=== PATIENT | female | born 1940 | race Caucasian/White ===

== ENCOUNTER 2017-09-27 18:39 | Emergency (ER) | payer MEDICARE, SELFPAY ==
[2017-09-27 18:40] VITALS: BP 103/88; PULSE 60; RESP 18; TEMP 36.3; O2SAT 99; BMI 23.8
[2017-09-27] MEDS: Ondansetron 4 MG/2 ML Vial IV (19:07)
--- NOTE | 2017-09-27 20:18 | RAD_ITS ---
STUDY: X-RAY - RIGHT SHOULDER REASON FOR EXAM: Female, 77 years old. Pain after fall. TECHNIQUE: 2 view(s) of the shoulder. COMPARISON: None. FINDINGS: There is a subluxation appearance of the glenohumeral articulation. There is degenerative arthrosis of the acromioclavicular joint without inferior osseous spur formation. Normal acromion. Comminuted fracture of the surgical neck of the humerus is present with angulation. The soft tissue structures are unremarkable. Normal visualized pulmonary apex. RAD/Shoulder min 2 Views IMPRESSION: Comminuted fracture of the surgical neck of the humerus with likely subluxed humeral head and glenohumeral joint, recommend orthopedic consultation for further assessment and management. Electronically Signed: Yordan Lyn DO at 22:27 EST , Service support ,
--- NOTE | 2017-09-27 20:33 | CT_ITS ---
STUDY: CT RIGHT SHOULDER REASON FOR EXAM: Female, 77 years old. Fracture RADIATION DOSAGE (If Supplied By Facility): CTDIvol = ( 24.58 ) mGy, DLP = ( 413.10 ) mGycm TECHNIQUE: The patient was scanned in a multi detector CT scanner. High resolution transaxial imaging was performed without the administration of intravenous contrast material. Sagittal and coronal images were reconstructed. Individualized dose optimization techniques were used for this CT. COMPARISON: None. FINDINGS: Normal glenohumeral articulation. Normal glenoid rim, neck and visualized scapula. There is a comminuted impacted fracture of the right humeral neck. Normal coracoid process. Normal visualized lateral clavicle. Normal acromioclavicular articulation. There is a Type II morphology (curved), with a neutral orientation. Normal visualized muscles and soft tissue structures. CT/Extremity Upper without Contra IMPRESSION: Comminuted impacted fracture of the right humeral neck. Electronically Signed: Jermaine Dc MD at 21:27 EST , Service support ,
[2017-09-27 20:39] VITALS: BP 106/60; PULSE 61; RESP 14; O2SAT 98
[2017-09-27] MEDS: HYDROmorphone 1 MG/ML Syringe 0.5 MG IV (20:41)
--- NOTE | 2017-09-27 21:59 | ED.VISSUMM ---
- ER Visit Summary Date of Service: 09/27/17 Chief Complaint: Right shoulder injury History of Present Illness: The patient is a 77 F who slipped and fell on the ice tonight. She states that she fell into her sliding glass door and her right shoulder hit the ground. No loss of consciousness. She states that the only place that she is hurting is the right shoulder. She is right-handed. Limited range of motion. Physical Examination: Afebrile vital signs are stable Gen: Well-nourished well-developed Head: Normocephalic atraumatic Eyes: Perrl EOMI ENT: TMs clear no rhinorrhea moist mucous membranes Neck: Supple no lymphadenopathy no JVD nontender CVS: Regular rate rhythm no murmurs normal S1-S2 Respiratory: No distress clear to auscultation bilaterally chest nontender Abdomen: Soft nontender nondistended normal bowel sounds no masses Back: Nontender Extremity: Right shoulder is tender to palpation with extremely limited range of motion. Sensation is preserved for the deltoid, ulnar median and radial nerves. Vascularly intact distally. Skin: Normal color no rash Neuro: alert orientated ?3 CN II-XII intact normal strength sensation reflexes gait cerebellar Psych: Normal affect normal mood Test Results: Shoulder films demonstrate an impacted comminuted proximal humerus fracture. CT of the shoulder was performed which does not demonstrate any dislocation. Noted fracture as the films demonstrated. Emergency Department Course and Treatment: Patient received morphine and Dilaudid for pain. Sling was recommended as was pain medicine at home. She is seeing Dr. Huffman in the past and would like to see him again for this injury. Patient will be prescribed oxycodone and return instructions and medication side effects were discussed including but not limited to constipation and confusion. Impression: 1. Right closed impacted comminuted proximal humerus fracture This note was generated with [employer] dictation software. It may contain incorrect words, spelling, and punctuation that were not noted in review of the chart prior to signing ED Disposition - Plan for ED Patient: Disposition: Home or Assisted Living Chief Complaint: Upper Extremity Injury Instructions: ED Fx Shoulder Prescriptions: Oxycodone [Oxyir] 5 - 10 mg PO Q6H PRN PRN 4 Days #20 tab PRN Reason: Pain Referrals: Rocío Chu DO [Primary Care Provider] - Maurice Aiken MD [STAFF PHYSICIAN] - (call in am to arrange follow up)
[2017-09-27] MEDS: oxyCODONE 5 MG Tablet PO (22:25)
[2017-09-27 22:26] VITALS: BP 145/63; PULSE 60; RESP 16; O2SAT 100
== END 2017-09-27 22:50 | disposition home or self-care (01) ==
PROVIDERS: Emergency Provider Emergency Medicine; Family Provider Internal Medicine; PCP Internal Medicine
DX: S42.211A Unspecified displaced fracture of surgical neck of right humerus, initial encounter for closed fracture (principal); W00.0XXA Fall on same level due to ice and snow, initial encounter; Y93.9 Activity, unspecified; Y92.009 Unspecified place in unspecified non-institutional (private) residence as the place of occurrence of the external cause; Z87.891 Personal history of nicotine dependence
CPT/HCPCS: 73030; 73200; 96374; 96375; 99285; A4216; J2405

== ENCOUNTER 2018-02-25 11:23 | Observation (INO) | payer MEDICARE, SELFPAY ==
[2018-02-25] VITALS (7 sets, daily range): BP systolic 123–151; BP diastolic 55–74; PULSE 57–72; RESP 14–17; TEMP 36.4–36.9; O2SAT 95–100; BMI 22.8; BMI 21.0; BMI 21.1
--- NOTE | 2018-02-25 11:49 | CT_ITS ---
STUDY: CT BRAIN WITHOUT CONTRAST REASON FOR EXAM: Female, 77 years old. Confusion. Fall. RADIATION DOSAGE (If Supplied By Facility): CTDIvol = ( 44.99 ) mGy, DLP = ( 1524.73 ) mGycm TECHNIQUE: Transaxial CT imaging of the brain was performed without administration of intravenous contrast material. Individualized dose optimization techniques were used for this CT. COMPARISON: None. FINDINGS: There is right periorbital soft tissue swelling. Normal calvarium. Normal size ventricles and extra-axial spaces for the patient's age. There are areas of decreased attenuation within the white matter tracts of the supratentorial brain, consistent with microvascular disease changes. Normal basal ganglia and thalami. Normal brainstem. Normal cerebellum. There is no intracranial hemorrhage. There are no findings of an acute ischemic infarction. Normal visualized paranasal sinuses. CT/Brain/Head without Contrast IMPRESSION: Chronic involutional changes of the brain. Electronically Signed: Matias Menard MD at 12:39 EDT , Service support ,
--- NOTE | 2018-02-25 11:58 | ED.VISSUMM ---
- ER Visit Summary Date of Service: 02/25/18 Chief Complaint: Fall History of Present Illness: The patient is a 77 F who presents after a fall that occurred today. Patient does not remember any of the events around the fall. states that patient tripped and fell forward. Patient did hit the right side of her head. Patient admits to loss of consciousness for a few minutes. Patient states the pain is worse over the right side of her head and right wrist. Patient states the pain is worse with movement of her right wrist. Patient denies any visual changes. Patient denies any chest pain. Patient denies any nausea or vomiting. Patient denies any paresthesias or weakness. Physical Examination: Vital signs are stable. Patient is afebrile. Patient is in no acute distress. Cranial nerves II through XII are intact. Strength is 5/5 bilateral in the upper and lower extremities. There are no sensory deficits noted. Musculoskeletal exam reveals tenderness over the right wrist. Range of motion was limited in all motions of the right wrist secondary to pain. Skin is warm and dry. There is an abrasion over the lateral aspect of the right foot. There is no active bleeding. There is no tenderness over the foot. There is edema and ecchymosis over the right periorbital area. There is no bony crepitance or step-off. Pupils are equal, round, and reactive to light bilateral. Extraocular muscles are intact. Conjunctiva is clear. Oral mucosa is pink and moist. Neck is supple. Trachea is midline. There is no JVD or lymphadenopathy noted. Heart was regular rate and rhythm. Lungs are clear and equal bilaterally. Patient is somewhat confused on exam. Patient is unable to remember her past medical history, past surgical history, medications, or allergies. Test Results: CBC, basic metabolic profile, PT with INR, and PTT were obtained and were within normal limits. CT scan of the brain was obtained. There is no acute intracranial abnormality noted. X-rays of the right wrist were obtained. There is a nondisplaced fracture of the radius and ulnar styloid. There is some mild dorsal angulation of the distal radius. Emergency Department Course and Treatment: Patient is still somewhat confused. Case was discussed with Dr. Cleary. She will admit the patient to her service. Case was also discussed with Dr. Swenson from orthopedics. He recommended placing the patient in an AP splint and he will follow-up with the patient in the office. Patient and family understood and were agreeable with the plan. All questions were answered. Disposition: Admit to hospital Impression: Concussion, right distal radius fracture This note was generated with [employer] dictation software. It may contain incorrect words, spelling, and punctuation that were not noted in review of the chart prior to signing ED Disposition - Plan for ED Patient: Disposition: Acute Care Hospital [facility] Chief Complaint: Fall Diagnosis: Concussion with < 1 hr loss of consciousness, Fracture of distal end of right radius and ulna Referrals: Rocío Chu DO [Primary Care Provider] -
[2018-02-25 12:04] LABS: Absolute Lymphocyte Count 1.05 X10^3/ul (0.83-4.51); Absolute Neutrophil Count 2.9 X10^3/uL (2.0-7.7); Basophil# 0.01 X10^3/uL; Basophil% 0.2 % (0-1); Eosinophil# 0.04 X10^3/uL; Eosinophils% 0.9 % (0-5); Hematocrit 40.2 % (37-47); Lymphocyte # 1.05 X10^3/ul (4.0); Lymphocyte % 24.8 % (19-41); Mean Corp Hgb Conc 32.3 g/gl (32-36); Mean Corpuscular Hgb 29.3 pg (27.0-32.0); Mean Corpuscular Volume 90.5 fL (81-99); Mean Platelet Vol. 8.8 fl (6.2-12.0); Monocyte# 0.22 X10^3/uL; Monocyte% 5.2 % (0-10); Neutrophil # 2.92 X10^3/uL (2.7-7.7); Neutrophil % 68.9 % (47-70); Partial Thromboplast Time 31.4 Seconds (24.1-36.2); Platelet Count 184 K/mm3 (150-450); RBC Distribution Width CV 13.3 % (11.6-14.6); RBC Distribution Width SD 44.1 fl (35.1-43.9); Red Blood Count 4.44 M/mm3 (4.2-5.4); White Blood Count 4.2 K/mm3 (4.4-11.0)
[2018-02-25 12:06] LABS: Anion Gap 9 (5-15); BUN 10 mg/dL (7-18); BUN/Creat Ratio 17.2 RATIO (10-20); Calcium,Total 8.7 mg/dL (8.5-10.1); Chloride 103 mmol/L (98-107); Creatinine, Serum 0.58 mg/dL (0.55-1.02); EST Glomerular Filtration Rate 107 mL/min (>60); Est Glom Filt Rate - Afr Amer 129 mL/min (>60); Estimated Creatinine Clearance 46.77 ml/min; Glucose 98 mg/dL (74-106); Sodium Level 141 mmol/L (136-145)
[2018-02-25 12:24] LABS: POSITIVE COUNT NO; POSITIVE DIFFERENTIAL NO; POSITIVE MORPHOLOGY NO
--- NOTE | 2018-02-25 12:28 | RAD_ITS ---
STUDY: X-RAY - RIGHT WRIST REASON FOR EXAM: Female, 77 years old. Fall. Swelling. TECHNIQUE: 3 view(s) of the wrist were obtained. COMPARISON: None. FINDINGS: There is demineralization of the radius and ulna. Distal radius fracture with dorsal angulation. Nondisplaced ulnar styloid fracture. Normal radiocarpal articulation. Normal distal radioulnar articulation. There is demineralization of the carpal bones. Normal carpal articulations. Normal carpometacarpal articulation of the thumb. Normal second through fifth carpometacarpal articulations. Normal visualized metacarpal bones. The soft tissue structures are unremarkable. RAD/Wrist min 3 Views IMPRESSION: Distal radius and ulna styloid fractures. Electronically Signed: Matias Menard MD at 13:22 EDT , Service support ,
[2018-02-25] MEDS: Diphth,Pertuss(Acell),Tet Vac 0.5 ML Vial IM (13:22)
--- NOTE | 2018-02-25 13:49 | PCM.HP.STD ---
Problem List (1) Syncope Status: Acute Qualifiers: Encounter type: initial encounter (2) Wrist fracture Status: Acute Qualifiers: Encounter type: initial encounter Fracture type: closed Laterality: right Qualified Code(s): S62.101A - Fracture of unspecified carpal bone, right wrist, initial encounter for closed fracture History of Present Illness Date of Admission: 02/25/18 Chief Complaint: Fall, Questionable syncope- today The patient is a 77 year old F with no significant past medical history, who was having coffee in [facility] with her . She got up to go slat pickler something from their car. Her waited for her for a while and when she was not coming back he followed up. He found her sitting on the curbside with people around him. Patient has no recollection of what happened prior to that. She knows she was feeling well the morning. Since admission to the ED she has been repeatedly asked in what happened. She was said to be oriented only to person according to the EMS. Her blood sugar was 95. She was saturating 97% on room air. Vitals in the ED was stable with temperature 97.6 F, blood pressure 129/70, respiratory rate of 17, his PO2 was 99% on room air. Admitting blood work was essentially unremarkable except for mild neutropenia. CT scan of the brain showed chronic ambulatory changes of the brain, right periorbital soft tissue swelling. X-ray of the wrist shows distal radial fracture with dorsal angulation as well as nondisplaced ulnar styloid fracture Past Medical History Allergies iodine Allergy (Verified 02/25/18 11:24) Hives aspirin Adverse Reaction (Verified 02/25/18 11:24) Upset Stomach Home Medications: Ambulatory Orders Medication Instructions Recorded Calcium 1 tab DAILY 09/27/17 One Daily Womens 50 Plus Tab 1 tab DAILY 09/27/17 Vitamin B Complex 1 tab DAILY 09/27/17 Vitamin C 1 tab DAILY 09/27/17 Vitamin D 1 tab PO DAILY 09/27/17 Vitamin E 1 tab DAILY 09/27/17 Surgical History: no surgical history Psychiatric History: No pertinent psych hx 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 Lives: Spouse/ Significant Other Smoking Status: Former smoker Tobacco Use: Non-smoker Alcohol: None Drugs: None - *Family History Maternal History Items: Unknown - was an orphan Paternal History Items: Unknown - was an orphan Review of Systems Constitutional: Denies: Anorexia, Chills, Fever, Malaise, Weakness, Weight Change Eyes: Denies: Blurred vision, Cataracts, Conjunctivae Inflammation, Pain, Redness, Vision Change HEENT: Denies: Difficulty Hearing, Difficulty Swallowing, Head Aches, Hearing Changes, Sinus Congestion, Sinus Drainage, Sore Throat Cardiovascular: Denies: Chest Pain, Claudication, Chest Pressure, Chest Tightness, Orthopnea, Palpitations, Paroxysmal Noc. Dyspnea Respiratory: Denies: Cough, Hemoptysis, Shortness of breath at rest, Shortness of breath upon exertion, Sputum production Gastrointestinal: Denies: Abdominal Pain, Constipation, Hematemesis, Hematochezia, Nausea, Vomiting Genitourinary: Denies: Dysuria, Frequency, Incontinence Musculoskeletal: Denies: Arm Pain, Back Pain, Joint Pain, Joint stiffness, Joint swelling, Joint Tenderness Skin: Denies: Rash, Wounds Neurological: Denies: Numbness, Tingling, Focal weakness Psychiatric: Denies: Anxiety, Depression, Homicidal Ideations, Suicidal Ideations Hematologic/ Lymphatic: Denies: Easy Bruising, Easy Bleeding VTE Information - Inpt Only VTE Present on Admission: No VTE Pharm Prophylaxis ordered?: Yes Patient Problems: Active and Suspected Problems Syncope (Acute) Wrist fracture (Acute) - Physical Exam General: Alert - intermittently, Cooperative, Confused HEENT: Atraumatic, PERRLA, EOMI, Normocephalic, - - right periorbital edema with bruising over the orbital ridge, maxillary region Oral: Moist Mucosa Neck: Supple, No JVD, Negative Carotid Bruits Lungs: Clear to auscultation, Normal air movement Cardiovascular: Regular rate, Regular Rhythm, Normal S1, Normal S2, No murmurs Abdomen: Bowel Sounds Present, Soft, Non Tender, Non-Distended, No Hepato-splenomegaly Extremities: No edema Skin: No breakdown Musculoskeletal: No Tenderness to Palpation of Joints or Extremities Lymphatic: No Cervical, Supraclavicular, or Inguinal Adenopathy Neurological: Cranial nerves II-XII grossly intact, Neuro grossly intact Psych/Mental Status: Normal Affect, Appropriate Vital Signs Temp Pulse Resp BP Pulse Ox 97.6 F L 66 17 129/70 H 99 02/25/18 11:25 02/25/18 11:25 02/25/18 11:25 02/25/18 11:25 02/25/18 11:25 Oxygen Delivery Method Room Air Weight: 68.039 kg Body Mass Index (BMI) 22.8 Laboratory Tests Past 24 Hrs 02/25/18 02/25/18 02/25/18 11:35 11:35 11:35 WBC 4.2 L RBC 4.44 Hgb 13.0 Hct 40.2 MCV 90.5 MCH 29.3 MCHC 32.3 RDW 13.3 RDW Differential 44.1 H Plt Count 184 MPV 8.8 Immature Gran % (Auto) 0.000 Neut % (Auto) 68.9 Lymph % (Auto) 24.8 [place] % (Auto) 5.2 Eos % (Auto) 0.9 Baso % (Auto) 0.2 Absolute Neuts (auto) 2.9 Absolute Lymphs (auto) 1.05 Total Counted Not Reportable PT 13.0 INR 1.0 APTT 31.4 Sodium 141 Potassium 4.0 Chloride 103 Carbon Dioxide 29.0 Anion Gap 9 BUN 10 Creatinine 0.58 Estim Creat Clear Calc 46.77 Est GFR (MDRD) Af Amer 129 Est GFR (MDRD) Non-Af 107 BUN/Creatinine Ratio 17.2 Glucose 98 Calcium 8.7 Assessment/Plan All Active Problems Syncope (Acute) Wrist fracture (Acute) 77 year old F with no significant past medical history, who was having coffee in [facility] with her , when she got up to go slat pickler something from their car and fell and had ?syncope. 1. Fall/?syncope, unclear etiology, no significant medical history, normal vitals on arrival. Unremarkable blood work. Plan: Admit to PCU, EKG, 2D echo, orthostatic vitals, trend troponins, 2. Possible concussion, patient has a memory lapse, CT scan of the brain is negative, will consult neurology. 3. Right wrist fracture, x-ray of wrist showed right distal radial fracture with dorsal angulation, nondisplaced ulnar styloid fracture 4. DVT PPx- Lovenox SC Code Visit Inpatient E&M: 60434 Init Hosp L3
--- NOTE | 2018-02-25 14:05 | HP.PCM_ITS ---
Problem List (1) Syncope Status: Acute Qualifiers: Encounter type: initial encounter (2) Wrist fracture Status: Acute Qualifiers: Encounter type: initial encounter Fracture type: closed Laterality: right Qualified Code(s): S62.101A - Fracture of unspecified carpal bone, right wrist, initial encounter for closed fracture History of Present Illness Date of Admission: 02/25/18 Chief Complaint: Fall, Questionable syncope- today The patient is a 77 year old F with no significant past medical history, who was having coffee in [facility] with her . She got up to go last picker something from their car. Her waited for her for a while and when she was not coming back he followed up. He found her sitting on the curbside with people around him. Patient has no recollection of what happened prior to that. She knows she was feeling well the morning. Since admission to the ED she has been repeatedly asked in what happened. She was said to be oriented only to person according to the EMS. Her blood sugar was 95. She was saturating 97% on room air. Vitals in the ED was stable with temperature 97.6 F, blood pressure 129/70, respiratory rate of 17, his PO2 was 99% on room air. Admitting blood work was essentially unremarkable except for mild neutropenia. CT scan of the brain showed chronic ambulatory changes of the brain, right periorbital soft tissue swelling. X-ray of the wrist shows distal radial fracture with dorsal angulation as well as nondisplaced ulnar styloid fracture Past Medical History Allergies iodine Allergy (Verified 02/25/18 11:24) Hives aspirin Adverse Reaction (Verified 02/25/18 11:24) Upset Stomach Home Medications: Ambulatory Orders Medication Instructions Recorded Calcium 1 tab DAILY 09/27/17 One Daily Womens 50 Plus Tab 1 tab DAILY 09/27/17 Vitamin B Complex 1 tab DAILY 09/27/17 Vitamin C 1 tab DAILY 09/27/17 Vitamin D 1 tab PO DAILY 09/27/17 Vitamin E 1 tab DAILY 09/27/17 Surgical History: no surgical history Psychiatric History: No pertinent psych hx 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 Lives: Spouse/ Significant Other Smoking Status: Former smoker Tobacco Use: Non-smoker Alcohol: None Drugs: None - *Family History Maternal History Items: Unknown - was an orphan Paternal History Items: Unknown - was an orphan Review of Systems Constitutional: Denies: Anorexia, Chills, Fever, Malaise, Weakness, Weight Change Eyes: Denies: Blurred vision, Cataracts, Conjunctivae Inflammation, Pain, Redness, Vision Change HEENT: Denies: Difficulty Hearing, Difficulty Swallowing, Head Aches, Hearing Changes, Sinus Congestion, Sinus Drainage, Sore Throat Cardiovascular: Denies: Chest Pain, Claudication, Chest Pressure, Chest Tightness, Orthopnea, Palpitations, Paroxysmal Noc. Dyspnea Respiratory: Denies: Cough, Hemoptysis, Shortness of breath at rest, Shortness of breath upon exertion, Sputum production Gastrointestinal: Denies: Abdominal Pain, Constipation, Hematemesis, Hematochezia, Nausea, Vomiting Genitourinary: Denies: Dysuria, Frequency, Incontinence Musculoskeletal: Denies: Arm Pain, Back Pain, Joint Pain, Joint stiffness, Joint swelling, Joint Tenderness Skin: Denies: Rash, Wounds Neurological: Denies: Numbness, Tingling, Focal weakness Psychiatric: Denies: Anxiety, Depression, Homicidal Ideations, Suicidal Ideations Hematologic/ Lymphatic: Denies: Easy Bruising, Easy Bleeding VTE Information - Inpt Only VTE Present on Admission: No VTE Pharm Prophylaxis ordered?: Yes Patient Problems: Active and Suspected Problems Syncope (Acute) Wrist fracture (Acute) - Physical Exam General: Alert - intermittently, Cooperative, Confused HEENT: Atraumatic, PERRLA, EOMI, Normocephalic, - - right periorbital edema with bruising over the orbital ridge, maxillary region Oral: Moist Mucosa Neck: Supple, No JVD, Negative Carotid Bruits Lungs: Clear to auscultation, Normal air movement Cardiovascular: Regular rate, Regular Rhythm, Normal S1, Normal S2, No murmurs Abdomen: Bowel Sounds Present, Soft, Non Tender, Non-Distended, No Hepato- splenomegaly Extremities: No edema Skin: No breakdown Musculoskeletal: No Tenderness to Palpation of Joints or Extremities Lymphatic: No Cervical, Supraclavicular, or Inguinal Adenopathy Neurological: Cranial nerves II-XII grossly intact, Neuro grossly intact Psych/Mental Status: Normal Affect, Appropriate Vital Signs Temp Pulse Resp BP Pulse Ox 97.6 F L 66 17 129/70 H 99 02/25/18 11:25 02/25/18 11:25 02/25/18 11:25 02/25/18 11:25 02/25/18 11:25 Oxygen Delivery Method Room Air Weight: 68.039 kg Body Mass Index (BMI) 22.8 Laboratory Tests Past 24 Hrs 02/25/18 02/25/18 02/25/18 11:35 11:35 11:35 WBC 4.2 L RBC 4.44 Hgb 13.0 Hct 40.2 MCV 90.5 MCH 29.3 MCHC 32.3 RDW 13.3 RDW Differential 44.1 H Plt Count 184 MPV 8.8 Immature Gran % (Auto) 0.000 Neut % (Auto) 68.9 Lymph % (Auto) 24.8 [place] % (Auto) 5.2 Eos % (Auto) 0.9 Baso % (Auto) 0.2 Absolute Neuts (auto) 2.9 Absolute Lymphs (auto) 1.05 Total Counted Not Reportable PT 13.0 INR 1.0 APTT 31.4 Sodium 141 Potassium 4.0 Chloride 103 Carbon Dioxide 29.0 Anion Gap 9 BUN 10 Creatinine 0.58 Estim Creat Clear Calc 46.77 Est GFR (MDRD) Af Amer 129 Est GFR (MDRD) Non-Af 107 BUN/Creatinine Ratio 17.2 Glucose 98 Calcium 8.7 Assessment/Plan All Active Problems Syncope (Acute) Wrist fracture (Acute) 77 year old F with no significant past medical history, who was having coffee in [facility] with her , when she got up to go last picker something from their car and fell and had ?syncope. 1. Fall/?syncope, unclear etiology, no significant medical history, normal vitals on arrival. Unremarkable blood work. Plan: Admit to PCU, EKG, 2D echo, orthostatic vitals, trend troponins, 2. Possible concussion, patient has a memory lapse, CT scan of the brain is negative, will consult neurology. 3. Right wrist fracture, x-ray of wrist showed right distal radial fracture with dorsal angulation, nondisplaced ulnar styloid fracture 4. DVT PPx- Lovenox SC Code Visit Inpatient E&M: 36917 Init Hosp L3
--- NOTE | 2018-02-25 14:40 | CM.ED ---
Social Work Note Into complete initial assessment as pt is to be admitted. Introduced self and role at [facility]. Pt is accompanied by her spouse, Maurice. Reports to live with her spouse in a one-story home with 2 MAUREEN. Denies access issues, and does not have DME. Pt reports to be independent with ADL's. According to the pt she does not remember what happened. Per Maurice they were at [facility] and the pt went to the car to retrieve an item and he believes that she tripped on the curb on her way back in and hit her head. Pt unable to confirm PCP at this time, but states it is no longer Dr. Chu. Preferred pharmacy is [facility]. Reports to have advanced directives completed and spouse to bring in to hospital during hospitalization for the medical chart. No hx of HHC or SNF and no anticipated needs at this time. RN DANELLE on assigned unit to follow and assist with discharge planning. Plan: PANDA Parker, PAPER SEALER, BLEACH CHLORINATOR
[2018-02-25] MEDS: Acetaminophen 500 MG Tablet PO (14:43)
--- NOTE | 2018-02-25 14:54 | EKG12_ITS ---
Test Reason : Blood Pressure : / mmHG Vent. Rate : 059 BPM Atrial Rate : 059 BPM P-R Int : 164 ms QRS Dur : 074 ms QT Int : 460 ms P-R-T Axes : 053 068 082 degrees QTc Int : 455 ms Sinus bradycardia Otherwise normal ECG When compared with ECG of 29-JUN-2017 01:11, No significant change was found Confirmed by ROSA KEITH, CHAYO ([id number]), department editor SANDRA MANCILLA ([id number] on 03/01/2018 3:05:45 PM Referred By: SAMIA Confirmed By:CHAYO LEE MD
--- NOTE | 2018-02-25 14:54 | ECHOD_ITS ---
Reason For Study: Syncope Procedure This was a 2D Doppler, Color Flow transthoracic echocardiogram. Exam performed portable in patient room. Left Ventricle Normal LV size. Left ventricular systolic function is normal. The estimated ejection fraction is 60 %. No evidence for diastolic dysfunction. No regional wall motion abnormalities noted. Right Ventricle Normal RV size. Normal systolic function. Atria Normal left atrium. Normal right atrium. Mitral Valve Normal mitral valve. Mild (1+) eccentric mitral valve insufficiency. Tricuspid Valve Normal tricuspid valve. Mild (1+) eccentric tricuspid valve insufficiency. Pulmonary artery systolic pressure is 42 mmHg. Pulmonic Valve Normal pulmonic valve. Great Vessels Normal aortic root. The pulmonary artery is normal size. Normal inferior vena cava. Pericardium/Pleural No pericardial effusion. Medication Performed a rapid injection of agitated mix of 9 cc saline and 1cc air to assess for atrial septal defect. MMode/2D Measurements & Calculations LVIDd: 3.8 cm IVSd: 1.1 cm LVOT diam: 2.0 cm LVIDs: 2.4 cm LVPWd: 0.90 cm LVOT area: 3.1 cm2 RVDd: 3.6 cm FS: 38.1 % Ao root diam: 2.8 cm LAV(MOD-bp): 36.5 ml LA A4 area: 17.3 cm2 LA dimension: 3.1 cm LAV(MOD-bp) Indexed: 20.2 ml/m2 LAV(MOD-sp2): 28.4 ml LAV(MOD-sp4): 42.3 ml RA A4 area: 16.9 cm2 Time Measurements MV dec time: 0.23 sec Doppler Measurements & Calculations MV E max dajuan: 93.8 cm/sec Lat Peak E' Dajuan: 12.8 cm/sec Med Peak E' Dajuan: 14.7 cm/sec MV A max dajuan: 63.1 cm/sec E/E' lat: 7.3 E/E' med: 6.4 MV E/A: 1.5 MV V2 max: 113.6 cm/sec MV P1/2t max dajuan: 116.5 cm/sec Ao V2 max: 184.2 cm/sec MV max P.2 mmHg MV P1/2t: 114.9 msec Ao max P.6 mmHg MV V2 mean: 56.9 cm/sec MV dec slope: 297.2 cm/sec2 Ao V2 mean: 115.3 cm/sec MV mean P.6 mmHg MVA(P1/2t): 1.9 cm2 Ao mean P.1 mmHg MV V2 VTI: 33.4 cm Ao V2 VTI: 40.3 cm MVA(VTI): 2.0 cm2 ANTONIETA(I,D): 1.6 cm2 ANTONIETA(V,D): 1.5 cm2 LV V1 max: 88.4 cm/sec SV(LVOT): 65.6 ml PA V2 max: 136.8 cm/sec LV V1 max P.1 mmHg LV V1 mean P.5 mmHg LV V1 mean: 56.2 cm/sec LV V1 VTI: 21.3 cm TR max dajuan: 310.6 cm/sec TR max P.6 mmHg Interpretation Summary Normal LV size. Left ventricular systolic function is normal. The estimated ejection fraction is 60 %. No evidence for diastolic dysfunction. Mild (1+) eccentric tricuspid valve insufficiency. Mild (1+) eccentric mitral valve insufficiency. Ordering Physician: Colette Cleary Referring Physician: Rocío Chu Performed By: Manav Gonzáles RCS
[2018-02-25] MEDS: Acetaminophen 500 MG Tablet 1000 MG PO (17:41)
[2018-02-25] MEDS: Zolpidem Tartrate 5 MG Tablet PO (22:03)
[2018-02-25] MEDS: Morphine 2 MG/ML Syringe IV (22:03)
[2018-02-25] MEDS: 0.9% NaCl Peripheral Flush Adult/Peds IV (22:04)
[2018-02-26] VITALS (13 sets, daily range): BP systolic 98–128; BP diastolic 49–88; PULSE 56–76; RESP 14–16; TEMP 36.8–37.2; O2SAT 93–96
[2018-02-26] MEDS: Acetaminophen 500 MG Tablet 1000 MG PO ×2 (06:02→13:35)
[2018-02-26 06:49] LABS: Absolute Lymphocyte Count 0.93 X10^3/ul (0.83-4.51); Absolute Neutrophil Count 4.8 X10^3/uL (2.0-7.7); Basophil# 0.02 X10^3/uL; Basophil% 0.3 % (0-1); Eosinophil# 0.05 X10^3/uL; Eosinophils% 0.8 % (0-5); Hematocrit 36.9 % (37-47); Hemoglobin 12.1 g/dl (12.0-15.0); Lymphocyte # 0.93 X10^3/ul (4.0); Lymphocyte % 14.9 % (19-41); Mean Corp Hgb Conc 32.8 g/gl (32-36); Mean Corpuscular Hgb 29.7 pg (27.0-32.0); Mean Corpuscular Volume 90.7 fL (81-99); Mean Platelet Vol. 8.6 fl (6.2-12.0); Monocyte% 6.4 % (0-10); Neutrophil # 4.84 X10^3/uL (2.7-7.7); Neutrophil % 77.6 % (47-70); Platelet Count 163 K/mm3 (150-450); RBC Distribution Width CV 13.4 % (11.6-14.6); RBC Distribution Width SD 44.4 fl (35.1-43.9); Red Blood Count 4.07 M/mm3 (4.2-5.4); White Blood Count 6.2 K/mm3 (4.4-11.0)
[2018-02-26] MEDS: 0.9% Normal Saline 1,000 ML 100 ML IV ×3 (06:55→21:31)
[2018-02-26 07:19] LABS: Anion Gap 6 (5-15); BUN 10 mg/dL (7-18); BUN/Creat Ratio 18.1 RATIO (10-20); Calcium,Total 8.4 mg/dL (8.5-10.1); Chloride 105 mmol/L (98-107); Creatinine, Serum 0.55 mg/dL (0.55-1.02); EST Glomerular Filtration Rate 112 mL/min (>60); Est Glom Filt Rate - Afr Amer 136 mL/min (>60); Estimated Creatinine Clearance 46.02 ml/min; Glucose 89 mg/dL (74-106); POSITIVE COUNT NO; POSITIVE DIFFERENTIAL NO; POSITIVE MORPHOLOGY NO; Potassium 3.9 mmol/L (3.5-5.1); Sodium Level 140 mmol/L (136-145)
[2018-02-26] MEDS: Enoxaparin 40 MG/0.4 ML Syringe SC (09:34)
--- NOTE | 2018-02-26 11:16 | PCM.PN.HOSP ---
Patient Problems: Active and Suspected Problems Syncope (Acute) Wrist fracture (Acute) Concussion with < 1 hr loss of consciousness (Acute) Fracture of distal end of right radius and ulna (Acute) Subjective: Patient was seen and examined. Complains of headache. Tylenol given is not helping. Denies fever or chills. She is alert oriented ?5. Orthostatic hypotension are positive. Vitals/I&O's: Vital Signs Temp Pulse Resp BP Pulse Ox 98.7 F 64 16 102/61 94 02/26/18 08:55 02/26/18 08:55 02/26/18 08:55 02/26/18 08:55 02/26/18 08:55 Oxygen Delivery Method Room Air Weight: 62.868 kg Body Mass Index (BMI) 21.0 Orthostatic Vital Signs Start: 02/25/18 15:22 Freq: q24h Status: Active Protocol: Activity Type Activity Date Activity User E-Sign Co-Sign Detail Recorded Client Recorded Date Recorded By Document 02/26/18 05:55 CAD [id number] 02/26/18 06:01 CAD 02/26/18 05:55 Orthostatic Vitals Standing -Blood Pressure (90/60-120/80 mm Hg) 116/55 L -Extremity Use Right Arm -Pulse Rate (60-100 beats/min) 76 Sitting -Blood Pressure (90/60-120/80 mm Hg) 113/88 H -Extremity Use Right Arm -Pulse Rate (60-100 beats/min) 65 Lying -Blood Pressure (90/60-120/80 mm Hg) 98/54 L -Extremity Use Left Arm -Pulse Rate (60-100 beats/min) 61 Intake and Output for Last 24 Hours 02/24/18 02/25/18 02/26/18 23:59 23:59 23:59 Intake Total 100 / 100 180 / 180 Balance 100 / 100 180 / 180 General: Alert, Oriented x3, Cooperative, No apparent distress HEENT: Atraumatic, PERRLA, EOMI, Normocephalic Oral: Moist Mucosa Neck: Supple Lungs: Clear to auscultation, Normal air movement Cardiovascular: Regular rate, Regular Rhythm, Normal S1, Normal S2, No murmurs Abdomen: Bowel Sounds Present, Soft, Non Tender, Non-Distended, No Hepato-splenomegaly Extremities: No edema Skin: No rashes, No breakdown Musculoskeletal: No Tenderness to Palpation of Joints or Extremities Lymphatic: No Cervical, Supraclavicular, or Inguinal Adenopathy Neurological: Cranial nerves II-XII grossly intact, Neuro grossly intact Psych/Mental Status: Normal Affect, Appropriate Laboratory Results 02/25/18 17:38: Troponin I < 0.015 02/25/18 20:48: Troponin I < 0.015 02/25/18 22:46: Troponin I < 0.015 02/26/18 06:25: WBC 6.2, RBC 4.07 L, Hgb 12.1, Hct 36.9 L, MCV 90.7, MCH 29.7, MCHC 32.8, RDW 13.4, RDW Differential 44.4 H, Plt Count 163, MPV 8.6, Immature Gran % (Auto) 0.000, Neut % (Auto) 77.6 H, Lymph % (Auto) 14.9 L, [place] % (Auto) 6.4, Eos % (Auto) 0.8, Baso % (Auto) 0.3, Absolute Neuts (auto) 4.8, Absolute Lymphs (auto) 0.93, Total Counted Not Reportable 02/26/18 06:25: Sodium 140, Potassium 3.9, Chloride 105, Carbon Dioxide 29.0, Anion Gap 6, BUN 10, Creatinine 0.55, Estim Creat Clear Calc 46.02, Est GFR (MDRD) Af Amer 136, Est GFR (MDRD) Non-Af 112, BUN/Creatinine Ratio 18.1, Glucose 89, Calcium 8.4 L Current Medications Acetaminophen (Tylenol) 1,000 mg PO TID [facility] Last Admin: 02/26/18 06:02 Dose: 1,000 mg Bisacodyl (Dulcolax) 5 mg PO DAILY PRN PRN PRN Reason: Constipation Enoxaparin Sodium (Lovenox) 40 mg SC DAILY@1000 [facility] Last Admin: 02/26/18 09:34 Dose: 40 mg Sodium Chloride () 1,000 mls @ 100 mls/hr IV .Q10H [facility] Last Admin: 02/26/18 06:55 Dose: 100 mls/hr Magnesium Hydroxide (Milk Of Magnesia) 30 ml PO DAILY PRN PRN PRN Reason: Constipation Morphine Sulfate () 2 - 4 mg IV Q4H PRN PRN PRN Reason: SEVERE PAIN (6-10/10) Morphine Sulfate () 2 - 4 mg IV Q4H PRN PRN PRN Reason: SEVERE PAIN (6-10/10) Last Admin: 02/25/18 22:03 Dose: 2 mg Ondansetron HCl (Zofran) 4 mg IV Q8H PRN PRN PRN Reason: NAUSEA Psyllium Hydrophilic Mucilloid (Metamucil) 1 packet PO DAILY PRN PRN PRN Reason: CONSTIPATION Sodium Chloride () 5 - 30 ml IV UD PRN PRN Reason: SALINE FLUSH Last Admin: 02/25/18 22:04 Dose: 10 ml Zolpidem Tartrate (Ambien (Generic)) 5 mg PO QHS PRN PRN PRN Reason: SLEEPING AID Last Admin: 02/25/18 22:03 Dose: 5 mg Medical Necessity - Tobacco Use Smoking Status: Former smoker Tobacco Use: Non-smoker Assessment/Plan All Active Problems Syncope (Acute) Wrist fracture (Acute) Concussion with < 1 hr loss of consciousness (Acute) Fracture of distal end of right radius and ulna (Acute) 77 year old F with no significant past medical history, who was having coffee in [facility] with her , when 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 1. Fall/?syncope, likely related to orthostatic hypotension, no significant medical history, orthostatic vitals are positive this morning 2D echo is normal, EKG shows normal sinus rhythm, no acute ST-T changes, no events seen on telemetry overnight Plan: We will hydrate patient, 2 50 cc bolus ?1, continue on 100 cc an hour, encourage patient to take liberal fluids, repeat orthostatic vitals later 2. Possible concussion, patient has a memory lapse, CT scan of the brain is negative, neurology consulted. 3. Right wrist fracture, x-ray of wrist showed right distal radial fracture with dorsal angulation, nondisplaced ulnar styloid fracture, status post splint, patient will follow up with orthopedics in the outpatient. 4. DVT PPx- Lovenox SC Code Visit Inpatient E&M: 72092 Subs Hosp L2
--- NOTE | 2018-02-26 11:23 | PN_ITS ---
Patient Problems: Active and Suspected Problems Syncope (Acute) Wrist fracture (Acute) Concussion with < 1 hr loss of consciousness (Acute) Fracture of distal end of right radius and ulna (Acute) Subjective: Patient was seen and examined. Complains of headache. Tylenol given is not helping. Denies fever or chills. She is alert oriented ?5. Orthostatic hypotension are positive. Vitals/I&O's: Vital Signs Temp Pulse Resp BP Pulse Ox 98.7 F 64 16 102/61 94 02/26/18 08:55 02/26/18 08:55 02/26/18 08:55 02/26/18 08:55 02/26/18 08:55 Oxygen Delivery Method Room Air Weight: 62.868 kg Body Mass Index (BMI) 21.0 Orthostatic Vital Signs Start: 02/25/18 15:22 Freq: q24h Status: Active Protocol: Activity Type Activity Date Activity User E-Sign Co-Sign Detail Recorded Client Recorded Date Recorded By Document 02/26/18 05:55 CAD [id number] 02/26/18 06:01 CAD 02/26/18 05:55 Orthostatic Vitals Standing -Blood Pressure (90/60-120/80 mm Hg) 116/55 L -Extremity Use Right Arm -Pulse Rate (60-100 beats/min) 76 Sitting -Blood Pressure (90/60-120/80 mm Hg) 113/88 H -Extremity Use Right Arm -Pulse Rate (60-100 beats/min) 65 Lying -Blood Pressure (90/60-120/80 mm Hg) 98/54 L -Extremity Use Left Arm -Pulse Rate (60-100 beats/min) 61 Intake and Output for Last 24 Hours 02/24/18 02/25/18 02/26/18 23:59 23:59 23:59 Intake Total 100 / 100 180 / 180 Balance 100 / 100 180 / 180 General: Alert, Oriented x3, Cooperative, No apparent distress HEENT: Atraumatic, PERRLA, EOMI, Normocephalic Oral: Moist Mucosa Neck: Supple Lungs: Clear to auscultation, Normal air movement Cardiovascular: Regular rate, Regular Rhythm, Normal S1, Normal S2, No murmurs Abdomen: Bowel Sounds Present, Soft, Non Tender, Non-Distended, No Hepato- splenomegaly Extremities: No edema Skin: No rashes, No breakdown Musculoskeletal: No Tenderness to Palpation of Joints or Extremities Lymphatic: No Cervical, Supraclavicular, or Inguinal Adenopathy Neurological: Cranial nerves II-XII grossly intact, Neuro grossly intact Psych/Mental Status: Normal Affect, Appropriate Laboratory Results 02/25/18 17:38: Troponin I < 0.015 02/25/18 20:48: Troponin I < 0.015 02/25/18 22:46: Troponin I < 0.015 02/26/18 06:25: WBC 6.2, RBC 4.07 L, Hgb 12.1, Hct 36.9 L, MCV 90.7, MCH 29.7, MCHC 32.8, RDW 13.4, RDW Differential 44.4 H, Plt Count 163, MPV 8.6, Immature Gran % (Auto) 0.000, Neut % (Auto) 77.6 H, Lymph % (Auto) 14.9 L, [place] % (Auto) 6.4, Eos % (Auto) 0.8, Baso % (Auto) 0.3, Absolute Neuts (auto) 4.8, Absolute Lymphs (auto) 0.93, Total Counted Not Reportable 02/26/18 06:25: Sodium 140, Potassium 3.9, Chloride 105, Carbon Dioxide 29.0, Anion Gap 6, BUN 10, Creatinine 0.55, Estim Creat Clear Calc 46.02, Est GFR ( MDRD) Af Amer 136, Est GFR (MDRD) Non-Af 112, BUN/Creatinine Ratio 18.1, Glucose 89, Calcium 8.4 L Current Medications Acetaminophen (Tylenol) 1,000 mg PO TID [facility] Last Admin: 02/26/18 06:02 Dose: 1,000 mg Bisacodyl (Dulcolax) 5 mg PO DAILY PRN PRN PRN Reason: Constipation Enoxaparin Sodium (Lovenox) 40 mg SC DAILY@1000 [facility] Last Admin: 02/26/18 09:34 Dose: 40 mg Sodium Chloride () 1,000 mls @ 100 mls/hr IV .Q10H [facility] Last Admin: 02/26/18 06:55 Dose: 100 mls/hr Magnesium Hydroxide (Milk Of Magnesia) 30 ml PO DAILY PRN PRN PRN Reason: Constipation Morphine Sulfate () 2 - 4 mg IV Q4H PRN PRN PRN Reason: SEVERE PAIN (6-10/10) Morphine Sulfate () 2 - 4 mg IV Q4H PRN PRN PRN Reason: SEVERE PAIN (6-10/10) Last Admin: 02/25/18 22:03 Dose: 2 mg Ondansetron HCl (Zofran) 4 mg IV Q8H PRN PRN PRN Reason: NAUSEA Psyllium Hydrophilic Mucilloid (Metamucil) 1 packet PO DAILY PRN PRN PRN Reason: CONSTIPATION Sodium Chloride () 5 - 30 ml IV UD PRN PRN Reason: SALINE FLUSH Last Admin: 02/25/18 22:04 Dose: 10 ml Zolpidem Tartrate (Ambien (Generic)) 5 mg PO QHS PRN PRN PRN Reason: SLEEPING AID Last Admin: 02/25/18 22:03 Dose: 5 mg Medical Necessity - Tobacco Use Smoking Status: Former smoker Tobacco Use: Non-smoker Assessment/Plan All Active Problems Syncope (Acute) Wrist fracture (Acute) Concussion with < 1 hr loss of consciousness (Acute) Fracture of distal end of right radius and ulna (Acute) 77 year old F with no significant past medical history, who was having coffee in [facility] with her , when 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 1. Fall/?syncope, likely related to orthostatic hypotension, no significant medical history, orthostatic vitals are positive this morning 2D echo is normal, EKG shows normal sinus rhythm, no acute ST-T changes, no events seen on telemetry overnight Plan: We will hydrate patient, 2 50 cc bolus ?1, continue on 100 cc an hour, encourage patient to take liberal fluids, repeat orthostatic vitals later 2. Possible concussion, patient has a memory lapse, CT scan of the brain is negative, neurology consulted. 3. Right wrist fracture, x-ray of wrist showed right distal radial fracture with dorsal angulation, nondisplaced ulnar styloid fracture, status post splint , patient will follow up with orthopedics in the outpatient. 4. DVT PPx- Lovenox SC Code Visit Inpatient E&M: 12346 Subs Hosp L2
[2018-02-26] MEDS: Morphine 2 MG/ML Syringe 1 MG IV (13:36)
--- NOTE | 2018-02-26 15:39 | CON.PCM_ITS ---
Reason for Consult Date of Consultation: 02/26/18 Reason for Consultation: concussion History of Present Illness: The patient is a 77 year old F who fell yesterday, while walking out of a restaurant, hit her head and is amnestic for the events. was normal before the event, didnt remember the ambulance ride, but believes her memory is normal now. headache and right arm pain. has fx right ue and casted. no surgery.reports her entire head hurts, particularly right side. mso4 and tylenol no help. slept ok last night with ambien. per admit hand p :The patient is a 77 year old F with no significant past medical history, who was having coffee in [facility] with her . 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 Her waited for her for a while and when she was not coming back he followed up. He found her sitting on the curbside with people around him. Patient has no recollection of what happened prior to that. She knows she was feeling well the morning. Since admission to the ED she has been repeatedly asked in what happened. She was said to be oriented only to person according to the EMS. Her blood sugar was 95. She was saturating 97% on room air. Vitals in the ED was stable with temperature 97.6 F, blood pressure 129/70, respiratory rate of 17, his PO2 was 99% on room air. Admitting blood work was essentially unremarkable except for mild neutropenia. CT scan of the brain showed chronic ambulatory changes of the brain, right periorbital soft tissue swelling. X-ray of the wrist shows distal radial fracture with dorsal angulation as well as nondisplaced ulnar styloid fracture Past Medical History Allergies iodine Allergy (Verified 02/25/18 11:24) Hives aspirin Adverse Reaction (Verified 02/25/18 11:24) Upset Stomach Home Medications: Ambulatory Orders Medication Instructions Recorded Calcium 1 tab DAILY 09/27/17 One Daily Womens 50 Plus Tab 1 tab DAILY 09/27/17 Vitamin B Complex 1 tab DAILY 09/27/17 Vitamin C 1 tab DAILY 09/27/17 Vitamin D 1 tab PO DAILY 09/27/17 Vitamin E 1 tab DAILY 09/27/17 Surgical History: no surgical history Psychiatric History: No pertinent psych hx BLADDER CHANGER History: No pertinent BLADDER CHANGER history Lives: Spouse/ Significant Other Smoking Status: Former smoker Tobacco Use: Non-smoker Alcohol: None Drugs: None - *Family History Maternal History Items: Unknown - was an orphan Paternal History Items: Unknown - was an orphan Review of Systems Constitutional: Denies: Chills, Fever, Weight Change HEENT: Denies: Head Aches, Sinus Congestion, Sinus Drainage Cardiovascular: Denies: Chest Pain, Palpitations Respiratory: Denies: Cough, Shortness of breath at rest, Sputum production Gastrointestinal: Denies: Abdominal Pain, Nausea, Vomiting Genitourinary: Denies: Dysuria Musculoskeletal: Denies: Joint Pain, Joint Tenderness Skin: Denies: Rash, Wounds Neurological: Denies: Numbness, Tingling, Focal weakness Psychiatric: Denies: Anxiety, Depression, Homicidal Ideations, Suicidal Ideations Hematologic/ Lymphatic: Denies: Easy Bruising, Easy Bleeding Patient Problems: Active and Suspected Problems Syncope (Acute) Wrist fracture (Acute) Concussion with < 1 hr loss of consciousness (Acute) Fracture of distal end of right radius and ulna (Acute) - Physical Exam General: Alert, Oriented x3, Cooperative HEENT: Atraumatic, PERRLA, EOMI, Normocephalic Neck: Supple, No JVD, Negative Carotid Bruits Lungs: Clear to auscultation, Normal air movement Cardiovascular: Regular rate, No murmurs Abdomen: Bowel Sounds Present, Soft, Non Tender Extremities: No edema, Capillary Refill Less than 3 Seconds Skin: No rashes, No breakdown Musculoskeletal: No Tenderness to Palpation of Joints or Extremities Neurological: Cranial nerves II-XII grossly intact Psych/Mental Status: Normal Affect, Appropriate Vital Signs Temp Pulse Resp BP Pulse Ox 36.9 C 59 L 16 102/49 L 96 02/26/18 14:00 02/26/18 14:00 02/26/18 14:00 02/26/18 14:00 02/26/18 14:00 Oxygen Delivery Method Room Air Weight: 62.868 kg Body Mass Index (BMI) 21.0 Orthostatic Vital Signs Start: 02/25/18 15:22 Freq: q24h Status: Active Protocol: Activity Type Activity Date Activity User E-Sign Co-Sign Detail Recorded Client Recorded Date Recorded By Document 02/26/18 13:40 ANG [id number] 02/26/18 13:47 ANG 02/26/18 13:40 Orthostatic Vitals Standing -Blood Pressure (90/60-120/80) 120/50 L -Extremity Use Right Arm -Pulse Rate (60-100) 62 Sitting -Blood Pressure (90/60-120/80) 105/50 L -Extremity Use Right Arm -Pulse Rate (60-100) 60 Lying -Blood Pressure (90/60-120/80) 103/50 L -Extremity Use Right Arm -Pulse Rate (60-100) 60 Intake and Output for Last 24 Hours 02/24/18 02/25/18 02/26/18 23:59 23:59 23:59 Intake Total 100 / 100 1109 / 1109 Balance 100 / 100 1109 / 1109 Laboratory Tests Past 24 Hrs 02/25/18 02/25/18 02/25/18 17:38 20:48 22:46 WBC RBC Hgb Hct MCV MCH MCHC RDW RDW Differential Plt Count MPV Immature Gran % (Auto) Neut % (Auto) Lymph % (Auto) [place] % (Auto) Eos % (Auto) Baso % (Auto) Absolute Neuts (auto) Absolute Lymphs (auto) Total Counted Sodium Potassium Chloride Carbon Dioxide Anion Gap BUN Creatinine Estim Creat Clear Calc Est GFR (MDRD) Af Amer Est GFR (MDRD) Non-Af BUN/Creatinine Ratio Glucose Calcium Troponin I < 0.015 < 0.015 < 0.015 02/26/18 02/26/18 06:25 06:25 WBC 6.2 RBC 4.07 L Hgb 12.1 Hct 36.9 L MCV 90.7 MCH 29.7 MCHC 32.8 RDW 13.4 RDW Differential 44.4 H Plt Count 163 MPV 8.6 Immature Gran % (Auto) 0.000 Neut % (Auto) 77.6 H Lymph % (Auto) 14.9 L [place] % (Auto) 6.4 Eos % (Auto) 0.8 Baso % (Auto) 0.3 Absolute Neuts (auto) 4.8 Absolute Lymphs (auto) 0.93 Total Counted Not Reportable Sodium 140 Potassium 3.9 Chloride 105 Carbon Dioxide 29.0 Anion Gap 6 BUN 10 Creatinine 0.55 Estim Creat Clear Calc 46.02 Est GFR (MDRD) Af Amer 136 Est GFR (MDRD) Non-Af 112 BUN/Creatinine Ratio 18.1 Glucose 89 Calcium 8.4 L Troponin I Current Medications Generic Name Dose Route Start Last Admin Trade Name Freq PRN Reason Stop Dose Admin Acetaminophen 1,000 mg 02/25/18 18:00 02/26/18 13:35 Tylenol PO 1,000 mg TID RAFAT Administration Bisacodyl 5 mg 02/25/18 14:54 Dulcolax PO DAILY PRN PRN Constipation Enoxaparin Sodium 40 mg 02/26/18 10:00 02/26/18 09:34 Lovenox SC 40 mg DAILY@1000 [facility] Administration Sodium Chloride 1,000 mls @ 100 mls/hr 02/26/18 06:45 02/26/18 13:38 IV 100 mls/hr .Q10H [facility] Administration Ibuprofen 400 mg 02/26/18 11:17 Motrin PO Q8H PRN PRN MILD PAIN (1-3/10) Magnesium Hydroxide 30 ml 02/25/18 14:54 Milk Of Magnesia PO DAILY PRN PRN Constipation Morphine Sulfate 1 mg 02/26/18 11:41 02/26/18 13:36 IV 1 mg Q4H PRN PRN Administration SEVERE PAIN (6-10/10) Ondansetron HCl 4 mg 02/25/18 14:54 Zofran IV Q8H PRN PRN NAUSEA Psyllium Hydrophilic Mucilloid 1 packet 02/25/18 14:54 Metamucil PO DAILY PRN PRN CONSTIPATION Sodium Chloride 5 - 30 ml 02/25/18 15:52 02/25/18 22:04 IV 10 ml UD PRN Administration SALINE FLUSH Zolpidem Tartrate 5 mg 02/25/18 21:39 02/25/18 22:03 Ambien (Generic) PO 5 mg QHS PRN PRN Administration SLEEPING AID Assessment/Plan All Active Problems Syncope (Acute) Wrist fracture (Acute) Concussion with < 1 hr loss of consciousness (Acute) Fracture of distal end of right radius and ulna (Acute) concussion s/p syncope, improved prn analgesics cant tolerate elavil, therefore will add seroquel 25mg qhs
--- NOTE | 2018-02-26 16:26 | CASEMGMT ---
Discussed possibility of home health vs. outpatient therapy with patient. Patient states that she does not see the need for therapy. She states she only fell because she was dizzy at the time. CM will continue to follow.
[2018-02-26] MEDS: QUEtiapine 25 MG Tablet PO (21:31)
[2018-02-27 03:00] VITALS: PULSE 58
[2018-02-27 03:07] VITALS: BP 145/82; BP 153/70; BP 159/83; PULSE 67; PULSE 69; PULSE 73
[2018-02-27] MEDS: Morphine 2 MG/ML Syringe 1 MG IV (03:18)
[2018-02-27 03:25] VITALS: BP 153/70; PULSE 62; RESP 16; TEMP 36.6; O2SAT 97
[2018-02-27 08:00] VITALS: PULSE 64
[2018-02-27 08:18] VITALS: BP 133/59; PULSE 66; RESP 18; TEMP 37.2; O2SAT 94
[2018-02-27] MEDS: Enoxaparin 40 MG/0.4 ML Syringe SC (08:27)
[2018-02-27] MEDS: 0.9% Normal Saline 1,000 ML 100 ML IV (08:30)
--- NOTE | 2018-02-27 09:34 | CT_ITS ---
STUDY: CT BRAIN WITHOUT CONTRAST REASON FOR EXAM: Female, 77 years old. Recent fall RADIATION DOSAGE (If Supplied By Facility): CTDIvol = ( 44.99 ) mGy, DLP = ( 762.36 ) mGycm TECHNIQUE: Transaxial CT imaging of the brain was performed without administration of intravenous contrast material. Individualized dose optimization techniques were used for this CT. COMPARISON: None. FINDINGS: There is right frontal soft tissue swelling. Normal calvarium. There is mild cerebral atrophy with widening of the extra-axial spaces and ventricular dilatation. Normal white matter tracts of the cerebral hemispheres. Normal basal ganglia and thalami. Normal brainstem. There is mild cerebellar atrophy. There is a right frontal temporal peripheral subdural hemorrhage measuring up to 2.3 mm image #12 axial views. There are no findings of an acute ischemic infarction. Normal visualized paranasal sinuses. CT/Brain/Head without Contrast IMPRESSION: Small focus of right frontal superficial soft tissue swelling. Acute Right frontal temporal subdural hemorrhage measuring up to 2.3 mm in width. Mild atrophy. N.B. : The above information has been verbally conveyed by Peg Shepard MD to Judi Salazar, Covering Physician, on 02/27/2018 10:50:22 (ET). Electronically Signed: Peg Shepard MD at 10:27 EDT Tel , Service support ,
[2018-02-27] MEDS: oxyCODONE 5 MG Tablet 10 MG PO (10:33)
[2018-02-27 11:20] VITALS: PULSE 63
--- NOTE | 2018-02-27 12:00 | CASEMGMT ---
In-Network Tertiary Care Facilities: [facility]
--- NOTE | 2018-02-27 12:12 | NURSING ---
Report called to Mariann at [facility] at this time.
--- NOTE | 2018-02-27 12:55 | NURSING ---
Pt left via ambulance at this time to go to [facility].
--- NOTE | 2018-02-27 13:00 | PCM.DC.SUM ---
<Ha Lombardo - Last Filed: 02/27/18 13:00> Discharge Date and Diagnosis Date of Admission: 02/25/18 Date of Discharge: 02/27/18 - Primary Discharge Diagnosis Active and Suspected Problems Acute subdural hematoma Syncope (Acute) Wrist fracture (Acute) Concussion with < 1 hr loss of consciousness (Acute) Fracture of distal end of right radius and ulna (Acute) Hospital Course and Treatment Imaging Results: CT/Brain/Head without Contrast IMPRESSION: Small focus of right frontal superficial soft tissue swelling. Acute Right frontal temporal subdural hemorrhage measuring up to 2.3 mm in width. Mild atrophy. CT/Brain/Head without Contrast IMPRESSION: Chronic involutional changes of the brain. RAD/Wrist min 3 Views IMPRESSION: Distal radius and ulna styloid fractures. Echo: Interpretation Summary Normal LV size. Left ventricular systolic function is normal. The estimated ejection fraction is 60 %. No evidence for diastolic dysfunction. Mild (1+) eccentric tricuspid valve insufficiency. Mild (1+) eccentric mitral valve insufficiency. Consultations: [facility] Operations: None Procedures: 2-D Echocardiogram Summary of Care Provided: Physical exam on day of discharge: General: Resting comfortably NAD Psych: A/Ox3 normal affect HEENT: PEARRLA AT NC Neck: Supple NT CV: RRR no m/t/r/g/h Resp: CTA Abd: [id number] Soft NT no guarding or rigidity Ext: DP2+= no edema, affected extremity splinted appropriately, PMS intact Skin: W/D normal turgor Lymph/Heme: No active bleeding or adenopathy Neuro: CN2-12 intact, no pronator drift, strength intact and equal upper and lower extremities Hospital course: The patient is a 77 year old F with no significant medical history who presented to the emergency room after falling under under clear circumstances. The patient was having coffee with her , left side to go to get something from the cart was found down by bystanders. The patient could not remember what happened, and could not remember the ambulance ride to the hospital. She had a CAT scan in the ER which was negative. She did have right distal radius and ulna styloid fractures which was splinted, see imaging above. She was admitted and seen by neurology, placed on cardiac monitoring, had an echocardiogram. This was all negative. She did receive Lovenox for DVT prophylaxis while here. She continued to have severe frontal and right-sided headaches, repeat CAT scan was ordered and she was found to have a small acute right frontal temporal subdural hemorrhage measuring up to 2.3 mm in width. Neurology was contacted and recommended transfer to a facility with a neurosurgeon for evaluation. She has no other focal deficits at this time, negative neuro exam. Arrangements were made at [facility] and the patient was transferred there in stable condition. This patient was seen by Ha Lombardo PA-C under the supervision of Doctor Cleary [] Discharge Diet: - - As directed by receiving facility Discharge Activity: - - As directed by receiving facility Home Medications: Medications to take at Discharge Calcium 1 tab DAILY 09/27/17 One Daily Womens 50 Plus Tab 1 tab DAILY 09/27/17 Vitamin B Complex 1 tab DAILY 09/27/17 Vitamin C 1 tab DAILY 09/27/17 Vitamin D 1 tab PO DAILY 09/27/17 Vitamin E 1 tab DAILY 09/27/17 Primary Care Physician: Rocío Chu DO [Primary Care Provider] - Please follow up with your Primary Care Physician in: 1-2 weeks Disposition: Acute care Hospital Minutes spent on discharge:: 40 Patient Condition:: Stable Medical Necessity - Tobacco Use Smoking Status: Former smoker Tobacco Use: Non-smoker Meaningful Use Info Meaningful Use Diagnoses (Choose all that apply): Hemorrhagic CVA - CVA Therapy Assessed for PT,OT and/or ST?: Yes <Colette Cleary - Last Filed: 02/27/18 16:35> Hospital Course and Treatment Imaging Results: 02/27/18 09:34 CT Brain [Brain/Head without Contrast] [CT] Urgent Summary of Care Provided: The patient is a 77 year old F [] Meaningful Use Info Meaningful Use Diagnoses (Choose all that apply): None applicable Code Visit Inpatient E&M: 05403 Disch Hosp
--- NOTE | 2018-02-27 13:10 | DS.PCM_ITS ---
<Ha Lombardo - Last Filed: 02/27/18 13:00> Discharge Date and Diagnosis Date of Admission: 02/25/18 Date of Discharge: 02/27/18 - Primary Discharge Diagnosis Active and Suspected Problems Acute subdural hematoma Syncope (Acute) Wrist fracture (Acute) Concussion with < 1 hr loss of consciousness (Acute) Fracture of distal end of right radius and ulna (Acute) Hospital Course and Treatment Imaging Results: CT/Brain/Head without Contrast IMPRESSION: Small focus of right frontal superficial soft tissue swelling. Acute Right frontal temporal subdural hemorrhage measuring up to 2.3 mm in width. Mild atrophy. CT/Brain/Head without Contrast IMPRESSION: Chronic involutional changes of the brain. RAD/Wrist min 3 Views IMPRESSION: Distal radius and ulna styloid fractures. Echo: Interpretation Summary Normal LV size. Left ventricular systolic function is normal. The estimated ejection fraction is 60 %. No evidence for diastolic dysfunction. Mild (1+) eccentric tricuspid valve insufficiency. Mild (1+) eccentric mitral valve insufficiency. Consultations: [facility]-neurology Operations: None Procedures: 2-D Echocardiogram Summary of Care Provided: Physical exam on day of discharge: General: Resting comfortably NAD Psych: A/Ox3 normal affect HEENT: PEARRLA AT NC Neck: Supple NT CV: RRR no m/t/r/g/h Resp: CTA Abd: [id number] Soft NT no guarding or rigidity Ext: DP2+= no edema, affected extremity splinted appropriately, PMS intact Skin: W/D normal turgor Lymph/Heme: No active bleeding or adenopathy Neuro: CN2-12 intact, no pronator drift, strength intact and equal upper and lower extremities Hospital course: The patient is a 77 year old F with no significant medical history who presented to the emergency room after falling under under clear circumstances. The patient was having coffee with her , left side to go to get something from the cart was found down by bystanders. The patient could not remember what happened, and could not remember the ambulance ride to the hospital. She had a CAT scan in the ER which was negative. She did have right distal radius and ulna styloid fractures which was splinted, see imaging above. She was admitted and seen by neurology, placed on cardiac monitoring, had an echocardiogram. This was all negative. She did receive Lovenox for DVT prophylaxis while here. She continued to have severe frontal and right-sided headaches, repeat CAT scan was ordered and she was found to have a small acute right frontal temporal subdural hemorrhage measuring up to 2.3 mm in width. Neurology was contacted and recommended transfer to a facility with a neurosurgeon for evaluation. She has no other focal deficits at this time, negative neuro exam. Arrangements were made at [facility] and the patient was transferred there in stable condition. This patient was seen by Ha Lombardo PA-C under the supervision of Doctor Cleary [] Discharge Diet: - - As directed by receiving facility Discharge Activity: - - As directed by receiving facility Home Medications: Medications to take at Discharge Calcium 1 tab DAILY 09/27/17 One Daily Womens 50 Plus Tab 1 tab DAILY 09/27/17 Vitamin B Complex 1 tab DAILY 09/27/17 Vitamin C 1 tab DAILY 09/27/17 Vitamin D 1 tab PO DAILY 09/27/17 Vitamin E 1 tab DAILY 09/27/17 Primary Care Physician: Rocío Chu DO [Primary Care Provider] - Please follow up with your Primary Care Physician in: 1-2 weeks Disposition: Acute care Hospital Minutes spent on discharge:: 40 Patient Condition:: Stable Medical Necessity - Tobacco Use Smoking Status: Former smoker Tobacco Use: Non-smoker Meaningful Use Info Meaningful Use Diagnoses (Choose all that apply): Hemorrhagic CVA - CVA Therapy Assessed for PT,OT and/or ST?: Yes <Colette Cleary - Last Filed: 02/27/18 16:35> Hospital Course and Treatment Imaging Results: 02/27/18 09:34 CT Brain [Brain/Head without Contrast] [CT] Urgent Summary of Care Provided: The patient is a 77 year old F [] Meaningful Use Info Meaningful Use Diagnoses (Choose all that apply): None applicable Code Visit Inpatient E&M: 19633 Disch Hosp
== END 2018-02-27 12:55 | disposition short-term general hospital (02) ==
LOC: ED 13:54 → PCU 14:44
PROVIDERS: Admitting Provider Internal Medicine; Emergency Provider Emergency Medicine; Family Provider Internal Medicine; PCP Internal Medicine; Visit Provider Internal Medicine
DX: I62.01 Nontraumatic acute subdural hemorrhage (principal); S06.0X1A Concussion with loss of consciousness of 30 minutes or less, initial encounter; W01.0XXA Fall on same level from slipping, tripping and stumbling without subsequent striking against object, initial encounter; Y93.9 Activity, unspecified; Y92.89 Other specified places as the place of occurrence of the external cause; S52.501A Unspecified fracture of the lower end of right radius, initial encounter for closed fracture; S52.614A Nondisplaced fracture of right ulna styloid process, initial encounter for closed fracture; Z87.891 Personal history of nicotine dependence; R00.1 Bradycardia, unspecified; I08.1 Rheumatic disorders of both mitral and tricuspid valves
CPT/HCPCS: 29125; 36415; 70450; 73110; 80048; 84484; 85025; 85610; 85730; 90715; 93005; 93306; 96361; 96372; 96374; 96376; 97116; 97162; 97166; 97530; 99218; 99283; J7030; A4216; G0378; G8978; G8979; G8987; G8988

== ENCOUNTER 2018-05-27 15:30 | Outpatient (RCR) | payer MEDICARE, SELFPAY ==
--- NOTE | 2018-04-13 11:47 | HP.OTEVAL ---
Patient's Visit Information DOYLE GAN is a 78 year old F, referred to Occupational Therapy by Robin Li, with a diagnosis of right wrist fx. Date of Evaluation: 04/12/18 Occupational Therapist: Crys Real - Subjective Subjective: Pt seen for initial occupational therapy evaluation s/p R wrist fx that happened March 01, 2018 after fall on curb going up to sidewalk from car when she also suffered a concusion and does not remember the fall. She has been in a cast for about 7 wks. Pt is right hand dominent. Pt has limited ROM of R UE from fall in September where she had hurt her R humerous and continues to have limited ROM for that. Lives w/ spouse 1 story house. AMB no device. Indep w/ BADL's, and laundry. Laundry on main level. Eats all meals out or buys meals, does not cook. Drives. Likes to garden and play piano. Tub/shower, grab bar, stands in shower. Pt states does have a difficult time opening containers, writing and cutting food, but she tries to complete it with her L hand. - Pain R wrist 1 Pain Intensity Range: 1, 2, 3, 4, 5, 6, 7 - Objective Objective/Observation: Pt demo increased edema R hand, decreased functional use, strength and ROM of R hand/wrist - ROM Wrist: R 15/20, L 80/65 - Strength [employer] Receiving Clerk: R DNT, L 40# Lateral Pinch: R DNT, L 6# Tripod Pinch: R DNT, L 6# Strength Comments: DNT R hand strength secondary to R wrist fx - Edema Other: Pt demo increased edema R wrist/hand/digits - Sensation Sensation Comments: Pt states no numbness or tingling. 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 Goal:: Pt will progress with R AROM wrist flexion by 35' to assist with functional living tasks by d/c from OT. Pt will progress with R AROM wrist extension by 45' to assist with functional living tasks by d/c from OT services. Goal:: Pt will demo no pain greater than 1/10 of R wrist/hand by d/c from OT services. Goal:: Pt will demo increased AROM R wrist/hand to be able to complete all self feeding tasks independently with R hand by d/c from OT services. Goal:: Pt will be educated on R UE HEP with good understanding and demo 100%x. - Rehabilitation General Assessment: Pt demonstrates decreased ROM and strength of R wrist/hand and decreased independence with functional living skills/hobbies. Pt would benefit from direct occupational therapy services to increase R wrist/hand ROM and strength, educate on HEP and increase pt's ability to complete hobbies and functional living tasks independently with R hand/wrist. Rehabilitation Potential: Good - Anticipated Interventions Anticipated Interventions: A/AAROM/PROM, Strengthening, Edema Control, Massage, Modalities, Orthoses, Joint Protection/Energy Conservation, Fine Motor Coord/Ciro, ADL Training, Education re Correct Donning Tech,Care&Wearing Sched Comp Garments, Home Program - Visit Plan Frequency: 1-2x /Week Duration: 4-6 Weeks General Plan: increase ROM and strength of R wrist/hand, educate on HEP, increase independence with functional living tasks. TEXT: Thank you for the opportunity to evaluate your patient. For Medicare and Medicare HMO plans, please review the plan of care and approve it. It will need to be FAXED BACK to us at [phone] for Medicare purposes. Please let me know if there are questions or concerns regarding this plan of care. Physician Signature: Date:
--- NOTE | 2018-08-11 18:28 | HP.OT.NRP ---
HP - Discharge Summary - Patient Information DOYLE GAN was seen in my office for initial evaluation on 04/12/18. The following Plan of Care was established for this patient: Initial Frequency: 1-2x /Week Initial Duration: 4-6 Weeks Plan: cont POC, pt does not plan to come in anytime soon d/t high copay, states she is educated now for joint protection while performing functional living tasks. - Anticipated Interventions Anticipated Interventions: A/AAROM/PROM, Strengthening, Edema Control, Massage, Modalities, Orthoses, Joint Protection/Energy Conservation, Fine Motor Coord/Ciro, ADL Training, Education re Correct Donning Tech,Care&Wearing Sched Comp Garments, Home Program This patient was last seen in our office 05/27/18. Pertinent comments regarding their Occupational therapy will appear below: D/C OT services secondary to non-returning pt. Pt had been educated on joint protection strategies, participating with soft tissue massage to decrease pain and using theraputty to increase radiologic technologist mammogram strength. Non-returing pt, d/c OT services At this point I will be discontinuing this patient from occupational therapy. I would be happy to see this patient again in the future if found appropriate by the physician. Thank you! Crys Real
== END 2018-05-27 19:00 | disposition home or self-care (01) ==
LOC: OT 15:30
PROVIDERS: Family Provider Internal Medicine; PCP Internal Medicine; Visit Provider Physician Assistant
DX: S52.551D Other extraarticular fracture of lower end of right radius, subsequent encounter for closed fracture with routine healing (principal)
CPT/HCPCS: 97035; 97110; 97140; 97166; 97530

== ENCOUNTER → 2019-08-11 15:35 | Outpatient (CLI) | payer MEDICARE, SELFPAY ==
[2018-02-25 15:08] VITALS: BMI 21.0
--- NOTE | 2019-08-11 15:40 | RAD_ITS ---
STUDY: X-RAY CHEST REASON FOR EXAM: Female, 79 years old. Cough. TECHNIQUE: Frontal and lateral views of the chest. COMPARISON: June 29, 2017 FINDINGS: Stable hyperexpansion. There is no demonstrated pleural abnormality. Borderline cardiomegaly unchanged Normal mediastinum and alejandra. Normal visualized pulmonary arteries. Normal visualized aortic arch and descending thoracic aorta. Normal visualized thoracic spine. Normal visualized ribs, clavicles, and shoulders. There is no demonstrated abnormality of the visualized soft tissue structures of the upper abdomen. RAD/Chest PA and Lateral IMPRESSION: Stable chest with no acute superimposed finding. Electronically Signed: Robin Clark MD at 15:56 EST , Service support ,
== END ==
PROVIDERS: Family Provider Internal Medicine; PCP Internal Medicine; Referring Provider Nurse Practitioner; Visit Provider Nurse Practitioner
DX: R05 Cough (principal)
CPT/HCPCS: 71046

== ENCOUNTER → 2024-03-14 | Outpatient (CLI) | payer MEDICARE, SELFPAY ==
--- NOTE | 2024-03-14 13:00 | RAD_ITS ---
STUDY: X-RAY - THORACIC SPINE REASON FOR EXAM: Female, 83 years old. Mid back pain TECHNIQUE: 3 view(s) of the thoracic spine were obtained. COMPARISON: None. FINDINGS: Normal kyphosis of the thoracic spine. There is a minimal dextroscoliosis apex between T7 and T8. There is demineralization of the thoracic spine. There is multilevel disc space narrowing of the thoracic spine. The soft tissue structures are unremarkable. RAD/Thoracic Spine 3 Views IMPRESSION: Age consistent degenerative changes with a mild dextroscoliosis. No acute fracture, absent pedicle, or paraspinal mass Electronically Signed: Ryan Vargas MD at 14:22 EDT ,
--- NOTE | 2024-03-14 13:03 | RAD_ITS ---
INDICATION: XR LUMBAR SPINE 3V -- Acute bilateral low back pain without sciatica EXAMINATION/TECHNIQUE: X-RAY - XR Spine Lumbar 2 or 3 Views COMPARISON: No relevant prior comparison study available FINDINGS: VERTEBRAE: Preserved vertebral body height. No fracture. No spondylolisthesis. Preservation of the normal lumbar lordosis. Moderate levoscoliosis. DISCS: Disc space narrowing at multiple levels with endplate spondylosis. INCLUDED ABDOMEN: Right upper quadrant calcifications consistent with gallstones. Bilateral hip hemiarthroplasty. RAD/Lumbar Spine 2 or 3 Views IMPRESSION: Degenerative changes of the lumbar spine as described above. Cholelithiasis. Electronically Signed: Nilay Bella MD at 14:16 EDT ,
== END | disposition home or self-care (01) ==
PROVIDERS: PCP Internal Medicine; Referring Provider Nurse Practitioner Family; Visit Provider Nurse Practitioner Family
DX: M54.50 Low back pain, unspecified (principal)
CPT/HCPCS: 72072; 72100

== ENCOUNTER 2024-03-20 10:07 | Emergency (ER) | payer MEDICARE, SELFPAY ==
[2024-03-20 10:07] VITALS: BP 168/93; PULSE 81; RESP 16; TEMP 35.4; O2SAT 97
[2024-03-20] MEDS: Ketorolac 30 MG/ML Syringe IM (10:30)
--- NOTE | 2024-03-20 10:41 | EX.ED.DYSGE1 ---
HPI History of Present Illness Chief Complaint: Back Narrative Narrative: Patient is a 83-year-old female with no known significant past medical history who follows with a physician on a as needed basis who presents to the emergency department chief complaint of right back pain. Patient states that last week she bent over and poured out a heavy tub of water and noted that a few hours after that she noted that she had back pain on the right side. States that the back pain radiated from her right back to her thigh/knee region. Patient states that she tried to take ibuprofen at home without any relief of her pain. Patient states that she followed up with her primary care physician last week and had x-rays obtained and noted that these were normal. States that she had been trying cyclobenzaprine without much relief. Patient states that her pain is not improving denies any new trauma but needs pain relief prompting her to come here for further evaluation management. [facility] Medical History Fracture of right tibial plateau Home Medications ?Medication ?Instructions ?Recorded ?Last Taken ?Type Calcium 1 tab DAILY 09/27/17 03/19/24 History One Daily Womens 50 Plus Tab 1 tab DAILY 09/27/17 03/19/24 History Vitamin B Complex 1 tab DAILY 09/27/17 03/19/24 History Vitamin C 1 tab DAILY 09/27/17 03/19/24 History Vitamin D 1 tab PO DAILY 09/27/17 03/19/24 History Vitamin E 1 tab DAILY 09/27/17 03/19/24 History ondansetron 4 mg disintegrating 4 mg PO Q8H PRN nausea and 03/20/24 Unknown Rx tablet vomiting #14 tabs oxycodone-acetaminophen 5 mg-325 1 tab PO Q6H PRN pain 3 days #12 03/20/24 Unknown Rx mg tablet (Endocet) tabs Allergy/AdvReac Type Severity Reaction Status Date / Time iodine Allergy Hives Verified 03/20/24 10:16 aspirin AdvReac Upset Verified 03/20/24 10:16 Stomach Surgical History Hx of appendectomy Social History Smoking Status: Former smoker ROS ROS ED ROS Narrative Constitutional: Denies any fevers, chills, headaches, lightheadedness, dizziness Eyes: Denies change in vision double vision blurry vision Cardiovascular: Denies chest pain or palpitations Respiratory: Denies coughing wheezing shortness of breath Abdomen: Denies abdominal pain nausea vomiting diarrhea. States that she has been having normal bowel movements : Denies any painful urination, hematuria, polyuria. States that she has been urinating normally for herself Neurological: Denies any numbness, weakness, tingling Musculoskeletal: Complains of back pain as noted above Skin: Denies rashes or lesions EXAM Physical Exam Narrative Exam Narrative: General: Patient standing at the bedside did appear to be uncomfortable secondary to her back pain Head: Atraumatic, normocephalic Eyes: PERRL bilaterally, EOMI bilaterally, no conjunctival injection noted Neck: Soft, supple, trachea midline Cardiovascular: Regular rate and rhythm no murmurs gallops rubs noted Respiratory: Clear to auscultation bilaterally no rales rhonchi or wheeze noted Abdomen: Soft, nondistended, no tenderness palpation, bowel sounds present x 4 Musculoskeletal: Patient has some tenderness palpation in the right quadratus lumborum region no CVA tenderness noted, no midline tenderness palpation of thoracolumbar spine Extremities: +5/5 strength noted in the bilateral upper and lower extremities, DP pulses +2/4 in the bilateral lower extremities, no pedal edema on exam Neurological: Patient was following commands that she was at [facility] the year is 2023. Sensation grossly intact in the bilateral lower extremities. No saddle anesthesia noted Skin: Warm, dry, intact no rashes or lesions noted Const Vital Signs: 03/20/24 10:07 03/20/24 11:55 Temperature 95.8 F L 97.7 F L Temperature Source Temporal Pulse Rate 81 80 Respiratory Rate 16 16 Blood Pressure 168/93 H 161/89 H Blood Pressure Mean 118 113 Pulse Ox 97 98 Oxygen Delivery Method Room Air MDM MDM MDM Narrative Medical decision making narrative: Patient is a 83-year-old female who presents to the emergency department chief complaint of right-sided back pain radiating to her right knee/thigh. Patient's x-rays were reviewed and Her thoracic spine x-ray from 03/14/2024 showed age consistent degenerative changes with mild dextroscoliosis no acute fracture absent pedicle or paraspinal mass noted. Patient's lumbar spine x-rays reviewed and showed degenerative changes of the lumbar spine. On the differential diagnosis includes but limited to musculoskeletal strain, herniated disc. Patient will be given a shot of Toradol and then be reevaluated. Patient urinalysis reviewed and showed no blood, negative nitrates, 25 leukocyte esterase 0-5 white blood cells 1+ bacteria patient does not have any urinary symptoms therefore no indication for antibiotics. Patient's EKG reviewed and showed sinus rhythm with a rate of 76 bpm with premature atrial complexes noted. On reevaluation the patient and she states that she is feeling better she would like to go home at this point time. Patient is requesting prescription for pain medication. This will be sent to her pharmacy. She is encouraged to follow-up with her primary care physician outpatient setting. She was encouraged return with worsening symptoms or other concerns. All question concerns answered she was discharged home in stable condition. Lab Data Labs: Laboratory Results - last 24 hr 03/20/24 10:15 Urine Color Yellow Urine Clarity Sl. Cloudy Urine pH 8.0 Ur Specific [place] 1.015 Urine Protein Negative Urine Glucose (UA) Normal Urine Ketones Negative Urine Occult Blood Negative Urine Nitrite Negative Urine Bilirubin Negative Urine Urobilinogen Normal Ur Leukocyte Esterase 25 H Urine RBC 0 SEEN Urine WBC 0-5 SEEN Ur Squamous Epith Cells 0 SEEN Urine Bacteria 1+ Urine Mucus 0 SEEN Discharge Plan Triage Chief Complaint: Back ED Provider: Chance Hay Dx/Rx/DC Orders Clinical Impression: Musculoskeletal strain Instructions: ED Back Pain (Acute or Chronic) Prescriptions: New oxycodone-acetaminophen [Endocet] 5-325 mg tablet 1 tab PO Q6H PRN (Reason: pain) 3 Days Qty: 12 0RF ondansetron 4 mg tablet,disintegrating 4 mg PO Q8H PRN (Reason: nausea and vomiting) Qty: 14 0RF No Action Calcium 1 tab DAILY One Daily Womens 50 Plus Tab 1 tab DAILY Vitamin B Complex 1 tab DAILY Vitamin C 1 tab DAILY Vitamin D 1 tab PO DAILY Vitamin E 1 tab DAILY Primary Care Provider: Rocío Chu Referrals: Rocío Chu DO [Primary Care Provider] - Print Language: Mongolian
--- NOTE | 2024-03-20 10:46 | EKG12_ITS ---
Test Reason : BACK PAIN Blood Pressure : / mmHG Vent. Rate : 076 BPM Atrial Rate : 076 BPM P-R Int : 162 ms QRS Dur : 070 ms QT Int : 366 ms P-R-T Axes : 049 041 063 degrees QTc Int : 411 ms Sinus rhythm with Premature atrial complexes Otherwise normal ECG Confirmed by Morales Beard ([id number]), associate entertainment editor OLIVA FISHER ([id number]) on 03/21/2024 2:05:21 PM Referred By: Confirmed By:Morales Beard
[2024-03-20 10:50] LABS: Mucous, Urine 0 SEEN /hpf (<or=2+); Red Blood Cells-Urine 0 SEEN /hpf (0-5); Squamous Epithelial Cells - UA 0 SEEN /hpf (5-10)
[2024-03-20 10:56] LABS: Color, Urine Yellow (Yellow); Glucose, Dipstick Normal (Normal); Ketone-Dipstick Negative (Negative); Leukocyte Esterase-Dipstick 25 /ul (Negative); Nitrite-Dipstick Negative (Negative); Occult Blood-Urine Negative /ul (Negative); Protein-Dipstick Negative (Negative); Specific Gravity, Urine 1.015 (1.002-1.030); Urine Bilirubin Dipstick Negative (Negative); Urine Clarity Sl. Cloudy (Clear); Urine Urobilinogen Normal (Normal)
[2024-03-20 11:11] LABS: Bacteria 1+ /hpf (None Seen); White Blood Cells 0-5 SEEN /hpf (0-5)
[2024-03-20 11:55] VITALS: BP 161/89; PULSE 80; RESP 16; TEMP 36.5; O2SAT 98
== END 2024-03-20 12:03 | disposition home or self-care (01) ==
PROVIDERS: Emergency Provider Emergency Medicine; PCP Internal Medicine; Visit Provider Emergency Medicine
DX: S39.012A Strain of muscle, fascia and tendon of lower back, initial encounter (principal); X50.1XXA Overexertion from prolonged static or awkward postures, initial encounter; M47.816 Spondylosis without myelopathy or radiculopathy, lumbar region; M41.9 Scoliosis, unspecified; Z87.891 Personal history of nicotine dependence
CPT/HCPCS: 81001; 93005; 96372; 99282

== ENCOUNTER → 2024-05-25 | Outpatient (CLI) | payer MEDICARE, SELFPAY ==
[2024-05-25 10:23] LABS: Color, Urine Yellow (Yellow); Glucose, Dipstick Normal (Normal); Ketone-Dipstick Negative (Negative); Leukocyte Esterase-Dipstick 100 /ul (Negative); Nitrite-Dipstick Negative (Negative); Occult Blood-Urine Negative /ul (Negative); Protein-Dipstick Negative (Negative); Urine Bilirubin Dipstick Negative (Negative); Urine Clarity Clear (Clear); Urine Urobilinogen Normal (Normal)
[2024-05-25 10:28] LABS: Erythrocyte Sedimentation Rate < 1 mm/hr (0-30)
[2024-05-25 10:31] LABS: Absolute Lymphocyte Count 0.77 X10^3/uL (0.83-4.51); Absolute Neutrophil Count 3.3 X10^3/uL (2.0-7.7); Basophil# 0.03 X10^3/uL; Basophil% 0.7 % (0-1); Eosinophil# 0.09 X10^3/uL; Hematocrit 42.1 % (37-47); Hemoglobin 13.8 g/dL (12.0-15.0); Lymphocyte # 0.77 X10^3/ul (0.83-4.51); Lymphocyte % 16.8 % (19-41); Mean Corp Hgb Conc 32.8 g/dL (32-36); Mean Corpuscular Hgb 31.3 pg (27.0-32.0); Mean Corpuscular Volume 95.5 fL (81-99); Mean Platelet Vol. 9.1 fl (6.2-12.0); Monocyte% 8.8 % (0-10); NRBC Flagged by Analyzer 0 % (0-5); Neutrophil # 3.26 X10^3/uL (2.7-7.7); Neutrophil % 71.3 % (47-70); Platelet Count 208 K/mm3 (150-450); RBC Distribution Width CV 12.5 % (11.6-14.6); Red Blood Count 4.41 M/mm3 (4.2-5.4); White Blood Count 4.6 K/mm3 (4.4-11.0)
[2024-05-25 11:09] LABS: ALB/GLOB Ratio 1.2 RATIO (0.9-2.4); AST(SGOT) 12 U/L (15-37); Alanine Aminotransfer ALT/SGPT 15 U/L (13-56); Albumin, Serum 3.8 g/dL (3.2-5.0); Alkaline Phosphatase 130 U/L (45-117); Anion Gap 6 (5-15); BUN 10 mg/dL (7-18); BUN/Creat Ratio 14.8 RATIO (10-20); CRP 5.89 mg/L (0.0-3.0); Calcium,Total 9.1 mg/dL (8.5-10.1); Chloride 107 mmol/L (98-107); Creatinine, Serum 0.68 mg/dL (0.55-1.02); EST Glomerular Filtration Rate 88 mL/min (>60); Est Glom Filt Rate - Afr Amer 106 mL/min (>60); Globulin 3.1 g/dL (2.2-4.2); Glucose 90 mg/dL (74-106); Protein, Total 6.9 g/dL (6.4-8.2); Sodium Level 140 mmol/L (136-145)
== END | disposition home or self-care (01) ==
LOC: MTLAB 09:01
PROVIDERS: PCP Nurse Practitioner Family; Referring Provider Nurse Practitioner Family; Visit Provider Nurse Practitioner Family
DX: I16.0 Hypertensive urgency (principal); R82.998 Other abnormal findings in urine
CPT/HCPCS: 36415; 80053; 81002; 84443; 85025; 85652; 86140; 87086

== ENCOUNTER 2025-02-18 07:17 | Emergency (ER) | payer MEDICARE, SELFPAY ==
[2025-02-18 07:17] VITALS: BP 173/94; PULSE 121; RESP 18; TEMP 36.4; O2SAT 99; BMI 22.6
--- NOTE | 2025-02-18 07:45 | ED.VIS.BACK ---
HPI History of Present Illness Chief Complaint: Back Narrative Narrative: Chief complaint and HPI: Lumbar back pain. 84-year-old female with no significant past medical history other than chronic lumbar back pain presents for evaluation of lumbar back pain. Patient states 2 days ago she moved a small table in which she developed lumbar back pain. She states she did not lift the table but slid it. Patient states she has not taken anything for the pain. States it feels like her typical back pain flares. Does not radiate down the legs. Denies numbness, weakness, urinary retention, stool or urinary incontinence, saddle anesthesia, recent invasive manipulation of the spine, intravenous drug use, or fever. Denies nausea or vomiting. Review of systems: See HPI Medications: As listed on the chart Allergies: As listed on the chart PFSH: Per chart Vital signs: As listed on the chart. Reviewed. Physical exam: Gen: A&O x3, NAD Head: Normocephalic, atraumatic Eyes: No sclera icterus, conjunctiva clear, PERRL, EOMI ENT: Moist mucous membranes, atraumatic Neck: Full range of motion, nontender CV: RRR, no murmurs Resp: Lungs CTA BL, no w/r/c GI: Abd soft, non-distended, non-tender, no r/r/g Musc: Full ROM, no deformity, no midline spinal TTP, no david step-offs, mild tenderness to palpation of the bilateral paraspinal musculature of the lower lumbar spine-recreates her pain, no signs of infection or trauma. Strength plus 5 out of 5 in all extremities. Normal gait. Skin: Warm, dry, intact Neuro: Alert, oriented, grossly intact, sensation intact Psych: Cooperative, appropriate mood and affect [facility] Medical History Fracture of right tibial plateau Home Medications ?Medication ?Instructions ?Recorded ?Last Taken ?Type Calcium 1 tab DAILY 09/27/17 03/19/24 History One Daily Womens 50 Plus Tab 1 tab DAILY 09/27/17 03/19/24 History Vitamin B Complex 1 tab DAILY 09/27/17 03/19/24 History Vitamin C 1 tab DAILY 09/27/17 03/19/24 History Vitamin D 1 tab PO DAILY 09/27/17 03/19/24 History Vitamin E 1 tab DAILY 09/27/17 03/19/24 History ondansetron 4 mg disintegrating 4 mg PO Q8H PRN nausea and 03/20/24 Unknown Rx tablet vomiting #14 tabs oxycodone-acetaminophen 5 mg-325 1 tab PO Q6H PRN pain 3 days #12 03/20/24 Unknown Rx mg tablet (Endocet) tabs Allergy/AdvReac Type Severity Reaction Status Date / Time iodine Allergy Hives Verified 02/18/25 07:17 aspirin AdvReac Upset Verified 02/18/25 07:17 Stomach Surgical History Hx of appendectomy Social History Smoking Status: Former smoker EXAM Physical Exam Const Vital Signs: 02/18/25 07:17 02/18/25 08:07 Temperature 97.6 F L Temperature Source Oral Pulse Rate 121 H 65 Respiratory Rate 18 16 Blood Pressure 173/94 H 127/62 H Blood Pressure Mean 120 83 Pulse Ox 99 94 Oxygen Delivery Method Room Air MDM MDM MDM Narrative Medical decision making narrative: 84-year-old female with no significant past medical history other than chronic lumbar back pain presents for evaluation of lumbar back pain. Started 2 days ago after moving a small table. Patient states that this feels like her typical back flares. There has been no direct trauma to the back. There is nothing to suggest any infectious etiology. The patient is not an IV drug user. There is no neurologic findings to suggest an acute cauda equina syndrome, infectious etiology, or any acute radiculopathy. At this point I do not feel any emergent imaging such as x-rays or MRI are warranted. Patient symptoms will be treated with IM Toradol. Patient drove today therefore no narcotics or muscle relaxers will be given. Suspect myofascial spasm. Not consistent with fracture. Reevaluation after IM Toradol shows improvement in pain and tachycardia. I suspect her tachycardia was secondary to pain. Patient is stable to discharge home. Recommended [id number] Tylenol and ibuprofen as needed. IcyHot. Will prescribe a short course of muscle relaxers and patient was educated that it can increase confusion, falls, weakness. Educated not to drive or operate heavy machinery while taking it. She confirmed understanding of plan. Follow-up with primary care. Patient is stable to discharge home. Impression: 1. Lumbar back spasm 2. History of chronic lumbar back pain Discharge Plan Triage Chief Complaint: Back ED Provider: Manav Coughlin Dx/Rx/DC Orders Prescriptions: No Action Calcium 1 tab DAILY One Daily Womens 50 Plus Tab 1 tab DAILY Vitamin B Complex 1 tab DAILY Vitamin C 1 tab DAILY Vitamin D 1 tab PO DAILY Vitamin E 1 tab DAILY oxycodone-acetaminophen [Endocet] 5-325 mg tablet 1 tab PO Q6H PRN (Reason: pain) 3 Days Qty: 12 0RF ondansetron 4 mg tablet,disintegrating 4 mg PO Q8H PRN (Reason: nausea and vomiting) Qty: 14 0RF Primary Care Provider: Rocío Chu Referrals: Priti Lott NP-C [Med Staff - Adv Practice Prof] - Print Language: Dominican
--- OUTSIDE RECORDS SUMMARY | 2025-02-18 08:00 | XMS RPT_ITS | CCD ---
Author Organization [facility] Care Team Providers Care Law Enforcement Officer Name Role Phone Rocío Chu Unavailable Unavailable Kimberley Rocío Unavailable Unavailable James Hussein Unavailable Unavailable Kimberley, Rocío Unavailable Niecy Avery Unavailable Unavailable Unavailable Unavailable Rocío Chu Unavailable Niecy Avery Unavailable Unavailable Erich Foreman Unavailable Unavailable Unavailable Unavailable Vanessa Dickerson Unavailable AlbertKayy amadorkala Unavailable Yandy Ba Unavailable Unavailable Erich Foreman Unavailable Unavailable Yana, Hanna Unavailable Unavailable Niecy Avery Unavailable Unavailable Erich Denise Unavailable Unavailable Joana Luna E Unavailable Unavailable Unavailable Litzy Mack Unavailable Unavailable Rocío Chu DO Attending Unavailable Rocío Chu DO Consulting Unavailable Kimberley DO, Rocío Unavailable Albert, Nukala Unavailable Priti Lott CNP Unavailable [phone] [employer]X BATH ATTENDANT, Margo Unavailable Unavailable Niecy Avery RN Unavailable Unavailable Yana BEYER, Hanna Unavailable Unavailable Litzy Mack LPN Unavailable Unavailable Erich Denise LPN Unavailable Unavailable Unavailable Unavailable Rocío Chu DO Primary Care Provider Priti Lott Primary Care Unavailable Priti Lott Referring Unavailable Priti Lott Attending Unavailable Rocío Chu Primary Care Unavailable Priti Lott Referring Unavailable Priti Lott Attending Unavailable Rocío Chu Primary Care Unavailable Chance Hay Attending Unavailable Allergies Allergy Classification Reported Allergen(s) Allergy Type Date of Onset Reaction(s) Facility (11 sources) aspirin; Translations: [Aspirin (Salicylates)] Drug Allergy [facility] Work Phone: (11 sources) Iodinated Contrast; Translations: [Iodinated Contrast] allergy to substance [facility] Work Phone: (1 source) Iodine Drug Allergy 2 Rash [facility] Work Phone: (1 source) Salicylic Acid Drug Allergy 2 GI Upset [facility] (1 source) Aspirin Drug Allergy 4 [facility] (1 source) Iodine Drug Allergy 4 [facility] Medications Completed/Discontinued Medications Medication Drug Class(es) Dates Sig (Normalized) Sig (Original) [id number] 200 actuat albuterol 0.09 mg/actuat metered dose inhaler (15 sources) beta2-Adrenergic Agonist Start: 08-11-2019 End: 08-21-2020 ProAir HFA 108 (90 Base) MCG/ACT Inhalation Aerosol Solution 2 (two) Puff tid or qid for 0 days Quantity: 1 {Inhaler} Refills: 0 Ordered: 21-Aug-2020 Litzy Mack LPN Start : 01-Sep-2019 End : 21-Aug-2020 Discontinued Start: 08-11-2019 End: 08-21-2020 ProAir HFA 108 (90 Base) MCG /ACT Inhalation Aerosol Solution 2 (two) Puff tid or qid for 0 days Quantity: 1 {Inhaler} Refills: 0 Ordered: 01-Sep-2019 Joana Luna CNP Start : 01-Sep-2019 Active ascorbic acid 500 mg oral capsule (11 sources) Start: 10-08-2014 take 1 capsule by mouth once daily VITAMIN C, 500MG (Oral Capsule) 1 (one) Capsule qd for 30 days Refills: 0 Ordered: 08-Oct-2014 Rocío Chu DO, DO, Kathleen Start : 08-Oct-2014 Active azithromycin 250 mg oral tablet (5 sources) Macrolide Antimicrobial Start: 08-15-2019 End: 05-09-2020 Zithromax Z-Jacob 250 MG Oral Tablet 1 (one) Tablet tad for 0 days Quantity: 1 {Package} Refills: 0 Ordered: 09-May-2020 Start : 15-Aug-2019 End : 09-May-2020 Inactive biotin 1 mg oral capsule (9 sources) take 1 capsule by mouth once daily Biotin 1 MG Oral Capsule 1 qd (1 MG) Active cholecalciferol 0.025 mg oral capsule (11 sources) Vitamin D Start: 10-08-2014 take 2 capsules by mouth once daily VITAMIN D3, 1000UNIT (Oral Capsule) 2 (two) Capsule qd for 30 days Refills: 0 Ordered: 08-Oct-2014 Rocío Chu DO, DO, Kathleen Start : 08-Oct-2014 Active citalopram 10 mg oral tablet (11 sources) Serotonin Reuptake Inhibitor Start: 07-12-2018 End: 07-12-2018 take 1 tablet by mouth once daily at bedtime Citalopram Hydrobromide 10 MG Oral Tablet 1 (one) Tablet qhs for 0 days Quantity: 30 {Tablet} Refills: 3 Ordered: 12-Jul-2018 Rocío Chu DO, DO, Kathleen Start : 12-Jul-2018 End : 12-Jul-2018 Discontinued Start: 06-10-2018 take 1 tablet by barbara th once daily at bedtime Citalopram Hydrobromide 10 MG Oral Tablet 1 (one) Tablet qhs for 0 days Quantity: 30 {Tablet} Refills: 3 Ordered: 10-Jun-2018 Rocío Chu DO, DO, Kathleen Start : 10-Jun-2018 Active Start: 06-10-2018 take 1 tablet by barbara th once daily at bedtime Citalopram Hydrobromide 10 MG Oral Tablet 1 (one) Tablet qhs for 0 days Quantity: 30 {Tablet} Refills: 3 Ordered: 10-Jun-2018 Rocío Chu DO, DO, Kathleen Start : 10-Jun-2018 Active cyclobenzaprine hydrochloride 10 mg oral tablet (1 source) Muscle Relaxant Start: 10-26-2022 take 1 tablet by mouth three times daily cyclobenzaprine 10 mg oral tablet 1 Tablet 3 times per day;muscle spasm for 0 days Quantity: 30 {Tablet} Refills: 0 Ordered: 26-Oct-2022 Priti Lott CNP Start : 13-Mar-2023 Active Deplin 15 (4 sources) Start: 12-26-2014 End: 03-04-2018 take 1 capsule by mouth once daily Deplin 15 15-90.314 MG Oral Capsule 1 (one) Capsule Capsule qd for 90 days Quantity: 90 {Capsule} Refills: 3 Ordered: 04-Mar-2018 Niecy Avery LPN Start : 26-Dec-2014 End : 04-Mar-2018 Inactive Start: 12-26-2014 End: 03-04-2018 take 1 capsule by mouth once daily Deplin 15 15-90.314 MG Oral Capsule 1 (one) Capsule Capsule qd for 0 days Quantity: 30 {Capsule} Refills: 3 Ordered: 04-Mar-2018 Niecy Avery LPN Start : 26-Dec-2014 End : 04-Mar-2018 Inactive Deplin 15 15-90.314 MG Oral Capsule (18 sources) Start: 12-26-2014 End: 03-04-2018 take 1 capsule by mouth once daily Deplin 15 15-90.314 MG Oral Capsule 1 (one) Capsule Capsule qd for 0 days Quantity: 30 {Capsule} Refills: 3 Ordered: 04-Mar-2018 Niecy Avery RN Start : 26-Dec-2014 End : 04-Mar-2018 Inactive Start: 12-26-2014 End: 03-04-2018 take 1 capsule by mouth once daily Deplin 15 15-90.314 MG Oral Capsule 1 (one) Capsule Capsule qd for 90 days Quantity: 90 {Capsule} Refills: 3 Ordered: 04-Mar-2018 Niecy Avery RN Start : 26-Dec-2014 End : 04-Mar-2018 Inactive Comments: Mail order. Start: 12-26-2014 End: 03-04-2018 take 1 capsule by mouth once daily Deplin 15 15-90.314 MG Oral Capsule 1 (one) Capsule Capsule qd for 90 days Quantity: 90 {Capsule} Refills: 3 Ordered: 04-Mar-2018 Niecy Avery LPN Start : 26-Dec-2014 End : 04-Mar-2018 Inactive Comments: Mail order. Start: 12-26-2014 End: 03-04-2018 take 1 capsule by mouth once daily Deplin 15 15-90.314 MG Oral Capsule 1 (one) Capsule Capsule qd for 0 days Quantity: 30 {Capsule} Refills: 3 Ordered: 04-Mar-2018 Niecy Avery LPN Start : 26-Dec-2014 End : 04-Mar-2018 Inactive Comment on above: Mail order. Digestive Enzyme (2 sources) Start: 10-08-19 15 take 1 capsule by mouth once daily DIGESTIVE ENZYME (Oral Capsule) 1 (one) Capsule qd for 30 days Refills: 0 Ordered: 08-Oct-2014 Kimberley Rocío KimberleyAsael murdock DOeen Start : 08-Oct-2014 Active DIGESTIVE ENZYME (Oral Capsule) (5 sources) Start: 10-08-19 15 take 1 capsule by mouth once daily DIGESTIVE ENZYME (Oral Capsule) 1 (one) Capsule qd for 30 days Refills: 0 Ordered: 08-Oct-2014 Kimberley Rocío Kimberley DO, Rocío Start : 08-Oct-2014 Active DIGESTIVE ENZYME (Oral Capsule) (4 sources) Start: 10-08-19 15 take 1 capsule by mouth once daily DIGESTIVE ENZYME (Oral Capsule) 1 (one) Capsule qd for 30 days Refills: 0 Ordered: 08-Oct-2014 KimberleyRocío murdock DO, DO, Kathleen Start : 08-Oct-2014 Active FLUoxetine 10 mg oral capsule (11 sources) Serotonin Reuptake Inhibitor Start: 12-27-19 15 End: 12-27-19 15 take 1 capsule by mouth once daily PROZAC, 10MG (Oral Capsule) 1 (one) Capsule qd for 0 days Quantity: 30 {Capsule} Refills: 3 Ordered: 26-Dec-2014 Kimberley DO Rocío Kimberley DO, Rocío Start : 26-Dec-2014 End : 26-Dec-2014 Discontinued Comments: insomina Comment on above: insomina lansoprazole 30 mg delayed release oral capsule (11 sources) Proton Pump Inhibitor Start: 12-29-19 15 End: 03-04-20 18 take 1 capsule by mouth once daily Prevacid 30 MG Oral Capsule Delayed Release 1 (one) Capsule DR Capsule DR qd for 0 days Quantity: 30 {Capsule} Refills: 3 Ordered: 04-Mar-2018 Niecy Avery RN Start : 28-Dec-2014 End : 04-Mar-2018 Inactive linseed oil 1000 mg oral capsule (11 sources) Start: 10-08-19 15 End: 10-27-19 23 take 1 capsule by mouth once daily flaxseed oiL 1,000 mg oral capsule 1 (one) Capsule qd for 30 days Refills: 0 Ordered: 26-Oct-2022 Reji BEYERMargo Start : 08-Oct-2014 End : 26-Oct-2022 Inactive LORazepam 0.5 mg oral tablet (9 sources) Benzodiazepine Start: 06-22-20 End: 08-21-19 21 take 1 tablet by mouth once daily as needed for anxiety LORazepam 0.5 MG Oral Tablet 1 (one) Tablet qd prn anxiety attacks for 0 days Quantity: 30 {Tablet} Refills: 0 Ordered: 21-Aug-2020 Litzy Mack LPN Start : 22-Jun-2019 End : 21-Aug-2020 Discontinued Comments: thirty F41.9 Start: 01-04-2019 take 1 tablet by barbara th once daily as needed for anxiety LORazepam 0.5 MG Oral Tablet 1 (one) Tablet qd prn anxiety attacks for 0 days Quantity: 30 {Tablet} Refills: 0 Ordered: 04-Jan-2019 Rocío Chu DO, DO, Kathleen Start : 04-Jan-2019 Active Comments: thirty F41.9 Comment on above: thirty F41.9 mirtazapine 30 mg oral tablet (11 sources) Start: 06-22-2019 End: 08-21-2020 take 1 tablet by mouth once daily at bedtime Remeron 30 MG Oral Tablet 1 (one) Tablet qhs for 30 days Quantity: 30 {Tablet} Refills: 3 Ordered: 21-Aug-2020 Litzy Mack LPN Start : 22-Jun-2019 End : 21-Aug-2020 Discontinued Start: 07-12-2018 take 1 tablet by barbara th once daily at bedtime Remeron 30 MG Oral Tablet 1 (one) Tablet qhs for 30 days Quantity: 30 {Tablet} Refills: 3 Ordered: 12-Jul-2018 Rocío Chu DO, DO, Kathleen Start : 12-Jul-2018 Active Start: 04-09-2015 End: 03-04-2018 take 1 tablet by mouth once daily at bedtime Remeron 30 MG Oral Tablet 1 (one) Tablet qhs for 30 days Quantity: 30 {Tablet} Refills: 6 Ordered: 04-Mar-2018 Niecy Avery LPN Start : 09-Apr-2015 End : 04-Mar-2018 Inactive Multi-Vitamins (2 sources) Start: 10-08-2014 take 1 tablet by mouth once daily MULTI-VITAMINS (Oral Tablet) 1 (one) Tablet qd for 30 days Refills: 0 Ordered: 08-Oct-2014 Rocío Chu DO, DO, Kathleen Start : 08-Oct-2014 Active MULTI-VITAMINS (Oral Tablet) (9 sources) Start: 10-08-2014 take 1 tablet by mouth once daily MULTI-VITAMINS (Oral Tablet) 1 (one) Tablet qd for 30 days Refills: 0 Ordered: 08-Oct-2014 Rocío Chu DO, DO, Kathleen Start : 08-Oct-2014 Active ondansetron 4 mg oral tablet (11 sources) Serotonin-3 Receptor Antagonist take 1 tablet by mouth once daily Ondansetron HCl 4 MG Oral Tablet 1 qd (4 MG) Inactive oxyCODONE hydrochloride 5 mg oral tablet (11 sources) Opioid Agonist take 1 tablet by mouth every six hours as needed OxyCODONE HCl 5 MG Oral Tablet 1 q 6 hrs prn (5 MG) Inactive predniSONE 20 mg oral tablet (6 sources) Start: 10-26-2022 End: 10-31-2022 predniSONE 20 mg oral tablet 1 (one) tablet as directed for 5 days Quantity: 10 {Tablet} Refills: 0 Ordered: 26-Oct-2022 Priti Lott CNP Start : 26-Oct-2022 End : 31-Oct-2022 Inactive Start: 08-11-2019 End: 08-21-2020 predniSONE 10 MG Oral Tablet 1 (one) Tablet bid x 3 days for 0 days Quantity: 6 {Tablet} Refills: 0 Ordered: 21-Aug-2020 Litzy Mack LPN Start : 11-Aug-2019 End : 21-Aug-2020 Discontinued Comments: with food Comment on above: with food traZODone hydrochloride 100 mg oral tablet (11 sources) Serotonin Reuptake Inhibitor Start: 8 End: 8 take 1 tablet by mouth at bedtime TraZODone HCl 100 MG Oral Tablet 1 (one) Tablet at bedtime, as needed for 0 days Quantity: 30 {Tablet} Refills: 3 Ordered: 12-Jul-2018 Rocío Chu DO, DO, Kathleen Start : 12-Jul-2018 End : 12-Jul-2018 Discontinued Comments: Medication taken as needed. head ache Start: 06-10-2018 take 1 tablet by barbara th at bedtime TraZODone HCl 100 MG Oral Tablet 1 (one) Tablet at bedtime, as needed for 0 days Quantity: 30 {Tablet} Refills: 3 Ordered: 10-Jun-2018 Rocío Chu DO, DO, Kathleen Start : 10-Jun-2018 Active Comments: Medication taken as needed. Start: 06-10-2018 take 1 tablet by barbara th at bedtime TraZODone HCl 100 MG Oral Tablet 1 (one) Tablet at bedtime, as needed for 0 days Quantity: 30 {Tablet} Refills: 3 Ordered: 10-Jun-2018 Rocío Chu DO, DO, Kathleen Start : 10-Jun-2018 Active Comments: Medication taken as needed. Comment on above: Medication taken as needed. Medication taken as needed. head ache Problems Active Problems Problem Classification Problem Date Documented Date Episodic/Chronic Acute cerebrovascular disease (2 sources) Hematoma of subdural space of neuraxis; Translations: [SDH (subdural hematoma)] 10-26-2022 Chronic Administrative/social admission (2 sources) Medical examinations/reports status; Translations: [Encounter for Medicare annual wellness exam] 06-10-2018 Episodic Anxiety disorders (20 sources) Anxiety; Translations: [Posttraumatic stress disorder] 06-10-2018 Chronic Diseases of mouth; excluding dental (20 sources) Painful mouth; Translations: [Glossodynia] Resolved: 01-04-2019 06-10-2018 Episodic Comment on above: telectasia E Codes: Fall (2 sources) Accidental fall ; Translations: [Accidental fall, initial encounter] Resolved: 01-04-2019 01-04-2019 Episodic Comment on above: reports [facility] but really dont know how -- she thinks she tripped Esophageal disorders (20 sources) Gastroesophageal reflux disease; Translations: [GERD (gastroesophageal reflux disease)] 06-10-2018 Chronic Fracture of upper limb (14 sources) Other extraarticular fracture of lower end of left radius, initial encounter for closed fracture; Translations: [Fracture of distal end of radius] Onset: 02-27-2018 Resolved: 01-04-2019 06-10-2018 Episodic Hypertension with complications and secondary hypertension (1 source) Hypertensive urgency; Translations: [Hypertensive urgency] Onset: 06-13-2024 Chronic Immunizations and screening for infectious disease (14 sources) Encounter for immunization; Translations: [Need for prophylactic vaccination and inoculation against influenza] Onset: 02-27-2018 10-26-2022 Episodic Intracranial injury (10 sources) Subdural hematoma; Translations: [SDH (subdural hematoma)] 06-10-2018 Chronic Intracranial injury (14 sources) Traumatic subdural hemorrhage with loss of consciousness of unspecified duration, initial encounter; Translations: [Concussion with no loss of consciousness] Onset: 02-27-2018 Resolved: 01-04-2019 06-10-2018 Episodic Malaise and fatigue (6 sources) Asthenia; Translations: [Weakness] 08-21-2020 Episodic Mood disorders (20 sources) Depression; Translations: [Depressive disorder] 06-10-2018 Chronic Nausea and vomiting (6 sources) Nausea; Translations: [Nausea] 08-21-2020 Episodic Neoplasms of unspecified nature or uncertain behavior (20 sources) Neoplasm of uncertain behavior of skin; Translations: [Neoplasm of uncertain behavior of skin] 06-10-2018 Episodic Comment on above: face/nose Osteoarthritis (11 sources) Arthritis; Translations: [Arthritis] 06-10-2018 Chronic Other circulatory disease (20 sources) Idiopathic hypotension; Translations: [Idiopathic hypotension] 06-10-2018 Episodic Comment on above: no meds and claims d rinking water and tea -- Other connective tissue disease (2 sources) Presence of artificial hip joint, bilateral; Translations: [Presence of artificial hip joint, bilateral] Onset: 02-27-2018 Chronic Other connective tissue disease (20 sources) Pain in lower limb; Translations: [Leg pain] Resolved: 01-04-2019 06-10-2018 Episodic Comment on above: etiology ? varicose wear support stocings-- circulation ? screening tito negative -- with back pain and neurologic findiong on exam will start with PT and ncs/emg -- if persistent will look at mri back adn TITO with exercise to eval circuilation - Other connective tissue disease (3 sources) Muscle weakness of limb; Translations: [Leg weakness] Resolved: 10-29-2014 12-26-2014 Episodic Comment on above: pt took all sugar ou t of diet and resolved Other endocrine disorders (20 sources) Hypoglycemia; Translations: [Hypoglycemia] 06-10-2018 Chronic Other lower respiratory disease (20 sources) Cough; Translations: [Cough] 08-15-2019 Episodic Comment on above: ? allergy vs bronchi tis Other nervous system disorders (12 sources) Polyneuropathy, unspecified; Translations: [Small fiber neuropathy] 06-10-2018 Chronic Other nervous system disorders (13 sources) Skin sensation disturbance; Translations: [Paresthesias/numbness ] 06-10-2018 Episodic Other non-epithelial cancer of skin (10 sources) Basal cell carcinoma of face; Translations: [Basal cell carcinoma, face] 06-10-2018 Chronic Other non-epithelial cancer of skin (2 sources) Basal cell carcinoma of face; Translations: [Basal cell carcinoma, face] 10-26-2022 Episodic Other non-traumatic joint disorders (1 source) Pain in left shoulder; Translations: [Pain in joint, shoulder region] 10-03-2020 Episodic Other upper respiratory disease (13 sources) Hoarse; Translations: [Voice hoarseness] Resolved: 01-04-2019 06-10-2018 Episodic Paralysis (20 sources) Monoparesis - leg; 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] Resolved: 10-29-2014 12-26-2014 Chronic Comment on above: pt took all sugar ou t of diet and resolved Residual codes; unclassified (12 sources) Body mass index (BMI) 20.0-20.9, adult; Translations: [Body mass index 20-24 - normal] 01-04-2019 Episodic Residual codes; unclassified (20 sources) Disturbance in sleep behavior; Translations: [Sleep disturbance] 03-04-2018 Episodic Residual codes; unclassified (8 sources) Needs influenza immunization; Translations: [Need for prophylactic vaccination and inoculation against influenza (Renamed from Need for immunization against influenza)] 01-04-2019 Episodic Residual codes; unclassified (10 sources) Postmenopausal state; Translations: [Postmenopausal (Renamed from Postmenopausal status)] 01-04-2019 Episodic Residual codes; unclassified (9 sources) Non-smoker; Translations: [Non-smoker] 10-26-2022 Episodic Spondylosis; intervertebral disc disorders; other back problems (20 sources) Backache; Translations: [Neck pain] Onset: 04-07-2024 Resolved: 01-04-2019 06-10-2018 Episodic Syncope (2 sources) Syncope and collapse; Translations: [Syncope and collapse] Onset: 02-27-2018 Episodic Unclassified (16 sources) Breast neoplasm screening status; Translations: [Breast cancer screening] 06-10-2018 Episodic Comment on above: with age no scope an d declined cologard and heme cards Unclassified (20 sources) Insomnia; Translations: [Disturbance in sleep behavior] 06-10-2018 Episodic Unclassified (20 sources) Unclassified (17 sources) Sleep disturbance Unclassified (20 sources) PTSD (post-traumatic stress disorder) Unclassified (1 source) Low back pain, unspecified; Translations: [Low back pain, unspecified] Onset: 04-08-2024 Varicose veins of lower extremity (12 sources) Venous varices; Translations: [Varicose vein] 06-10-2018 Episodic Comment on above: rx support stockings given Past or Other Problems Problem Classification Problem Date Documented Date Episodic/Chronic Esophageal disorders (20 sources) Esophageal disorders External Injury - Fall (12 sources) Fall on same level, unspecified, initial encounter; Translations: [Accidental fall ] Onset: 02-27-2018 Resolved: 01-04-2019 06-10-2018 Comment on above: reports [facility] but really dont know how -- she thinks she tripped Mood disorders (20 sources) Mood disorders Unclassified (10 sources) Voice hoarseness Unclassified (10 sources) Accidental fall, initial encounter Unclassified (20 sources) BMI 20.0-20.9, adult Unclassified (10 sources) Small fiber neuropathy Unclassified (10 sources) Paresthesias/numbness Unclassified (10 sources) SDH (subdural hematoma) Unclassified (10 sources) Distal radius fracture, left Unclassified (10 sources) Acute pain of mouth Unclassified (10 sources) Annual Medicare Physical (V70.0) Unclassified (10 sources) Breast cancer screening Unclassified (10 sources) Tongue lesion Unclassified (10 sources) Lesion-Unknown behavior (238.2) Unclassified (10 sources) Tongue pain Unclassified (20 sources) Non-smoker; Translations: [Non-smoker] 06-10-2018 Unclassified (10 sources) Basal cell carcinoma, face Unclassified (10 sources) Concussion without loss of consciousness, initial encounter Unclassified (20 sources) Patient encounter status; Translations: [Annual Medicare Phyiscal WITHOUT abnormal findings (Renamed from Encounter for general adult medical examination without abnormal findings)] 01-04-2019 Comment on above: with age no scope an d declined cologard and heme cards Unclassified (8 sources) Non-smoker; Translations: [Non-smoker] 01-04-2019 Unclassified (8 sources) Postmenopausal (Renamed from Postmenopausal status) Unclassified (8 sources) Encounter for screening mammogram for breast cancer (Renamed from Encounter for screening mammogram for malignant neoplasm of breast) Unclassified (8 sources) Colon cancer screening (Renamed from Encounter for screening for malignant neoplasm of colon) Unclassified (15 sources) Body mass index 20-24 - normal; Translations: [BMI 20.0-20.9, adult] 06-22-2019 Unclassified (10 sources) BMI 21.0-21.9, adult NEGATED: Highlighted row has been ruled out!Unclassified (11 sources) Problem Onset: 10-08-2014 06-10-2018 Results Test Name Value Interpretation Reference Range Facility CBC W/Diff, Automatedon 05-16 Absolute Lymph 0.77 X10 3/uL Low 0.83-4.51 [facility] Comment on above: Performed By: #### [id number], L100.0100, L101.9900, L501.9520, L501.6710, L400.2010 #### [facility] [address] [place], [address] Absolute Neut 3.3 X10 3/uL Normal 2.0-7.7 [facility] Comment on above: Performed By: #### [id number], L100.0100, L101.9900, [id number], L501.6710, L400.2010 #### [facility] [address] [place], [address] Basophils/100 WBC (Bld) 0.7 % Normal 0-1 [facility] Comment on above: Performed By: #### [id number], L100.0100, L101.9900, [id number], L501.6710, L400.2010 #### [facility] [address] [place], [address] Eosinophils/100 WBC (Bld) 2.0 % Normal 0-5 [facility] Comment on above: Performed By: #### [id number], L100.0100, L101.9900, L501.9520, L501.6710, L400.2010 #### [facility] [address] [place], [address] Erythrocyte distribution width (RBC) [Ratio] 12.5 % Normal 11.6-14.6 [facility] Comment on above: Performed By: #### [id number], L100.0100, L101.9900, L501.9520, L501.6710, L400.2010 #### [facility] [address] [place], [address] Hematocrit (Bld) [Volume fraction] 42.1 % Normal 37-47 [facility] Comment on above: Performed By: #### [id number], L100.0100, L101.9900, L501.9520, L501.6710, L400.2010 #### [facility] [address] [place], [address] Hemoglobin (Bld) [Mass/Vol] 13.8 g/dL Normal 12.0-15.0 [facility] Comment on above: Performed By: #### [id number], L100.0100, L101.9900, L501.9520, L501.6710, L400.2010 #### [facility] [address] [place], [address] IG% 0.400 Normal 0.0-0.9 [facility] Comment on above: Result Comment: IG% - Immature Granulocy delfina (promyelocytes, myelocytes and metamyelocytes) > 1% indicates that a LEFT SHIFT is Present. Performed By: #### L [id number], L100.0100, L101.9900, L501.9520, L501.6710, L400.2010 #### [facility] [address] [place], [address] Lymphocytes/100 WBC (Bld) 16.8 % Low 19-41 [facility] Comment on above: Performed By: #### [id number], L100.0100, L101.9900, L501.9520, L501.6710, L400.2010 #### [facility] [address] [place], [address] MCH (RBC) [Entitic mass] 31.3 pg Normal 27.0-32.0 [facility] Comment on above: Performed By: #### [id number], L100.0100, L101.9900, L501.9520, L501.6710, L400.2010 #### [facility] [address] [place], [address] MCHC (RBC) [Mass/Vol] 32.8 g/dL Normal 32-36 [facility] Comment on above: Performed By: #### [id number], L100.0100, L101.9900, L501.9520, L501.6710, L400.2010 #### [facility] [address] [place], [address] MCV (RBC) [Entitic vol] 95.5 fL Normal 81-99 [facility] Comment on above: Performed By: #### L500.4050, L100.0100, L101.9900, L501.9520, L501.6710, L400.2010 #### [facility] [address] [place], [address] Monocytes/100 WBC (Bld) 8.8 % Normal 0-10 [facility] Comment on above: Performed By: #### L500.4050, L100.0100, L101.9900, L501.9520, L501.6710, L400.2010 #### [facility] [address] [place], [address] Neutrophils/100 WBC (Bld) 71.3 % High 47-70 [facility] Comment on above: Performed By: #### L500.4050, L100.0100, L101.9900, L501.9520, L501.6710, L400.2010 #### [facility] [address] [place], [address] Nucleated RBC (Bld) [#/Vol] 0 10*3/uL Normal 0-5 [facility] Comment on above: Performed By: #### L500.4050, L100.0100, L101.9900, L501.9520, L501.6710, L400.2010 #### [facility] [address] [place], [address] Platelet mean volume (Bld) [Entitic vol] 9.1 fL Normal 6.2-12.0 [facility] Comment on above: Performed By: #### L500.4050, L100.0100, L101.9900, L501.9520, L501.6710, L400.2010 #### [facility] [address] [place], [address] Platelets (Bld) [#/Vol] 208 10*3/uL Normal 150-450 [facility] Comment on above: Performed By: #### L500.4050, L100.0100, L101.9900, L501.9520, L501.6710, L400.2010 #### [facility] [address] [place], [address] RBC (Bld) [#/Vol] 4.41 10*6/uL Normal 4.2-5.4 [facility] Comment on above: Performed By: #### L500.4050, L100.0100, L101.9900, L501.9520, L501.6710, L400.2010 #### [facility] [address] [place], [address] RDW SD 45.0 fl High 35.1-43.9 [facility] Comment on above: Performed By: #### L500.4050, L100.0100, L101.9900, L501.9520, L501.6710, L400.2010 #### [facility] [address] [place], [address] WBC (Bld) [#/Vol] 4.6 10*3/uL Normal 4.4-11.0 [facility] Comment on above: Performed By: #### L500.4050, L100.0100, L101.9900, L501.9520, L501.6710, L400.2010 #### [facility] [address] [place], [address] CRPon 05-25-2024 C-REACTIVE PROT 5.89 mg/L High 0.0-3.0 [facility] Comment on above: Result Comment: C-Reactive Protein (CRP) provides useful information for the diagnosis, therapy and monitoring of inflammatory processes and associated diseases. For the evaluation of Relative Risk for Cardiovascular Disease, a High Sensitivity CRP (HSCRP) should be ordered. Performed By: #### L 500.4050, L100.0100, L101.9900, L501.9520, L501.6710, L400.2010 #### [facility] [address] [place], [address] Comprehensive Metabolic Prof ilon 05-25-2024 Albumin [Mass/Vol] 3.8 g/dL Normal 3.2-5.0 [facility] Comment on above: Performed By: #### L500.4050, L100.0100, L101.9900, L501.9520, L501.6710, L400.2010 #### [facility] [address] [place], [address] Albumin/Globulin [Mass ratio] 1.2 {ratio} Normal 0.9-2.4 [facility] Comment on above: Performed By: #### L500.4050, L100.0100, L101.9900, L501.9520, L501.6710, L400.2010 #### [facility] [address] [place], [address] ALK P 130 U/L High 45-117 [facility] Comment on above: Performed By: #### L500.4050, L100.0100, L101.9900, L501.9520, L501.6710, L400.2010 #### [facility] [address] [place], [address] ALT [Catalytic activity/Vol] 15 U/L Normal 13-56 [facility] Comment on above: Performed By: #### L500.4050, L100.0100, L101.9900, L501.9520, L501.6710, L400.2010 #### [facility] [address] [place], [address] AST [Catalytic activity/Vol] 12 U/L Low 15-37 [facility] Comment on above: Performed By: #### L500.4050, L100.0100, L101.9900, L501.9520, L501.6710, L400.2010 #### [facility] [address] [place], [address] Bilirubin [Mass/Vol] 1.10 mg/dL High 0.20-1.00 [facility] Comment on above: Result Comment: For patients on eltrombo pag therapy, use of Dimension Wake TBIL is not recommended. Performed By: #### L 500.4050, L100.0100, L101.9900, L501.9520, L501.6710, L400.2010 #### [facility] [address] [place], [address] BUN/CRE 14.8 RATIO Normal 10-20 [facility] Comment on above: Performed By: #### L500.4050, L100.0100, L101.9900, L501.9520, L501.6710, L400.2010 #### [facility] [address] [place], [address] CA,Total 9.1 mg/dL Normal 8.5-10.1 [facility] Comment on above: Performed By: #### L500.4050, L100.0100, L101.9900, L501.9520, L501.6710, L400.2010 #### [facility] [address] [place], [address] Chloride [Moles/Vol] 107 mmol/L Normal 98-107 [facility] Comment on above: Performed By: #### L500.4050, L100.0100, L101.9900, L501.9520, L501.6710, L400.2010 #### [facility] [address] [place], [address] CO2 [Moles/Vol] 28.0 mmol/L Normal 21.0-32.0 [facility] Comment on above: Performed By: #### L500.4050, L100.0100, L101.9900, L501.9520, L501.6710, L400.2010 #### [facility] [address] [place], [address] Creatinine [Mass/Vol] 0.68 mg/dL Normal 0.55-1.02 [facility] Comment on above: Result Comment: The validity of the calc ulated GFR GFRAA in patients over 70 years has not been determined. Clinical correlation is essential. Performed By: #### L 500.4050, L100.0100, L101.9900, L501.9520, L501.6710, L400.2010 #### [facility] [address] [place], [address] EST GFR - AA 106 mL/min Normal >60 [facility] Comment on above: Result Comment: GFR Julio c Performed By: #### L 500.4050, L100.0100, L101.9900, L501.9520, L501.6710, L400.2010 #### [facility] [address] [place], [address] GAP 6 Normal 5-15 [facility] Comment on above: Performed By: #### L500.4050, L100.0100, L101.9900, L501.9520, L501.6710, L400.2010 #### [facility] [address] [place], [address] GFR/1.73 sq M.predicted among non-blacks MDRD (S/P/Bld) [Vol rate/Area] 88 mL/min/{1.73_m2} Normal >60 [facility] Comment on above: Result Comment: Non- GFR Calc Performed By: #### L 500.4050, L100.0100, L101.9900, L501.9520, L501.6710, L400.2010 #### [facility] [address] [place], [address] Globulin (S) [Mass/Vol] 3.1 g/dL Normal 2.2-4.2 [facility] Comment on above: Performed By: #### L500.4050, L100.0100, L101.9900, L501.9520, L501.6710, L400.2010 #### [facility] [address] [place], [address] Glucose [Mass/Vol] 90 mg/dL Normal 74-106 [facility] Comment on above: Performed By: #### L500.4050, L100.0100, L101.9900, L501.9520, L501.6710, L400.2010 #### [facility] [address] [place], [address] Potassium [Moles/Vol] 4.0 mmol/L Normal 3.5-5.1 [facility] Comment on above: Performed By: #### L500.4050, L100.0100, L101.9900, L501.9520, L501.6710, L400.2010 #### [facility] [address] [place], [address] Sodium [Moles/Vol] 140 mmol/L Normal 136-145 [facility] Comment on above: Performed By: #### L500.4050, L100.0100, L101.9900, L501.9520, L501.6710, L400.2010 #### [facility] [address] [place], [address] T PROT 6.9 g/dL Normal 6.4-8.2 [facility] Comment on above: Performed By: #### L500.4050, L100.0100, L101.9900, L501.9520, L501.6710, L400.2010 #### [facility] [address] [place], [address] Urea nitrogen [Mass/Vol] 10 mg/dL Normal 7-18 [facility] Comment on above: Performed By: #### L500.4050, L100.0100, L101.9900, L501.9520, L501.6710, L400.2010 #### [facility] [address] [place], [address] Erythrocyte Sed Rateon 05-25 SED RATE < 1 Normal 0-30 [facility] Comment on above: Performed By: #### L500.4050, L100.0100, L101.9900, L501.9520, L501.6710, L400.2010 #### [facility] [address] [place], [address] Thyroid Stim Hormone (TSH)on 05-25-2024 TSH 1.360 uIU/mL Normal 0.358-3.740 [facility] Comment on above: Performed By: #### L500.4050, L100.0100, L101.9900, L501.9520, L501.6710, L400.2010 #### [facility] [address] [place], [address] Urinalysis, Routine (Dipstic k)on 05-25-2024 BILIRUBIN URINE Negative Normal Negative [facility] Comment on above: Order Comment: CLEAN CATCH Performed By: #### L 500.4050, L100.0100, L101.9900, L501.9520, L501.6710, L400.2010 #### [facility] [address] [place], [address] Clarity (U) Clear Normal Clear [facility] Comment on above: Order Comment: CLEAN CATCH Performed By: #### L 500.4050, L100.0100, L101.9900, L501.9520, L501.6710, L400.2010 #### [facility] [address] [place], [address] Color (U) Yellow Normal Yellow [facility] Comment on above: Order Comment: CLEAN CATCH Performed By: #### L 500.4050, L100.0100, L101.9900, L501.9520, L501.6710, L400.2010 #### [facility] [address] [place], [address] GLUCOSE, UR Normal Normal Normal [facility] Comment on above: Order Comment: CLEAN CATCH Performed By: #### L 500.4050, L100.0100, L101.9900, L501.9520, L501.6710, L400.2010 #### [facility] [address] [place], [address] KETONE UR Negative Normal Negative [facility] Comment on above: Order Comment: CLEAN CATCH Performed By: #### L 500.4050, L100.0100, L101.9900, L501.9520, L501.6710, L400.2010 #### [facility] [address] [place], [address] LEUK ESTERASE 100 /ul Abnormal Negative [facility] Comment on above: Order Comment: CLEAN CATCH Performed By: #### L 500.4050, L100.0100, L101.9900, L501.9520, L501.6710, L400.2010 #### [facility] [address] [place], [address] Nitrite Ql (U) Negative Normal Negative [facility] Comment on above: Order Comment: CLEAN CATCH Performed By: #### L 500.4050, L100.0100, L101.9900, L501.9520, L501.6710, L400.2010 #### [facility] [address] [place], [address] OCCULT BLOOD-UR Negative Normal Negative [facility] Comment on above: Order Comment: CLEAN CATCH Performed By: #### L 500.4050, L100.0100, L101.9900, L501.9520, L501.6710, L400.2010 #### [facility] [address] [place], [address] pH UR 7.0 Normal 5.0 - 8.0 [facility] Comment on above: Order Comment: CLEAN CATCH Performed By: #### L 500.4050, L100.0100, L101.9900, L501.9520, L501.6710, L400.2010 #### [facility] [address] [place], [address] PROT DIPSTX Negative Normal Negative [facility] Comment on above: Order Comment: CLEAN CATCH Performed By: #### L 500.4050, L100.0100, L101.9900, L501.9520, L501.6710, L400.2010 #### [facility] [address] [place], [address] SP.GR. DIPSTX 1.010 Normal 1.002-1.030 [facility] Comment on above: Order Comment: CLEAN CATCH Performed By: #### L 500.4050, L100.0100, L101.9900, L501.9520, L501.6710, L400.2010 #### [facility] [address] [place], [address] UROBILI Normal Normal Normal [facility] Comment on above: Order Comment: CLEAN CATCH Performed By: #### L 500.4050, L100.0100, L101.9900, L501.9520, L501.6710, L400.2010 #### [facility] [address] [place], [address] 12 Lead EKGon 03-20-2024 12 Lead EKG [facility] [address] [place] [address] 12 Lead EKG 03/20/24 1058 MR#: [id number] Acct: [id number] Name: MARY KATE ABEL Rep #: [id number] : 1940 83 From: Morales Beard MD Attending Dr: Status: DEP ER Ordering Dr: Chance Hay DO Date: 03/20/24 Location: ED Sex: F C Admitted: Test Reason : BACK PAIN Blood Pressure : / mmHG Vent. Rate : 076 BPM Atrial Rate : 076 BPM P-R Int : 162 ms QRS Dur : 070 ms QT Int : 366 ms P-R-T Axes : 049 041 063 degrees QTc Int : 411 ms Sinus rhythm with Premature atrial complexes Otherwise normal ECG Confirmed by Morales Beard ([id number]), photographic editor OLIVA FISHER ([id number]) on 03/21/2024 2:05:21 PM Referred By: Confirmed By:Morales Beard 03/21/24 1405 Date Morales Beard MD CC: Dr. Rocío Chu DO; Dr. Chance Hay DO Signed Normal [facility] Emergency Department Summary on 03-20-2024 Emergency Department Summary [facility] Medical Records Department [address] [place] [address] Emergency Department Summary 03/20/24 MR#: [id number] Acct: [id number] Name: MARY KATE ABEL Rep #: [id number] : 1940 83 From: Chance Hay DO PCP: Dr. Rocío Chu DO Status:REG ER Location: ED HPI History of Present Illness Chief Complaint: Back Narrative Narrative: Patient is a 83-year-old female with no known significant past medical history who follows with a physician on a as needed basis who presents to the emergency department chief complaint of right back pain. Patient states that last week she bent over and poured out a heavy tub of water and noted that a few hours after that she noted that she had back pain on the right side. States that the back pain radiated from her right back to her thigh/knee region. Patient states that she tried to take ibuprofen at home without any relief of her pain. Patient states that she followed up with her primary care physician last week and had x-rays obtained and noted that these were normal. States that she had been trying cyclobenzaprine without much relief. Patient states that her pain is not improving denies any new trauma but needs pain relief prompting her to come here for further evaluation management. [facility] Medical History Fracture of right tibial plateau Home Medications ???Medication ???Instructions ???Recorded ???Last Taken ???Type Calcium 1 tab DAILY 09/27/17 03/19/24 History One Daily Womens 50 Plus Tab 1 tab DAILY 09/27/17 03/19/24 History Vitamin B Complex 1 tab DAILY 09/27/17 03/19/24 History Vitamin C 1 tab DAILY 09/27/17 03/19/24 History Vitamin D 1 tab PO DAILY 09/27/17 03/19/24 History Vitamin E 1 tab DAILY 09/27/17 03/19/24 History ondansetron 4 mg disintegrating 4 mg PO Q8H PRN nausea and 03/20/24 Unknown Rx tablet vomiting #14 tabs oxycodone-acetaminophen 5 mg-325 1 tab PO Q6H PRN pain 3 days #12 03/20/24 Unknown Rx mg tablet (Endocet) tabs Allergy/AdvReac Type Severity Reaction Status Date / Time iodine Allergy Hives Verified 03/20/24 10:16 aspirin AdvReac Upset Verified 03/20/24 10:16 Stomach Surgical History Hx of appendectomy Social History Smoking Status: Former smoker ROS ROS ED ROS Narrative Constitutional: Denies any fevers, chills, headaches, lightheadedness, dizziness Eyes: Denies change in vision double vision blurry vision Cardiovascular: Denies chest pain or palpitations Respiratory: Denies coughing wheezing shortness of breath Abdomen: Denies abdominal pain nausea vomiting diarrhea. States that she has been having normal bowel movements : Denies any painful urination, hematuria, polyuria. States that she has been urinating normally for herself Neurological: Denies any numbness, weakness, tingling Musculoskeletal: Complains of back pain as noted above Skin: Denies rashes or lesions EXAM Physical Exam Narrative Exam Narrative: General: Patient standing at the bedside did appear to be uncomfortable secondary to her back pain Head: Atraumatic, normocephalic Eyes: PERRL bilaterally, EOMI bilaterally, no conjunctival injection noted Neck: Soft, supple, trachea midline Cardiovascular: Regular rate and rhythm no murmurs gallops rubs noted Respiratory: Clear to auscultation bilaterally no rales rhonchi or wheeze noted Abdomen: Soft, nondistended, no tenderness palpation, bowel sounds present x 4 Musculoskeletal: Patient has some tenderness palpation in the right quadratus lumborum region no CVA tenderness noted, no midline tenderness palpation of thoracolumbar spine Extremities: +5/5 strength noted in the bilateral upper and lower extremities, DP pulses +2/4 in the bilateral lower extremities, no pedal edema on exam Neurological: Patient was following commands that she was at [facility] the year is 2023. Sensation grossly intact in the bilateral lower extremities. No saddle anesthesia noted Skin: Warm, dry, intact no rashes or lesions noted Const Vital Signs: 03/20/24 10:07 03/20/24 11:55 Temperature 95.8 F L 97.7 F L Temperature Source Temporal Pulse Rate 81 80 Respiratory Rate 16 16 Blood Pressure 168/93 H 161/89 H Blood Pressure Mean 118 113 Pulse Ox 97 98 Oxygen Delivery Method Room Air MDM MDM MDM Narrative Medical decision making narrative: Patient is a 83-year-old female who presents to the emergency department chief complaint of right- sided back pain radiating to her right knee/thigh. Patient's x-rays were reviewed and Her thoracic spine x-ray from 03/14/2024 showed age consistent degenerative changes with mild dextroscol (more content not included)... Normal [facility] Urinalysis, Completeon 03-20 BACTERIA 1+ /hpf Normal None Seen [facility] Comment on above: Order Comment: SEED CORE OPERATOR TO SPECIFY Performed By: #### L 500.4050, L100.0100, L101.9900, L501.9520, L501.6710, L400.2010 #### [facility] [address] [place], [address] WBC 0-5 SEEN Normal 0-5 [facility] Comment on above: Order Comment: SEED CORE OPERATOR TO SPECIFY Performed By: #### L 500.4050, L100.0100, L101.9900, L501.9520, L501.6710, L400.2010 #### [facility] [address] [place], [address] EPI,SQUAMOUS 0 SEEN Normal 5-10 [facility] Comment on above: Order Comment: SEED CORE OPERATOR TO SPECIFY Performed By: #### L 500.4050, L100.0100, L101.9900, L501.9520, L501.6710, L400.2010 #### [facility] [address] [place], [address] Mucus Ql (Urine sed) 0 SEEN Normal [facility] Comment on above: Order Comment: SEED CORE OPERATOR TO SPECIFY Performed By: #### L 500.4050, L100.0100, L101.9900, L501.9520, L501.6710, L400.2010 #### [facility] [address] [place], [address] RBC 0 SEEN Normal 0-5 [facility] Comment on above: Order Comment: SEED CORE OPERATOR TO SPECIFY Performed By: #### L 500.4050, L100.0100, L101.9900, L501.9520, L501.6710, L400.2010 #### [facility] [address] [place], [address] Lumbar Spine 2 or 3 Viewson 03-14-2024 Lumbar Spine 2 or 3 Views [facility] Imaging Services [address] [place] [address] Lumbar Spine 2 or 3 Views MR#: [id number] Acct: [id number] Name: MARY KATE ABEL Rep #: [id number] : 1940 F 83 From: Nilay Solano PCP: Dr. Rocío Chu, DO Status: REG CLI Study: Lumbar Spine 2 or 3 Views Date of Exam: Exam# [id number] Ordering Dr: Priti Lott [employer]PERVISOR-C :[id number] INDICATION: XR LUMBAR SPINE 3V -- Acute bilateral low back pain without sciatica EXAMINATION/TECHNIQUE: X-RAY - XR Spine Lumbar 2 or 3 Views COMPARISON: No relevant prior comparison study available FINDINGS: VERTEBRAE: Preserved vertebral body height. No fracture. No spondylolisthesis. Preservation of the normal lumbar lordosis. Moderate levoscoliosis. DISCS: Disc space narrowing at multiple levels with endplate spondylosis. INCLUDED ABDOMEN: Right upper quadrant calcifications consistent with gallstones. Bilateral hip hemiarthroplasty. RAD/Lumbar Spine 2 or 3 Views IMPRESSION: Degenerative changes of the lumbar spine as described above. Cholelithiasis. Electronically Signed: Nilay Bella MD at 14:16 EDT , CC: NOHEMI Lott; Dr. Rocío Chu DO [place] Agent: Signed Normal [facility] Thoracic Spine 3 Viewson Thoracic Spine 3 Views [facility] Imaging Services [address] [place] [address] Thoracic Spine 3 Views MR#: [id number] Acct: [id number] Name: MARY KATE ABEL Rep #: [id number] : 1940 F 83 From: Malik Vargas MD PCP: Dr. Rocío Chu DO Status: REG CLI Study: Thoracic Spine 3 Views Date of Exam: 03/14/24 Exam# [id number] Ordering Dr: Priti Lott :[id number] STUDY: X-RAY - THORACIC SPINE REASON FOR EXAM: Female, 83 years old. Mid back pain TECHNIQUE: 3 view(s) of the thoracic spine were obtained. COMPARISON: None. FINDINGS: Normal kyphosis of the thoracic spine. There is a minimal dextroscoliosis apex between T7 and T8. There is demineralization of the thoracic spine. There is multilevel disc space narrowing of the thoracic spine. The soft tissue structures are unremarkable. RAD/Thoracic Spine 3 Views IMPRESSION: Age consistent degenerative changes with a mild dextroscoliosis. No acute fracture, absent pedicle, or paraspinal mass Electronically Signed: Ryan Vargas MD at 14:22 EDT , CC: NOHEMI Lott; Dr. Rocío Chu DO [place] Agent: [facility] MARY KATE ABEL ([id number]) 1940 F Date Time Provider Department 10/03/20 3:45 PM MATT FELIX [facility] During your visit today, we recorded the following information about you: Pulse Respiration Blood pressure Weight 76/minute 16/minute 130/82 73 kg Matt Felix MD 10/03/2020 4:43 PM Signed Patient presents with: Pain (Shoulder Pain): LEFT shoulder x 8 days HPI: Left shoulder pain: Duration: Started hurting about a week ago. No specific injury but seems to have started the day after lifting a mattress Location: Left shoulder Character: aching and sharp Radiation: From the neck all the way down to the fingers Aggravating: Shoulder abduction, cross arm, or reaching above her head. Not bothered by neck movement Relieving: Only hurts at the shoulder at rest Pain relievers: Tylenol and Excedrin Associated: Pertinent negatives: Denies numbness, weakness, dizziness, shortness of breath, neck pain MEDICATIONS: No prescriptions on file. ALLERGIES: ALLERGIES Allergen Reactions - Iodine Rash - Salicylates GI Upset VITALS: BP 130/82 Pulse 76 Resp 16 Wt 73 kg (161 lb) SpO2 97% PHYSICAL EXAM: GEN: pleasant, no acute distress, alert HEENT: PERRL, EOMI, NECK: supple, no lymphadenopathy, no thyromegaly, FROM without inducing shoulder pain, no midline or paraspinal tenderness SHOULDER: left compared to right. No deformity or sweling. Palpation of clavicle non-tender, AC joint non-tender, glenohumeral joint tender anterior aspect. No deformity of the biceps. ROM: pain with abduction, no pain with flexion/extension. Normal elbow flexion strength against resistance. Impingement test: Positive Left. Supraspinatus (empty can test): painful left. Cross arm test: Positive Left. HEART: regular rate, regular rhythm, no murmurs LUNGS: clear to auscultation, no wheezes or crackles, no increased WOB EXT: no clubbing, no cyanosis, no edema ASSESSMENT/PLAN: 1. Acute pain of left shoulder - ICD9: 719.41, ICD10: M25.512 - XR SHOULDER GENERAL 3V OR MORE AP/TRUE AP/OTHER LT - negative. AC joint sprain vs tendonitis or bursitis of rotator cuff. Biceps tendons appear to be intact. Start ibuprofen 400mg every 6 hours. F/u with - CONSULT TO ORTHOPAEDICS Matt Felix MD Referring Provider: SELF [200] Allergies As of Date: 10/03/2020 Noted Allergy Reaction IODINE 11/24/2011 2 - Rash SALICYLATES 11/24/2011 8 - GI Upset Date Reviewed: 10/03/2020 Reviewed by: Carmen Joy Ma - Fully Assessed Reason for Visit: Pain (Shoulder Pain) [1343] Cmt: LEFT shoulder x 8 days Primary Visit Diagnosis:Acute pain of left shoulder [M25.512] Order(s):XR SHOULDER GENERAL 3V OR MORE AP/TRUE AP/OTHER LT [6028781] Order #: [id number] FUTURE CONSULT TO ORTHOPAEDICS [9026] Order #: [id number]: 1 FUTURE Problem List As Of Date: 10/03/2020 (None) Medications Discontinued During This Encounter Prescriptions - mupirocin (BACTROBAN) 2 % ointment (Discontinued) Apply 1 application to affected area three times daily. Encounter Status:Closed by MATT FELIX MD on 10/03/20 Normal [facility] XR SHLDR >/=3V AP/CHELSEY AP/OTH R LTon 10-03-2020 XR SHLDR >/=3V AP/CHELSEY AP/OTHR LT * * *Final Report* * * DATE OF EXAM: Oct 03 2020 4:17PM WOX 5252 - XR SHLDR >/=3V AP/CHELSEY AP/OTHR LT / PROCEDURE REASON: Acute pain of left shoulder * * * * Physician Interpretation * * * * EXAMINATION: XR SHLDR >/=3V AP/CHELSEY AP/OTHR LT HISTORY: left posterior joint pain that radiates to anterior for a week after picking up a mattress. Acute pain of left shoulder. TECHNIQUE: XR SHLDR >/=3V AP/CHELSEY AP/OTHR LT Laterality: LEFT Number of different views (projections): 3 M: XB_1 COMPARISON: There are no prior relevant studies for comparison. RESULT: 3 views of the left shoulder show no acute osseous, articular or soft tissue abnormality. Joint spaces are preserved. IMPRESSION: No acute process. Depot Agent: [facility] Transcribe Date/Time: Oct 03 2020 4:18P Dictated by : PAT BENAVIDES MD This examination was interpreted and the report reviewed and electronically signed by: PAT BENAVIDES MD on Oct 03 2020 4:20PM EST [id number] Normal [facility] XR Shoulder - left 3 Viewson 10-03-2020 IMPRESSION: No acute process. Depot Agent: [facility] Transcribe Date/Time: Oct 03 2020 4:18P Dictated by : PAT BENAVIDES MD This examination was interpreted and the report reviewed and electronically signed by: PAT BENAVIDES MD on Oct 03 2020 4:20PM EST DIVISION OF RADIOLOGY * * *Final Report* * * DATE OF EXAM: Oct 03 2020 4:17PM WOX 5252 - XR SHLDR >/=3V AP/CHELSEY AP/OTHR LT / PROCEDURE REASON: Acute pain of left shoulder * * * * Physician Interpretation * * * * EXAMINATION: XR SHLDR >/=3V AP/CHELSEY AP/OTHR LT HISTORY: left posterior joint pain that radiates to anterior for a week after picking up a mattress. Acute pain of left shoulder. TECHNIQUE: XR SHLDR >/=3V AP/CHELSEY AP/OTHR LT Laterality: LEFT Number of different views (projections): 3 M: XB_1 COMPARISON: There are no prior relevant studies for comparison. RESULT: 3 views of the left shoulder show no acute osseous, articular or soft tissue abnormality. Joint spaces are preserved. DIVISION OF RADIOLOGY [facility] * * *Final Report* * * DATE OF EXAM: Oct 03 2020 4:17PM WOX 5252 - XR SHLDR >/=3V AP/CHELSEY AP/OTHR LT / PROCEDURE REASON: Acute pain of left shoulder * * * * Physician Interpretation * * * * EXAMINATION: XR SHLDR >/=3V AP/CHELSEY AP/OTHR LT HISTORY: left posterior joint pain that radiates to anterior for a week after picking up a mattress. Acute pain of left shoulder. TECHNIQUE: XR SHLDR >/=3V AP/CHELSEY AP/OTHR LT Laterality: LEFT Number of different views (projections): 3 M: XB_1 COMPARISON: There are no prior relevant studies for comparison. RESULT: 3 views of the left shoulder show no acute osseous, articular or soft tissue abnormality. Joint spaces are preserved. IMPRESSION IMPRESSION: No acute process. Depot Agent: MARKUS Transcribe Date/Time: Oct 03 2020 4:18P Dictated by : PAT BENAVIDES MD This examination was interpreted and the report reviewed and electronically signed by: PAT BENAVIDES MD on Oct 03 2020 4:20PM [facility] Radiology Study observation (narrative) [facility] XR Shoulder - left 3 ViewsOr dered By: Ccf Provider on 10-03-2020 [facility] 2019 Novel Coronavirus (COVI D-19), SHEYLA ([id number])Ordered By: Farmworker Grain on 08-21-20202018 Novel Coronavirus (COVID-19), SHEYLA ([id number]) Not detected Normal [facility]; [facility] Work Phone: Comment on above: This nucleic acid amplification test was developed and its performancecharacteristics determined by [employer]. Nucleic acidamplification tests include PCR and TMA. This test has not been FDAcleared or approved. This test has been authorized by FDA under anEmergency Use Authorization (EUA). This test is only authorized forthe duration of time the declaration that circumstances existjustifying the authorization of the emergency use of in vitrodiagnostic tests for detection of SARS-CoV-2 virus and/or diagnosisof COVID-19 infection under section 564(b)(1) of the Act, 21 U.S.C.360bbb-3(b) (1), unless the authorization is terminated or revokedsooner.When diagnostic testing is negative, the possibility of a falsenegative result should be considered in the context of a patient'srecent exposures and the presence of clinical signs and symptomsconsistent with COVID-19. An individual without symptoms of COVID-19and who is not shedding SARS-CoV-2 virus would expect to have anegative (not detected) result in this assay. PATIENT NOT FASTINGP ERFORMED BY: [facility]CoSaint [facility] HospitalTvpicp0588 [facility] [id number] Vit D 25-OH, Totalon 018 Vit D 25-OH, Total 39 ng/mL Normal 30-100 [facility] [employer] Comment on above: Result Comment: Therapy is based on shade urement of Total 25-OHD with thefollowing classification levels:Less than 20 ng/mL: Indicative of Vit D [id number] ng/mL: Suggests Vit D insufficiencyOptimal: Greater than or equal to 30 ng/mLTest performed by Smart[employer] Competitive Immunoassay,measuring Total Vitamin D, not individual fractions. Performed By: #### P T/AP, HEMDF, BMP3, MG3, PHOS3, TSH5, B12 ####[employer] [address] [place] [address]#### VD25H ####[employer] [facility] [place] [address] Basic Metabolic Panelon 02-13 Calcium 8.6 mg/dL Normal 8.4-10.4 [facility] [employer] Comment on above: Performed By: #### PT/AP, HEMDF, BMP3, M G3, PHOS3, TSH5, B12 ####[employer], [place] #### VD25H ####[facility] [place] [address] Anion gap 5 Normal [facility] Comment on above: Performed By: #### PT/AP, HEMDF, BMP3, M G3, PHOS3, TSH5, B12 ####[place] [address], [place] #### VD25H ####[facility] [place] [address] CO2 27 mmol/L Normal 22-30 [facility] Comment on above: Performed By: #### PT/AP, HEMDF, BMP3, M G3, PHOS3, TSH5, B12 ####[place] [address] [facility] [address], [place] #### VD25H ####[facility] [place] [address] Glucose mass conc 78 mg/dL Normal 70-100 [facility] Comment on above: Performed By: #### PT/AP, HEMDF, BMP3, M G3, PHOS3, TSH5, B12 ####[place] [address], [place] #### VD25H ####[facility] [place] [address] Urea nitrogen 6 mg/dL Low 7-20 [facility] Comment on above: Performed By: #### PT/AP, HEMDF, BMP3, M G3, PHOS3, TSH5, B12 ####[place] [address], [place] #### VD25H ####[facility] [place] [address] Creatinine 0.48 mg/dL Low 0.52-1.25 [facility] Comment on above: Performed By: #### PT/AP, HEMDF, BMP3, M G3, PHOS3, TSH5, B12 ####[facility], [place] #### VD25H ####[place] [address] [place] [address] eGFR (black) mL/min/{1.73_m2} Normal >60 [facility] Comment on above: Performed By: #### PT/AP, HEMDF, BMP3, M G3, PHOS3, TSH5, B12 ####[address], [place] #### VD25H ####[place] [address] [place] [place] [address] eGFR (non-black) mL/min/{1.73_m2} Normal >60 [facility] Comment on above: Result Comment: Source- MDRD equation creatinine calibration to IDMS(NKDEP) eGFR not recommended for drug dose adjustment Performed By: #### P T/AP, HEMDF, BMP3, MG3, PHOS3, TSH5, B12 ####[facility] [employer] [address], [place] #### VD25H ####[address] [facility] [place] [address] Chloride 106 mmol/L Normal 98-107 [facility] Comment on above: Performed By: #### PT/AP, HEMDF, BMP3, M G3, PHOS3, TSH5, B12 ####[facility] [employer] [address], [place] #### VD25H ####[address] [facility] [place] [address] Potassium molar conc 3.8 mmol/L Normal 3.5-5.1 [facility] Comment on above: Performed By: #### PT/AP, HEMDF, BMP3, M G3, PHOS3, TSH5, B12 ####[facility] [employer] [address], [place] #### VD25H ####[place] [address] [facility] [place] [address] Sodium 138 mmol/L Normal 137-145 [facility] Comment on above: Performed By: #### PT/AP, HEMDF, BMP3, M G3, PHOS3, TSH5, B12 ####[facility] [place] [address]#### VD25H ####[facility] [address] [place] [address] CT Head or Brain w/o Contras ton 02-28-2018 CT Head or Brain w/o Contrast Patient Name: MARY KATE ABEL CT Exam Date/Time 02/28/2018 05:26:[address] Head or Brain w/o Contrast Ordering Physician MD GALILEO, PABLO Accession Number [id number] CPT4 Codes 58266 () Reason For Exam HEAD TRAUMA, CLOSED, MILD, ABN NEURO EXAM AND/OR RISK FACTORS Report Reason for examination: Follow-up closed head trauma, hemorrhage. Axial unenhanced scans of the brain were obtained. There are no available comparison studies. There are normal size midline cerebral ventricles. There is a trace of detectable subdural hemorrhage in the right temporal region, and slight amount layering along the lateral margin of the right tentorium. These are barely detectable. There is no major cerebral contusion. There are no acute ischemic changes. There is no shift or herniation. Brainstem and cerebellum are normal. Bone window images are negative. IMPRESSION: There is only trace amount of residual subdural blood in the right hemicranium, barely detectable currently. No new areas of hemorrhage or ischemia. Report Dictated on Workstation: [id number] Final Dictated: 02/28/2018 5:56 am Dictating Physician: MD FREED DANIEL Signed Date and Time: 02/28/2018 5:58 am Signed by: MD FREED DANIEL Transcribed Date and Time: 02/28/2018 5:56 Normal [facility] Echo Complete w/wo Contrasto n 02-28-2018 Echo Complete w/wo Contrast Patient Name: MARY KATE ABEL Ultrasound Exam Date/Time 02/28/2018 11:43:45 EDT Exam Echo Complete w/wo Contrast Ordering Physician Brissa BOX, [facility] Accession Number [id number] Reason For Exam syncope Report TRANSTHORACIC ECHOCARDIOGRAM PATIENT: Mary Kate Abel STUDY DATE: 02/28/2018 : 1940 AGE: 77 HT/WT: 172.7 cm (68 66.7 kg (146.7 in) lb) GENDER: F BP: 119 / 51 LOCATION: [facility] PATIENT Inpatient [facility] STATUS: *ORDERING PHYSICIAN: * Irvin Box *READING PHYSICIAN: * Alis Limon MD, *SENIOR QUALITY ASSURANCE ANALYST: * Yolanda Cook [facility], [facility] AE --- INDICATIONS: Syncope / TIA / CVA. --- CONCLUSIONS SUMMARY: 1. Left ventricle: Systolic function is normal by the biplane method of disks. The estimated ejection fraction is 63%. 2. Right ventricle: Systolic function is normal. 3. Aortic valve: Possibly bicuspid. There is no stenosis. There is trivial, less than 1+ regurgitation. 4. No other valve abnormalities. --- STUDY DATA: Complete transthoracic echocardiogram. Procedure: Image quality was good. M-mode, complete 2D, complete spectral Doppler, and color flow Doppler images were acquired and archived for permanent storage and are available for subsequent review. Study status: Routine. Patient status: Inpatient. --- FINDINGS LEFT VENTRICLE: The cavity size is normal. Wall thickness is normal. Systolic function is normal by the biplane method of disks. The estimated ejection fraction is 63%. There are no regional wall motion abnormalities. Left ventricular diastolic function parameters are normal for the patient's age. RIGHT VENTRICLE: The cavity size is normal. Wall thickness is normal. Systolic function is normal. Right ventricular systolic pressure is within the normal range. VENTRICULAR SEPTUM: There is no evidence of a ventricular septal defect. There is no evidence of a ventricular septal defect. There is no evidence of a ventricular septal defect. LEFT ATRIUM: The atrium is normal in size. RIGHT ATRIUM: The atrium is normal in size. ATRIAL SEPTUM: Color Doppler shows no evidence of shunt. Color Doppler shows no evidence of shunt. Color Doppler shows no evidence of shunt. MITRAL VALVE: Structurally normal valve. Doppler: There is trivial, less than 1+ regurgitation. Peak gradient (D): 2 mm Hg. AORTIC VALVE: Possibly bicuspid. Doppler: There is no stenosis. There is trivial, less than 1+ regurgitation. Dimensionless index: 0.54. Valve area (VTI): 1.1 cm2. Indexed valve area (VTI): 0.6 cm2/m2. Mean gradient (S): 7 mm Hg. Peak gradient (S): 15 mm Hg. Peak velocity (S): 1.9 m/sec. TRICUSPID VALVE: Structurally normal valve. Doppler: There is mild, 1+ regurgitation. PULMONIC VALVE: Structurally normal valve. Doppler: There is trivial, less than 1+ regurgitation. AORTA: The aorta is normal. PULMONARY ARTERY: Main pulmonary artery: Normal. Normal. Normal. PERICARDIUM: There is no pericardial effusion. SYSTEMIC VEINS: Inferior vena cava: The vessel is normal. The IVC collapses by greater than 50% with inspiration. --- Measurements Left ventricle Value Reference LV ID, ED 3.9 cm 3.9 - 5.3 LV ID, ES 2.6 cm --------- LV PW thickness, ED 0.8 cm 0.6 - 0.9 LV end-diastolic volume, 1-p A4C (L) 40 ml 56 - 104 LV end-systolic volume, 1-p A4C 19 ml 19 - 49 LV end-diastolic volume, 2-p (L) 41 ml 56 - 104 LV end-systolic volume, 2-p (L) 15 ml 19 - 49 LV ejection fraction, 2-p 63 % >=55 LV E/e', lateral 7.8 --------- LV E/e', medial 11.2 --------- LV E/e', average 9.2 --------- Ventricular septum Value Reference IVS thickness, ED (H) 1.0 cm 0.6 - 0.9 LVOT Value Reference LVOT ID, A-P 1.6 cm --------- LVOT mean velocity, S 0.6 m/sec --------- LVOT VTI, S 22.6 cm --------- LVOT peak gradient, S 4 mm Hg --------- Stroke volume (SV), LVOT DP 47 ml --------- Stroke index (SV/bsa), LVOT DP 27 ml/m2 --------- Aortic valve Value Reference Aortic valve peak velocity, S 1.9 m/sec --------- Aortic valve mean velocity, S 1.2 m/sec --------- Aortic valve VTI, S 41.7 cm --------- Aortic mean gradient, S 7 mm Hg --------- Aortic peak gradient, S 15 mm Hg --------- DI 0.54 --------- Aortic valve area, VTI 1.1 cm2 --------- Aortic valve area/bsa, VTI 0.6 cm2/m2 --------- Aorta Value Reference Aortic root ID 2.8 cm <4.0 Aortic root ID, STJ, ED 2.3 cm --------- Ascending aorta ID, A-P 2.7 cm --------- Left atrium Value Reference LA volume/bsa, ES, 2-p 23 ml/m2 --------- Mitral valve Value Reference Mitral E-wave peak velocity 0.8 m/sec --------- Mitral A-wave peak velocity 0.6 m/sec --------- Mitral deceleration time 310 ms --------- Mitral peak gradient, D 2 mm Hg --------- Mitral E/A ratio, peak 1.4 --------- Pulmonary arteries Value Reference PA pressure, S, DP 30 mm Hg --------- Tricuspid valve Value Reference Tricuspid regurg peak velocity 2.6 m/sec --------- Tricuspid peak RV-RA gradient 27 mm Hg --------- Right atrium Value Reference RA area, ES, A4C 18 cm2 10 - 18 Systemic veins Value Reference Estimated RAP 3 mm Hg --------- Right ventricle Value Reference RV ID, minor axis, ED, A4C base 3.1 cm 2.4 - 4.2 RV ID, minor axis, ED, A4C mid 2.2 cm 2.0 - 3.5 TAPSE 2.3 cm --------- RV pressure, S, DP 30 mm Hg --------- RV s', lateral, S 0.12 m/sec --------- Legend: (L) and (H) alis values outside specified reference range. Electronically signed by Alis Limon MD, [facility] 02/28/2018 13:13 Final Dictated: 02/28/2018 1:13 pm Dictating Physician: MD LEOBARDO., [facility] Signed Date and Time: 02/28/2018 1:13 pm Signed by: MD LEOBARDO., [facility], ALIS A Normal [facility] Hemogram w/ Autodiffon 02-28 Abs Baso Cnt 0.0 10*3/uL Normal 0.0-0.2 [facility] Comment on above: Performed By: #### PT/AP, HEMDF, BMP3, M G3, PHOS3, TSH5, B12 ####[facility] [employer] [address] [place], [place] #### VD25H ####[facility] [place] [address] Abs Neutrophile Cnt 2.9 10*3/uL Normal 1.8-7.0 [facility] Comment on above: Performed By: #### PT/AP, HEMDF, BMP3, M G3, PHOS3, TSH5, B12 ####[facility] [employer] [address] #### VD25H ####[facility] [employer] [address] [place] [address] Basophils/100 WBC Auto (Bld) 0.4 % Normal 0.0-2.0 [facility] Comment on above: Performed By: #### PT/AP, HEMDF, BMP3, M G3, PHOS3, TSH5, B12 ####[facility] [employer] [address] #### VD25H ####[facility] [employer] [address] [facility] [place] [address] Eosinophils 0.1 10*3/uL Normal 0.0-0.5 [facility] Comment on above: Performed By: #### PT/AP, HEMDF, BMP3, M G3, PHOS3, TSH5, B12 ####[facility] [employer] [address] [place] [address] #### VD25H ####[facility] [employer] [id number] [facility] [place] [address] Eosinophils/100 leukocytes 1.7 % Normal 1.0-6.0 [facility] Comment on above: Performed By: #### PT/AP, HEMDF, BMP3, M G3, PHOS3, TSH5, B12 ####[place] [address] [place], [place] #### VD25H ####[facility] [place] [address] Erythrocyte distribution width Auto Ratio (RBC) 13.5 % Normal 11.5-14.5 [facility] Comment on above: Performed By: #### PT/AP, HEMDF, BMP3, M G3, PHOS3, TSH5, B12 ####[address], [place] #### VD25H ####[facility] [facility] [place] [address] Erythrocytes (RBC) 4.09 10*6/uL Normal 3.80-5.20 [facility] Comment on above: Performed By: #### PT/AP, HEMDF, BMP3, M G3, PHOS3, TSH5, B12 ####[address] #### VD25H ####[facility] [employer] [address] [place] [address] Granulocytes/100 WBC (Bld) 65.8 % Normal 40.0-80.0 [facility] Comment on above: Performed By: #### PT/AP, HEMDF, BMP3, M G3, PHOS3, TSH5, B12 ####[address] #### VD25H ####[facility] [facility] [place] [address] Hematocrit (HCT) 36.8 % Normal 35.0-47.0 [facility] Comment on above: Performed By: #### PT/AP, HEMDF, BMP3, M G3, PHOS3, TSH5, B12 ####[facility] [employer] [address] [facility], [place] #### VD25H ####[facility] [facility] [place] [address] Hemoglobin mass conc (Bld) 12.5 g/dL Normal 11.7-16.0 [facility] Comment on above: Performed By: #### PT/AP, HEMDF, BMP3, M G3, PHOS3, TSH5, B12 ####[facility] [employer] [address] [place], [place] #### VD25H ####[facility] [facility] [place] [address] Lymphocytes 1.1 10*3/uL Normal 1.0-4.3 [facility] Comment on above: Performed By: #### PT/AP, HEMDF, BMP3, M G3, PHOS3, TSH5, B12 ####[facility] [employer] [address] #### VD25H ####[facility] [employer] [address] [facility] [place] [address] Lymphocytes/100 leukocytes 24.0 % Normal 20.0-40.0 [facility] Comment on above: Performed By: #### PT/AP, HEMDF, BMP3, M G3, PHOS3, TSH5, B12 ####[facility] [employer] [address] #### VD25H ####[facility] [employer] [address] [place] [address] MCH 30.6 pg Normal 26.0-34.0 [facility] Comment on above: Performed By: #### PT/AP, HEMDF, BMP3, M G3, PHOS3, TSH5, B12 ####[facility] [employer] [address] #### VD25H ####[facility] [employer] [address] [facility] [place] [address] MCHC mass conc (RBC) 34.0 % Normal 32.0-36.0 [facility] Comment on above: Performed By: #### PT/AP, HEMDF, BMP3, M G3, PHOS3, TSH5, B12 ####[facility] [employer] [address] #### VD25H ####[facility] [facility] [place] [address] MCV 89.9 fL Normal 79.0-98.0 [facility] Comment on above: Performed By: #### PT/AP, HEMDF, BMP3, M G3, PHOS3, TSH5, B12 ####[facility] [employer] [address] [facility], [place] #### VD25H ####[facility] [place] [address] Monocytes 0.4 10*3/uL Normal 0.0-0.8 [facility] Comment on above: Performed By: #### PT/AP, HEMDF, BMP3, M G3, PHOS3, TSH5, B12 ####[facility] [employer] Hospmt606 [facility], [place] #### VD25H ####[facility] [employer] [address] [facility] [place] [address] Monocytes/100 leukocytes 8.1 % Normal 2.0-10.0 [facility] Comment on above: Performed By: #### PT/AP, HEMDF, BMP3, M G3, PHOS3, TSH5, B12 ####[facility] [employer] [address] [facility], [place] #### VD25H ####[facility] [employer] [address] [address] Platelet mean volume (PMV) 7.0 fL Low 7.4-10.4 [facility] Comment on above: Performed By: #### PT/AP, HEMDF, BMP3, M G3, PHOS3, TSH5, B12 ####[facility] [employer] [address] [facility], [place] #### VD25H ####[facility] [employer] [address] [facility] [place] [address] Platelets 163 10*3/uL Normal 140-440 [facility] Comment on above: Performed By: #### PT/AP, HEMDF, BMP3, M G3, PHOS3, TSH5, B12 ####[facility] [employer] Zhqcjy374 [facility], [place] #### VD25H ####[facility] [place] [address] WBC (Leukocytes) 4.5 10*3/uL Normal 3.6-10.7 [facility] Comment on above: Performed By: #### PT/AP, HEMDF, BMP3, M G3, PHOS3, TSH5, B12 ####[facility] [address] [place], [place] #### VD25H ####[facility] [address] [place] [address] Magnesiumon 02-28-2018 Magnesium 2.0 mg/dL Normal 1.6-2.3 [facility] Comment on above: Performed By: #### PT/AP, HEMDF, BMP3, M G3, PHOS3, TSH5, B12 ####[employer] [place] [address] #### VD25H ####[facility] [employer] [address] [address] Phosphoruson 02-28-2018 Phosphate 3.4 mg/dL Normal 2.5-4.5 [facility] Comment on above: Performed By: #### PT/AP, HEMDF, BMP3, M G3, PHOS3, TSH5, B12 ####[employer] [place] [address] #### VD25H ####[employer] [address] [address] Protime AND APTTon 8 aPTT 25.4 s Normal 20.0-30.5 [facility] Comment on above: Result Comment: NOTE: The therapeutic ti me for Heparin anticoagulation,based on Xa activity inhibition, is an APTT of 46-80seconds. Performed By: #### P T/AP, HEMDF, BMP3, MG3, PHOS3, TSH5, B12 ####[employer] [place] [address] #### VD25H ####[employer] [address] [place] [address] INR Coag RelTime (PPP) 0.9 Normal 0.9-1.1 [facility] Comment on above: Result Comment: Recommended Anticoagulan t Therapy: SEE BELOW----- INR of 2.0 - 3.0 : - Prophylaxis of Venous Thrombosis (high-risk surgery) - Treatment of Venous Thrombosis - Treatment of Pulmonary Embolism (Includes tissue heart valves, Acute Myocardial Infarction to prevent systemic embolism, Valvular Heart Disease, and Atrial Fibrillation)----- INR of 2.5 - 3.5 : - Mechanical Prosthetic Valves (high risk) - If oral anticoagulant therapy is used to prevent Myocardial Infarction Performed By: #### P T/AP, HEMDF, BMP3, MG3, PHOS3, TSH5, B12 ####[facility] [employer] [address] #### VD25H ####[facility] [employer] [address] [address] Prothrombin time (PT) Coag time (PPP) 9.6 s Normal 9.0-12.0 [facility] Comment on above: Result Comment: . Performed By: #### P T/AP, HEMDF, BMP3, MG3, PHOS3, TSH5, B12 ####[facility] [employer] [address] #### VD25H ####[facility] [employer] [address] [address] Thyroid Stim. Hormoneon 02-13 Thyroid Stim. Hormone 1.902 u[IU]/mL Normal 0.465-4.680 [facility] Comment on above: Performed By: #### PT/AP, HEMDF, BMP3, M G3, PHOS3, TSH5, B12 ####[facility] [employer] [address] #### VD25H ####[facility] [employer] [address] [address] Vitamin B12on 02-28-2018 Cobalamins (Vitamin B12) 458 pg/mL Normal 239-931 [facility] Comment on above: Performed By: #### PT/AP, HEMDF, BMP3, M G3, PHOS3, TSH5, B12 ####[facility] [employer] [address] #### VD25H ####[address] [address] CR Wrist Complete 3 Views Ri yessi 02-27-2018 CR Wrist Complete 3 Views Right Patient Name: MARY KATE ABEL Diagnostic Radiology Exam Date/Time 02/27/2018 19:00:02 EDT Exam CR Wrist Complete 3 Views Right Ordering Physician MD ALLEN, URIAH ANTHONY Accession Number [id number] CPT4 Codes 98835 () Reason For Exam DR hooks Report HISTORY: Fracture. Three plain film views of the right wrist were obtained. Comparisons: None FINDINGS: The bones are diffusely osteopenic. There is a mildly displaced ulnar styloid fracture. There is a nondisplaced transversely oriented fracture of the distal radius. There is no visible intra-articular extension. There is slight dorsal tilt. There is overlying soft tissue swelling. There is diffuse subcutaneous edema. There is no radiopaque foreign body. The first carpometacarpal joint is mildly narrowed with the small marginal osteophyte. IMPRESSION: 1. Nondisplaced distal radius fracture. 2. Mildly displaced ulnar styloid fracture. 3. Diffuse osteopenia. 4. Minimal first CMC joint osteoarthrosis. Report Dictated on Final Dictated: 02/27/2018 7:00 pm Dictating Physician: MD WESTFALL KERISTEN L Signed Date and Time: 02/27/2018 7:02 pm Signed by: MD WESTFALL KERISTEN L Transcribed Date and Time: 02/27/2018 7:02 Normal [facility] Basic Metabolic Profile (BMP )on 02-25-2018 Basic metabolic 2000 panel 8.7 mg/dL Normal 8.5-10.1 [facility] Work Phone: Basic metabolic 2000 panel 17.2 {RATIO} Normal 10-20 [facility] Work Phone: Basic metabolic 2000 panel 46.77 ml/min Normal [facility] Work Phone: Basic metabolic 2000 panel 129 mL/min Normal [facility] Work Phone: Comment on above: GFR Calc Basic metabolic 2000 panel 107 mL/min Normal [facility] Work Phone: Comment on above: Non- GFR Calc Basic metabolic 2000 panel 0.58 mg/dL Normal 0.55-1.02 [facility] Work Phone: Comment on above: The validity of the calculated GFR AND G FRAA in patients over70 years has not been determined. Clinical correlation isessential. Basic metabolic 2000 panel 10 mg/dL Normal 7-18 [facility] Work Phone: Basic metabolic 2000 panel 98 mg/dL Normal 74-106 [facility] Work Phone: Comment on above: Please note revised GLUCOSE reference ra e ambhsfhcf86/02/2018. Basic metabolic 2000 panel 29.0 mmol/L Normal 21.0-32.0 [facility] Work Phone: Basic metabolic 2000 panel 9 1 Normal 5-15 [facility] Work Phone: Basic metabolic 2000 panel 103 mmol/L Normal 98-107 [facility] Work Phone: Basic metabolic 2000 panel 4.0 mmol/L Normal 3.5-5.1 [facility] Work Phone: Basic metabolic 2000 panel 141 mmol/L Normal 136-145 [facility] Work Phone: CBC W/Diff, Automatedon 07- Absolute Lymph 1.05 {X10_3/ul} Normal 0.83-4.51 [facility]pr [facility] Work Phone: Absolute Neut 2.9 {X10_3/uL} Normal 2.0-7.7 Compreh [facility] Work Phone: Basophils/100 WBC Auto (Bld) 0.2 % Normal 0-1 [facility] Work Phone: Eosinophils/100 WBC Auto (Bld) 0.9 % Normal 0-5 [facility] Work Phone: Erythrocyte distribution width Auto Ratio (RBC) 13.3 % Normal 11.6-14.6 [facility] Work Phone: Hematocrit Auto Volume Fraction (Bld) 40.2 % Normal 37-47 [facility] Work Phone: Hemoglobin mass conc (Bld) 13.0 g/dL Normal 12.0-15.0 [facility] Work Phone: IM GRAN % 0.000 % Normal 0.0-0.9 [facility] Work Phone: Comment on above: IG% - Immature Granulocytes (promyelocyt es, myelocytes andmetamyelocytes) > 1% indicates that a LEFT SHIFT is Present. Lymphocytes/100 WBC Auto (Bld) 24.8 % Normal 19-41 [facility] Work Phone: MCH Auto Entitic mass (RBC) 29.3 pg Normal 27.0-32.0 [facility] Work Phone: MCHC Auto mass conc (RBC) 32.3 {g/gl} Normal 32-36 [facility] Work Phone: MCV Auto Entitic volume (RBC) 90.5 fL Normal 81-99 [facility] Work Phone: Monocytes/100 WBC Auto (Bld) 5.2 % Normal 0-10 [facility] Work Phone: Neutrophils/100 WBC Auto (Bld) 68.9 % Normal 47-70 [facility] Work Phone: Platelet mean volume Auto Entitic volume (Bld) 8.8 fL Normal 6.2-12.0 [facility] Work Phone: Platelets Auto #/vol (Bld) 184 10*3/uL Normal 150-450 [facility] Work Phone: RBC Auto #/vol (Bld) 4.44 {M/mm3} Normal 4.2-5.4 [facility] Work Phone: RDW SD 44.1 fL Abnormal 35.1-43.9 [facility] Work Phone: WBC Auto #/vol (Bld) 4.2 10*3/uL Abnormal 4.4-11.0 [facility] Work Phone: Partial Thromboplast Timeon 02-25-2018 aPTT Coag time (Bld) 31.4 s Normal 24.1-36.2 [facility] Work Phone: Prothrombin Time w/INRon INR Coag RelTime (PPP) 1.0 {INR} Normal [facility] Work Phone: Prothrombin time (PT) Coag time (PPP) 13.0 s Normal 11.7-14.9 [facility] Work Phone: Basic Metabolic Profile (BMP )on 06-29-2017 Basic metabolic 2000 panel 133 mL/min Normal [facility] Work Phone: Comment on above: GFR Calc Basic metabolic 2000 panel 7 1 Normal 5-15 [facility] Work Phone: Basic metabolic 2000 panel 101 mg/dL Normal 70-110 [facility] Work Phone: Basic metabolic 2000 panel 13 mg/dL Normal 7-18 [facility] Work Phone: Basic metabolic 2000 panel 0.57 mg/dL Normal 0.55-1.02 [facility] Work Phone: Comment on above: The validity of the calculated GFR AND G FRAA in patients over70 years has not been determined. Clinical correlation isessential. Basic metabolic 2000 panel 110 mL/min Normal [facility] Work Phone: Comment on above: Non- GFR Calc Basic metabolic 2000 panel 28.0 mmol/L Normal 21.0-32.0 [facility] Work Phone: Basic metabolic 2000 panel 46.77 ml/min Normal [facility] Work Phone: Basic metabolic 2000 panel 106 mmol/L Normal 98-107 [facility] Work Phone: Basic metabolic 2000 panel 23.0 {RATIO} Abnormal 10-20 [facility] Work Phone: Basic metabolic 2000 panel 8.7 mg/dL Normal 8.5-10.1 [facility] Work Phone: Basic metabolic 2000 panel 141 mmol/L Normal 136-145 [facility] Work Phone: Basic metabolic 2000 panel 3.6 mmol/L Normal 3.5-5.1 [facility] Work Phone: CBC W/Diff, Automatedon 06-16 Absolute Lymph 1.10 {X10_3/ul} Normal 0.83-4.51 [facility]pr [facility] Work Phone: Absolute Neut 5.6 {X10_3/uL} Normal 2.0-7.7 [facility] Work Phone: Basophils/100 WBC Auto (Bld) 0.5 % Normal 0-1 [facility] Work Phone: Eosinophils/100 WBC Auto (Bld) 1.0 % Normal 0-5 [facility] Work Phone: Erythrocyte distribution width Auto Ratio (RBC) 13.2 % Normal 11.6-14.6 [facility] Work Phone: Hematocrit Auto Volume Fraction (Bld) 37.8 % Normal 37-47 [facility] Work Phone: Hemoglobin mass conc (Bld) 13.0 g/dL Normal 12.0-15.0 [facility] Work Phone: IM GRAN % 0.100 % Normal 0.0-0.9 [facility] Work Phone: Comment on above: IG% - Immature Granulocytes (promyelocyt es, myelocytes andmetamyelocytes) > 1% indicates that a LEFT SHIFT is Present. Lymphocytes/100 WBC Auto (Bld) 15.0 % Abnormal 19-41 [facility] Work Phone: MCH Auto Entitic mass (RBC) 30.5 pg Normal 27.0-32.0 [facility] Work Phone: MCHC Auto mass conc (RBC) 34.4 {g/gl} Normal 32-36 [facility] Work Phone: MCV Auto Entitic volume (RBC) 88.7 fL Normal 81-99 [facility] Work Phone: Monocytes/100 WBC Auto (Bld) 6.7 % Normal 0-10 [facility] Work Phone: Neutrophils/100 WBC Auto (Bld) 76.7 % Abnormal 47-70 [facility] Work Phone: Platelet mean volume Auto Entitic volume (Bld) 9.1 fL Normal 6.2-12.0 [facility] Work Phone: Platelets Auto #/vol (Bld) 183 10*3/uL Normal 150-450 [facility] Work Phone: RBC Auto #/vol (Bld) 4.26 {M/mm3} Normal 4.2-5.4 [facility] Work Phone: RDW SD 42.1 fL Normal 35.1-43.9 [facility] Work Phone: WBC Auto #/vol (Bld) 7.3 10*3/uL Normal 4.4-11.0 [facility] Work Phone: D-Dimer Quantitative (DVT/PE )on 06-29-2017 D-DIMER QUANT 0.43 {FEU/ug/m} Normal 0.27-0.49 Compre [facility] Work Phone: Comment on above: NORMAL D-Dimer level (<0.50) indicates n o DVT or PE. Troponin-Ion 06-29-2017 Troponin I.cardiac mass conc ng/mL Normal [facility] Work Phone: Comment on above: TROPONIN-I EXPECTED VALUES <0.05 NEGATIV E 0.06 - 0.59 AT RISK OF [place] > OR = 0.60 SUGGEST [place] CBC W/AUTO DIFF WBC (53799)O rdered By: Farmworker Grain on 10-24-2015 Basophils #/vol (Bld) 0.0 {x10E3/uL} Normal 0.0-0.2 [facility] Work Phone: Comment on above: PATIENT NOT FASTINGPERFORMED BY: [facility] or[facility] HospitalKfhiqe2290 [facility] [id number] Information: [id number] Basophils (Bld) [#/Vol] 0.0 10*3/uL Normal 0.0-0.2 [facility]; [facility] Work Phone: Comment on above: PATIENT NOT FASTINGPERFORMED BY: [facility] or[place] [id number] [facility] [id number] Information: [id number] Basophils/100 WBC (Bld) 0 % Normal [facility] Work Phone: Comment on above: PATIENT NOT FASTINGPERFORMED BY: [address] [id number] Information: [id number] Eosinophils #/vol (Bld) 0.1 {x10E3/uL} Normal 0.0-0.4 [facility] Work Phone: Comment on above: PATIENT NOT FASTINGPERFORMED BY: [address] [id number] Information: [id number] Eosinophils (Bld) [#/Vol] 0.1 10*3/uL Normal 0.0-0.4 [facility]; [facility] Work Phone: Comment on above: PATIENT NOT FASTINGPERFORMED BY: [address] [id number] Information: [id number] Eosinophils/100 WBC (Bld) 1 % Normal [facility] Work Phone: Comment on above: PATIENT NOT FASTINGPERFORMED BY: [address] [id number] Information: [id number] Erythrocyte distribution width Ratio (RBC) 14.1 % Normal 12.3-15.4 [facility] Work Phone: Comment on above: PATIENT NOT FASTINGPERFORMED BY: [address] [id number] Information: [id number] Hematocrit Volume Fraction (Bld) 39.3 % Normal 34.0-46.6 [facility] Work Phone: Comment on above: PATIENT NOT FASTINGPERFORMED BY: [address] [id number] Information: [id number] Immature granulocytes (Bld) [#/Vol] 0.0 10*3/uL Normal 0.0-0.1 [facility]; [facility] Work Phone: Comment on above: PATIENT NOT FASTINGPERFORMED BY: [place] [id number] [facility] [id number] Information: [id number] Lymphocytes #/vol (Bld) 1.3 {x10E3/uL} Normal 0.7-3.1 [facility] Work Phone: Comment on above: PATIENT NOT FASTINGPERFORMED BY: [address] [id number] Information: [id number] Lymphocytes (Bld) [#/Vol] 1.3 10*3/uL Normal 0.7-3.1 [facility]; [facility] Work Phone: Comment on above: PATIENT NOT FASTINGPERFORMED BY: [address] [id number] Information: [id number] Lymphocytes/100 WBC (Bld) 24 % Normal [facility] Work Phone: Comment on above: PATIENT NOT FASTINGPERFORMED BY: [address] [id number] Information: [id number] MCH Entitic mass (RBC) 29.1 pg Normal 26.6-33.0 [facility] Work Phone: Comment on above: PATIENT NOT FASTINGPERFORMED BY: [facility] [place] [address] [id number] Information: [id number] MCHC mass conc (RBC) 33.6 g/dL Normal 31.5-35.7 [facility] Work Phone: Comment on above: PATIENT NOT FASTINGPERFORMED BY: [address] [id number] Information: [id number] MCV Entitic volume (RBC) 87 fL Normal 79-97 [facility] Work Phone: Comment on above: PATIENT NOT FASTINGPERFORMED BY: [address] [id number] Information: [id number] Monocytes #/vol (Bld) 0.4 {x10E3/uL} Normal 0.1-0.9 [facility] Work Phone: Comment on above: PATIENT NOT FASTINGPERFORMED BY: [facility] or[address] [id number] Information: [id number] Monocytes (Bld) [#/Vol] 0.4 10*3/uL Normal 0.1-0.9 [facility]; [facility] Work Phone: Comment on above: PATIENT NOT FASTINGPERFORMED BY: [address] [id number] Information: [id number] Monocytes/100 WBC (Bld) 8 % Normal [facility] Work Phone: Comment on above: PATIENT NOT FASTINGPERFORMED BY: [address] [id number] Information: [id number] Neutrophils #/vol (Bld) 3.5 {x10E3/uL} Normal 1.4-7.0 [facility] Work Phone: Comment on above: PATIENT NOT FASTINGPERFORMED BY: [address] [id number] Information: [id number] Neutrophils (Bld) [#/Vol] 3.5 10*3/uL Normal 1.4-7.0 [facility]; [facility] Work Phone: Comment on above: PATIENT NOT FASTINGPERFORMED BY: [address] [id number] Information: [id number] Neutrophils/100 WBC (Bld) 67 % Normal [facility] Work Phone: Comment on above: PATIENT NOT FASTINGPERFORMED BY: [facility] orEssex County HospitalOqpqcv4749 [place] [place] [id number] Information: [id number] Platelets #/vol (Bld) 210 {x10E3/uL} Normal 150-379 [facility] Work Phone: Comment on above: PATIENT NOT FASTINGPERFORMED BY: [facility] orEssex County HospitalKfzbpr3315 [place] [facility] [id number] Information: [id number] Platelets (Bld) [#/Vol] 210 10*3/uL Normal 150-379 [facility]; [facility] Work Phone: Comment on above: PATIENT NOT FASTINGPERFORMED BY: [facility] orEs[facility] County HospitalJsrluy7814 [place] [facility] [id number] Information: [id number] RBC #/vol (Bld) 4.53 {x10E6/uL} Normal 3.77-5.28 [facility] Work Phone: Comment on above: PATIENT NOT FASTINGPERFORMED BY: [facility] orEs[facility] County HospitalFmhioq1137 [facility] [id number] Information: [id number] RBC (Bld) [#/Vol] 4.53 10*6/uL Normal 3.77-5.28 [facility]; [facility] Work Phone: Comment on above: PATIENT NOT FASTINGPERFORMED BY: [facility] orEs[facility] HospitalYlzpoi7218 [place] [facility] [place] [id number] Information: [id number] WBC #/vol (Bld) 5.3 {x10E3/uL} Normal 3.4-10.8 [facility] Work Phone: Comment on above: PATIENT NOT FASTINGPERFORMED BY: [facility] orEssex County HospitalVkgnai8237 [place] [facility] [place] [id number] Information: [id number] WBC (Bld) [#/Vol] 5.3 10*3/uL Normal 3.4-10.8 [facility]; [facility] Work Phone: Comment on above: PATIENT NOT FASTINGPERFORMED BY: [address] [id number] Information: [id number] CBC W/AUTO DIFF WBC (17031)o n 10-24-2015 Basophils Auto #/vol (Bld) 0.0 {x10E3/uL} Normal 0.0-0.2 [facility] Work Phone: Basophils/100 WBC Auto (Bld) 0 % Normal [facility] Work Phone: Eosinophils Auto #/vol (Bld) 0.1 {x10E3/uL} Normal 0.0-0.4 [facility] Work Phone: Eosinophils/100 WBC Auto (Bld) 1 % Normal [facility] Work Phone: Erythrocyte distribution width Auto Ratio (RBC) 14.1 % Normal 12.3-15.4 [facility] Work Phone: Hematocrit Auto Volume Fraction (Bld) 39.3 % Normal 34.0-46.6 [facility] Work Phone: Hemoglobin mass conc (Bld) 13.2 g/dL Normal 11.1-15.9 [facility] Work Phone: Comment on above: PATIENT NOT FASTINGPERFORMED BY: [address] [id number] Information: [id number] Immature granulocytes #/vol (Bld) 0.0 {x10E3/uL} Normal 0.0-0.1 [facility] Work Phone: Comment on above: PATIENT NOT FASTINGPERFORMED BY: [address] [id number] Information: [id number] Immature granulocytes/100 WBC (Bld) 0 % Normal [facility] Work Phone: Comment on above: PATIENT NOT FASTINGPERFORMED BY: [facility] or Hpyzex2738 [facility] [id number] Information: [id number] Lymphocytes Auto #/vol (Bld) 1.3 {x10E3/uL} Normal 0.7-3.1 [facility] Work Phone: Lymphocytes/100 WBC Auto (Bld) 24 % Normal [facility] Work Phone: MCH Auto Entitic mass (RBC) 29.1 pg Normal 26.6-33.0 [facility] Work Phone: MCHC Auto mass conc (RBC) 33.6 g/dL Normal 31.5-35.7 [facility] Work Phone: MCV Auto Entitic volume (RBC) 87 fL Normal 79-97 [facility] Work Phone: Monocytes Auto #/vol (Bld) 0.4 {x10E3/uL} Normal 0.1-0.9 [facility] Work Phone: Monocytes/100 WBC Auto (Bld) 8 % Normal [facility] Work Phone: Neutrophils Auto #/vol (Bld) 3.5 {x10E3/uL} Normal 1.4-7.0 [facility] Work Phone: Neutrophils/100 WBC Auto (Bld) 67 % Normal [facility] Work Phone: Platelets Auto #/vol (Bld) 210 {x10E3/uL} Normal 150-379 [facility] Work Phone: RBC Auto #/vol (Bld) 4.53 {x10E6/uL} Normal 3.77-5.28 [facility] Work Phone: WBC Auto #/vol (Bld) 5.3 {x10E3/uL} Normal 3.4-10.8 [facility] Work Phone: Pathology Reporton 5 See Note MATER Normal [facility] Work Phone: Comment on above: Material submitted: .SHAVE BIOPSY NOSECl inician provided ICD-9:238.2 ; Neoplasm of uncertain behavior of skinClinical history: .RED BASE NOT HEALING X 3-6 MONTHSIRREG BORDERS Diagnosis:SHAVE BIOPSY NOSE:BASAL CELL CARCINOMA, SUPERFICIAL TYPE, OF THE SKIN. LESION EXTENDSTO SURGICAL MARGIN..COMMENT: REVIEWED BY DR. RODRIGUEZ WHO AGREES WITH THE DIAGNOSIS.[facility]04/12/2015 Electronically signed: .Eduardo Anaya MD (Charles), PathologistGross description: .RECEIVED IN FORMALIN LABELED MARY KATE ABEL WITH NO DESIGNATIONIS A PAGE/YELLOW FRAGMENT OF SKIN MEASURING 0.3 X 0.2 X 0.1 CM.THE MARGIN IS MARKED WITH BLACK INK. IT IS BISECTED AND SUBMITTEDENTIRELY IN A SINGLE CASSETTE.LMS/CRYPathologist provided ICD-9:173.31CPT .509517 CALCIFIDIOL (94295) VIT D 25 on 10-31-2014 25-Hydroxyvitami n D2+25-Hydroxyvit garner D3 mass conc 51.1 ng/mL Normal 30.0-100.0 [facility] Work Phone: Comment on above: Vitamin D deficiency has been defined by the [place] ofMedicine and an Endocrine Society practice guideline as alevel of serum 25-OH vitamin D less than 20 ng/mL (1,2).The Endocrine Society went on to further define vitamin Dinsufficiency as a level between 21 and 29 ng/mL (2).1. IOM ([place] of Medicine). 2010. Dietary reference intakes for calcium and D. [place]: The National Academies Press.2. Vicente MF, Yari NC, Marty HUERTA, et al. Evaluation, treatment, and prevention of vitamin D deficiency: an Endocrine Society clinical practice guideline. JCEM. 2010; 96(7):1911-30. PATIENT WAS FASTINGP ERFORMED BY: ZENAIDA [facility] Jofhmf0534 [facility] [id number] Information: [id number], [id number] FECAL OCCULT HGB ASSAY- tube s sent home (84586)Ordered By: Norma Lara on 10-29-2014 Hemoglobin.gastr ointestinal Ql (St) Negative Normal [facility] Work Phone: FECAL OCCULT HGB ASSAY- tube s sent home ([id number])on 10-29-2014 Hemoglobin.gastr ointestinal Ql (Stl) Negative Normal [facility]; [facility] Work Phone: Pathology Reporton See Note MATER Normal [facility] Work Phone: Comment on above: Material submitted: .5MM PUNCH BACKClini thao provided ICD-9:238.2 ; Neoplasm of uncertain behavior of skinClinical history: .RED BASE SCALE ON TOP Diagnosis:BASAL CELL CARCINOMA, EXTENDING TO THE TRANSECTED LATERAL TISSUEEDGES./10/22/2014 Electronically signed: .Darlene Claudio MD, DermatopathologistGross description: .RECEIVED IN FORMALIN LABELED MARY KATE ABEL DESIGNATED BACK CHEMA PAGE/YELLOW FRAGMENT OF SKIN MEASURING 0.4 X 0.2 X 0.2 CM. THEMARGIN IS MARKED WITH GREEN INK. IT IS SUBMITTED INTACT IN ASINGLE CASSETTE.LMS/JASPathologist provided ICD-9:173.51CPT .[id number] JUAN (ANTINUCLEAR ANTIBODY) ( [id number])on 10-08-2014 Nuclear Ab Ql (S) Negative Normal [facility] Work Phone: Comment on above: PATIENT NOT FASTINGPERFORMED BY: [facility]6370 [facility] [id number] JUAN (ANTINUCLEAR ANTIBODY) ( [id number])Ordered By: Farmworker Grain on 10-08-2014 Nuclear Ab Ql (S) Negative Normal [facility]; [facility] Work Phone: Comment on above: PATIENT NOT FASTINGPERFORMED BY: [facility]6370 [facility] [id number] CBC & PLATELETS (AUTO) (8502 [id number])on 10-08-2014 Erythrocyte distribution width Auto Ratio (RBC) 14.2 % Normal 12.3-15.4 [facility] Work Phone: Hematocrit Auto Volume Fraction (Bld) 40.6 % Normal 34.0-46.6 [facility] Work Phone: Hemoglobin mass conc (Bld) 13.4 g/dL Normal 11.1-15.9 [facility] Work Phone: Comment on above: PATIENT NOT FASTINGPERFORMED BY: [facility] orEs[facility] County HospitalPzbohq8712 [facility] [id number] MCH Auto Entitic mass (RBC) 29.2 pg Normal 26.6-33.0 [facility] Work Phone: MCHC Auto mass conc (RBC) 33.0 g/dL Normal 31.5-35.7 [facility] Work Phone: MCV Auto Entitic volume (RBC) 89 fL Normal 79-97 [facility] Work Phone: Platelets Auto #/vol (Bld) 211 {x10E3/uL} Normal 150-379 [facility] Work Phone: RBC Auto #/vol (Bld) 4.59 {x10E6/uL} Normal 3.77-5.28 [facility] Work Phone: WBC Auto #/vol (Bld) 5.2 {x10E3/uL} Normal 3.4-10.8 [facility] Work Phone: CBC & PLATELETS (AUTO) ([id number])Ordered By: Farmworker Grain on 10-08-2014 Erythrocyte distribution width Ratio (RBC) 14.2 % Normal 12.3-15.4 [facility] Work Phone: Comment on above: PATIENT NOT FASTINGPERFORMED BY: CB Lab[facility] orp Ehgsoa9[address]Dublin [place] [id number] Hematocrit Volume Fraction (Bld) 40.6 % Normal 34.0-46.6 [facility] Work Phone: Comment on above: PATIENT NOT FASTINGPERFORMED BY: CB Lab[facility] orp Mozsyn3304 [address]Dublin [place] [id number] MCH Entitic mass (RBC) 29.2 pg Normal 26.6-33.0 [facility] Work Phone: Comment on above: PATIENT NOT FASTINGPERFORMED BY: CB [facility] orp Viztvn7745 [address]Dublin [place] [id number] MCHC mass conc (RBC) 33.0 g/dL Normal 31.5-35.7 [facility] Work Phone: Comment on above: PATIENT NOT FASTINGPERFORMED BY: CB [facility] orp Bsgaey5797 [address]Dublin [place] [id number] MCV Entitic volume (RBC) 89 fL Normal 79-97 [facility] Work Phone: Comment on above: PATIENT NOT FASTINGPERFORMED BY: CB [facility] orp Togisq0284 [address]Dublin [place] [id number] Platelets #/vol (Bld) 211 {x10E3/uL} Normal 150-379 [facility] Work Phone: Comment on above: PATIENT NOT FASTINGPERFORMED BY: [facility] orp Aafotg6947 [address]Dublin [place] [id number] Platelets (Bld) [#/Vol] 211 10*3/uL Normal 150-379 [facility]; [facility] Work Phone: Comment on above: PATIENT NOT FASTINGPERFORMED BY: CB [facility] orp Vjwwrm9443 [address]Dublin [place] [id number] RBC #/vol (Bld) 4.59 {x10E6/uL} Normal 3.77-5.28 [facility] Work Phone: Comment on above: PATIENT NOT FASTINGPERFORMED BY: CB Lab[facility] orp Pcbwlx9245 [address]Dublin [place] [id number] RBC (Bld) [#/Vol] 4.59 10*6/uL Normal 3.77-5.28 [facility]; [facility] Work Phone: Comment on above: PATIENT NOT FASTINGPERFORMED BY: CB Lab[facility] orp Wymggm1002 [address]Dublin [place] [id number] WBC #/vol (Bld) 5.2 {x10E3/uL} Normal 3.4-10.8 [facility] Work Phone: Comment on above: PATIENT NOT FASTINGPERFORMED BY: CB Lab[facility] or Tmdzlg0808 [address]Dublin [place] [id number] WBC (Bld) [#/Vol] 5.2 10*3/uL Normal 3.4-10.8 [facility]; [facility] Work Phone: Comment on above: PATIENT NOT FASTINGPERFORMED BY: CB Lab[facility] or Qfhxhi6074 [address]Dublin [place] [id number] Hemoglobin Glyclated (HGB A1 C) ([id number])on 10-08-2014 Hemoglobin A1c/Hemoglobin.t otal mass fraction (Bld) 5.3 % Normal 4.8-5.6 [facility] Work Phone: Comment on above: . Increased risk for diabetes: 5.7 - 6.4 Diabetes: >6.4 Glycemic control for adults with diabetes: <7.0 PATIENT NOT FASTINGP ERFORMED BY: [facility] Xiqhua1845 [address]Dublin [place] [id number] METABOLIC PANEL, COMPREHENSI VE ([id number])on 10-08-2014 Albumin mass conc 4.6 g/dL Normal 3.5-4.8 [facility] Work Phone: Comment on above: PATIENT NOT FASTINGPERFORMED BY: [facility] orp Lfosyo9386 [address]Dublin [place] [id number] Albumin/Globulin mass ratio 2.2 {ratio} Normal 1.1-2.5 [facility] Work Phone: Comment on above: PATIENT NOT FASTINGPERFORMED BY: CB [facility] orp Znzyxb9723 [address]Dublin [place] [id number] ALP enzyme act/vol 89 [iU]/L Normal 39-117 [facility] Work Phone: Comment on above: PATIENT NOT FASTINGPERFORMED BY: CB [facility] or Bsolfw2157 [address]Dublin [place] [id number] ALT enzyme act/vol 11 [iU]/L Normal 0-32 [facility] Work Phone: Comment on above: PATIENT NOT FASTINGPERFORMED BY: CB Lab or Oytshe3360 [address]Dublin [place] [id number] AST enzyme act/vol 20 [iU]/L Normal 0-40 [facility] Work Phone: Comment on above: PATIENT NOT FASTINGPERFORMED BY: Lab or Ifmagp3335 [address]Dublin [place] [id number] Bilirubin mass conc 0.6 mg/dL Normal 0.0-1.2 [facility] Work Phone: Comment on above: PATIENT NOT FASTINGPERFORMED BY: Lab or Clrfvc4832 [address]Dublin [place] [id number] Calcium mass conc 9.5 mg/dL Normal 8.7-10.3 [facility] Work Phone: Comment on above: PATIENT NOT FASTINGPERFORMED BY: Lab or Nwlkof6678 [address]Dublin [place] [id number] Chloride molar conc 102 mmol/L Normal 97-108 [facility] Work Phone: Comment on above: PATIENT NOT FASTINGPERFORMED BY: CB [facility] orp Ckqove4785 [address]Dublin [place] [id number] CO2 molar conc 24 mmol/L Normal 18-29 [facility] Medicine Work Phone: Comment on above: PATIENT NOT FASTINGPERFORMED BY: CB [facility] orp Ozotrp5317 [address]Dublin [place] [id number] Creatinine mass conc 0.51 mg/dL Abnormal 0.57-1.00 [facility] Work Phone: Comment on above: PATIENT NOT FASTINGPERFORMED BY: CB [facility] orp Xitvxr9715 [address]Dublin [place] [id number] GFR/1.73 sq M predicted among blacks CKD-EPI vol rate/area (S/P/Bld) 109 mL/min/1.73 Normal [facility] Work Phone: Comment on above: PATIENT NOT FASTINGPERFORMED BY: CB [facility] orp Csbxdi6815 [address]Dublin [place] [id number] GFR/1.73 sq M predicted among non-blacks CKD-EPI vol rate/area (S/P/Bld) 94 mL/min/1.73 Normal [facility] Work Phone: Comment on above: PATIENT NOT FASTINGPERFORMED BY: CB [facility] orp Tuifvj0700 [address]Dublin [place] [id number] Globulin Calculated mass conc (S) 2.1 g/dL Normal 1.5-4.5 [facility] Work Phone: Glucose mass conc 80 mg/dL Normal 65-99 [facility] Work Phone: Comment on above: PATIENT NOT FASTINGPERFORMED BY: CB [facility] orp Wvbyrl2565 [address]Dublin [place] [id number] Potassium molar conc 5.0 mmol/L Normal 3.5-5.2 [facility] Work Phone: Comment on above: PATIENT NOT FASTINGPERFORMED BY: CB [facility] orp Okkjpq9463 [address]Dublin [place] [id number] Protein mass conc 6.7 g/dL Normal 6.0-8.5 [facility] Work Phone: Comment on above: PATIENT NOT FASTINGPERFORMED BY: CB [facility] orp Qzchrd8518 [address]Dublin [place] [id number] Sodium molar conc 143 mmol/L Normal 134-144 [facility] Work Phone: Comment on above: PATIENT NOT FASTINGPERFORMED BY: CB [facility] or[facility] Ksyypf2095 [address]Dublin [place] [id number] Urea nitrogen mass conc 13 mg/dL Normal 8-27 [facility] Work Phone: Comment on above: PATIENT NOT FASTINGPERFORMED BY: CB [facility] orp Myqeqi8077 [address]Dublin [place] [id number] Urea nitrogen/Creatin ine mass ratio 25 mg/mg Normal 11-26 [facility] Work Phone: Comment on above: PATIENT NOT FASTINGPERFORMED BY: CB Lab or Iqsseu6004 [address]Dublin [place] [id number] METABOLIC PANEL, COMPREHENSI VE ([id number])Ordered By: Farmworker Grain on 10-08-2014 ALP [Catalytic activity/Vol] 89 U/L Normal 39-117 [facility]; [facility] Work Phone: Comment on above: PATIENT NOT FASTINGPERFORMED BY: CB [facility] orp Qlytbf3884 [address]Dublin [place] [id number] ALT [Catalytic activity/Vol] 11 U/L Normal 0-32 [facility]; [facility] Work Phone: Comment on above: PATIENT NOT FASTINGPERFORMED BY: CB Lab or Krdhcq3976 [address]Dublin [place] [id number] AST [Catalytic activity/Vol] 20 U/L Normal 0-40 [facility]; [facility] Work Phone: Comment on above: PATIENT NOT FASTINGPERFORMED BY: CB [facility] orp Argrdt2210 [address]Dublin [place] [id number] Globulin mass conc (S) 2.1 g/dL Normal 1.5-4.5 [facility] Work Phone: Comment on above: PATIENT NOT FASTINGPERFORMED BY: [facility] orEs[facility] County HospitalQxkesi5682 [facility] [id number] Protein Electro.,Son 015 Albumin mass conc 4.3 g/dL Normal 3.2-5.6 [facility] Work Phone: Albumin/Globulin mass ratio 1.8 {ratio} Normal 0.7-2.0 [facility] Work Phone: Alpha 1 globulin Elph mass conc 0.2 g/dL Normal 0.1-0.4 [facility] Work Phone: Alpha 2 globulin Elph mass conc 0.5 g/dL Normal 0.4-1.2 [facility] Work Phone: Beta globulin Elph mass conc 0.8 g/dL Normal 0.6-1.3 [facility] Work Phone: Gamma globulin Elph mass conc 0.9 g/dL Normal 0.5-1.6 [facility] Work Phone: Globulin Calculated mass conc (S) 2.4 g/dL Normal 2.0-4.5 [facility] Work Phone: Laboratory comment Wild (Report) SPRCS Normal [facility] Work Phone: Comment on above: Protein electrophoresis scan will follow via computer, mail, orcourier delivery. Protein.monoclon al Elph mass conc Not Observed Normal [facility] Work Phone: SED RATE ERYTHROCYTE ([id number]) on 10-08-2014 ESR Velocity (Bld) 2 mm/h Normal 0-40 [facility] Work Phone: Comment on above: PATIENT NOT FASTINGPERFORMED BY: [facility]6370 [facility] [id number] TSH (THYROID STIMULATING HOR DEDE) ([id number])on 10-08-2014 Thyrotropin Qn 1.450 {uIU/mL} Normal 0.450-4.500 Compr [facility] Work Phone: Comment on above: PATIENT NOT FASTINGPERFORMED BY: [facility] orEssex County HospitalBpcbgk5417 [facility] [id number] VITAMIN B-12 (CYANOCOBALAMIN ) ([id number])on 10-08-2014 Cobalamin (Vitamin B12) mass conc 613 pg/mL Normal 211-946 [facility] Work Phone: Comment on above: PATIENT NOT FASTINGPERFORMED BY: [facility] or Bjlwvd5573 [facility] [id number] Vital Signs Date Time Vital Sign Value Performing Clinician Facility 10-26-2022 14:43-0400 Body height 173.99 cm Margo Slarb [employer] [facility]; [facility] Work Phone: 10-26-2022 14:43-0400 Body mass index (BMI) [Ratio] 21.58 kg/m2 Margo Slarb [employer] [facility]; [facility] Work Phone: 10-26-2022 14:43-0400 Body surface area Derived from formula 1.79 m2 Margo Slarb [employer] [facility]; [facility] Work Phone: 10-26-2022 14:43-0400 Body temperature 97.4 [degF] Margo Slarb [employer] [facility]; [facility] Work Phone: Comment on above: Method: Temporal 10-26-2022 14:43-0400 Body weight 65.34 kg Margo Slarb [employer] [facility]; [facility] Work Phone: 10-26-2022 14:43-0400 Diastolic blood pressure 80 mm[Hg] Margo Slarb [employer] [facility]; [facility] Work Phone: Comment on above: Patient Position: Sitting; Cuff Location : Left Arm; Cuff Size: Standard 10-26-2022 14:43-0400 Heart rate 68 /min Margo Slarb [employer] [facility]; [facility] Work Phone: Comment on above: Pattern: Regular 10-26-2022 14:43-0400 Respiratory rate 14 /min Margo Slarb [employer] [facility]; [facility] Work Phone: Comment on above: Pattern: Unlabored 10-26-2022 14:43-0400 SaO2% (BldA) [Mass fraction] 99 % Margo Reji [employer] [facility]; [facility] Work Phone: Comment on above: Room air 10-26-2022 14:43-0400 Systolic blood pressure 118 mm[Hg] Margo Mendoza [employer] [facility]; [facility] Work Phone: Comment on above: Patient Position: Sitting; Cuff Location : Left Arm; Cuff Size: Standard 08-21-2020 08:15-0500 BMI (Body Mass Index) 21.58 kg/m2 Litzy Mack [employer]END[employer] [facility]; [facility] Work Phone: 08-21-2020 08:15-0500 Body weight 65.34 kg Litzy Frederick [employer] [facility]; [facility] Work Phone: 08-21-2020 08:15-0500 BSA (Body Surface Area) 1.79 m2 Litzy Mack [facility]; [facility] Work Phone: 08-21-2020 08:15-0500 [facility].99 [facility]; [facility] Work Phone: 08-15-2019 13:20-0500 BMI (Body Mass Index) 21.58 kg/m2 Hannalauri Millan PEPITO [facility]pre[facility] ns[facility] Work Phone: 08-15-2019 13:20-0500 Body Temperature 97.6 [degF] Hannalauri Millan [facility] Work Phone: Comment on above: Method: Temporal 08-15-2019 13:20-0500 Body weight 65.34 kg Hanna Millan [employer] [facility] Work Phone: 08-15-2019 13:20-0500 BP Diastolic 82 mm[Hg] Hannalauri Millan [employer] [facility] Work Phone: Comment on above: Patient Position: Sitting; Cuff Location : Left Arm; Cuff Size: Standard 08-15-2019 13:20-0500 BP Systolic 128 mm[Hg] Hanna Millan LPN [facility] Work Phone: Comment on above: Patient Position: Sitting; Cuff Location : Left Arm; Cuff Size: Standard 08-15-2019 13:20-0500 BSA (Body Surface Area) 1.79 m2 Hanna Millan LPN [facility] Work Phone: 08-15-2019 13:20-0500 Height 173.99 cm Hanna Millan [employer] [facility] Work Phone: 08-15-2019 13:20-0500 Pulse (Heart Rate) 65 /min Hanna Millan LPN [facility]pre[facility] Work Phone: Comment on above: Pattern: Regular 08-15-2019 13:20-0500 Pulse Oximetry 98 % Rocío Chu [facility] Work Phone: Comment on above: Room air 08-15-2019 13:20-0500 Respiratory Rate 16 /min Hanna Millan LPN [facility] Work Phone: Comment on above: Pattern: Unlabored 08-15-2019 13:20-0500 SaO2% (BldA) [Mass fraction] 98 % Hanna Millan [employer] [facility]; [facility] Work Phone: Comment on above: Room air 08-11-2019 14:12-0500 BMI (Body Mass Index) 21.58 kg/m2 Erich Denise LPN [facility] Work Phone: 08-11-2019 14:12-0500 Body Temperature 97.5 [degF] Erich Denise LPN [facility] Work Phone: Comment on above: Method: Temporal 08-11-2019 14:12-0500 Body weight 65.34 kg Erich Denise LPN [facility] Work Phone: 08-11-2019 14:12-0500 BP Diastolic 72 mm[Hg] Erich Denise LPN [facility] Work Phone: Comment on above: Patient Position: Sitting; Cuff Location : Left Arm; Cuff Size: Standard 08-11-2019 14:12-0500 BP Systolic 122 mm[Hg] Erich Denise LPN [facility] Work Phone: Comment on above: Patient Position: Sitting; Cuff Location : Left Arm; Cuff Size: Standard 08-11-2019 14:12-0500 BSA (Body Surface Area) 1.79 m2 Erich Denise LPN [facility] Work Phone: 08-11-2019 14:12-0500 Height 173.99 cm Erich Denise LPN [facility] Work Phone: 08-11-2019 14:12-0500 Pulse (Heart Rate) 73 /min Erich Denise LPN [facility] e [facility] Work Phone: Comment on above: Pattern: Regular 08-11-2019 14:12-0500 Pulse Oximetry 98 % Rocío Chu [facility] Work Phone: Comment on above: Room air 08-11-2019 14:12-0500 Respiratory Rate 16 /min Erich Denise LPN [facility] Work Phone: Comment on above: Pattern: Unlabored 08-11-2019 14:12-0500 SaO2% (BldA) [Mass fraction] 98 % Erich Denise LPN [facility]; [facility] Work Phone: Comment on above: Room air 06-22-2019 12:16-0500 BMI (Body Mass Index) 21.45 kg/m2 Yandy Ba RN Comprehens [facility] Work Phone: 06-22-2019 12:16-0500 Body weight 64.92 kg Yandy Ba RN [facility] Work Phone: 06-22-2019 12:16-0500 BSA (Body Surface Area) 1.78 m2 Yandy Ba RN [facility] Work Phone: 06-22-2019 12:16-0500 Height 173.99 cm Yandy Ba RN [facility] Work Phone: 01-04-2019 11:59-0400 BMI (Body Mass Index) 21.45 kg/m2 Niecy Avery RN [facility] Work Phone: 01-04-2019 11:59-0400 Body weight 64.92 kg Niecy Avery RN [facility] Work Phone: 01-04-2019 11:59-0400 BP Diastolic 78 mm[Hg] Niecy Avery RN [facility] Work Phone: Comment on above: Patient Position: Sitting; Cuff Location : Left Arm; Cuff Size: Large 01-04-2019 11:59-0400 BP Systolic 122 mm[Hg] Niecy Avery RN [facility] Work Phone: Comment on above: Patient Position: Sitting; Cuff Location : Left Arm; Cuff Size: Large 01-04-2019 11:59-0400 BSA (Body Surface Area) 1.78 m2 Niecy Avery RN [facility] Work Phone: 01-04-2019 11:59-0400 Height 173.99 cm Niecy Avery RN [facility] Work Phone: 01-04-2019 11:59-0400 Pulse (Heart Rate) 70 /min Niecy Avery RN [facility] Work Phone: Comment on above: Pattern: Regular 01-04-2019 11:59-0400 Pulse Oximetry 97 % Rocío Chu [facility] Work Phone: Comment on above: Room air 01-04-2019 11:59-0400 Respiratory Rate 18 /min Niecy Avery RN [facility] Work Phone: Comment on above: Pattern: Unlabored 01-04-2019 11:59-0400 SaO2% (BldA) [Mass fraction] 97 % Niecy Avery RN [facility]; [facility] Work Phone: Comment on above: Room air 01-04-2019 11:59-0400 Weight 64.92 kg Rocío Chu [facility] Work Phone: 08-31-2018 09:03-0500 BMI (Body Mass Index) 20.3 kg/m2 Erich Denise LPN [facility] Work Phone: 08-31-2018 09:03-0500 Body weight 61.46 kg Erich Denise LPN [facility] Work Phone: 08-31-2018 09:03-0500 BP Diastolic 84 mm[Hg] Erich Denise LPN [facility] Work Phone: Comment on above: Patient Position: Sitting; Cuff Location : Left Arm; Cuff Size: Standard 08-31-2018 09:03-0500 BP Systolic 146 mm[Hg] Erich Denise LPN [facility] Work Phone: Comment on above: Patient Position: Sitting; Cuff Location : Left Arm; Cuff Size: Standard 08-31-2018 09:03-0500 BSA (Body Surface Area) 1.74 m2 Erich Denise LPN [facility] Work Phone: 08-31-2018 09:03-0500 Height 173.99 cm Erich Denise LPN [facility] Work Phone: 08-31-2018 09:03-0500 Pulse (Heart Rate) 66 /min Erich Denise LPN [facility] Work Phone: Comment on above: Pattern: Regular 08-31-2018 09:03-0500 Pulse Oximetry 99 % Rocío Chu [facility] Work Phone: Comment on above: Room air 08-31-2018 09:03-0500 Respiratory Rate 17 /min Erich Denise LPN [facility] Work Phone: Comment on above: Pattern: Unlabored 08-31-2018 09:03-0500 SaO2% (BldA) [Mass fraction] 99 % Erich Denise LPN [facility]; [facility] Work Phone: Comment on above: Room air 08-31-2018 09:03-0500 Weight 61.46 kg Rocío Chu [facility] Work Phone: 07-12-2018 11:02-0500 BMI (Body Mass Index) 20.98 kg/m2 Yandy Ba RN [facility] Work Phone: 07-12-2018 11:02-0500 Body Temperature 96.5 [degF] Yandy Ba RN [facility] Work Phone: Comment on above: Method: Temporal 07-12-2018 11:02-0500 Body weight 63.5 kg Yandy Ba RN [facility] Work Phone: 07-12-2018 11:02-0500 BP Diastolic 78 mm[Hg] Yandy Ba RN [facility] Work Phone: Comment on above: Patient Position: Sitting; Cuff Location : Left Arm; Cuff Size: Standard 07-12-2018 11:02-0500 BP Systolic 122 mm[Hg] Yandy Ba RN [facility] Work Phone: Comment on above: Patient Position: Sitting; Cuff Location : Left Arm; Cuff Size: Standard 07-12-2018 11:02-0500 BSA (Body Surface Area) 1.77 m2 Yandy Ba RN [facility] Work Phone: 07-12-2018 11:02-0500 Height 173.99 cm Yandy Ba RN [facility] Work Phone: 07-12-2018 11:02-0500 Pulse (Heart Rate) 72 /min Yandy Ba RN [facility] Work Phone: Comment on above: Pattern: Regular 07-12-2018 11:02-0500 Pulse Oximetry 98 % Rocío Chu [facility] Work Phone: Comment on above: Room air 07-12-2018 11:02-0500 Respiratory Rate 72 /min Yandy Ba RN [facility] Work Phone: Comment on above: Pattern: Unlabored 07-12-2018 11:02-0500 SaO2% (BldA) [Mass fraction] 98 % Yandy Ba RN [facility]; [facility] Work Phone: Comment on above: Room air 07-12-2018 11:02-0500 Weight 63.5 kg Rocío Chu [facility] Work Phone: 06-10-2018 07:59-0400 BMI (Body Mass Index) 20.58 kg/m2 Niecy Avery RN [facility] Work Phone: 06-10-2018 07:59-0400 Body weight 62.31 kg Niecy Avery RN [facility] Work Phone: 06-10-2018 07:59-0400 BP Diastolic 80 mm[Hg] Niecy Avery RN [facility] Work Phone: Comment on above: Patient Position: Sitting; Cuff Location : Left Arm; Cuff Size: Standard 06-10-2018 07:59-0400 BP Systolic 132 mm[Hg] Niecy Avery RN [facility] Work Phone: Comment on above: Patient Position: Sitting; Cuff Location : Left Arm; Cuff Size: Standard 06-10-2018 07:59-0400 BSA (Body Surface Area) 1.75 m2 Niecy Avery RN [facility] Work Phone: 06-10-2018 07:59-0400 Height 173.99 cm Niecy Avery RN [facility] Work Phone: 06-10-2018 07:59-0400 Pulse (Heart Rate) 73 /min Niecy Avery RN [facility] Work Phone: Comment on above: Pattern: Regular 06-10-2018 07:59-0400 Pulse Oximetry 97 % Rocío Chu [facility] Work Phone: Comment on above: Room air 06-10-2018 07:59-0400 Respiratory Rate 18 /min Niecy Avery RN [facility] Work Phone: Comment on above: Pattern: Unlabored 06-10-2018 07:59-0400 SaO2% (BldA) [Mass fraction] 97 % Niecy Avery RN [facility]; [facility] Work Phone: Comment on above: Room air 06-10-2018 07:59-0400 Weight 62.31 kg Rocío Chu [facility] Work Phone: 03-04-2018 08:21-0400 BMI (Body Mass Index) 20.43 kg/m2 Niecy Avery RN [facility] Work Phone: 03-04-2018 08:21-0400 Body weight 61.86 kg Niecy Avery RN [facility] Work Phone: 03-04-2018 08:21-0400 BP Diastolic 80 mm[Hg] Niecy Avery RN [facility] Work Phone: Comment on above: Patient Position: Sitting; Cuff Location : Left Arm; Cuff Size: Standard 03-04-2018 08:21-0400 BP Systolic 124 mm[Hg] Niecy Avery RN [facility] Work Phone: Comment on above: Patient Position: Sitting; Cuff Location : Left Arm; Cuff Size: Standard 03-04-2018 08:21-0400 BSA (Body Surface Area) 1.75 m2 Niecy Avery RN [facility] Work Phone: 03-04-2018 08:21-0400 Height 173.99 cm Niecy Avery RN [facility] Work Phone: 03-04-2018 08:21-0400 Pulse (Heart Rate) 66 /min Niecy Avery RN [facility] Work Phone: Comment on above: Pattern: Regular 03-04-2018 08:21-0400 Pulse Oximetry 97 % Rocío Chu [facility] Work Phone: Comment on above: Room air 03-04-2018 08:21-0400 Respiratory Rate 18 /min Niecy Avery RN [facility] Work Phone: Comment on above: Pattern: Unlabored 03-04-2018 08:21-0400 SaO2% (BldA) [Mass fraction] 97 % Niecy Avery RN [facility]; [facility] Work Phone: Comment on above: Room air 03-04-2018 08:21-0400 Weight 61.86 kg Rocío Chu [facility] Internal Medicine Work Phone: 10-24-2015 12:25-0500 BMI (Body Mass Index) 21.95 kg/m2 Josephinerigoberto Allen [facility] Internal Medicine Work Phone: 10-24-2015 12:25-0500 Body Temperature 95.8 [degF] Josephine Allen [facility] Medicine Work Phone: Comment on above: Method: Tympanic 10-24-2015 12:25-0500 Body weight 66.45 kg Josephine Allen [facility] Work Phone: 10-24-2015 12:25-0500 BP Diastolic 60 mm[Hg] Josephine Allen [facility] Work Phone: Comment on above: Patient Position: Sitting; Cuff Location : Left Arm; Cuff Size: Standard 10-24-2015 12:25-0500 BP Systolic 100 mm[Hg] Josephine Allen [facility] Work Phone: Comment on above: Patient Position: Sitting; Cuff Location : Left Arm; Cuff Size: Standard 10-24-2015 12:25-0500 BSA (Body Surface Area) 1.8 m2 Josephine Allen [facility] Work Phone: 10-24-2015 12:25-0500 Height 173.99 cm Josephine Allen [facility] Work Phone: 10-24-2015 12:25-0500 Pulse (Heart Rate) 64 /min Josephine Allen [facility] Work Phone: Comment on above: Pattern: Regular 10-24-2015 12:25-0500 Pulse Oximetry 98 % Rocío Chu [facility] Internal Medicine Work Phone: Comment on above: Room air 10-24-2015 12:25-0500 Respiratory Rate 18 /min Josephine Allen [facility] Work Phone: Comment on above: Pattern: Unlabored 10-24-2015 12:25-0500 SaO2% (BldA) [Mass fraction] 98 % Josephine Allen [facility]; [facility] Work Phone: Comment on above: Room air 10-24-2015 12:25-0500 Weight 66.45 kg Rocío Chu [facility] Work Phone: 05-17-2015 13:51-0400 BMI (Body Mass Index) 23.15 kg/m2 Teresita James [facility] Work Phone: 05-17-2015 13:51-0400 Body Temperature 97.4 [degF] Teresita James [facility] Work Phone: Comment on above: Method: Oral 05-17-2015 13:51-0400 Body weight 70.08 kg Teresita James [facility] Work Phone: 05-17-2015 13:51-0400 BP Diastolic 68 mm[Hg] Teresita James [facility] Work Phone: Comment on above: Patient Position: Sitting; Cuff Location : Left Arm; Cuff Size: Standard 05-17-2015 13:51-0400 BP Systolic 120 mm[Hg] Teresita James [facility] Work Phone: Comment on above: Patient Position: Sitting; Cuff Location : Left Arm; Cuff Size: Standard 05-17-2015 13:51-0400 BSA (Body Surface Area) 1.84 m2 Teresita James [facility] Work Phone: 05-17-2015 13:51-0400 Height 173.99 cm Tereista James [facility] Work Phone: 05-17-2015 13:51-0400 Respiratory Rate 16 /min Teresita James [facility] Work Phone: Comment on above: Pattern: Unlabored 05-17-2015 13:51-0400 Weight 70.08 kg Rocío Chu [facility] Internal Medicine Work Phone: 04-09-2015 11:17-0400 BMI (Body Mass Index) 23.15 kg/m2 Yandy Ba RN [facility] Internal Medicine Work Phone: 04-09-2015 11:17-0400 Body Temperature 97.8 [degF] Yandy aB RN [facility] Internal Medicine Work Phone: Comment on above: Method: Temporal 04-09-2015 11:17-0400 Body weight 70.08 kg Yandy Ba RN [facility] Internal Medicine Work Phone: 04-09-2015 11:17-0400 BP Diastolic 72 mm[Hg] Yandy Ba RN [facility] Medicine Work Phone: Comment on above: Patient Position: Sitting; Cuff Location : Left Arm; Cuff Size: Standard 04-09-2015 11:17-0400 BP Systolic 130 mm[Hg] Yandy Ba RN [facility] Medicine Work Phone: Comment on above: Patient Position: Sitting; Cuff Location : Left Arm; Cuff Size: Standard 04-09-2015 11:17-0400 BSA (Body Surface Area) 1.84 m2 Yandy Ba RN [facility] Medicine Work Phone: 04-09-2015 11:17-0400 Height 173.99 cm Yandy Ba RN [facility] Work Phone: 04-09-2015 11:17-0400 Pulse (Heart Rate) 77 /min Yandy Ba RN [facility] Work Phone: Comment on above: Pattern: Regular 04-09-2015 11:17-0400 Respiratory Rate 17 /min Yandy Ba RN [facility] Internal Medicine Work Phone: Comment on above: Pattern: Unlabored 04-09-2015 11:17-0400 Weight 70.08 kg Rocío Chu [facility] Work Phone: 12-28-2014 09:57-0400 BMI (Body Mass Index) 23.15 kg/m2 Josephinerigoberto Allen [facility] Internal Medicine Work Phone: 12-28-2014 09:57-0400 Body Temperature 97.9 [degF] [facility] Internal Medicine Work Phone: Comment on above: Method: Tympanic 12-28-2014 09:57-0400 [facility]: 12-28-2014 09:57-0400 BP Diastolic 64 mm[Hg] [facility] Work Phone: Comment on above: Patient Position: Sitting; Cuff Location : Left Arm; Cuff Size: Standard 12-28-2014 09:57-0400 BP Systolic 126 mm[Hg] [facility]: Comment on above: Patient Position: Sitting; Cuff Location : Left Arm; Cuff Size: Standard 12-28-2014 09:57-0400 BSA (Body Surface Area) 1.84 m2 Josephine Alejandro [facility] Work Phone: 12-28-2014 09:57-0400 Height 173.99 cm Josephine Allen [facility] Work Phone: 12-28-2014 09:57-0400 Pulse (Heart Rate) 67 /min Josephine Allen [facility] Work Phone: Comment on above: Pattern: Regular 12-28-2014 09:57-0400 Pulse Oximetry 98 % Rocío Chu [facility] Work Phone: Comment on above: Room air 12-28-2014 09:57-0400 Respiratory Rate 18 /min Josephine Allen [facility] Work Phone: Comment on above: Pattern: Unlabored 12-28-2014 09:57-0400 SaO2% (BldA) [Mass fraction] 98 % Josephine Allen [facility]; [facility] Work Phone: Comment on above: Room air 12-28-2014 09:57-0400 Weight 70.08 kg Rocío Chu [facility] Work Phone: 12-26-2014 11:45-0400 BMI (Body Mass Index) 23.15 kg/m2 Niecy Avery RN [facility] Work Phone: 12-26-2014 11:45-0400 Body Temperature 98 [degF] Niecy Avery RN [facility] Work Phone: Comment on above: Method: Temporal 12-26-2014 11:45-0400 Body weight 70.08 kg Niecy Avery RN [facility] Work Phone: 12-26-2014 11:45-0400 BP Diastolic 64 mm[Hg] Niecy Avery RN [facility] Work Phone: Comment on above: Patient Position: Sitting; Cuff Location : Left Arm; Cuff Size: Standard 12-26-2014 11:45-0400 BP Systolic 138 mm[Hg] Niecy Avery RN [facility] Work Phone: Comment on above: Patient Position: Sitting; Cuff Location : Left Arm; Cuff Size: Standard 12-26-2014 11:45-0400 BSA (Body Surface Area) 1.84 m2 Niecy Avery RN [facility] Work Phone: 12-26-2014 11:45-0400 Height 173.99 cm Niecy Avery RN [facility] Work Phone: 12-26-2014 11:45-0400 Pulse (Heart Rate) 81 /min Niecy Avery RN [facility] Work Phone: Comment on above: Pattern: Regular 12-26-2014 11:45-0400 Pulse Oximetry 98 % Rocío Chu [facility] Work Phone: Comment on above: Room air 12-26-2014 11:45-0400 Respiratory Rate 18 /min Niecy Avery RN [facility] Work Phone: Comment on above: Pattern: Unlabored 12-26-2014 11:45-0400 SaO2% (BldA) [Mass fraction] 98 % Niecy Avery RN [facility]; [facility] Work Phone: Comment on above: Room air 12-26-2014 11:45-0400 Weight 70.08 kg Rocío Chu [facility] Work Phone: 10-31-2014 10:58-0400 BMI (Body Mass Index) 22.55 kg/m2 Niecy Avery RN [facility] Work Phone: 10-31-2014 10:58-0400 Body Temperature 97.1 [degF] Niecy Avery RN [facility] Work Phone: Comment on above: Method: Temporal 10-31-2014 10:58-0400 Body weight 68.27 kg Niecy Avery RN [facility] Work Phone: 10-31-2014 10:58-0400 BP Diastolic 70 mm[Hg] Niecy Avery RN [facility] Work Phone: Comment on above: Patient Position: Sitting; Cuff Location : Left Arm; Cuff Size: Standard 10-31-2014 10:58-0400 BP Systolic 120 mm[Hg] Niecy Avery RN [facility] Work Phone: Comment on above: Patient Position: Sitting; Cuff Location : Left Arm; Cuff Size: Standard 10-31-2014 10:58-0400 BSA (Body Surface Area) 1.82 m2 Niecy Avery RN [facility] Work Phone: 10-31-2014 10:58-0400 Height 173.99 cm Niecy Avery RN [facility] Work Phone: 10-31-2014 10:58-0400 Pulse (Heart Rate) 64 /min Niecy Avery RN [facility] Work Phone: Comment on above: Pattern: Regular 10-31-2014 10:58-0400 Pulse Oximetry 98 % Rocío Chu [facility] Work Phone: Comment on above: Room air 10-31-2014 10:58-0400 Respiratory Rate 18 /min Niecy Avery RN [facility] Work Phone: Comment on above: Pattern: Unlabored 10-31-2014 10:58-0400 SaO2% (BldA) [Mass fraction] 98 % Niecy Avery RN [facility]; [facility] Work Phone: Comment on above: Room air 10-31-2014 10:58-0400 Weight 68.27 kg Rocío Chu [facility] Work Phone: 10-29-2014 12:20-0400 BMI (Body Mass Index) 22.55 kg/m2 Niecy Avery RN [facility] Work Phone: Comment on above: eye doc [facility] 10-29-2014 12:20-0400 Body weight 68.27 kg Niecy Avery RN [facility] Work Phone: Comment on above: eye doc at [facility] and [facility] 10-29-2014 12:20-0400 BP Diastolic 62 mm[Hg] Niecy Avery RN [facility] Work Phone: Comment on above: Patient Position: Sitting; Cuff Location : Left Arm; Cuff Size: Standard eye doc at [facility] and [facility] 10-29-2014 12:20-0400 BP Systolic 120 mm[Hg] Niecy Avery RN [facility] Work Phone: Comment on above: Patient Position: Sitting; Cuff Location : Left Arm; Cuff Size: Standard eye doc at [facility] and [facility] 10-29-2014 12:20-0400 BSA (Body Surface Area) 1.82 m2 Niecy Avery RN [facility] Work Phone: Comment on above: eye doc at [facility] and [facility] 10-29-2014 12:20-0400 Height 173.99 cm Niecy Avery RN [facility] Work Phone: Comment on above: eye doc at [facility] and [facility] 10-29-2014 12:20-0400 Pulse (Heart Rate) 70 /min Niecy Avery RN [facility] Work Phone: Comment on above: Pattern: Regular eye doc at [facility] and [facility] 10-29-2014 12:20-0400 Pulse Oximetry 98 % Rocío Chu [facility] Work Phone: Comment on above: Room air eye doc at [facility] and [facility] 10-29-2014 12:20-0400 Respiratory Rate 20 /min Niecy Avery RN [facility] Work Phone: Comment on above: Pattern: Unlabored eye doc at [facility] and [facility] 10-29-2014 12:20-0400 SaO2% (BldA) [Mass fraction] 98 % Niecy Avery RN [facility]; [facility] Work Phone: Comment on above: Room air eye doc at [facility] and [facility] 10-29-2014 12:20-0400 Weight 68.27 kg Rocío Chu [facility] Work Phone: Comment on above: eye doc at [facility] and [facility] 10-15-2014 14:11-0500 BMI (Body Mass Index) 22.83 kg/m2 Niecy Avery RN [facility] Work Phone: 10-15-2014 14:11-0500 Body weight 69.12 kg Niecy Avery RN [facility] Work Phone: 10-15-2014 14:11-0500 BP Diastolic 80 mm[Hg] Niecy Avery RN [facility] Work Phone: Comment on above: Patient Position: Sitting; Cuff Location : Left Arm; Cuff Size: Large 10-15-2014 14:11-0500 BP Systolic 128 mm[Hg] Niecy Avery RN [facility] Work Phone: Comment on above: Patient Position: Sitting; Cuff Location : Left Arm; Cuff Size: Large 10-15-2014 14:11-0500 BSA (Body Surface Area) 1.83 m2 Niecy Avery RN [facility] Work Phone: 10-15-2014 14:11-0500 Height 173.99 cm Niecy Avery RN [facility] Work Phone: 10-15-2014 14:11-0500 Pulse (Heart Rate) 82 /min Niecy Avery RN [facility] Work Phone: Comment on above: Pattern: Regular 10-15-2014 14:11-0500 Pulse Oximetry 98 % Rocío Chu [facility] Work Phone: Comment on above: Room air 10-15-2014 14:11-0500 Respiratory Rate 18 /min Niecy Avery RN [facility] Work Phone: Comment on above: Pattern: Unlabored 10-15-2014 14:11-0500 SaO2% (BldA) [Mass fraction] 98 % Niecy Avery RN [facility]; [facility] Work Phone: Comment on above: Room air 10-15-2014 14:11-0500 Weight 69.12 kg Rocío Chu [facility] Work Phone: 10-08-2014 09:07-0500 BMI (Body Mass Index) 22.78 kg/m2 Niecy Avery RN [facility] Work Phone: 10-08-2014 09:07-0500 Body weight 68.95 kg Niecy Avery RN [facility] Work Phone: 10-08-2014 09:07-0500 BP Diastolic 82 mm[Hg] Niecy Avery RN [facility] Work Phone: Comment on above: Patient Position: Sitting; Cuff Location : Left Arm; Cuff Size: Large 10-08-2014 09:07-0500 BP Systolic 128 mm[Hg] Niecy Avery RN [facility] Work Phone: Comment on above: Patient Position: Sitting; Cuff Location : Left Arm; Cuff Size: Large 10-08-2014 09:07-0500 BSA (Body Surface Area) 1.83 m2 Niecy Avery RN [facility] Work Phone: 10-08-2014 09:07-0500 Height 173.99 cm Niecy Avery RN [facility] Work Phone: 10-08-2014 09:07-0500 Pulse (Heart Rate) 60 /min Niecy Avery RN [facility] Work Phone: Comment on above: Pattern: Regular 10-08-2014 09:07-0500 Pulse Oximetry 98 % Rocío Chu [facility] Work Phone: Comment on above: Room air 10-08-2014 09:07-0500 Respiratory Rate 18 /min Niecy Avery RN [facility] Work Phone: Comment on above: Pattern: Unlabored 10-08-2014 09:07-0500 SaO2% (BldA) [Mass fraction] 98 % Niecy Avery RN [facility]; [facility] Work Phone: Comment on above: Room air 10-08-2014 09:07-0500 Weight 68.95 kg Rocío Chu [facility] Work Phone: Encounters Encounter Date Encounter Type Care Provider Facility Start: 05-25-2024 End: 05-25-2024 ambulatory Priti Lott Facility:[facility] Start: 03-20-2024 End: 03-20-2024 Emergency department patient visit Rocío Chu Facility:[facility] Start: 03-14-2024 End: 03-14-2024 ambulatory Rocío Chu Facility:[facility] Start: 10-26-2022 End: 10-26-2022 Office outpatient visit 15 minutes Rocío Chu DO Work Phone: [facility] Start: 10-26-2022 ambulatory Rocío Chu DO [facility] Start: 10-03-2020 End: 10-03-2020 Subsequent hospital visit by physician Nuvia [facility] Work Phone: Radiology Comment on above: Acute pain of left s luisito [M25.512] Start: 08-21-2020 End: 08-21-2020 Office outpatient visit 15 minutes Rocío Kimberley [facility] Start: 08-21-2020 Review Rocío Chu [facility] Start: 08-15-2019 End: 08-15-2019 Office outpatient visit 15 minutes Rocío Chu [facility] Start: 08-11-2019 End: 08-11-2019 Office outpatient visit 15 minutes Rocío Chu [facility] Start: 06-22-2019 End: 06-22-2019 Office outpatient visit 15 minutes Rocío Chu [facility] Start: 01-04-2019 Review Rocíoleann Chu [facility] Start: 01-04-2019 End: 01-04-2019 Office outpatient visit 10 minutes Rocío Kimberley [facility] Start: 01-04-2019 End: 04-20-2023 Phone Encounter Rocío Chu DO Work Phone: [facility] Start: 08-31-2018 End: 08-31-2018 Patient encounter procedure Erich Denise LPN [facility]; [facility] Work Phone: Start: 08-31-2018 End: 08-31-2018 Periodic preventive med est patient 65yrs& older Rocío Chu [facility] Start: 07-12-2018 End: 07-12-2018 Office outpatient visit 15 minutes Rocío Chu [facility] Start: 06-10-2018 End: 06-10-2018 Office outpatient visit 15 minutes Rocío Chu [facility] Start: 03-04-2018 End: 03-04-2018 Office outpatient visit 15 minutes Rocío Chu [facility] Start: 02-27-2018 Evaluation and management of inpatient Rocío Chu [facility] Start: 10-24-2015 End: 10-28-2015 Office outpatient visit 40 minutes Rocío Chu [facility] Start: 05-17-2015 End: 05-17-2015 Office outpatient visit 10 minutes Rocío Chu [facility] Start: 04-09-2015 End: 04-09-2015 Office outpatient visit 15 minutes Rocío Chu [facility] Start: 12-28-2014 End: 12-28-2014 Office outpatient visit 15 minutes Rocío Chu [facility] Start: 12-26-2014 End: 12-26-2014 Office outpatient visit 15 minutes Rocíoleann Chu [facility] Start: 10-31-2014 End: 10-31-2014 Office outpatient visit 15 minutes Rocío Chu [facility] Start: 10-29-2014 End: 10-29-2014 Initial preventive medicine new patient 40-64yrs Rocíoleann Lujanon [facility] Start: 10-29-2014 End: 10-29-2014 Patient encounter procedure Rocío Chu DO Work Phone: [facility] Start: 10-15-2014 End: 10-15-2014 Office outpatient visit 10 minutes Rocíoleann Lujanon [facility] Start: 10-08-2014 End: 10-08-2014 Office outpatient visit 25 minutes Rocío Chu [facility] Patient encounter procedure Margo Mendoza LPN [facility]; [facility] Work Phone: Procedures Date Procedure Procedure Detail Performing Clinician Start: 01-07-2022 End: 01-07-2022 Urgent Care Visit Report Procedure Note: See Note; NOTES: [facility] [address] [place] [address] OFFICE VISIT Date of Service: 01/07/22 MR#: [id number] Acct: [id number] Name: MARY KATE ABEL KULWINDER Rep #: [id number] : 1940 Provider: LAURA pisano Age/Sex: 81/F Location: [facility] Status: Signed Intake Vital Signs 01/07/22 15:57 Height 5 ft 8 in Weight: 159 lb BMI 24.1 BP 122/66 H Blood Pressure Location Lt brachial Position Sitting Respiration 14 Pulse 66 Pulse Source Monitor Temp 97.8 F Temp Source Temporal Pulse Oximetry (%) 98 Oxygen Delivery Method room air Intake Visit Reasons: RIGHT KNEE PAIN/FOLLOWING FALL Chief Complaint: Right knee/lower leg pain status post fall Allergies iodine Allergy (Verified 02/25/18 11:24) Hives aspirin Adverse Reaction (Verified 02/25/18 11:24) Upset Stomach PFSH Medical History (Updated 01/07/22 @ 15:47 by Kirill SANCHEZ, PA) Fracture of right tibial plateau Social History Smoking Status: Former smoker HPI HPI Chief Complaint: Right knee/lower leg pain status post fall Details: MARY KATE ABEL, is a 81 F who presents to the office today for initial evaluation 3 days post fall onto right anterior knee at home with persistent moderate severe aching discomfort to the same, aggravated to touch and with weightbearing, alleviated with sit/rest. Patient notes no complaints of right knee locking/giving way and no right knee joint swelling appreciated by patient. PMH NC, though history of prior hip surgery which patient was concerned about as well though no discomfort in hips appreciated. No [id number] products taken to assist. No complaints of low back or bilateral ankle/foot discomfort. No other associated symptoms and no other alleviating/aggravating factors. ROS Const Constitutional: No other (As above) Exam Const General: cooperative, healthy appearing, comfortable and no acute distress Nutritional Appearance: well nourished Orientation: alert, awake and oriented x3 Resp Effort Inspection: normal respiratory effort, able to speak in complete sentences and symmetric chest movement Cardio Rate: regular rate Pulses: popliteal pulses present, posterior tibial pulses present and dorsalis pedis present Skin General: no rashes or lesions noted, no ecchymosis and no erythema Neuro General: patient alert, patient awake and patient oriented x3 Cognition: normal cognition Speech: speech normal Gait: antalgic (Favoring right lower extremity) Sensory Exam: no sensory deficits noted Extrem General: normal to inspection, full ROM (Bilateral hips; guarded LROM right knee), capillary refill normal and normal exam except as noted (Point tender to palpation right proximal tibial plateau) Other: Right knee without joint swelling; limited exam performed due to x-ray findings. Psych Appearance: grossly normal Mental Status: mental status grossly normal Mood: congruent mood Affect: normal affect Speech and Movement: speech and movement normal Attitude: cooperative Thought Process: normal Thought Content: normal Judgment: judgment good Coding Level of Care Code Off vis,new,level 4 Diagnoses Fracture of right tibial plateau S82.141A Assessment and Plan Assessment and Plan (1) Fracture of right tibial plateau: Status: Acute Orders: Referrals: Orthopedics Plan: Crutches and knee immobilizer both refused upon offering, with patient stating she has her own crutches at home and hinged knee brace preferred over immobilizer therefore this was dispensed today. NSAIDS and Tylenol prn. Orthopedic referral placed today. Follow-up with the [facility] on an as needed basis only. Patient states acknowledging understanding all the above. This note was generated with [employer] dictation software. It may contain incorrect words, spelling, and punctuation that were not noted in checking the note before signing. Plan Details Other Orders: Orders: Knee 4 or More Views Today W19.XXXA 01/07/22 1723 <Electronically signed by Kirill SANCHEZ> Date Kirill SANCHEZ Cosigner Signature: Date (if applicable) CC: Rocío Chu DO Work Phone: Start: 01-07-2022 End: 01-07-2022 HIP, UNI W/ Pelvis 2-3 Views Procedure Note: See Note; NOTES: [facility] Radiology [address] [place] [address] HIP, UNI W/ Pelvis 2-3 Views MR#: [id number] Acct: [id number] Name: MARY KATE ABEL Rep #: [id number] : 1940 F 81 From: Rosalio Sierra MD PCP: Dr. Rocío Chu, Status: DEP AMB Study: HIP, UNI W/ Pelvis 2-3 Views Date of Exam: Exam# [id number] Ordering Dr: Kirill Seals STUDY: X-RAY - PELVIS AND RIGHT HIP REASON FOR EXAM: Female, 81 years old. fall, hip pain TECHNIQUE: 3 views of the pelvis and hip. COMPARISON: None. FINDINGS: There is a non-specific bowel gas pattern. Normal visualized soft tissue structures. Normal bilateral iliac wings, sacroiliac joints and visualized sacrum. Normal bilateral superior and inferior pubic rami. Normal pubic symphysis. Normal bilateral ischial tuberosities. Status post hip arthroplasty. The prosthesis appears located. No ostial lysis to suggest loosening.. RAD/HIP, UNI W/ Pelvis 2-3 Views IMPRESSION: Normal x-ray examination of the pelvis and hip after arthroplasty. Electronically Signed: Rosalio Sierra MD at 15:40 EDT , CC: LAURA Seals; Dr. Rocío Chu DO Depot Agent: Signed Rocío Chu DO Work Phone: Start: 01-07-2022 End: 01-07-2022 Knee 4 or More Views Procedure Note: See Note; NOTES: [facility] Radiology [address] [place] [address] Knee 4 or More Views MR#: [id number] Acct: [id number] Name: MARY KATE ABEL Rep #: [id number] : 1940 F 81 From: Rosalio Sierra MD PCP: Dr. Rocío Chu DO Status: DEP AMB Study: Knee 4 or More Views Date of Exam: 01/07/22 Exam# [id number] Ordering Dr: Kirill Seals STUDY: X-RAY - RIGHT KNEE REASON FOR EXAM: Female, 81 years old. fall, knee pain TECHNIQUE: 4 view(s) of the knee. COMPARISON: None. FINDINGS: Normal visualized distal femur. There is a linear lucency within the tibial plateau between the tibial spines worrisome for fracture. Correlation with CT or MRI is recommended. Normal proximal tibiofibular articulation. Normal medial femorotibial compartment. Normal lateral femorotibial compartment. Normal patellofemoral articulation. There is a soft tissue prominence in the suprapatellar region suggesting a small volume joint effusion. The soft tissue structures are unremarkable. RAD/Knee 4 or More Views IMPRESSION: Suspect fracture of the tibial plateau between the tibial spines and correlation with CT or MRI is recommended. Electronically Signed: Rosalio Sierra MD at 15:41 EDT , CC: LAURA Seals; Dr. Rocío Chu DO Depot Agent: Signed Rocío Chu DO Work Phone: Start: 10-03-2020 Radex shoulder complete minimum 2 views Matt Felix MD Work Phone: Start: 08-11-2019 End: 08-11-2019 Chest PA and Lateral Comments: See Note; NOTES: [facility] Imaging Services [address] [place] [address] Chest PA and Lateral MR#: [id number] Acct: [id number] Name: MARY KATE ABEL KULWINDER Rep #: [id number] : 1940 F 79 From: Robin Clark MD PCP: Rocío Chu DO Status: REG CLI Study: Chest PA and Lateral Date of Exam: 08/11/19 Exam# [id number] Ordering Dr: Joana Luna [employer]ING [employer]PER[employer]OR-C STUDY: X-RAY CHEST REASON FOR EXAM: Female, 79 years old. Cough. TECHNIQUE: Frontal and lateral views of the chest. COMPARISON: June 29, 2017 FINDINGS: Stable hyperexpansion. There is no demonstrated pleural abnormality. Borderline cardiomegaly unchanged Normal mediastinum and alejandra. Normal visualized pulmonary arteries. Normal visualized aortic arch and descending thoracic aorta. Normal visualized thoracic spine. Normal visualized ribs, clavicles, and shoulders. There is no demonstrated abnormality of the visualized soft tissue structures of the upper abdomen. RAD/Chest PA and Lateral IMPRESSION: Stable chest with no acute superimposed finding. Electronically Signed: Robin Clark MD at 15:56 EST , Service support , CC: NOHEMI Luna; Rocío Chu DO Depot Agent: Signed Joana Luna Work Phone: Start: 08-11-2018 End: 08-12-2018 OT D/C of Non Returning Pt Comments: See Note; NOTES: [facility] Occupational Therapy [facility] [facility] [place] [address] / REHABILITATION SERVICES DISCHARGE SUMMARY MR#: [id number] Acct: [id number] Name: MARY KATE ABEL Rep #: [id number] : 1940 78 From: Crys Real Referring DrKezia: Robin SANCHEZ Status: REG RCR Eval Date: Discharge Date: HP - Discharge Summary - Patient Information MARY KATE ABEL was seen in my office for initial evaluation on 04/12/18. The following Plan of Care was established for this patient: Initial Frequency: 1-2x /Week Initial Duration: 4-6 Weeks Plan: cont POC, pt does not plan to come in anytime soon d/t high copay, states she is educated now for joint protection while performing functional living tasks. - Anticipated Interventions Anticipated Interventions: A/AAROM/PROM, Strengthening, Edema Control, Massage, Modalities, Orthoses, Joint Protection/Energy Conservation, Fine Motor Coord/Ciro, ADL Training, Education re Correct Donning Tech,Care AND Wearing Sched Comp Garments, Home Program This patient was last seen in our office 05/27/18. Pertinent comments regarding their Occupational therapy will appear below: D/C OT services secondary to non-returning pt. Pt had been educated on joint protection strategies, participating with soft tissue massage to decrease pain and using theraputty to increase trimmer meat strength. Non-returing pt, d/c OT services At this point I will be discontinuing this patient from occupational therapy. I would be happy to see this patient again in the future if found appropriate by the physician. Thank you! Crys Real <Electronically signed by Crys Real > 08/11/18 2423 CC: Rocío Chu DO; Robin SANCHEZ SLV Signed Rocío Chu Start: 04-13-2018 End: 04-13-2018 OT General Evaluation Comments: See Note; NOTES: [facility] Occupational Therapy [facility] [address] [place] [address]. [address] [place] [address] Fax REHABILITATION SERVICES INITIAL EVALUATION MR#: [id number] Acct: [id number] Name: MARY KATE ABEL Rep #: [id number] : 1940 78 From: Crys Real Referring Dr.: Robin SANCHEZ Status: REG RCR Insurance: [employer] MEDICARE PPO Eval Date: SELF PAY INSURANCE Patient's Visit Information MARY KATE ABEL is a 78 year old F, referred to Occupational Therapy by Robin Li, with a diagnosis of right wrist fx. Date of Evaluation: 04/12/18 Occupational Therapist: Crys Real - Subjective Subjective: Pt seen for initial occupational therapy evaluation s/p R wrist fx that happened March 01, 2018 after fall on curb going up to sidewalk from car when she also suffered a concusion and does not remember the fall. She has been in a cast for about 7 wks. Pt is right hand dominent. Pt has limited ROM of R UE from fall in September where she had hurt her R humerous and continues to have limited ROM for that. Lives w/ spouse 1 story house. AMB no device. Indep w/ BADL's, and laundry. Laundry on main level. Eats all meals out or buys meals, does not cook. Drives. Likes to garden and play piano. Tub/shower, grab bar, stands in shower. Pt states does have a difficult time opening containers, writing and cutting food, but she tries to complete it with her L hand. - Pain R wrist 1 Pain Intensity Range: 1, 2, 3, 4, 5, 6, 7 - Objective Objective/Observation: Pt demo increased edema R hand, decreased functional use, strength and ROM of R hand/wrist - ROM Wrist: R 15/20, L 80/65 - Strength Anthropology Professor: R DNT, L 40# Lateral Pinch: R DNT, L 6# Tripod Pinch: R DNT, L 6# Strength Comments: DNT R hand strength secondary to R wrist fx - Edema Other: Pt demo increased edema R wrist/hand/digits - Sensation Sensation Comments: Pt states no numbness or tingling. - DASH-Disabilities of Arm, Shoulder AND Hand DASH Sum: 120 - Goals Goal:: Pt will demo increased R hand trimmer meat strength 30# by d/c from OT services to increase independence with grooming tasks of R hand. Goal:: Pt will progress with R AROM wrist flexion by 35' to assist with functional living tasks by d/c from OT. Pt will progress with R AROM wrist extension by 45' to assist with functional living tasks by d/c from OT services. Goal:: Pt will demo no pain greater than 1/10 of R wrist/hand by d/c from OT services. Goal:: Pt will demo increased AROM R wrist/hand to be able to complete all self feeding tasks independently with R hand by d/c from OT services. Goal:: Pt will be educated on R UE HEP with good understanding and demo 100%x. - Rehabilitation General Assessment: Pt demonstrates decreased ROM and strength of R wrist/hand and decreased independence with functional living skills/hobbies. Pt would benefit from direct occupational therapy services to increase R wrist/hand ROM and strength, educate on HEP and increase pt's ability to complete hobbies and functional living tasks independently with R hand/wrist. Rehabilitation Potential: Good - Anticipated Interventions Anticipated Interventions: A/AAROM/PROM, Strengthening, Edema Control, Massage, Modalities, Orthoses, Joint Protection/Energy Conservation, Fine Motor Coord/Ciro, ADL Training, Education re Correct Donning Tech,Care AND Wearing Sched Comp Garments, Home Program - Visit Plan Frequency: 1-2x /Week Duration: 4-6 Weeks General Plan: increase ROM and strength of R wrist/hand, educate on HEP, increase independence with functional living tasks. TEXT: Thank you for the opportunity to evaluate your patient. For Medicare and Medicare HMO plans, please review the plan of care and approve it. It will need to be FAXED BACK to us at [phone] for Medicare purposes. Please let me know if there are questions or concerns regarding this plan of care. Physician Signature: Date: <Electronically signed by Crys Real > 04/13/18 1149 CC: Rocío Chu DO; Robin SANCHEZ SLV Signed For Medicare only, by signing this I certify the plan of care. _ Physicians Signature Date Rocío Chu Start: 02-25-2018 End: 02-25-2018 Emergency Department Summary Comments: See Note; NOTES: [facility] Medical Records Department [address] [place] [address] Emergency Department Summary 02/25/18 1158 MR#: [id number] Acct: [id number] Name: MARY KATE ABEL Rep #: [id number] : 1940 77 From: Bruno Dial DO PCP: Rocío Chu DO Status: REG ER - ER Visit Summary Date of Service: 02/25/18 Chief Complaint: Fall History of Present Illness: The patient is a 77 F who presents after a fall that occurred today. Patient does not remember any of the events around the fall. states that patient tripped and fell forward. Patient did hit the right side of her head. Patient admits to loss of consciousness for a few minutes. Patient states the pain is worse over the right side of her head and right wrist. Patient states the pain is worse with movement of her right wrist. Patient denies any visual changes. Patient denies any chest pain. Patient denies any nausea or vomiting. Patient denies any paresthesias or weakness. Physical Examination: Vital signs are stable. Patient is afebrile. Patient is in no acute distress. Cranial nerves II through XII are intact. Strength is 5/5 bilateral in the upper and lower extremities. There are no sensory deficits noted. Musculoskeletal exam reveals tenderness over the right wrist. Range of motion was limited in all motions of the right wrist secondary to pain. Skin is warm and dry. There is an abrasion over the lateral aspect of the right foot. There is no active bleeding. There is no tenderness over the foot. There is edema and ecchymosis over the right periorbital area. There is no bony crepitance or step-off. Pupils are equal, round, and reactive to light bilateral. Extraocular muscles are intact. Conjunctiva is clear. Oral mucosa is pink and moist. Neck is supple. Trachea is midline. There is no JVD or lymphadenopathy noted. Heart was regular rate and rhythm. Lungs are clear and equal bilaterally. Patient is somewhat confused on exam. Patient is unable to remember her past medical history, past surgical history, medications, or allergies. Test Results: CBC, basic metabolic profile, PT with INR, and PTT were obtained and were within normal limits. CT scan of the brain was obtained. There is no acute intracranial abnormality noted. X-rays of the right wrist were obtained. There is a nondisplaced fracture of the radius and ulnar styloid. There is some mild dorsal angulation of the distal radius. Emergency Department Course and Treatment: Patient is still somewhat confused. Case was discussed with Dr. Cleary. She will admit the patient to her service. Case was also discussed with Dr. Mancilla from orthopedics. He recommended placing the patient in an AP splint and he will follow-up with the patient in the office. Patient and family understood and were agreeable with the plan. All questions were answered. Disposition: Admit to hospital Impression: Concussion, right distal radius fracture This note was generated with Algentis dictation software. It may contain incorrect words, spelling, and punctuation that were not noted in review of the chart prior to signing ED Disposition - Plan for ED Patient: Disposition: Acute Care Hospital [facility] Chief Complaint: Fall Diagnosis: Concussion with < 1 hr loss of consciousness, Fracture of distal end of right radius and ulna Referrals: Rocío Chu, [Primary Care Provider] - What to do if you have Problems For any increased pain, shortness of breath, bleeding, nausea or vomiting, chest pain, or any unexpected problems, contact your Primary Care Provider. Call [facility] ([phone]) or report to the closest Emergency Room. Call 911 if necessary. 02/25/18 1354 <Electronically signed by Bruno Dial DO> Date Bruno Dial DO Cosigner Signature (If Indicated): Date CC: Rocío Luis Start: 02-25-2018 End: 02-25-2018 Brain/Head without Contrast Comments: See Note; NOTES: [facility] Imaging Services [address] [place] [address] Brain/Head without Contrast MR#: [id number] Acct: [id number] Name: MARY KATE ABEL Rep #: [id number] : 1940 F 77 From: Matias Menard MD PCP: Rocío Chu DO Status: [facility] Study: Brain/Head without Contrast Date of Exam: 02/25/18 Exam# [id number] Ordering Dr: Bruno Dial DO STUDY: CT BRAIN WITHOUT CONTRAST REASON FOR EXAM: Female, 77 years old. Confusion. Fall. RADIATION DOSAGE (If Supplied By Facility): CTDIvol = ( 44.99 ) mGy, DLP = ( 1524.73 ) mGycm TECHNIQUE: Transaxial CT imaging of the brain was performed without administration of intravenous contrast material. Individualized dose optimization techniques were used for this CT. COMPARISON: None. FINDINGS: There is right periorbital soft tissue swelling. Normal calvarium. Normal size ventricles and extra-axial spaces for the patient's age. There are areas of decreased attenuation within the white matter tracts of the supratentorial brain, consistent with microvascular disease changes. Normal basal ganglia and thalami. Normal brainstem. Normal cerebellum. There is no intracranial hemorrhage. There are no findings of an acute ischemic infarction. Normal visualized paranasal sinuses. CT/Brain/Head without Contrast IMPRESSION: Chronic involutional changes of the brain. Electronically Signed: Matias Menard MD at 12:39 EDT , Service support , CC: Bruno Dial DO; Rocío Chu DO Depot Agent: Signed Rocío Chu Start: 02-25-2018 End: 02-25-2018 Wrist min 3 Views Comments: See Note; NOTES: [facility] Imaging Services [address] [place] [address] Wrist min 3 Views MR#: [id number] Acct: [id number] Name: MARY KATE ABEL Rep #: [id number] : 1940 F 77 From: Matias Menard MD PCP: Rocío Chu DO Status: [facility] Study: Wrist min 3 Views Date of Exam: 02/25/18 Exam# [id number] Ordering Dr: Bruno Dial DO STUDY: X-RAY - RIGHT WRIST REASON FOR EXAM: Female, 77 years old. Fall. Swelling. TECHNIQUE: 3 view(s) of the wrist were obtained. COMPARISON: None. FINDINGS: There is demineralization of the radius and ulna. Distal radius fracture with dorsal angulation. Nondisplaced ulnar styloid fracture. Normal radiocarpal articulation. Normal distal radioulnar articulation. There is demineralization of the carpal bones. Normal carpal articulations. Normal carpometacarpal articulation of the thumb. Normal second through fifth carpometacarpal articulations. Normal visualized metacarpal bones. The soft tissue structures are unremarkable. RAD/Wrist min 3 Views IMPRESSION: Distal radius and ulna styloid fractures. Electronically Signed: Matias Menard MD at 13:22 EDT , Service support , CC: Bruno Dial DO; Rocío Chu DO Depot Agent: Signed Rocío Chu Start: 09-28-2017 End: 09-28-2017 Emergency Department Summary Comments: See Note; NOTES: [facility] Medical Records Department [address] [place] [address] Emergency Department Summary 09/27/17 2159 MR#: [id number] Acct: [id number] Name: MARY KATE ABEL Rep #: [id number] : 1940 77 From: Dayo Lopez DO PCP: Rocío Chu DO Status: DEP ER - ER Visit Summary Date of Service: 09/27/17 Chief Complaint: Right shoulder injury History of Present Illness: The patient is a 77 F who slipped and fell on the ice tonight. She states that she fell into her sliding glass door and her right shoulder hit the ground. No loss of consciousness. She states that the only place that she is hurting is the right shoulder. She is right-handed. Limited range of motion. Physical Examination: Afebrile vital signs are stable Gen: Well-nourished well-developed Head: Normocephalic atraumatic Eyes: Perrl EOMI ENT: TMs clear no rhinorrhea moist mucous membranes Neck: Supple no lymphadenopathy no JVD nontender CVS: Regular rate rhythm no murmurs normal S1-S2 Respiratory: No distress clear to auscultation bilaterally chest nontender Abdomen: Soft nontender nondistended normal bowel sounds no masses Back: Nontender Extremity: Right shoulder is tender to palpation with extremely limited range of motion. Sensation is preserved for the deltoid, ulnar median and radial nerves. Vascularly intact distally. Skin: Normal color no rash Neuro: alert orientated 3 CN II-XII intact normal strength sensation reflexes gait cerebellar Psych: Normal affect normal mood Test Results: Shoulder films demonstrate an impacted comminuted proximal humerus fracture. CT of the shoulder was performed which does not demonstrate any dislocation. Noted fracture as the films demonstrated. Emergency Department Course and Treatment: Patient received morphine and Dilaudid for pain. Sling was recommended as was pain medicine at home. She is seeing Dr. Huffman in the past and would like to see him again for this injury. Patient will be prescribed oxycodone and return instructions and medication side effects were discussed including but not limited to constipation and confusion. Impression: 1. Right closed impacted comminuted proximal humerus fracture This note was generated with Algentis dictation software. It may contain incorrect words, spelling, and punctuation that were not noted in review of the chart prior to signing ED Disposition - Plan for ED Patient: Disposition: Home or Assisted Living Chief Complaint: Upper Extremity Injury Instructions: ED Fx Shoulder Prescriptions: Oxycodone [Oxyir] 5 - 10 mg PO Q6H PRN PRN 4 Days #20 tab PRN Reason: Pain Referrals: Rocío Chu DO [Primary Care Provider] - Maurice Aiken MD [STAFF PHYSICIAN] - (call in am to arrange follow up) What to do if you have Problems For any increased pain, shortness of breath, bleeding, nausea or vomiting, chest pain, or any unexpected problems, contact your Primary Care Provider. Call [facility] ([phone]) or report to the closest Emergency Room. Call 911 if necessary. 09/28/17 0134 <Electronically signed by Dayo Lopez DO> Date Dayo Lopez DO Cosigner Signature (If Indicated): Date CC: Rocío Luis Start: 09-27-2017 End: 09-27-2017 Extremity Upper without Contra Comments: See Note; NOTES: [facility] Imaging Services [address] [place] [address] Extremity Upper without Contra MR#: [id number] Acct: [id number] Name: MARY KATE ABEL Rep #: [id number] : 1940 F 77 From: Jermaine Dc MD PCP: Rocío Chu DO Status: REG ER Study: Extremity Upper without Contra Date of Exam: 09/27/17 Exam# [id number] Ordering Dr: Dayo Lopez DO STUDY: CT RIGHT SHOULDER REASON FOR EXAM: Female, 77 years old. Fracture RADIATION DOSAGE (If Supplied By Facility): CTDIvol = ( 24.58 ) mGy, DLP = ( 413.10 ) mGycm TECHNIQUE: The patient was scanned in a multi detector CT scanner. High resolution transaxial imaging was performed without the administration of intravenous contrast material. Sagittal and coronal images were reconstructed. Individualized dose optimization techniques were used for this CT. COMPARISON: None. FINDINGS: Normal glenohumeral articulation. Normal glenoid rim, neck and visualized scapula. There is a comminuted impacted fracture of the right humeral neck. Normal coracoid process. Normal visualized lateral clavicle. Normal acromioclavicular articulation. There is a Type II morphology (curved), with a neutral orientation. Normal visualized muscles and soft tissue structures. CT/Extremity Upper without Contra IMPRESSION: Comminuted impacted fracture of the right humeral neck. Electronically Signed: Jermaine Dc MD at 21:27 EST , Service support , CC: Dayo Lopez DO; Rocío Chu DO Depot Agent: Signed Rocío Chu Start: 09-27-2017 End: 09-27-2017 Shoulder min 2 Views Comments: See Note; NOTES: [facility] Imaging Services [address] [place] [address] Shoulder min 2 Views MR#: [id number] Acct: [id number] Name: MARY KATE ABEL Rep #: [id number] : 1940 F 77 From: Yordan Lyn DO PCP: Rocío Chu DO Status: REG ER Study: Shoulder min 2 Views Date of Exam: 09/27/17 Exam# [id number] Ordering Dr: Dayo Lopez DO STUDY: X-RAY - RIGHT SHOULDER REASON FOR EXAM: Female, 77 years old. Pain after fall. TECHNIQUE: 2 view(s) of the shoulder. COMPARISON: None. FINDINGS: There is a subluxation appearance of the glenohumeral articulation. There is degenerative arthrosis of the acromioclavicular joint without inferior osseous spur formation. Normal acromion. Comminuted fracture of the surgical neck of the humerus is present with angulation. The soft tissue structures are unremarkable. Normal visualized pulmonary apex. RAD/Shoulder min 2 Views IMPRESSION: Comminuted fracture of the surgical neck of the humerus with likely subluxed humeral head and glenohumeral joint, recommend orthopedic consultation for further assessment and management. Electronically Signed: Yordan Lyn DO at 22:27 EST , Service support , CC: Dayo Lopez DO; Rocío Chu DO Depot Agent: Signed Rocío Chu Start: 07-02-2017 End: 07-02-2017 12 lead ECG Comments: See Note; NOTES: [facility] Cardiovascular Services [address] [place] [address] 12 Lead EKG 06/29/17 0111 MR#: [id number] Acct: [id number] Name: MARY KATE ABEL Rep #: [id number] : 1940 77 From: Mukesh March MD Attending Dr: Status: DEP ER Ordering Dr: Fuad Basurto MD Date: 06/29/17 Location: ED Sex: F C Admitted: Test Reason : CP Blood Pressure : / mmHG Vent. Rate : 072 BPM Atrial Rate : 072 BPM P-R Int : 166 ms QRS Dur : 088 ms QT Int : 404 ms P-R-T Axes : 043 064 073 degrees QTc Int : 442 ms Normal sinus rhythm Normal ECG Confirmed by INDIRA KEITH, MUKESH ([id number]), photographic editor SANDRA MANCILLA ([id number]) on 07/02/2017 12:58:48 PM Referred By: SAUD Confirmed By:MUKESH MARCH MD 07/02/17 1258 Date Mukesh March MD CC: Rocío Chu DO Signed Rocío Chu Start: 06-29-2017 End: 06-29-2017 Emergency Department Summary Comments: See Note; NOTES: [facility] Medical Records Department [address] [place] [address] Emergency Department Summary 06/29/17 0224 MR#: [id number] Acct: [id number] Name: ELVIAMARY KATE A Rep #: [id number] : 1940 77 From: Fuad Basurto MD PCP: Rocío Chu DO Status: REG ER - ER Visit Summary Date of Service: 06/29/17 Chief Complaint: Left upper extremity, chest and anterior and posterior neck pain that started at 1800 History of Present Illness: The patient is a 77 F who presented because of left upper extremity pain is started on 1800. She also complained of anterior posterior neck pain and bilateral anterior chest pain. The left upper extremity and the anterior and posterior neck pain have no exacerbating, precipitating or alleviating factors. The chest pain has a pleuritic component as well as positional and is also worsened by activity. She denied any nausea or vomiting. She denied diaphoresis or shortness of breath. She denies history of PE, DVT or any risk factors. She denies any leg pain, swelling or discoloration. She denies any fever, chills or night sweats. She believes she may have injured her arm lifting a full bottle of bleach. She states she does not carry anything heavy at all because of back pain. Denies previous history of left upper extremity, chest or neck pain. She states she has no medical problems on no medication. She denies fever, chills night sweats. Denies weight gain or weight loss. She denies any ocular, visual auditory symptoms. She denies change in voice or difficulty swallowing. She denies rash. She denies any GI or symptoms. She denies any neurologic symptoms. Physical Examination: Vital signs are normal. She is afebrile and pulse ox is 98% on room air. Head is atraumatic normocephalic. Pupils are equal round reactive. Extraocular muscles are intact. TMs are pearly white with landmarks noted. Nares patent with no drainage. Posterior pharynx without erythema or exudate. Uvula is midline. There is no dysphonia or dysphasia. Trachea is midline. There is no stridor with auscultation of the neck. Heart is regular without murmur, gallop or rub. S1 and S2 are normal. Lungs are clear to auscultation with good movement of air bilaterally. There is no reproducible chest, left upper extremity or neck discomfort. There is no rash. Axillary, median, radial and ulnar function are intact. Radial pulses palpable and symmetric. Patient is alert and oriented 3. Motor is 5 over 5. Sensory is intact. DTRs are symmetric with no clonus or Babinski sign. Cranial 2 through 12 are intact. Cerebellar testing is normal. Test Results: EKG was obtained and reveals a normal sinus rhythm rate of 72 and is normal. Two-view chest x-ray interpreted by me as normal. D-dimer 0.43, which is normal. Troponin is less than 0.02, which is normal and with 8 hours of continuous pain. CBC is normal. Electrolyte is panel normal. Emergency Department Course and Treatment: This may represent atypical cardiac presentation; therefore, will obtain EKG and cardiac markers. Since there is a pleuritic component will obtain a d-dimer and corrected for age. She is not PERC negative since she is greater than 50 years of age. Will obtain CBC to evaluate for anemia or possible infectious etiology. BMP was obtained in the event that a CTA was required. Treatment Plan: Patient was informed of results and informed the etiology of her symptoms is unknown. With a heart score of 2 she is considered low risk and can follow-up with her primary care physician, Dr. Rocío Chu Disposition: Discharged to home with spouse Impression: Left upper extremity, neck and chest discomfort of unknown etiology This note was generated with [employer] software. It may contain incorrect words, spelling, and punctuation that were not noted in review of the chart prior to signing ED Disposition - Plan for ED Patient: Disposition: Home or Assisted Living Chief Complaint: Chest Pain Instructions: ED Chest Pain Atypical Unkn Cause Referrals: Rocío Chu, DO [Primary Care Provider] - 1-2 Days if not improving What to do if you have Problems For any increased pain, shortness of breath, bleeding, nausea or vomiting, chest pain, or any unexpected problems, contact your Primary Care Provider. Call [facility] ([phone]) or report to the closest Emergency Room. Call 911 if necessary. 06/29/17 0232 <Electronically signed by Fuad Basurto MD> Date Fuad Basurto MD Cosigner Signature (If Indicated): Date CC: Rocío Luis Start: 06-29-2017 End: 06-29-2017 Chest PA and Lateral Comments: See Note; NOTES: [facility] Imaging Services [address] [place] [address] Chest PA and Lateral MR#: [id number] Acct: [id number] Name: MARY KATE ABEL Rep #: [id number] : 1940 F 77 From: Matthew Connolly MD PCP: Rocío Chu DO Status: REG ER Study: Chest PA and Lateral Date of Exam: 06/29/17 Exam# [id number] Ordering Dr: Fuad Basurto MD STUDY: X-RAY CHEST REASON FOR EXAM: Female, 77 years old. Pain TECHNIQUE: Frontal and lateral views of the chest. COMPARISON: None. FINDINGS: The lungs are clear and expanded. There is no demonstrated pleural abnormality. Normal size heart. Normal mediastinum and alejandra. Normal visualized pulmonary arteries. Aortic calcifications. Normal visualized thoracic spine. Normal visualized ribs, clavicles, and shoulders. There is no demonstrated abnormality of the visualized soft tissue structures of the upper abdomen. RAD/Chest PA and Lateral IMPRESSION: No acute pulmonary findings. Electronically Signed: Matthew Connolly MD at 1:55 EST Tel , Service support , CC: Rocío Chu DO; Fuad Basurto MD Depot Agent: Signed Rocío Chu Start: 11-21-2014 End: 11-22-2014 NCS and/or EMG Patient Comments: See Note; NOTES: [facility] Pulmonary Services/Neurology [address] [place] [address] NCS and/or EMG Patient MR#: [id number] Acct: [id number] Name: MARY KATE ABEL Rep #: [id number] : 1940 74 From: Alfredo Barry MD Referring Dr: Rocío Chu DO Status: REG CLI Ordering Dr: Rocío Chu DO Date: 11/20/14 Location: [facility] Sex: F C DATE OF SERVICE: November 20, 2014 INTRODUCTION: This is a 74-year-old female with a history of paresthesias described as pins and needles in her feet bilaterally, somewhat worse on the left, constant. this does not awaken her from sleep and she is healthy otherwise. Examination demonstrates subjective paresthesias in her toes, but is normal otherwise. Bilateral lower extremity sensory and motor nerve conduction studies demonstrate normal sural sensory responses bilaterally, normal common peroneal motor and tibial motor responses bilaterally and normal tibial and common peroneal F waves bilaterally as well as H reflexes. EMG of the left lower extremity including the extensor digitorum brevis, abductor hallucis, medial gastrocnemius, anterior tibialis, and vastus lateralis muscles was performed demonstrating normal insertional activity with absence of pathologic spontaneous activity in all muscles tested. Normal motor unit potential recruitment pattern and amplitude was demonstrated in all muscles tested. There is no evidence of radiculopathy or neuropathy. IMPRESSION: 1. Normal nerve conduction study of the bilateral lower extremities. 2. Normal EMG of the left lower extremity. 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 11/21/14 1024 <Electronically signed by Alfredo Barry MD> Date Alfredo Barry MD CC: Rocío Chu DO; Alfredo Barry MD Date Dictated: 11/20/14 1044 Date Transcribed: 11/20/14 1209 Depot Agent: HUERTA Signed Rocío Chu Work Phone: Start: 11-15-2014 End: 11-15-2014 Bilat Scrn Digital AND CAD Comments: See Note; NOTES: [facility] Imaging Services [address] [place] [address] Breast Imaging Report MR#: [id number] Acct: [id number] Name: MARY KATE ABEL Rep #: [id number] : 1940 F 74 From: Magdy Quigley MD PCP: Rocío Chu DO Status: REG CLI Study: Bilat Scrn Digital AND CAD Date of Exam: 11/15/14 Exam# [id number] Ordering Dr: Rocío Chu DO MAMMOGRAPHY - BILATERAL SCREENING REASON FOR EXAM: Female, 74 years old. Routine annual screening examination. PERTINENT HISTORY: Non-contributory. TECHNIQUE: Digital examination. Mediolateral oblique (MLO) and craniocaudad (CC) views of both breasts were obtained. CAD: CAD was performed on this study. COMPARISON: Comparison is made with prior examination dated May 20, 2012 and June 19, 2012.. FINDINGS: Breast Composition: There are scattered areas of fibroglandular density. There are no dominant masses or suspicious calcifications. No other significant abnormalities are identified. There has been no significant change since the prior study. IMPRESSION: Stable bilateral screening mammogram. Yearly follow-up recommended. (A) ASSESSMENT CATEGORY: BIRADS Category 2: Benign. A letter regarding these results will be sent to the patient by the facility within 30 days. Approximately 10% of breast cancers are not detected by mammography. A normal mammogram should not delay biopsy of a clinically suspicious abnormality. Electronically Signed: Magdy Quigley MD at 14:44 EDT Tel [phone], Service support [phone], CC: Rocío Chu DO Depot Agent: Signed Rocío Chu Work Phone: Start: 11-14-2014 End: 11-14-2014 PT Discharge Summary Comments: See Note; NOTES: [facility] [address] [place] [address]. [address] [place] [address] Fax REHABILITATION SERVICES DISCHARGE SUMMARY MR#: [id number] Acct: [id number] Name: MARY KATE ABEL Rep #: [id number] : 1940 74 From: Mara Mack Referring : Rocío Chu DO Status: PRE RCR Eval Date: Discharge Date: DATE OF SERVICE: 10/25/2014 This patient was referred to physical therapy by Dr. Chu with a diagnosis of low back pain and lower extremity weakness. She was seen for an initial evaluation on October 11, 2014. After receiving approval from her insurance, she stopped in and reported that she was all better and did not need physical therapy. I am discharging her chart at this time. Mara Mack, PT T: NTS JOB: [id number] <Electronically signed by Mara Mack > 11/14/14 0953 CC: Signed Rocío Chu Start: 10-17-2014 End: 10-17-2014 Inital Evaluation - PT Comments: See Note; NOTES: [facility] [address] [place] [address]. [address] [place] [address] Fax REHABILITATION SERVICES INITIAL EVALUATION MR#: [id number] Acct: [id number] Name: MARY KATE ABEL Rep #: [id number] : 1940 74 From: Mara Mack Referring : Rocío Chu DO Status: DIS RCR Insurance: [employer] MEDICARE PPO Eval Date: DATE OF SERVICE: 10/11/2014 SUBJECTIVE: This patient was referred to physical therapy with diagnoses of low back pain and lower extremity weakness. She presents with a chief complaint of bilateral lower extremity weakness. She states, my legs feel very weak. She states that she told Dr. Chu that she wanted to do a [employer] membership and Dr. Chu recommended physical therapy first. She is worried that physical therapy will not work and that it might cause pain in addition to the weakness she now has. She has had intermittent low back pain since she strained her back lifting at work at about age 23. Her low back pain is intermittent and ranges in intensity from 0/10 to 9/10. She has constant tingling in her toes, left greater than right. She reports that her leg weakness started last January is unchanging and started for no apparent reason. She reports that prolonged bending, standing and walking can provoke her back pain. Lifting and carrying greater than 5 pounds can also provoke back pain. Doing steps is difficult due to her leg weakness. She emphasizes to me that she has insomnia and that the amount of sleep she gets can greatly impact the strength in her legs. She denies any prior back surgery or injections. She has had physical therapy and chiropractic treatments for her back in the past. Currently, she denies increased pain with coughing, sneezing or straining. She has intermittent abnormal gait and denies difficulty initiating urination. She takes a sleep aid, but states she is otherwise in good health. She has had bilateral total hip replacements in 2006 and 2009. She denies any current restrictions. She denies having been in any accidents or any unexplained weight loss. OBJECTIVE: This patient ambulates independently into physical therapy without any assistive devices and with good dynamic balance; however, she has a slow gait pattern with decreased bilateral stride length. Her sitting posture is poor. Her standing posture is fair. She has a reduced lumbar lordosis, but no relevant lateral shift. Active correction of her sitting posture has no effect on her symptoms. She refuses bilateral lower extremity manual muscle testing, stating that it will cause her an increased pain later. Bilateral lower extremity light touch sensation is intact and symmetrical. Bilateral lower extremity reflexes are 2/2. Bilateral lower extremity dural signs are negative. Lumbar movement loss: Flexion minimal, extension major, right side gliding major, left side gliding moderate. The patient denies pain with lumbar range of motion testing in all planes. With palpation, she has increased muscle tone of bilateral lumbar paraspinals and she denies tenderness on her spine. She is able to single leg stance times greater than 10 seconds on each leg. She is able to do a mini squat with a wall slide and return independently. She is anxious about physical therapy testing expressing fear that she would have pain later. She is able to transfer independently from sit to stand without the use of her upper extremities from our chair in the clinic today, but reports that she has difficulty getting up from other chairs. ASSESSMENT: This patient is a 74-year-old female with chief complaint of bilateral lower extremity weakness. Oswestry equals 22 percent, [id number], X2009-DW. GOALS: 1. Decrease complaint of low back pain episodes to improve prolonged bending, standing and walking function in addition to lifting and carrying functions and stair climbing ability. 2. Instruct in prophylaxis. PLAN: We plan to see this patient 3 times a week x4 weeks for aquatic therapy at least initially for dynamic lumbar stabilization and bilateral lower extremity strengthening to help meet the above goals. We will consider land versus water depending on the patient's tolerance. She was agreeable with this plan of care. Mara Mack, PT T: NTS JOB: [id number] <Electronically signed by Mara Mack > 10/17/14 1446 CC: Signed For Medicare only, by signing this I certify the plan of care. _ Physicians Signature Date Rocío Chu D&C Niecy Avery D&C Niecy Avery D&C Yandy Ba D&C Hanna Millan D&C Litzy Mack D&C Margo Mendoza LP N fr rt arm Niecy Avery Comment on above: 03/02 fr rt arm Niecy Avery Comment on above: 03/02 fr rt arm Yandy Ba Comment on above: 03/02 fr rt arm Hanna Millan Comment on above: 03/02 fr rt arm Litzy Mack Comment on above: 03/02 fr rt arm Margo Mendoza LP N Comment on above: 03/02 Plan of Treatment Date Care Activity Detail Author Start: 04-16-2024 Covid-19 Vaccine ( season) Covid-19 Vaccine ( season) [facility] Start: 04-16-2024 Influenza vaccination Influenza Vaccine (#1) [facility] Start: 08-16-2023 Advance Directive Discussion Advance Directive Discussion [facility] Start: 10-26-2022 Patient Education Neck Pain [facility]; [facility] Work Phone: Start: 10-26-2022 Procedure Education Eprescribed prescriptions (G8553) [facility]; [facility] Work Phone: Start: 10-26-2022 Provider Instructions for Treatment Follow up if no improvement or if symptoms worsen [facility]; [facility] Work Phone: Start: 02-28-2021 Diabetes Screening Diabetes Screening [facility] Start: 08-21-2020 Procedure Education Eprescribed prescriptions (G8553) [facility]; [facility] Work Phone: Start: 08-21-2020 Iaadiadoo influenza 2019 Novel Coronavirus (COVID-19), SHEYLA (30923) [facility]; [facility] Work Phone: Start: 08-15-2019 Procedure Education Eprescribed prescriptions (G8553) [facility] Work Phone: Start: 08-15-2019 Provider Instructions for Treatment Follow up if no improvement or if symptoms worsen [facility] Work Phone: Start: 08-11-2019 Procedure Education Eprescribed prescriptions (G8553) [facility] Work Phone: Start: 06-22-2019 Procedure Education Eprescribed prescriptions (G8553) [facility] Work Phone: Start: 02-28-2019 Pneumococcal Vaccine: 65+ (2 of 2 - PCV) Pneumococcal Vaccine: 65+ (2 of 2 - PCV) [facility] Start: 01-04-2019 Provider Instructions for Treatment Follow up in 1 month [facility] Work Phone: Start: 08-31-2018 Procedure Education Eprescribed prescriptions (G8553) [facility] Work Phone: Start: 08-31-2018 Provider Instructions for Treatment [facility] Work Phone: Start: 07-12-2018 Procedure Education Eprescribed prescriptions (G8553) [facility] Work Phone: Start: 07-12-2018 Provider Instructions for Treatment Follow up in 2 months- medicare physical [facility] Work Phone: Start: 06-10-2018 Provider Instructions for Treatment Follow up in 4 weeks- do egk [facility] Work Phone: Start: 03-04-2018 Provider Instructions for Treatment [facility] Work Phone: Start: 10-28-2015 Provider Instructions for Treatment BP MONITORING - SELF [facility] Work Phone: Start: 10-24-2015 Procedure Education Eprescribed prescriptions (G8553) [facility] Work Phone: Start: 05-17-2015 Patient Education Melanoma: skin cancer [facility] Work Phone: Start: 05-17-2015 Procedure Education Eprescribed prescriptions (G8553) [facility] Work Phone: Start: 04-09-2015 Procedure Education Eprescribed prescriptions (G8553) [facility] Work Phone: Start: 04-09-2015 Provider Instructions for Treatment Shave Biopsy without Epi [facility] Work Phone: Start: 12-28-2014 Procedure Education Eprescribed prescriptions (G8553) [facility] Work Phone: Start: 12-28-2014 Provider Instructions for Treatment Reviewed Lab [facility] Work Phone: Start: 12-26-2014 Provider Instructions for Treatment [facility] Work Phone: Start: 10-31-2014 Procedure Education Eprescribed prescriptions (G8553) [facility] Work Phone: Start: 10-31-2014 Provider Instructions for Treatment [facility] Work Phone: Start: 10-29-2014 Provider Instructions for Treatment [facility] Work Phone: Start: 10-15-2014 Provider Instructions for Treatment Punch Biopsy with Epi-- ojn her back [facility] Work Phone: Start: 10-08-2014 Provider Instructions for Treatment [facility] Work Phone: Start: 10-08-2014 Protein electrophoretic fractj&quantj serum Serum Protein Electrophoresis (SPEP) (98318) [facility]; [facility] Work Phone: Start: 10-08-2014 Protein mass conc Serum Protein Electrophoresis (SPEP) (89041) [facility] Work Phone: Start: 2014 RSV Vaccine (1 - 1-dose 75+ series) RSV Vaccine (1 - 1-dose 75+ series) [facility] Start: 2004 Screening for osteoporosis Bone Density Screening [facility] Start: 1989 Shingrix Vaccine (1 of 2) Shingrix Vaccine (1 of 2) [facility] Start: 1958 Urine microalbumin profile DTaP,Tdap,Td Vaccine (1 - Tdap) [facility] Start: 1957 Anxiety Screening Anxiety Screening [facility] Start: 1957 Depression Screening Depression Screening [facility] Work Phone: [facility] Work Phone: [facility] Work Phone: [facility] Work Phone: [facility] Work Phone: [facility] Work Phone: Basal cell carci noma, face : Melanoma: skin cancer [facility] Work Phone: [facility] Work Phone: [facility] Work Phone: [facility] Work Phone: Immunizations Immunization Date Immunization Notes Care Provider Keira mcintosh 06-14-2020 influenza, seasonal, injectable Rocío Lujanon [facility] Work Phone: 06-14-2020 influenza virus vaccine, unspecified formulation Xr Dorothy Work Phone: [facility] Payers Date Payer Category Payer Self-pay 2019 Medicare [employer] MEDICARE [employer] MEDICARE PPO [id number] 2019-Present [phone] [address] [address] [place] [address] PPO [id number] 2018 Medicare [id number] 1940 Unknown [id number] Private Health Insurance Unknown Hum//Medicare Adv Plan Unknown [id number] Unknown [id number] Unknown [id number] Social History Date Type Detail Facility Exercise History: Former smoker [facility] Work Phone: Living Situation: Lives with spouse. [facility] Work Phone: Start: 10-03-2020 No Caffeine Use [facility] Work Phone: Tobacco use: Former smoker. [facility] Work Phone: Exercise History: Exercise History: [facility] Work Phone: Living Situation: Living Situation: [facility] Work Phone: Tobacco use: Tobacco use: [facility] Work Phone: Start: 10-03-2020 Tobacco smoking stat us TXIS Never smoked tobacco [facility] Start: 10-03-2020 Tobacco use and exposure Smokeless tobacco non-user [facility] Start: 10-03-2020 Alcoholic beverage intake Current non-drinker of alcohol (finding) [facility] Start: 10-03-2020 Tobacco use panel [facility] National Score (1-100), lower number is lower risk Not on file [facility] Start: 1940 Sex assigned at Not on file [facility] Start: 09-03-2020 End: 10-03-2020 Exposure to SARS-CoV-2 (event) Not sure [facility] Progress note 10-03-2020 Note Date & Type Note Facility 10-03-2020 Note HNO ID: [id number] Author: Fermin Cardoso (Tech) Service: ? Author Type: Clinical Outcomes Manager Type: Progress Notes Filed: 10/03/2020 4:18 PM Note Text: Radiology Service Progress Note PATIENT NAME: Mary Kate Abel DATE OF SERVICE: October 03, 2020 TIME: 4:07 PM PATIENT IDENTITY VERIFICATION COMPLETED USING TWO (2) IDENTIFIERS: Name and Date of confirmed by patient verbally. FALL SCREENING: Has the patient had 2 falls in the last year or 1 fall with injury or currently using an Ambulatory Assistive Device (Walker, Cane, Wheelchair, Crutches, etc.)? No PATIENT GENDER DATA: Female. status: : No status: NO. PATIENT RELEVANT IMPLANT DATA REVIEWED: Not Applicable RADIOLOGY DEPARTMENT: General X-ray: Exam(s) Completed: Upper Extremity X-Ray(s): Shoulder, AP / TRUE AP / AXILLARY left : PERIPHERAL IV DATA: Not applicable SIGNED BY: Fermin Cardoso October 03, 2020 4:07 PM [facility] Progress note 10-03-2020 Note Date & Type Note Facility 10-03-2020 Note HNO ID: [id number] Author: Matt Felix Service: ? Author Type: Physician Type: Progress Notes Filed: 10/03/2020 4:43 PM Note Text: Patient presents with: Pain (Shoulder Pain): LEFT shoulder x 8 days HPI: Left shoulder pain: Duration: Started hurting about a week ago. No specific injury but seems to have started the day after lifting a mattress Location: Left shoulder Character: aching and sharp Radiation: From the neck all the way down to the fingers Aggravating: Shoulder abduction, cross arm, or reaching above her head. Not bothered by neck movement Relieving: Only hurts at the shoulder at rest Pain relievers: Tylenol and Excedrin Associated: Pertinent negatives: Denies numbness, weakness, dizziness, shortness of breath, neck pain MEDICATIONS: No prescriptions on file. ALLERGIES: ALLERGIES Allergen Reactions - Iodine Rash - Salicylates GI Upset VITALS: BP 130/82 Pulse 76 Resp 16 Wt 73 kg (161 lb) SpO2 97% PHYSICAL EXAM: GEN: pleasant, no acute distress, alert HEENT: PERRL, EOMI, NECK: supple, no lymphadenopathy, no thyromegaly, FROM without inducing shoulder pain, no midline or paraspinal tenderness SHOULDER: left compared to right. No deformity or sweling. Palpation of clavicle non-tender, AC joint non-tender, glenohumeral joint tender anterior aspect. No deformity of the biceps. ROM: pain with abduction, no pain with flexion/extension. Normal elbow flexion strength against resistance. Impingement test: Positive Left. Supraspinatus (empty can test): painful left. Cross arm test: Positive Left. HEART: regular rate, regular rhythm, no murmurs LUNGS: clear to auscultation, no wheezes or crackles, no increased WOB EXT: no clubbing, no cyanosis, no edema ASSESSMENT/PLAN: 1. Acute pain of left shoulder - ICD9: 719.41, ICD10: M25.512 - XR SHOULDER GENERAL 3V OR MORE AP/TRUE AP/OTHER LT - negative. AC joint sprain vs tendonitis or bursitis of rotator cuff. Biceps tendons appear to be intact. Start ibuprofen 400mg every 6 hours. F/u with - CONSULT TO ORTHOPAEDICS Matt Felix MD [facility] History of Present illness Narrative 10-03-2020 Mara Jeronimo Tech (Tech) - 10/03/2020 4:10 PM EST Note Date & Type Note Facility 10-03-2020 History of Presen t illness Narrative Radiology Service Progress Note PATIENT NAME: Mary Kate Abel DATE OF SERVICE: October 03, 2020 TIME: 4:07 PM PATIENT IDENTITY VERIFICATION COMPLETED USING TWO (2) IDENTIFIERS: Name and Date of confirmed by patient verbally. FALL SCREENING: Has the patient had 2 falls in the last year or 1 fall with injury or currently using an Ambulatory Assistive Device (Walker, Cane, Wheelchair, Crutches, etc.)? No PATIENT GENDER DATA: Female. status: : No status: NO. PATIENT RELEVANT IMPLANT DATA REVIEWED: Not Applicable RADIOLOGY DEPARTMENT: General X-ray: Exam(s) Completed: Upper Extremity X-Ray(s): Shoulder, AP / TRUE AP / AXILLARY left : PERIPHERAL IV DATA: Not applicable SIGNED BY: Fermin Cardoso October 03, 2020 4:07 PM documented in this encounter [facility] Evaluation note Note Date & Type Note Facility Evaluation note Diagnosis Acute pain of left shoulder documented in this encounter [facility] Instructions Note Date & Type Note Facility Instructions Name Patient Instructions Indication:Back pain Start: 3 Instruction Type:Provider Instructions for Treatment How to Access Health Information Online using Patient Portal and [employer] Indication:Back pain Start: 3 Instruction Type:Patient Education How to Access Health Information Online using Patient Portal and [employer] Apps Indication:Non-smoker Start:21-Aug-2020 Instruction Type:Patient Education Patient Instructions Indication:Non-smoker Start:21-Aug-2020 Instruction Type:Provider Instructions for Treatment How to access health information online Indication:BMI 21.0-21.9, adult Start: Instruction Type:Patient Education How to access health information online - Detail Indication:BMI 21.0-21.9, adult Start: Instruction Type:Patient Education Patient Instructions Indication:BMI 21.0-21.9, adult Start: Instruction Type:Provider Instructions for Treatment How to access health information online Indication:Non-smoker Start: Instruction Type:Patient Education How to access health information online - Detail Indication:Non-smoker Start: Instruction Type:Patient Education Patient Instructions Indication:Non-smoker Start: Instruction Type:Provider Instructions for Treatment How to access health information online Indication:Depression Start:22-Jun-2019 Instruction Type:Patient Education How to access health information online - Detail Indication:Depression Start:22-Jun-2019 Instruction Type:Patient Education Patient Instructions Indication:Depression Start:22-Jun-2019 Instruction Type:Provider Instructions for Treatment How to access health information online Indication:Non-smoker Start: Instruction Type:Patient Education How to access health information online - Detail Indication:Non-smoker Start: Instruction Type:Patient Education Patient Instructions Indication:Non-smoker Start: Instruction Type:Provider Instructions for Treatment How to access health information online Indication:BMI 20.0-20.9, adult Start: Instruction Type:Patient Education How to access health information online - Detail Indication:BMI 20.0-20.9, adult Start: Instruction Type:Patient Education Patient Instructions Indication:BMI 20.0-20.9, adult Start:[id number]-[place]-201 9 Instruction Type:Provider Instructions for Treatment How to access health information online Indication:Non-smoker Start: 8 Instruction Type:Patient Education How to access health information online - Detail Indication:Non-smoker Start: 8 Instruction Type:Patient Education Patient Instructions Indication:Non-smoker Start: 8 Instruction Type:Provider Instructions for Treatment How to access health information online Indication:Non-smoker Start: 8 Instruction Type:Patient Education How to access health information online - Detail Indication:Non-smoker Start: 8 Instruction Type:Patient Education Patient Instructions Indication:Non-smoker Start: 8 Instruction Type:Provider Instructions for Treatment How to access health information online Indication:Acute pain of mouth Start: Instruction Type:Patient Education How to access health information online - Detail Indication:Acute pain of mouth Start: Instruction Type:Patient Education Patient Instructions Indication:Acute pain of mouth Start: 6 Instruction Type:Provider Instructions for Treatment How to access health information online Indication:Basal cell carcinoma, face Start:17-May-2015 Instruction Type:Patient Education How to access health information online - Detail Indication:Basal cell carcinoma, face Start:17-May-2015 Instruction Type:Patient Education Patient Instructions Indication:Basal cell carcinoma, face Start:17-May-2015 Instruction Type:Provider Instructions for Treatment How to access health information online Indication:Neoplasm of uncertain behavior of skin Start: 5 Instruction Type:Patient Education How to access health information online - Detail Indication:Neoplasm of uncertain behavior of skin Start: 5 Instruction Type:Patient Education Patient Instructions Indication:Neoplasm of uncertain behavior of skin Start: 5 Instruction Type:Provider Instructions for Treatment Patient Instructions Indication:GERD (gastroesophageal reflux disease) Start: 5 Instruction Type:Provider Instructions for Treatment Patient Instructions Indication:Small fiber neuropathy Start: 5 Instruction Type:Provider Instructions for Treatment Patient Instructions Indication:Neoplasm of uncertain behavior of skin Start: 5 Instruction Type:Provider Instructions for Treatment [facility] Work Phone: Summary Purpose Family History No Family History Records FoundNo Family History Records FoundNo Family History Records FoundNo Family History Records Found Advance Directives No Advanced Directives Records Found Name Dates Details Immunization Registry [place] - Effective on 03/04/2018. Expiration date unspecified Effective:04-Mar-2018 Name Dates Details Immunization Registry [place] - Effective on 03/04/2018. Expiration date unspecified Effective:04-Mar-2018 Name Dates Details Immunization Registry [place] - Effective on 03/04/2018. Expiration date unspecified Effective:04-Mar-2018 Name Dates Details Immunization Registry [place] - Effective on 03/04/2018. Expiration date unspecified Effective:04-Mar-2018 Name Dates Details Immunization Registry [place] - Effective on 03/04/2018. Expiration date unspecified Effective:04-Mar-2018 Name Dates Details Immunization Registry [place] - Effective on 03/04/2018. Expiration date unspecified Effective:04-Mar-2018 Name Dates Details Immunization Registry [place] - Effective on 03/04/2018. Expiration date unspecified Effective:04-Mar-2018 Name Dates Details Immunization Registry [place] - Effective on 03/04/2018. Expiration date unspecified Effective:04-Mar-2018 Instructions Name Dates Details Non-smoker : How to access h ealth information online Indication:Non-smoker Non-smoker : How to access h ealth information online - Detail Indication:Non-smoker Non-smoker : Patient Instruc tions Indication:Non-smoker Acute pain of mouth : How to access health information online Indication:Acute pain of mouth Acute pain of mouth : How to access health information online - Detail Indication:Acute pain of mouth Acute pain of mouth : Patien t Instructions Indication:Acute pain of mouth Basal cell carcinoma, face : How to access health information online Indication:Basal cell carcinoma, face Basal cell carcinoma, face : How to access health information online - Detail Indication:Basal cell carcinoma, face Basal cell carcinoma, face : Patient Instructions Indication:Basal cell carcinoma, face Neoplasm of uncertain behavi or of skin : How to access health information online Indication:Neoplasm of uncertain behavior of skin Neoplasm of uncertain behavi or of skin : How to access health information online - Detail Indication:Neoplasm of uncertain behavior of skin Neoplasm of uncertain behavi or of skin : Patient Instructions Indication:Neoplasm of uncertain behavior of skin GERD (gastroesophageal reflu x disease) : Patient Instructions Indication:GERD (gastroesophageal reflux disease) Small fiber neuropathy : Pat ient Instructions Indication:Small fiber neuropathy Name Dates Details How to access health informa tion online Indication:Non-smoker Start:04-Jan-2019 Instruction Type:Patient Education How to access health informa tion online - Detail Indication:Non-smoker Start:04-Jan-2019 Instruction Type:Patient Education Patient Instructions Indication:Non-smoker Start:04-Jan-2019 Instruction Type:Provider Instructions for Treatment How to access health informa tion online Indication:BMI 20.0-20.9, adult Start:31-Aug-2018 Instruction Type:Patient Education How to access health informa tion online - Detail Indication:BMI 20.0-20.9, adult Start:31-Aug-2018 Instruction Type:Patient Education Patient Instructions Indication:BMI 20.0-20.9, adult Start:31-Aug-2018 Instruction Type:Provider Instructions for Treatment How to access health informa tion online Indication:Non-smoker Start:12-Jul-2018 Instruction Type:Patient Education How to access health informa tion online - Detail Indication:Non-smoker Start:12-Jul-2018 Instruction Type:Patient Education Patient Instructions Indication:Non-smoker Start:12-Jul-2018 Instruction Type:Provider Instructions for Treatment How to access health informa tion online Indication:Non-smoker Start:10-Jun-2018 Instruction Type:Patient Education How to access health informa tion online - Detail Indication:Non-smoker Start:10-Jun-2018 Instruction Type:Patient Education Patient Instructions Indication:Non-smoker Start:10-Jun-2018 Instruction Type:Provider Instructions for Treatment How to access health informa tion online Indication:Acute pain of mouth Start:24-Oct-2015 Instruction Type:Patient Education How to access health informa tion online - Detail Indication:Acute pain of mouth Start:24-Oct-2015 Instruction Type:Patient Education Patient Instructions Indication:Acute pain of mouth Start:24-Oct-2015 Instruction Type:Provider Instructions for Treatment How to access health informa tion online Indication:Basal cell carcinoma, face Start:17-May-2015 Instruction Type:Patient Education How to access health informa tion online - Detail Indication:Basal cell carcinoma, face Start:17-May-2015 Instruction Type:Patient Education Patient Instructions Indication:Basal cell carcinoma, face Start:17-May-2015 Instruction Type:Provider Instructions for Treatment How to access health informa tion online Indication:Neoplasm of uncertain behavior of skin Start:09-Apr-2015 Instruction Type:Patient Education How to access health informa tion online - Detail Indication:Neoplasm of uncertain behavior of skin Start:09-Apr-2015 Instruction Type:Patient Education Patient Instructions Indication:Neoplasm of uncertain behavior of skin Start:09-Apr-2015 Instruction Type:Provider Instructions for Treatment Patient Instructions Indication:GERD (gastroesophageal reflux disease) Start:28-Dec-2014 Instruction Type:Provider Instructions for Treatment Patient Instructions Indication:Small fiber neuropathy Start:26-Dec-2014 Instruction Type:Provider Instructions for Treatment Patient Instructions Indication:Neoplasm of uncertain behavior of skin Start:08-Oct-2014 Instruction Type:Provider Instructions for Treatment Name Dates Details How to access health informa tion online Indication:Depression Start:22-Jun-2019 Instruction Type:Patient Education How to access health informa tion online - Detail Indication:Depression Start:22-Jun-2019 Instruction Type:Patient Education Patient Instructions Indication:Depression Start:22-Jun-2019 Instruction Type:Provider Instructions for Treatment How to access health informa tion online Indication:Non-smoker Start:04-Jan-2019 Instruction Type:Patient Education How to access health informa tion online - Detail Indication:Non-smoker Start:04-Jan-2019 Instruction Type:Patient Education Patient Instructions Indication:Non-smoker Start:04-Jan-2019 Instruction Type:Provider Instructions for Treatment How to access health informa tion online Indication:BMI 20.0-20.9, adult Start:31-Aug-2018 Instruction Type:Patient Education How to access health informa tion online - Detail Indication:BMI 20.0-20.9, adult Start:31-Aug-2018 Instruction Type:Patient Education Patient Instructions Indication:BMI 20.0-20.9, adult Start:31-Aug-2018 Instruction Type:Provider Instructions for Treatment How to access health informa tion online Indication:Non-smoker Start:12-Jul-2018 Instruction Type:Patient Education How to access health informa tion online - Detail Indication:Non-smoker Start:12-Jul-2018 Instruction Type:Patient Education Patient Instructions Indication:Non-smoker Start:12-Jul-2018 Instruction Type:Provider Instructions for Treatment How to access health informa tion online Indication:Non-smoker Start:10-Jun-2018 Instruction Type:Patient Education How to access health informa tion online - Detail Indication:Non-smoker Start:10-Jun-2018 Instruction Type:Patient Education Patient Instructions Indication:Non-smoker Start:10-Jun-2018 Instruction Type:Provider Instructions for Treatment How to access health informa tion online Indication:Acute pain of mouth Start:24-Oct-2015 Instruction Type:Patient Education How to access health informa tion online - Detail Indication:Acute pain of mouth Start:24-Oct-2015 Instruction Type:Patient Education Patient Instructions Indication:Acute pain of mouth Start:24-Oct-2015 Instruction Type:Provider Instructions for Treatment How to access health informa tion online Indication:Basal cell carcinoma, face Start:17-May-2015 Instruction Type:Patient Education How to access health informa tion online - Detail Indication:Basal cell carcinoma, face Start:17-May-2015 Instruction Type:Patient Education Patient Instructions Indication:Basal cell carcinoma, face Start:17-May-2015 Instruction Type:Provider Instructions for Treatment How to access health informa tion online Indication:Neoplasm of uncertain behavior of skin Start:09-Apr-2015 Instruction Type:Patient Education How to access health informa tion online - Detail Indication:Neoplasm of uncertain behavior of skin Start:09-Apr-2015 Instruction Type:Patient Education Patient Instructions Indication:Neoplasm of uncertain behavior of skin Start:09-Apr-2015 Instruction Type:Provider Instructions for Treatment Patient Instructions Indication:GERD (gastroesophageal reflux disease) Start:28-Dec-2014 Instruction Type:Provider Instructions for Treatment Patient Instructions Indication:Small fiber neuropathy Start:26-Dec-2014 Instruction Type:Provider Instructions for Treatment Patient Instructions Indication:Neoplasm of uncertain behavior of skin Start:08-Oct-2014 Instruction Type:Provider Instructions for Treatment Name Dates Details How to access health informa tion online Indication:BMI 21.0-21.9, adult Start:15-Aug-2019 Instruction Type:Patient Education How to access health informa tion online - Detail Indication:BMI 21.0-21.9, adult Start:15-Aug-2019 Instruction Type:Patient Education Patient Instructions Indication:BMI 21.0-21.9, adult Start:15-Aug-2019 Instruction Type:Provider Instructions for Treatment How to access health informa tion online Indication:Non-smoker Start:11-Aug-2019 Instruction Type:Patient Education How to access health informa tion online - Detail Indication:Non-smoker Start:11-Aug-2019 Instruction Type:Patient Education Patient Instructions Indication:Non-smoker Start:11-Aug-2019 Instruction Type:Provider Instructions for Treatment How to access health informa tion online Indication:Depression Start:22-Jun-2019 Instruction Type:Patient Education How to access health informa tion online - Detail Indication:Depression Start:22-Jun-2019 Instruction Type:Patient Education Patient Instructions Indication:Depression Start:22-Jun-2019 Instruction Type:Provider Instructions for Treatment How to access health informa tion online Indication:Non-smoker Start:04-Jan-2019 Instruction Type:Patient Education How to access health informa tion online - Detail Indication:Non-smoker Start:04-Jan-2019 Instruction Type:Patient Education Patient Instructions Indication:Non-smoker Start:04-Jan-2019 Instruction Type:Provider Instructions for Treatment How to access health informa tion online Indication:BMI 20.0-20.9, adult Start:31-Aug-2018 Instruction Type:Patient Education How to access health informa tion online - Detail Indication:BMI 20.0-20.9, adult Start:31-Aug-2018 Instruction Type:Patient Education Patient Instructions Indication:BMI 20.0-20.9, adult Start:31-Aug-2018 Instruction Type:Provider Instructions for Treatment How to access health informa tion online Indication:Non-smoker Start:12-Jul-2018 Instruction Type:Patient Education How to access health informa tion online - Detail Indication:Non-smoker Start:12-Jul-2018 Instruction Type:Patient Education Patient Instructions Indication:Non-smoker Start:12-Jul-2018 Instruction Type:Provider Instructions for Treatment How to access health informa tion online Indication:Non-smoker Start:10-Jun-2018 Instruction Type:Patient Education How to access health informa tion online - Detail Indication:Non-smoker Start:10-Jun-2018 Instruction Type:Patient Education Patient Instructions Indication:Non-smoker Start:10-Jun-2018 Instruction Type:Provider Instructions for Treatment How to access health informa tion online Indication:Acute pain of mouth Start:24-Oct-2015 Instruction Type:Patient Education How to access health informa tion online - Detail Indication:Acute pain of mouth Start:24-Oct-2015 Instruction Type:Patient Education Patient Instructions Indication:Acute pain of mouth Start:24-Oct-2015 Instruction Type:Provider Instructions for Treatment How to access health informa tion online Indication:Basal cell carcinoma, face Start:17-May-2015 Instruction Type:Patient Education How to access health informa tion online - Detail Indication:Basal cell carcinoma, face Start:17-May-2015 Instruction Type:Patient Education Patient Instructions Indication:Basal cell carcinoma, face Start:17-May-2015 Instruction Type:Provider Instructions for Treatment How to access health informa tion online Indication:Neoplasm of uncertain behavior of skin Start:09-Apr-2015 Instruction Type:Patient Education How to access health informa tion online - Detail Indication:Neoplasm of uncertain behavior of skin Start:09-Apr-2015 Instruction Type:Patient Education Patient Instructions Indication:Neoplasm of uncertain behavior of skin Start:09-Apr-2015 Instruction Type:Provider Instructions for Treatment Patient Instructions Indication:GERD (gastroesophageal reflux disease) Start:28-Dec-2014 Instruction Type:Provider Instructions for Treatment Patient Instructions Indication:Small fiber neuropathy Start:26-Dec-2014 Instruction Type:Provider Instructions for Treatment Patient Instructions Indication:Neoplasm of uncertain behavior of skin Start:08-Oct-2014 Instruction Type:Provider Instructions for Treatment Name Dates Details How to Access Health Informa tion Online using Patient Portal and [employer] Apps Indication:Non-smoker Start:21-Aug-2020 Instruction Type:Patient Education Patient Instructions Indication:Non-smoker Start:21-Aug-2020 Instruction Type:Provider Instructions for Treatment How to access health informa tion online Indication:BMI 21.0-21.9, adult Start:15-Aug-2019 Instruction Type:Patient Education How to access health informa tion online - Detail Indication:BMI 21.0-21.9, adult Start:15-Aug-2019 Instruction Type:Patient Education Patient Instructions Indication:BMI 21.0-21.9, adult Start:15-Aug-2019 Instruction Type:Provider Instructions for Treatment How to access health informa tion online Indication:Non-smoker Start:11-Aug-2019 Instruction Type:Patient Education How to access health informa tion online - Detail Indication:Non-smoker Start:11-Aug-2019 Instruction Type:Patient Education Patient Instructions Indication:Non-smoker Start:11-Aug-2019 Instruction Type:Provider Instructions for Treatment How to access health informa tion online Indication:Depression Start:22-Jun-2019 Instruction Type:Patient Education How to access health informa tion online - Detail Indication:Depression Start:22-Jun-2019 Instruction Type:Patient Education Patient Instructions Indication:Depression Start:22-Jun-2019 Instruction Type:Provider Instructions for Treatment How to access health informa tion online Indication:Non-smoker Start:04-Jan-2019 Instruction Type:Patient Education How to access health informa tion online - Detail Indication:Non-smoker Start:04-Jan-2019 Instruction Type:Patient Education Patient Instructions Indication:Non-smoker Start:04-Jan-2019 Instruction Type:Provider Instructions for Treatment How to access health informa tion online Indication:BMI 20.0-20.9, adult Start:31-Aug-2018 Instruction Type:Patient Education How to access health informa tion online - Detail Indication:BMI 20.0-20.9, adult Start:31-Aug-2018 Instruction Type:Patient Education Patient Instructions Indication:BMI 20.0-20.9, adult Start:31-Aug-2018 Instruction Type:Provider Instructions for Treatment How to access health informa tion online Indication:Non-smoker Start:12-Jul-2018 Instruction Type:Patient Education How to access health informa tion online - Detail Indication:Non-smoker Start:12-Jul-2018 Instruction Type:Patient Education Patient Instructions Indication:Non-smoker Start:12-Jul-2018 Instruction Type:Provider Instructions for Treatment How to access health informa tion online Indication:Non-smoker Start:10-Jun-2018 Instruction Type:Patient Education How to access health informa tion online - Detail Indication:Non-smoker Start:10-Jun-2018 Instruction Type:Patient Education Patient Instructions Indication:Non-smoker Start:10-Jun-2018 Instruction Type:Provider Instructions for Treatment How to access health informa tion online Indication:Acute pain of mouth Start:24-Oct-2015 Instruction Type:Patient Education How to access health informa tion online - Detail Indication:Acute pain of mouth Start:24-Oct-2015 Instruction Type:Patient Education Patient Instructions Indication:Acute pain of mouth Start:24-Oct-2015 Instruction Type:Provider Instructions for Treatment How to access health informa tion online Indication:Basal cell carcinoma, face Start:17-May-2015 Instruction Type:Patient Education How to access health informa tion online - Detail Indication:Basal cell carcinoma, face Start:17-May-2015 Instruction Type:Patient Education Patient Instructions Indication:Basal cell carcinoma, face Start:17-May-2015 Instruction Type:Provider Instructions for Treatment How to access health informa tion online Indication:Neoplasm of uncertain behavior of skin Start:09-Apr-2015 Instruction Type:Patient Education How to access health informa tion online - Detail Indication:Neoplasm of uncertain behavior of skin Start:09-Apr-2015 Instruction Type:Patient Education Patient Instructions Indication:Neoplasm of uncertain behavior of skin Start:09-Apr-2015 Instruction Type:Provider Instructions for Treatment Patient Instructions Indication:GERD (gastroesophageal reflux disease) Start:28-Dec-2014 Instruction Type:Provider Instructions for Treatment Patient Instructions Indication:Small fiber neuropathy Start:26-Dec-2014 Instruction Type:Provider Instructions for Treatment Patient Instructions Indication:Neoplasm of uncertain behavior of skin Start:08-Oct-2014 Instruction Type:Provider Instructions for Treatment Name Dates Details How to Access Health Informa tion Online using Patient Portal and [employer] Indication:Non-smoker Start:21-Aug-2020 Instruction Type:Patient Education Patient Instructions Indication:Non-smoker Start:21-Aug-2020 Instruction Type:Provider Instructions for Treatment How to access health informa tion online Indication:BMI 21.0-21.9, adult Start:15-Aug-2019 Instruction Type:Patient Education How to access health informa tion online - Detail Indication:BMI 21.0-21.9, adult Start:15-Aug-2019 Instruction Type:Patient Education Patient Instructions Indication:BMI 21.0-21.9, adult Start:15-Aug-2019 Instruction Type:Provider Instructions for Treatment How to access health informa tion online Indication:Non-smoker Start:11-Aug-2019 Instruction Type:Patient Education How to access health informa tion online - Detail Indication:Non-smoker Start:11-Aug-2019 Instruction Type:Patient Education Patient Instructions Indication:Non-smoker Start:11-Aug-2019 Instruction Type:Provider Instructions for Treatment How to access health informa tion online Indication:Depression Start:22-Jun-2019 Instruction Type:Patient Education How to access health informa tion online - Detail Indication:Depression Start:22-Jun-2019 Instruction Type:Patient Education Patient Instructions Indication:Depression Start:22-Jun-2019 Instruction Type:Provider Instructions for Treatment How to access health informa tion online Indication:Non-smoker Start:04-Jan-2019 Instruction Type:Patient Education How to access health informa tion online - Detail Indication:Non-smoker Start:04-Jan-2019 Instruction Type:Patient Education Patient Instructions Indication:Non-smoker Start:04-Jan-2019 Instruction Type:Provider Instructions for Treatment How to access health informa tion online Indication:BMI 20.0-20.9, adult Start:31-Aug-2018 Instruction Type:Patient Education How to access health informa tion online - Detail Indication:BMI 20.0-20.9, adult Start:31-Aug-2018 Instruction Type:Patient Education Patient Instructions Indication:BMI 20.0-20.9, adult Start:31-Aug-2018 Instruction Type:Provider Instructions for Treatment How to access health informa tion online Indication:Non-smoker Start:12-Jul-2018 Instruction Type:Patient Education How to access health informa tion online - Detail Indication:Non-smoker Start:12-Jul-2018 Instruction Type:Patient Education Patient Instructions Indication:Non-smoker Start:12-Jul-2018 Instruction Type:Provider Instructions for Treatment How to access health informa tion online Indication:Non-smoker Start:10-Jun-2018 Instruction Type:Patient Education How to access health informa tion online - Detail Indication:Non-smoker Start:10-Jun-2018 Instruction Type:Patient Education Patient Instructions Indication:Non-smoker Start:10-Jun-2018 Instruction Type:Provider Instructions for Treatment How to access health informa tion online Indication:Acute pain of mouth Start:24-Oct-2015 Instruction Type:Patient Education How to access health informa tion online - Detail Indication:Acute pain of mouth Start:24-Oct-2015 Instruction Type:Patient Education Patient Instructions Indication:Acute pain of mouth Start:24-Oct-2015 Instruction Type:Provider Instructions for Treatment How to access health informa tion online Indication:Basal cell carcinoma, face Start:17-May-2015 Instruction Type:Patient Education How to access health informa tion online - Detail Indication:Basal cell carcinoma, face Start:17-May-2015 Instruction Type:Patient Education Patient Instructions Indication:Basal cell carcinoma, face Start:17-May-2015 Instruction Type:Provider Instructions for Treatment How to access health informa tion online Indication:Neoplasm of uncertain behavior of skin Start:09-Apr-2015 Instruction Type:Patient Education How to access health informa tion online - Detail Indication:Neoplasm of uncertain behavior of skin Start:09-Apr-2015 Instruction Type:Patient Education Patient Instructions Indication:Neoplasm of uncertain behavior of skin Start:09-Apr-2015 Instruction Type:Provider Instructions for Treatment Patient Instructions Indication:GERD (gastroesophageal reflux disease) Start:28-Dec-2014 Instruction Type:Provider Instructions for Treatment Patient Instructions Indication:Small fiber neuropathy Start:26-Dec-2014 Instruction Type:Provider Instructions for Treatment Patient Instructions Indication:Neoplasm of uncertain behavior of skin Start:08-Oct-2014 Instruction Type:Provider Instructions for Treatment Name Dates Details How to access health informa tion online Indication:BMI 21.0-21.9, adult Start:15-Aug-2019 Instruction Type:Patient Education How to access health informa tion online - Detail Indication:BMI 21.0-21.9, adult Start:15-Aug-2019 Instruction Type:Patient Education Patient Instructions Indication:BMI 21.0-21.9, adult Start:15-Aug-2019 Instruction Type:Provider Instructions for Treatment How to access health informa tion online Indication:Non-smoker Start:11-Aug-2019 Instruction Type:Patient Education How to access health informa tion online - Detail Indication:Non-smoker Start:11-Aug-2019 Instruction Type:Patient Education Patient Instructions Indication:Non-smoker Start:11-Aug-2019 Instruction Type:Provider Instructions for Treatment How to access health informa tion online Indication:Depression Start:22-Jun-2019 Instruction Type:Patient Education How to access health informa tion online - Detail Indication:Depression Start:22-Jun-2019 Instruction Type:Patient Education Patient Instructions Indication:Depression Start:22-Jun-2019 Instruction Type:Provider Instructions for Treatment How to access health informa tion online Indication:Non-smoker Start:04-Jan-2019 Instruction Type:Patient Education How to access health informa tion online - Detail Indication:Non-smoker Start:04-Jan-2019 Instruction Type:Patient Education Patient Instructions Indication:Non-smoker Start:04-Jan-2019 Instruction Type:Provider Instructions for Treatment How to access health informa tion online Indication:BMI 20.0-20.9, adult Start:31-Aug-2018 Instruction Type:Patient Education How to access health informa tion online - Detail Indication:BMI 20.0-20.9, adult Start:31-Aug-2018 Instruction Type:Patient Education Patient Instructions Indication:BMI 20.0-20.9, adult Start:31-Aug-2018 Instruction Type:Provider Instructions for Treatment How to access health informa tion online Indication:Non-smoker Start:12-Jul-2018 Instruction Type:Patient Education How to access health informa tion online - Detail Indication:Non-smoker Start:12-Jul-2018 Instruction Type:Patient Education Patient Instructions Indication:Non-smoker Start:12-Jul-2018 Instruction Type:Provider Instructions for Treatment How to access health informa tion online Indication:Non-smoker Start:10-Jun-2018 Instruction Type:Patient Education How to access health informa tion online - Detail Indication:Non-smoker Start:10-Jun-2018 Instruction Type:Patient Education Patient Instructions Indication:Non-smoker Start:10-Jun-2018 Instruction Type:Provider Instructions for Treatment How to access health informa tion online Indication:Acute pain of mouth Start:24-Oct-2015 Instruction Type:Patient Education How to access health informa tion online - Detail Indication:Acute pain of mouth Start:24-Oct-2015 Instruction Type:Patient Education Patient Instructions Indication:Acute pain of mouth Start:24-Oct-2015 Instruction Type:Provider Instructions for Treatment How to access health informa tion online Indication:Basal cell carcinoma, face Start:17-May-2015 Instruction Type:Patient Education How to access health informa tion online - Detail Indication:Basal cell carcinoma, face Start:17-May-2015 Instruction Type:Patient Education Patient Instructions Indication:Basal cell carcinoma, face Start:17-May-2015 Instruction Type:Provider Instructions for Treatment How to access health informa tion online Indication:Neoplasm of uncertain behavior of skin Start:09-Apr-2015 Instruction Type:Patient Education How to access health informa tion online - Detail Indication:Neoplasm of uncertain behavior of skin Start:09-Apr-2015 Instruction Type:Patient Education Patient Instructions Indication:Neoplasm of uncertain behavior of skin Start:09-Apr-2015 Instruction Type:Provider Instructions for Treatment Patient Instructions Indication:GERD (gastroesophageal reflux disease) Start:28-Dec-2014 Instruction Type:Provider Instructions for Treatment Patient Instructions Indication:Small fiber neuropathy Start:26-Dec-2014 Instruction Type:Provider Instructions for Treatment Patient Instructions Indication:Neoplasm of uncertain behavior of skin Start:08-Oct-2014 Instruction Type:Provider Instructions for Treatment Additional Source Comments INFORMATION SOURCE (unrecogn ized section and content) DATE CREATED AUTHOR 03/10/2018 [employer] [facility] DATE CREATED AUTHOR AUTHOR'S ORGANIZ ATION 09/10/2021 [facility] DATE CREATED AUTHOR AUTHOR'S ORGANIZ ATION 10/26/2022 [facility] DATE CREATED AUTHOR AUTHOR'S ORGANIZ ATION 06/15/2024 [facility] Source Comments (unrecognize d section and content) In the event this informatio n is protected by the Federal Confidentiality of Alcohol and Drug Abuse Patient Records regulations: The Federal rules restrict any use of the information to criminally investigate or prosecute any alcohol or drug abuse patient.[facility] Reason for Visit (unrecogniz ed section and content) Reason Comments Radiology XR Care Teams (unrecognized sec tion and content) [employer] Relationship Specialty Start Date End Date Rocío Chu DO PCP - General Internal Medicine 11/05/15 FOR RECORDS PERTAINING TO PATIENTS WHO ARE OR HAVE BEEN ENROLLED IN A CHEMICAL DEPENDENCY/SUBSTANCEABUSE PROGRAM, SOME INFORMATION MAY BE OMITTED. This clinical summary was aggregated from multiple sources. Caution should be exercised in using it in the provision of clinical care. This summary normalizes information from multiple sources, and as a consequence, information in this document may materially change the coding, format and clinical context of patient data. In addition, data may be omitted in some cases. CLINICAL DECISIONS SHOULD BE BASED ON THE PRIMARY CLINICAL RECORDS. [employer] provides no warranty or guarantee of the accuracy or completeness of information in this document.
--- OUTSIDE RECORDS SUMMARY | 2025-02-18 08:00 | XMS RPT_ITS | CCD ---
Author Organization [facility] Care Team Providers Care Butcher Apprentice Name Role Phone Rocío Chu Unavailable Unavailable [...] Albert, Nukala Unavailable Priti Lott CNP Unavailable [phone] [place] SUPERVISING APPRAISER, Margo Unavailable Unavailable Niecy Avery RN Unavailable [...] (1 source) Iodine Drug Allergy [address] [facility] Work Phone: (1 source) Salicylic Acid Drug Allergy 2 GI Upset [facility] (1 source) Aspirin Drug Allergy 4 [facility] (1 source) Iodine Drug Allergy 4 [facility] Medications Completed/Discontinued Medications Medication Drug Class(es) Dates Sig (Normalized) Sig (Original) [id number] 200 actuat albuterol 0.09 mg/actuat metered dose [...] 01-04-2019 01-04-2019 Episodic Comment on above: reports [facility] ancial but really dont know how -- [...] Resolved: 01-04-2019 06-10-2018 Comment on above: reports [facility] ancial but really dont know how -- [...] [facility] [address] [place], [address] Absolute Neut 3.3 X10 3/uL Normal 2.0-7.7 [facility] Comment on above: Performed By: #### L500.4050, L100.0100, L101.9900, L501.9520, L501.6710, L400.2010 #### [facility] [address] [place], [address] Basophils/100 WBC (Bld) 0.7 % Normal 0-1 [facility] Comment on above: Performed By: #### L500.4050, L100.0100, L101.9900, L501.9520, L501.6710, L400.2010 #### [facility] [address] [place], [address] Eosinophils/100 WBC (Bld) 2.0 % Normal 0-5 [facility] Comment on above: Performed By: #### L500.4050, L100.0100, L101.9900, L501.9520, L501.6710, L400.2010 #### [facility] [address] [place], [address] Erythrocyte distribution width (RBC) [Ratio] 12.5 % Normal 11.6-14.6 [facility] Comment on above: Performed By: #### L500.4050, L100.0100, L101.9900, L501.9520, L501.6710, L400.2010 #### [facility] [address] [place], [address] Hematocrit (Bld) [Volume fraction] 42.1 % Normal 37-47 [facility] Comment on above: Performed By: #### L500.4050, L100.0100, L101.9900, L501.9520, L501.6710, L400.2010 #### [facility] [address] [place], [address] Hemoglobin (Bld) [Mass/Vol] 13.8 g/dL Normal 12.0-15.0 [facility] Comment on above: Performed By: #### L500.4050, L100.0100, L101.9900, L501.9520, L501.6710, L400.2010 #### [facility] [address] [place], [address] IG% 0.400 Normal 0.0-0.9 [facility] Comment on above: Result Comment: IG% - Immature Granulocy delfina (promyelocytes, myelocytes and metamyelocytes) > 1% indicates that a LEFT SHIFT is Present. Performed By: #### L 500.4050, L100.0100, L101.9900, L501.9520, L501.6710, L400.2010 #### [facility] [address] [place], [address] Lymphocytes/100 WBC (Bld) 16.8 % Low 19-41 [facility] Comment on above: Performed By: #### L500.4050, L100.0100, L101.9900, L501.9520, L501.6710, L400.2010 #### [facility] [address] [place], [address] MCH (RBC) [Entitic mass] 31.3 pg Normal 27.0-32.0 [facility] Comment on above: Performed By: #### L500.4050, L100.0100, L101.9900, L501.9520, L501.6710, L400.2010 #### [facility] [address] [place], [address] MCHC (RBC) [Mass/Vol] 32.8 g/dL Normal 32-36 [facility] Comment on above: Performed By: #### L500.4050, L100.0100, L101.9900, L501.9520, L501.6710, L400.2010 #### [facility] [address] [place], [address] MCV (RBC) [Entitic vol] 95.5 fL Normal 81-99 [facility] Comment on above: Performed By: #### L500.4050, L100.0100, L101.9900, L501.9520, L501.6710, L400.2010 #### [facility] [address] [place], [address] Monocytes/100 WBC (Bld) 8.8 % Normal 0-10 [facility] Comment on above: Performed By: #### L500.4050, L100.0100, L101.9900, L501.9520, L501.6710, L400.2010 #### [facility] [address] [place], [address] Neutrophils/100 WBC (Bld) 71.3 % High 47-70 [facility] Comment on above: Performed By: #### L500.4050, L100.0100, L101.9900, L501.9520, L501.6710, L400.2010 #### [facility] [address] [place], [address] Nucleated RBC (Bld) [#/Vol] 0 10*3/uL Normal 0-5 [facility] Comment on above: Performed By: #### L500.4050, L100.0100, L101.9900, L501.9520, L501.6710, L400.2010 #### [facility] [address] [place], [address] Platelet mean volume (Bld) [Entitic vol] 9.1 fL Normal 6.2-12.0 [facility] Comment on above: Performed By: #### L500.4050, L100.0100, L101.9900, L501.9520, L501.6710, L400.2010 #### [facility] [address] [place], [address] Platelets (Bld) [#/Vol] 208 10*3/uL Normal 150-450 [facility] Comment on above: Performed By: #### L500.4050, L100.0100, L101.9900, L501.9520, L501.6710, L400.2010 #### [facility] [address] [place], [address] RBC (Bld) [#/Vol] 4.41 10*6/uL Normal 4.2-5.4 [facility] Comment on above: Performed By: #### L500.4050, L100.0100, L101.9900, L501.9520, L501.6710, L400.2010 #### [facility] [address] [place], [address] RDW SD 45.0 fl High 35.1-43.9 [facility] Comment on above: Performed By: #### L500.4050, L100.0100, L101.9900, L501.9520, L501.6710, L400.2010 #### [facility] [address] [place], [address] WBC (Bld) [#/Vol] 4.6 10*3/uL Normal 4.4-11.0 [facility] Comment on above: Performed By: #### L500.4050, L100.0100, L101.9900, L501.9520, L501.6710, L400.2010 #### [facility] [address] [place], [address] CRPon 05-25-2024 C-REACTIVE PROT 5.89 mg/L High [...] [facility] [address] [place], [address] Comprehensive Metabolic Prof ilon 05-25-2024 Albumin [Mass/Vol] 3.8 g/dL Normal 3.2-5.0 [facility] Comment on above: Performed By: #### L500.4050, L100.0100, L101.9900, L501.9520, L501.6710, L400.2010 #### [facility] [address] [place], [address] Albumin/Globulin [Mass ratio] 1.2 {ratio} Normal 0.9-2.4 [facility] Comment on above: Performed By: #### L500.4050, L100.0100, L101.9900, L501.9520, L501.6710, L400.2010 #### [facility] [address] [place], [address] ALK P 130 U/L High 45-117 [facility] Comment on above: Performed By: #### L500.4050, L100.0100, L101.9900, L501.9520, L501.6710, L400.2010 #### [facility] [address] [place], [address] ALT [Catalytic activity/Vol] 15 U/L Normal 13-56 [facility] Comment on above: Performed By: #### L500.4050, L100.0100, L101.9900, L501.9520, L501.6710, L400.2010 #### [facility] [address] [place], [address] AST [Catalytic activity/Vol] 12 U/L Low 15-37 [facility] Comment on above: Performed By: #### L500.4050, L100.0100, L101.9900, L501.9520, L501.6710, L400.2010 #### [facility] [address] [place], [address] Bilirubin [Mass/Vol] 1.10 mg/dL High 0.20-1.00 [facility] Comment on above: Result Comment: For patients on eltrombo pag therapy, use of Dimension [place] TBIL is not recommended. Performed By: #### L 500.4050, L100.0100, L101.9900, L501.9520, L501.6710, L400.2010 #### [facility] [address] [place], [address] BUN/CRE 14.8 RATIO Normal 10-20 [facility] Comment on above: Performed By: #### L500.4050, L100.0100, L101.9900, L501.9520, L501.6710, L400.2010 #### [facility] [address] [place], [address] CA,Total 9.1 mg/dL Normal 8.5-10.1 [facility] Comment on above: Performed By: #### L500.4050, L100.0100, L101.9900, L501.9520, L501.6710, L400.2010 #### [facility] [address] [place], [address] Chloride [Moles/Vol] 107 mmol/L Normal 98-107 [facility] Comment on above: Performed By: #### L500.4050, L100.0100, L101.9900, L501.9520, L501.6710, L400.2010 #### [facility] [address] [place], [address] CO2 [Moles/Vol] 28.0 mmol/L Normal 21.0-32.0 [facility] Comment on above: Performed By: #### L500.4050, L100.0100, L101.9900, L501.9520, L501.6710, L400.2010 #### [facility] [address] [place], [address] Creatinine [Mass/Vol] 0.68 mg/dL Normal 0.55-1.02 [facility] Comment on above: Result Comment: The validity of the calc ulated GFR GFRAA in patients over 70 years has not been determined. Clinical correlation is essential. Performed By: #### L 500.4050, L100.0100, L101.9900, L501.9520, L501.6710, L400.2010 #### [facility] [address] [place], [address] EST GFR - AA 106 mL/min Normal >60 [facility] Comment on above: Result Comment: GFR Julio c Performed By: #### L 500.4050, L100.0100, L101.9900, L501.9520, L501.6710, L400.2010 #### [facility] [address] [place], [address] GAP 6 Normal 5-15 [facility] Comment on above: Performed By: #### L500.4050, L100.0100, L101.9900, L501.9520, L501.6710, L400.2010 #### [facility] [address] [place], [address] GFR/1.73 sq M.predicted among non-blacks MDRD (S/P/Bld) [Vol rate/Area] 88 mL/min/{1.73_m2} Normal >60 [facility] Comment on above: Result Comment: Non- GFR Calc Performed By: #### L 500.4050, L100.0100, L101.9900, L501.9520, L501.6710, L400.2010 #### [facility] [address] [place], [address] Globulin (S) [Mass/Vol] 3.1 g/dL Normal 2.2-4.2 [facility] Comment on above: Performed By: #### L500.4050, L100.0100, L101.9900, L501.9520, L501.6710, L400.2010 #### [facility] [address] [place], [address] Glucose [Mass/Vol] 90 mg/dL Normal 74-106 [facility] Comment on above: Performed By: #### L500.4050, L100.0100, L101.9900, L501.9520, L501.6710, L400.2010 #### [facility] [address] [place], [address] Potassium [Moles/Vol] 4.0 mmol/L Normal 3.5-5.1 [facility] Comment on above: Performed By: #### L500.4050, L100.0100, L101.9900, L501.9520, L501.6710, L400.2010 #### [facility] [address] [place], [address] Sodium [Moles/Vol] 140 mmol/L Normal 136-145 [facility] Comment on above: Performed By: #### L500.4050, L100.0100, L101.9900, L501.9520, L501.6710, L400.2010 #### [facility] [address] [place], [address] T PROT 6.9 g/dL Normal 6.4-8.2 [facility] Comment on above: Performed By: #### L500.4050, L100.0100, L101.9900, L501.9520, L501.6710, L400.2010 #### [facility] [address] [place], [address] Urea nitrogen [Mass/Vol] 10 mg/dL Normal 7-18 [facility] Comment on above: Performed By: #### L500.4050, L100.0100, L101.9900, L501.9520, L501.6710, L400.2010 #### [facility] [address] [place], [address] Erythrocyte Sed Rateon 05-25 SED RATE < 1 Normal 0-30 [facility] Comment on above: Performed By: #### L500.4050, L100.0100, L101.9900, L501.9520, L501.6710, L400.2010 #### [facility] [address] [place], [address] Thyroid Stim Hormone (TSH)on 05-25-2024 TSH 1.360 uIU/mL Normal 0.358-3.740 [facility] Comment on above: Performed By: #### L500.4050, L100.0100, L101.9900, L501.9520, L501.6710, L400.2010 #### [facility] [address] [place], [address] Urinalysis, Routine (Dipstic k)on 05-25-2024 BILIRUBIN URINE Negative Normal Negative [facility] Comment on above: Order Comment: CLEAN CATCH Performed By: #### L 500.4050, L100.0100, L101.9900, L501.9520, L501.6710, L400.2010 #### [facility] [address] [place], [address] Clarity (U) Clear Normal Clear [facility] Comment on above: Order Comment: CLEAN CATCH Performed By: #### L 500.4050, L100.0100, L101.9900, L501.9520, L501.6710, L400.2010 #### [facility] [address] [place], [address] Color (U) Yellow Normal Yellow [facility] Comment on above: Order Comment: CLEAN CATCH Performed By: #### L 500.4050, L100.0100, L101.9900, L501.9520, L501.6710, L400.2010 #### [facility] [address] [place], [address] GLUCOSE, UR Normal Normal Normal [facility] Comment on above: Order Comment: CLEAN CATCH Performed By: #### L 500.4050, L100.0100, L101.9900, L501.9520, L501.6710, L400.2010 #### [facility] [address] [place], [address] KETONE UR Negative Normal Negative [facility] Comment on above: Order Comment: CLEAN CATCH Performed By: #### L 500.4050, L100.0100, L101.9900, L501.9520, L501.6710, L400.2010 #### [facility] [address] [place], [address] LEUK ESTERASE 100 /ul Abnormal Negative [facility] Comment on above: Order Comment: CLEAN CATCH Performed By: #### L 500.4050, L100.0100, L101.9900, L501.9520, L501.6710, L400.2010 #### [facility] [address] [place], [address] Nitrite Ql (U) Negative Normal Negative [facility] Comment on above: Order Comment: CLEAN CATCH Performed By: #### L 500.4050, L100.0100, L101.9900, L501.9520, L501.6710, L400.2010 #### [facility] [address] [place], [address] OCCULT BLOOD-UR Negative Normal Negative [facility] Comment on above: Order Comment: CLEAN CATCH Performed By: #### L 500.4050, L100.0100, L101.9900, L501.9520, L501.6710, L400.2010 #### [facility] [address] [place], [address] pH UR 7.0 Normal 5.0 - 8.0 [facility] Comment on above: Order Comment: CLEAN CATCH Performed By: #### L 500.4050, L100.0100, L101.9900, L501.9520, L501.6710, L400.2010 #### [facility] [address] [place], [address] PROT DIPSTX Negative Normal Negative [facility] Comment on above: Order Comment: CLEAN CATCH Performed By: #### L 500.4050, L100.0100, L101.9900, L501.9520, L501.6710, L400.2010 #### [facility] [address] [place], [address] SP.GR. DIPSTX 1.010 Normal 1.002-1.030 [facility] Comment on above: Order Comment: CLEAN CATCH Performed By: #### L 500.4050, L100.0100, L101.9900, L501.9520, L501.6710, L400.2010 #### [facility] [address] [place], [address] UROBILI Normal Normal Normal [facility] Comment on above: Order Comment: CLEAN CATCH Performed By: #### L 500.4050, L100.0100, L101.9900, L501.9520, L501.6710, L400.2010 #### [facility] [address] [place], [address] 12 Lead EKGon 03-20-2024 12 Lead EKG [facility] Cardiovascular Services [address] [place] [address] 12 Lead EKG 03/20/24 1058 MR#: [id number] Acct: [id number] Name: MARY KATE ABEL Rep #: [id number] : 1940 83 From: Morales Beard MD [...] Otherwise normal ECG Confirmed by Morales Beard ([id number]), features editor OLIVA FISHER ([id number]) on 03/21/2024 2:05:21 PM Referred By: Confirmed By:Morales Beard 03/21/24 1405 Date Morales Beard MD CC: Dr. Rocío Chu DO; Dr. Chance Hay DO Signed Normal [facility] Emergency Department Summary on 03-20-2024 Emergency Department Summary [facility] Medical Records Department [address] [place] [address] Emergency Department Summary 03/20/24 MR#: [id number] Acct: [id number] Name: MARY KATE ABEL Rep #: [id number] : 1940 83 From: Chance Hay DO [...] to come here for further evaluation management. [facility] Medical History Fracture of right tibial plateau [...] was following commands that [facility] was [facility] the year is 2023. Sensation grossly [...] Medical Center Comment on above: Order Comment: ELEMENTARY SCHOOL SOCIAL WORKER TO SPECIFY Performed By: #### L 500.4050, L100.0100, L101.9900, L501.9520, L501.6710, L400.2010 #### [facility] [address] [place], [address] WBC 0-5 SEEN Normal 0-5 [facility] Comment on above: Order Comment: ELEMENTARY SCHOOL SOCIAL WORKER TO SPECIFY Performed By: #### L 500.4050, L100.0100, L101.9900, L501.9520, L501.6710, L400.2010 #### [facility] [address] [place], [address] EPI,SQUAMOUS 0 SEEN Normal 5-10 [facility] Comment on above: Order Comment: ELEMENTARY SCHOOL SOCIAL WORKER TO SPECIFY Performed By: #### L 500.4050, L100.0100, L101.9900, L501.9520, L501.6710, L400.2010 #### [facility] [address] [place], [address] Mucus Ql (Urine sed) 0 SEEN Normal [facility] Comment on above: Order Comment: ELEMENT[employer] SCHO[employer] SOCIAL WORKER TO SPECIFY Performed By: #### L 500.4050, L100.0100, L101.9900, L501.9520, L501.6710, L400.2010 #### [facility] [address] [place], [address] RBC 0 SEEN Normal 0-5 [facility] Comment on above: Order Comment: ELEMENT[employer] SCHO[employer] SOCIAL WORKER TO SPECIFY Performed By: #### L 500.4050, L100.0100, L101.9900, L501.9520, L501.6710, L400.2010 #### [facility] [address] [place], [address] Lumbar Spine 2 or 3 Viewson 03-14-2024 Lumbar Spine 2 or 3 Views [facility] Imaging Services [address] [place] [address] Lumbar Spine 2 or 3 Views MR#: [id number] Acct: [id number] Name: MARY KATE ABEL Rep #: [id number] : 1940 F 83 From: Nilay Solano PCP: Dr. Rocío Chu, DO Status: REG CLI Study: Lumbar Spine 2 or 3 Views Date of Exam: Exam# [id number] Ordering Dr: Priti Lott GAS PLANT REPAIRER-C :[id number] INDICATION: XR LUMBAR SPINE 3V -- Acute [...] CC: NOHEMI Lott; Dr. 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: Signed Normal [facility] Thoracic Spine 3 Viewson Thoracic Spine 3 Views [facility] Imaging Services [address] [place] [address] Thoracic Spine 3 Views MR#: [id number] Acct: [id number] Name: MARY KATE ABEL Rep #: [id number] : 1940 F 83 From: Malik Vargas MD PCP: Dr. Rocío Chu DO Status: REG CLI Study: Thoracic Spine 3 Views Date of Exam: 03/14/24 Exam# [id number] Ordering Dr: Priti Lott :[id number] STUDY: X-RAY - THORACIC SPINE REASON FOR [...] CC: NOHEMI Lott; Dr. 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: [facility] ) MARY KATE ABEL ([id number]) 1940 F Date Time Provider Department 10/03/20 3:45 PM MATT FELIX [facility] During your visit today, we recorded [...] GENERAL 3V OR MORE AP/TRUE AP/OTHER LT [7615730] Order #: [id number] FUTURE CONSULT TO ORTHOPAEDICS [9026] Order #: [id number]: 1 FUTURE Problem List As Of Date: 10/03/2020 (None) Medications Discontinued During This Encounter Prescriptions - mupirocin (BACTROBAN) 2 % ointment (Discontinued) Apply 1 application to affected area three times daily. Encounter Status:Closed by MATT FELIX MD on 10/03/20 Normal [facility] XR SHLDR >/=3V AP/CHELSEY AP/OTH R LTon [...] spaces are preserved. IMPRESSION: No acute process. Salt Plant Operator: [facility] Transcribe Date/Time: Oct 03 2020 4:18P Dictated by : PAT BENAVIDES MD This examination was interpreted and the report reviewed and electronically signed by: PAT BENAVIDES MD on Oct 03 2020 4:20PM EST [id number] Normal [facility] XR Shoulder - left 3 Viewson 10-03-2020 IMPRESSION: No acute process. Salt Plant Operator: [facility] Transcribe Date/Time: Oct 03 2020 4:18P [...] are preserved. DIVISION [facility] RADIOLOGY [facility] * * *Final [...] are preserved. IMPRESSION IMPRESSION: No acute process. Salt Plant Operator: MARKUS Transcribe Date/Time: Oct 03 2020 4:18P Dictated by : PAT BENAVIDES MD This examination was interpreted and the report reviewed and electronically signed by: PAT BENAVIDES MD on Oct 03 2020 4:20PM [facility] Radiology Study observation (narrative) [facility] XR Shoulder - left 3 ViewsOr dered By: [facility] Provider on 10-03-[address] [facility] 2019 Novel Coronavirus (COVI D-19), SHEYLA ([id number])Ordered By: Informatics Manager on 08-21-20202018 Novel Coronavirus (COVID-19), SHEYLA ([id number]) Not detected Normal [facility]; [facility] Work Phone: Comment on above: This nucleic acid amplification test was developed and its performancecharacteristics determined by [facility]. Nucleic acidamplification tests include PCR and TMA. [...] this assay. PATIENT NOT FASTINGP ERFORMED BY: [facility][id number] [facility] [id number] Vit D 25-OH, Totalon 018 Vit D 25-OH, Total 39 ng/mL Normal 30-100 [facility] Comment on above: Result Comment: Therapy is based on shade urement of Total 25-OHD with thefollowing classification levels:Less than 20 ng/mL: Indicative of Vit D ojuorolenk96-28 ng/mL: Suggests Vit D insufficiencyOptimal: Greater than or equal to 30 ng/mLTest performed by [facility] [employer] Competitive Immunoassay,measuring Total Vitamin D, not individual fractions. Performed By: #### P T/AP, HEMDF, BMP3, MG3, PHOS3, TSH5, B12 ####[employer] [address] [place] [address]#### VD25H ####[address] [facility] [place] [address] Basic Metabolic Panelon 02-13 Calcium 8.6 mg/dL Normal 8.4-10.4 [facility] Comment on above: Performed By: #### PT/AP, HEMDF, BMP3, M G3, PHOS3, TSH5, B12 ####[address], [place] #### VD25H ####[facility] [place] [address] Anion gap 5 Normal [facility] Comment on above: Performed By: #### PT/AP, HEMDF, BMP3, M G3, PHOS3, TSH5, B12 ####[place] [address], [place] #### VD25H ####[facility] [place] [address] CO2 27 mmol/L Normal 22-30 [facility] Comment on above: Performed By: #### PT/AP, HEMDF, BMP3, M G3, PHOS3, TSH5, B12 ####[place] [address] [facility] [address] [address], [place] #### VD25H ####[facility] [place] [address] Glucose mass conc 78 mg/dL Normal 70-100 [facility] Comment on above: Performed By: #### PT/AP, HEMDF, BMP3, M G3, PHOS3, TSH5, B12 ####[place] [address], [place] #### VD25H ####[facility] [place] [address] Urea nitrogen 6 mg/dL Low 7-20 [facility] Comment on above: Performed By: #### PT/AP, HEMDF, BMP3, M G3, PHOS3, TSH5, B12 ####[place] [address], [place] #### VD25H ####[facility] [place] [address] Creatinine 0.48 mg/dL Low 0.52-1.25 [facility] Comment on above: Performed By: #### PT/AP, HEMDF, BMP3, M G3, PHOS3, TSH5, B12 ####[facility], [place] #### VD25H ####[place] [address] [place] [address] eGFR (black) mL/min/{1.73_m2} Normal >60 [facility] Comment on above: Performed By: #### PT/AP, HEMDF, BMP3, M G3, PHOS3, TSH5, B12 ####[address], [place] #### VD25H ####[place] [address] [place] [address] eGFR (non-black) mL/min/{1.73_m2} Normal >60 [facility] [facility] Comment on above: Result Comment: Source- MDRD equation creatinine calibration to IDMS(NKDEP) eGFR not recommended for drug dose adjustment Performed By: #### P T/AP, HEMDF, BMP3, MG3, PHOS3, TSH5, B12 ####[facility] [address], [place] #### VD25H ####[address] [facility] [place] [address] Chloride 106 mmol/L Normal 98-107 [facility] Comment on above: Performed By: #### PT/AP, HEMDF, BMP3, M G3, PHOS3, TSH5, B12 ####[facility] [address], [place] #### VD25H ####[address] [facility] [place] [address] Potassium molar conc 3.8 mmol/L Normal 3.5-5.1 [facility] Comment on above: Performed By: #### PT/AP, HEMDF, BMP3, M G3, PHOS3, TSH5, B12 ####[facility] [employer] [address], [place] #### VD25H ####[place] [address] [facility] [address] Sodium 138 mmol/L Normal 137-145 [facility] Comment on above: Performed By: #### PT/AP, HEMDF, BMP3, M G3, PHOS3, TSH5, B12 ####[facility] [place] [address]#### VD25H ####[facility] [address] [place] [address] CT Head or Brain w/o Contras ton 02-28-2018 CT Head or Brain w/o Contrast Patient Name: MARY KATE ABEL CT Exam Date/Time 02/28/2018 05:26:[address] Head or Brain w/o Contrast Ordering Physician MD GALILEO, PABLO Accession Number [id number] CPT4 Codes 24586 () Reason For Exam HEAD TRAUMA, CLOSED, [...] Transcribed Date and Time: 02/28/2018 5:56 Normal [facility] Echo Complete w/wo Contrasto n 02-28-2018 Echo Complete w/wo Contrast Patient Name: MARY KATE ABEL Ultrasound Exam Date/Time 02/28/2018 11:43:45 EDT Exam Echo Complete w/wo Contrast Ordering Physician Brissa BOX, [facility] Accession Number [id number] Reason For Exam syncope Report TRANSTHORACIC ECHOCARDIOGRAM PATIENT: Mary Kate Abel STUDY DATE: 02/28/2018 : 1940 AGE: 77 HT/WT: 172.7 cm (68 66.7 kg (146.7 in) lb) GENDER: F BP: 119 / 51 LOCATION: [facility] PATIENT Inpatient [facility] STATUS: *ORDERING PHYSICIAN: * Irvin Box *READING PHYSICIAN: * Alis Limon MD, *HEARING AID REPAIRER: * Yolanda Cook [facility] AE --- INDICATIONS: Syncope / TIA / [...] range. Electronically signed by Alis Limon MD, [facility] 02/28/2018 13:13 Final Dictated: 02/28/2018 1:13 pm Dictating Physician: MD LEOBARDO., [facility] Signed Date and Time: 02/28/2018 1:13 pm Signed by: MD LEOBARDO., [facility], ALIS A Normal [facility] Hemogram w/ Autodiffon 02-28 Abs Baso Cnt 0.0 10*3/uL Normal 0.0-0.2 [facility] Comment on above: Performed By: #### PT/AP, HEMDF, BMP3, M G3, PHOS3, TSH5, B12 ####[facility] [address] [place], [place] #### VD25H ####[facility] [place] [address] Abs Neutrophile Cnt 2.9 10*3/uL Normal 1.8-7.0 [facility] Comment on above: Performed By: #### PT/AP, HEMDF, BMP3, M G3, PHOS3, TSH5, B12 ####[facility] [address] #### VD25H ####[facility] [employer]) [id number] [place] [address] Basophils/100 WBC Auto (Bld) 0.4 % Normal 0.0-2.0 [facility] Comment on above: Performed By: #### PT/AP, HEMDF, BMP3, M G3, PHOS3, TSH5, B12 ####[facility] [address] #### VD25H ####[facility]) [id number] [facility] [place] [address] Eosinophils 0.1 10*3/uL Normal 0.0-0.5 [facility] Comment on above: Performed By: #### PT/AP, HEMDF, BMP3, M G3, PHOS3, TSH5, B12 ####[facility] [employer]) [id number] [place] [address] #### VD25H ####[facility]) [id number] [facility] [place] [address] Eosinophils/100 leukocytes 1.7 % Normal 1.0-6.0 [facility] Comment on above: Performed By: #### PT/AP, HEMDF, BMP3, M G3, PHOS3, TSH5, B12 ####[place] [address] [place], [place] #### VD25H ####[facility] [place] [address] Erythrocyte distribution width Auto Ratio (RBC) 13.5 % Normal 11.5-14.5 [facility] Comment on above: Performed By: #### PT/AP, HEMDF, BMP3, M G3, PHOS3, TSH5, B12 ####[address], [place] #### VD25H ####[facility] [facility] [place] [address] Erythrocytes (RBC) 4.09 10*6/uL Normal 3.80-5.20 [facility] Comment on above: Performed By: #### PT/AP, HEMDF, BMP3, M G3, PHOS3, TSH5, B12 ####[address] #### VD25H ####[facility] [address] [place] [address] Granulocytes/100 WBC (Bld) 65.8 % Normal 40.0-80.0 [facility] Comment on above: Performed By: #### PT/AP, HEMDF, BMP3, M G3, PHOS3, TSH5, B12 ####[address] #### VD25H ####[facility] [facility] [place] [address] Hematocrit (HCT) 36.8 % Normal 35.0-47.0 [facility] Comment on above: Performed By: #### PT/AP, HEMDF, BMP3, M G3, PHOS3, TSH5, B12 ####[facility] Ynyjbm[address] [facility], [place] #### VD25H ####[facility] [facility] [address] [facility] [place] [address] Hemoglobin mass conc (Bld) 12.5 g/dL Normal 11.7-16.0 [facility] Comment on above: Performed By: #### PT/AP, HEMDF, BMP3, M G3, PHOS3, TSH5, B12 ####[facility] [employer] [id number] [place], [place] #### VD25H ####[facility] [facility] [place] [address] Lymphocytes 1.1 10*3/uL Normal 1.0-4.3 [facility] Comment on above: Performed By: #### PT/AP, HEMDF, BMP3, M G3, PHOS3, TSH5, B12 ####[facility] [address] #### VD25H ####[facility] [employer]) [id number] [facility] [place] [address] Lymphocytes/100 leukocytes 24.0 % Normal 20.0-40.0 [facility] Comment on above: Performed By: #### PT/AP, HEMDF, BMP3, M G3, PHOS3, TSH5, B12 ####[facility] [address] #### VD25H ####[facility] [address] [place] [address] MCH 30.6 pg Normal 26.0-34.0 [facility] Comment on above: Performed By: #### PT/AP, HEMDF, BMP3, M G3, PHOS3, TSH5, B12 ####[facility] [address] #### VD25H ####[facility] [employer]) [id number] [facility] [place] [address] MCHC mass conc (RBC) 34.0 % Normal 32.0-36.0 [facility] Comment on above: Performed By: #### PT/AP, HEMDF, BMP3, M G3, PHOS3, TSH5, B12 ####[facility] [address] #### VD25H ####[facility] [facility] [place] [address] MCV 89.9 fL Normal 79.0-98.0 [facility] Comment on above: Performed By: #### PT/AP, HEMDF, BMP3, M G3, PHOS3, TSH5, B12 ####[facility] [address] [facility], [place] #### VD25H ####[facility] [place] [address] Monocytes 0.4 10*3/uL Normal 0.0-0.8 [facility] Comment on above: Performed By: #### PT/AP, HEMDF, BMP3, M G3, PHOS3, TSH5, B12 ####[facility] [employer] Rcdbnw[address] [facility], [place] #### VD25H ####[facility]) [address] [facility] [place] [address] Monocytes/100 leukocytes 8.1 % Normal 2.0-10.0 [facility] Comment on above: Performed By: #### PT/AP, HEMDF, BMP3, M G3, PHOS3, TSH5, B12 ####[facility] [employer] Ryxrsw[address] [facility], [place] #### VD25H ####[facility]) [address] [facility] [place] [address] Platelet mean volume (PMV) 7.0 fL Low 7.4-10.4 [facility] Comment on above: Performed By: #### PT/AP, HEMDF, BMP3, M G3, PHOS3, TSH5, B12 ####[facility] [employer] [id number] [facility], [place] #### VD25H ####[facility] [employer]) [id number] [facility] [place] [address] Platelets 163 10*3/uL Normal 140-440 [facility] Comment on above: Performed By: #### PT/AP, HEMDF, BMP3, M G3, PHOS3, TSH5, B12 ####[facility] Znsslz862 [facility], [place] #### VD25H ####[facility] [facility] [place] [address] WBC (Leukocytes) 4.5 10*3/uL Normal 3.6-10.7 [facility] Comment on above: Performed By: #### PT/AP, HEMDF, BMP3, M G3, PHOS3, TSH5, B12 ####[facility] [address] [place], [place] #### VD25H ####[facility] [address] [place] [address] Magnesiumon 02-28-2018 Magnesium 2.0 mg/dL Normal 1.6-2.3 [facility] Comment on above: Performed By: #### PT/AP, HEMDF, BMP3, M G3, PHOS3, TSH5, B12 ####[address] [place] [address] #### VD25H ####[facility]) [address] [address] Phosphoruson 02-28-2018 Phosphate 3.4 mg/dL Normal 2.5-4.5 [facility] Comment on above: Performed By: #### PT/AP, HEMDF, BMP3, M G3, PHOS3, TSH5, B12 ####[address] [place] [address] #### VD25H ####[employer] [address] [address] Protime AND APTTon 8 aPTT 25.4 s Normal 20.0-30.5 [facility] Comment on above: Result Comment: NOTE: The therapeutic ti me for Heparin anticoagulation,based on Xa activity inhibition, is an APTT of 46-80seconds. Performed By: #### P T/AP, HEMDF, BMP3, MG3, PHOS3, TSH5, B12 ####[address] [place] [address] #### VD25H ####[employer] [address] [place] [address] INR Coag RelTime (PPP) 0.9 Normal 0.9-1.1 [facility] Comment on above: Result Comment: Recommended Anticoagulan [...] T/AP, HEMDF, BMP3, MG3, PHOS3, TSH5, B12 ####[facility]) [address] #### VD25H ####[facility]) [address] [address] Prothrombin time (PT) Coag time (PPP) 9.6 s Normal 9.0-12.0 [facility] Comment on above: Result Comment: . Performed By: #### P T/AP, HEMDF, BMP3, MG3, PHOS3, TSH5, B12 ####[facility] [address] #### VD25H ####[facility]) [address] [address] Thyroid Stim. Hormoneon 02-13 Thyroid Stim. Hormone 1.902 u[IU]/mL Normal 0.465-4.680 [facility] Comment on above: Performed By: #### PT/AP, HEMDF, BMP3, M G3, PHOS3, TSH5, B12 ####[facility] [address] #### VD25H ####[facility] [address] [address] Vitamin B12on 02-28-2018 Cobalamins (Vitamin B12) 458 pg/mL Normal 239-931 [facility] Comment on above: Performed By: #### PT/AP, HEMDF, BMP3, M G3, PHOS3, TSH5, B12 ####[facility] [address] #### VD25H ####[address] [address] CR Wrist Complete 3 Views Ri yessi 02-27-2018 CR Wrist Complete 3 Views Right Patient Name: MARY KATE ABEL Diagnostic Radiology Exam Date/Time 02/27/2018 19:00:02 EDT Exam CR Wrist Complete 3 Views Right Ordering Physician MD ALLEN, URIAH ANTHONY Accession Number [id number] CPT4 Codes 77815 () Reason For Exam DR hooks Report [...] Transcribed Date and Time: 02/27/2018 7:02 Normal [facility] Basic Metabolic Profile (BMP )on 02-25-2018 Basic [...] Please note revised GLUCOSE reference ra e vhskoyapi10/02/2018. Basic metabolic 2000 panel 29.0 mmol/L Normal [...] Auto #/vol (Bld) 4.2 10*3/uL Abnormal 4.4-11.0 [facility] Work Phone: Partial Thromboplast Timeon [...] Volume Fraction (Bld) 37.8 % Normal 37-47 [facility] Work Phone: Hemoglobin mass conc (Bld) 13.0 g/dL Normal 12.0-15.0 [facility] Work Phone: IM GRAN % 0.100 % Normal 0.0-0.9 [facility] Work Phone: Comment on above: IG% - Immature Granulocytes (promyelocyt es, myelocytes andmetamyelocytes) > 1% indicates that a LEFT SHIFT is Present. Lymphocytes/100 WBC Auto (Bld) 15.0 % Abnormal 19-41 [facility] Work Phone: MCH Auto Entitic [...] D-DIMER QUANT 0.43 {FEU/ug/m} Normal 0.27-0.49 Compre [facility] Work Phone: Comment on above: NORMAL D-Dimer level (<0.50) indicates n o DVT or PE. Troponin-Ion 06-29-2017 Troponin I.cardiac mass conc ng/mL Normal [facility] Work Phone: Comment on above: TROPONIN-I EXPECTED VALUES <0.05 NEGATIV E 0.06 - 0.59 AT RISK OF GA > OR = 0.60 SUGGEST GA CBC W/AUTO DIFF WBC (89342)O rdered By: Informatics Manager on 10-24-2015 Basophils #/vol (Bld) 0.0 {x10E3/uL} Normal 0.0-0.2 [facility] Work Phone: Comment on above: PATIENT NOT FASTINGPERFORMED BY: [facility][id number] [facility] [id number] Information: [id number] Basophils (Bld) [#/Vol] 0.0 10*3/uL Normal 0.0-0.2 [facility]; [facility] Work Phone: Comment on above: PATIENT NOT FASTINGPERFORMED BY: [facility] [place] [id number] [facility] [id number] Information: [id number] Basophils/100 WBC (Bld) 0 % Normal [facility] Work Phone: Comment on above: PATIENT NOT FASTINGPERFORMED BY: [address] [id number] Information: [id number] Eosinophils #/vol (Bld) 0.1 {x10E3/uL} Normal 0.0-0.4 [facility] Work Phone: Comment on above: PATIENT NOT FASTINGPERFORMED BY: [address] [id number] Information: [id number] Eosinophils (Bld) [#/Vol] 0.1 10*3/uL Normal 0.0-0.4 [facility]; [facility] Work Phone: Comment on above: PATIENT NOT FASTINGPERFORMED BY: [address] [id number] Information: [id number] Eosinophils/100 WBC (Bld) 1 % Normal [facility] Work Phone: Comment on above: PATIENT NOT FASTINGPERFORMED BY: [address] [id number] Information: [id number] Erythrocyte distribution width Ratio (RBC) 14.1 % Normal 12.3-15.4 [facility] Work Phone: Comment on above: PATIENT NOT FASTINGPERFORMED BY: [address] [id number] Information: [id number] Hematocrit Volume Fraction (Bld) 39.3 % Normal 34.0-46.6 [facility] Work Phone: Comment on above: PATIENT NOT FASTINGPERFORMED BY: [address] [id number] Information: [id number] Immature granulocytes (Bld) [#/Vol] 0.0 10*3/uL Normal 0.0-0.1 [facility]; [facility] Work Phone: Comment on above: PATIENT NOT FASTINGPERFORMED BY: [place] [id number] [facility] [id number] Information: [id number] Lymphocytes #/vol (Bld) 1.3 {x10E3/uL} Normal 0.7-3.1 [facility] Work Phone: Comment on above: PATIENT NOT FASTINGPERFORMED BY: [address] [id number] Information: [id number] Lymphocytes (Bld) [#/Vol] 1.3 10*3/uL Normal 0.7-3.1 [facility]; [facility] Work Phone: Comment on above: PATIENT NOT FASTINGPERFORMED BY: [address] [id number] Information: [id number] Lymphocytes/100 WBC (Bld) 24 % Normal [facility] Work Phone: Comment on above: PATIENT NOT FASTINGPERFORMED BY: [address] [id number] Information: [id number] MCH Entitic mass (RBC) 29.1 pg Normal 26.6-33.0 [facility] Work Phone: Comment on above: PATIENT NOT FASTINGPERFORMED BY: [facility] [place] [address] [id number] Information: [id number] MCHC mass conc (RBC) 33.6 g/dL Normal 31.5-35.7 [facility] Work Phone: Comment on above: PATIENT NOT FASTINGPERFORMED BY: [address] [id number] Information: [id number] MCV Entitic volume (RBC) 87 fL Normal 79-97 [facility] Work Phone: Comment on above: PATIENT NOT FASTINGPERFORMED BY: [address] [id number] Information: [id number] Monocytes #/vol (Bld) 0.4 {x10E3/uL} Normal 0.1-0.9 [facility] Work Phone: Comment on above: PATIENT NOT FASTINGPERFORMED BY: [facility] or[address] [id number] Information: [id number] Monocytes (Bld) [#/Vol] 0.4 10*3/uL Normal 0.1-0.9 [facility]; [facility] Work Phone: Comment on above: PATIENT NOT FASTINGPERFORMED BY: [address] [id number] Information: [id number] Monocytes/100 WBC (Bld) 8 % Normal [facility] Work Phone: Comment on above: PATIENT NOT FASTINGPERFORMED BY: [address] [id number] Information: [id number],[id number] Neutrophils #/vol (Bld) 3.5 {x10E3/uL} Normal 1.4-7.0 [facility] Work Phone: Comment on above: PATIENT NOT FASTINGPERFORMED BY: [address] [id number] Information: [id number] Neutrophils (Bld) [#/Vol] 3.5 10*3/uL Normal 1.4-7.0 [facility]; [facility] Work Phone: Comment on above: PATIENT NOT FASTINGPERFORMED BY: [address] [id number] Information: [id number] Neutrophils/100 WBC (Bld) 67 % Normal [facility] Work Phone: Comment on above: PATIENT NOT FASTINGPERFORMED BY: [facility]Cvfqdv6[address] [facility] [place] [id number] Information: [id number],[id number] Platelets #/vol (Bld) 210 {x10E3/uL} Normal 150-379 [facility] Work Phone: Comment on above: PATIENT NOT FASTINGPERFORMED BY: [facility])Fqbeay7[address] [facility] [id number] Information: [id number] Platelets (Bld) [#/Vol] 210 10*3/uL Normal 150-379 [facility]; [facility] Work Phone: Comment on above: PATIENT NOT FASTINGPERFORMED BY: [facility]Coxvsj6[address] [facility] [id number] Information: [id number] RBC #/vol (Bld) 4.53 {x10E6/uL} Normal 3.77-5.28 [facility] Internal [facility] Work Phone: Comment on above: PATIENT NOT FASTINGPERFORMED BY: [facility])Iycfkf5551 [facility] [id number] Information: [id number] RBC (Bld) [#/Vol] 4.53 10*6/uL Normal 3.77-5.28 [facility]; [facility] Work Phone: Comment on above: PATIENT NOT FASTINGPERFORMED BY: [facility]Kiokjh0534 [address] [facility] [place] [id number] Information: [id number] WBC #/vol (Bld) 5.3 {x10E3/uL} Normal 3.4-10.8 [facility] Work Phone: Comment on above: PATIENT NOT FASTINGPERFORMED BY: [facility])Rxsxco44[address] [facility] [place] [id number] Information: [id number] WBC (Bld) [#/Vol] 5.3 10*3/uL Normal 3.4-10.8 [facility]; [facility] Work Phone: Comment on above: PATIENT NOT FASTINGPERFORMED BY: [address] [id number] Information: [id number] CBC W/AUTO DIFF WBC (85279)o n 10-24-2015 Basophils Auto #/vol (Bld) 0.0 [...] Comment on above: PATIENT NOT FASTINGPERFORMED BY: [address] [id number] Information: [id number] Immature granulocytes #/vol (Bld) 0.0 {x10E3/uL} Normal 0.0-0.1 [facility] Work Phone: Comment on above: PATIENT NOT FASTINGPERFORMED BY: [address] [id number] Information: [id number] Immature granulocytes/100 WBC (Bld) 0 % Normal [facility] Work Phone: Comment on above: PATIENT NOT FASTINGPERFORMED BY: [facility] or Qncjng9945 [facility] [id number] Information: [id number] Lymphocytes Auto #/vol (Bld) 1.3 {x10E3/uL} Normal [...] BY DR. RODRIGUEZ WHO AGREES WITH THE DIAGNOSIS.[facility]04/12/2015 Electronically signed: .Eduardo Anaya MD (Charles), PathologistGross description: .RECEIVED IN FORMALIN LABELED MARY KATE ABEL WITH NO DESIGNATIONIS A PAGE/YELLOW FRAGMENT OF SKIN MEASURING 0.3 X 0.2 X 0.1 CM.THE MARGIN IS MARKED WITH BLACK INK. IT IS BISECTED AND SUBMITTEDENTIRELY IN A SINGLE CASSETTE.LMS/CRYPathologist provided ICD-9:173.31CPT .094691 CALCIFIDIOL (84058) VIT D 25 on 10-31-2014 25-Hydroxyvitami n D2+25-Hydroxyvit garner D3 mass conc 51.1 ng/mL Normal 30.0-100.0 [facility] Work Phone: Comment on above: Vitamin D deficiency has been defined by the [place] [employer] and an Endocrine Society practice guideline as alevel of serum 25-OH vitamin D less than 20 ng/mL (1,2).The Endocrine Society went on to further define vitamin Dinsufficiency as a level between 21 and 29 ng/mL (2).1. IOM ([place] [employer]). 2010. Dietary reference intakes for calcium and D. [place]: The National Academies Press.2. Vicente MF, Yari NC, Marty HUERTA, et al. Evaluation, treatment, and prevention of vitamin D deficiency: an Endocrine Society clinical practice guideline. JCEM. 2010; 96(7):1911-30. PATIENT WAS FASTINGP ERFORMED BY: ZENAIDA [facility] Gdsncs0752 [facility] [id number] Information: [id number], [id number] FECAL OCCULT HGB ASSAY- tube s sent home ([id number])Ordered By: Norma Lara on 10-29-2014 Hemoglobin.gastr ointestinal Ql (St) Negative Normal [facility] Work Phone: FECAL OCCULT HGB ASSAY- tube s sent home ([id number])on 10-29-2014 Hemoglobin.gastr ointestinal Ql (Stl) Negative Normal [...] SUBMITTED INTACT IN [place]INGLE C[place]ETTE.LMS/JASPathologist provided ICD-9:173.51CPT .430566 JUAN (ANTINUCLEAR ANTIBODY) ( [id number])on 10-08-2014 Nuclear Ab Ql (S) Negative Normal [facility] Work Phone: Comment on above: PATIENT NOT FASTINGPERFORMED BY: [facility]6[address] [facility] [id number] JUAN (ANTINUCLEAR ANTIBODY) ( [id number])Ordered By: Informatics Manager on 10-08-2014 Nuclear Ab Ql (S) Negative Normal [facility]; [facility] Work Phone: Comment on above: PATIENT NOT FASTINGPERFORMED BY: [facility]6[address] [facility] [id number] CBC & PLATELETS (AUTO) (8502 7)on 10-08-2014 Erythrocyte distribution width Auto Ratio (RBC) 14.2 % Normal 12.3-15.4 [facility] Work Phone: Hematocrit Auto Volume Fraction (Bld) 40.6 % Normal 34.0-46.6 [facility] Work Phone: Hemoglobin mass conc (Bld) 13.4 g/dL Normal 11.1-15.9 [facility] Work Phone: Comment on above: PATIENT NOT FASTINGPERFORMED BY: [facility][id number] [facility] [id number] MCH Auto Entitic mass (RBC) 29.2 pg [...] CBC & PLATELETS (AUTO) (8502 7)Ordered By: Informatics Manager on 10-08-2014 Erythrocyte distribution width Ratio (RBC) 14.2 % Normal 12.3-15.4 [facility] Work Phone: Comment on above: PATIENT NOT FASTINGPERFORMED BY: CB [facility] orp [id number]Dublin [place] [id number] Hematocrit Volume Fraction (Bld) 40.6 % Normal 34.0-46.6 [facility] Work Phone: Comment on above: PATIENT NOT FASTINGPERFORMED BY: CB Lab[facility] orp [id number] [address]Dublin [place] [id number] MCH Entitic mass (RBC) 29.2 pg Normal 26.6-33.0 [facility] Work Phone: Comment on above: PATIENT NOT FASTINGPERFORMED BY: CB [facility] orp Skuazk7778 [address]Dublin [place] [id number] MCHC mass conc (RBC) 33.0 g/dL Normal 31.5-35.7 [facility] Work Phone: Comment on above: PATIENT NOT FASTINGPERFORMED BY: CB [facility] orp Yrcvys1447 [address]Dublin [place] [id number] MCV Entitic volume (RBC) 89 fL Normal 79-97 [facility] Work Phone: Comment on above: PATIENT NOT FASTINGPERFORMED BY: CB [facility] orp [id number] [address]Dublin [place] [id number] Platelets #/vol (Bld) 211 {x10E3/uL} Normal 150-379 [facility] Work Phone: Comment on above: PATIENT NOT FASTINGPERFORMED BY: CB [facility] orp [id number] [address]Dublin [place] [id number] Platelets (Bld) [#/Vol] 211 10*3/uL Normal 150-379 [facility]; [facility] Work Phone: Comment on above: PATIENT NOT FASTINGPERFORMED BY: CB [facility] orp [id number] [address]Dublin [place] [id number] RBC #/vol (Bld) 4.59 {x10E6/uL} Normal 3.77-5.28 [facility] Internal Medicine Work Phone: Comment on above: PATIENT NOT FASTINGPERFORMED BY: CB [facility] orp [id number] [address]Dublin [place] [id number] RBC (Bld) [#/Vol] 4.59 10*6/uL Normal 3.77-5.28 [facility]; [facility] Work Phone: Comment on above: PATIENT NOT FASTINGPERFORMED BY: CB [facility] orp [id number] [address]Dublin [place] [id number] WBC #/vol (Bld) 5.2 {x10E3/uL} Normal 3.4-10.8 [facility] Internal Medicine Work Phone: Comment on above: PATIENT NOT FASTINGPERFORMED BY: CB Lab[facility] or Pwgvky3222 [address]Dublin [place] [id number] WBC (Bld) [#/Vol] 5.2 10*3/uL Normal 3.4-10.8 [facility] Internal Medicine; [facility] Work Phone: Comment on above: PATIENT NOT FASTINGPERFORMED BY: CB Lab[facility] or [id number] [address]Dublin [place] [id number] Hemoglobin Glyclated (HGB A1 C) (05108)on 10-08-2014 Hemoglobin A1c/Hemoglobin.t otal mass fraction (Bld) 5.3 % Normal 4.8-5.6 [facility] Internal Medicine Work Phone: Comment on above: . Increased risk for diabetes: 5.7 - 6.4 Diabetes: >6.4 Glycemic control for adults with diabetes: <7.0 PATIENT NOT FASTINGP ERFORMED BY: [facility] Szvatr14[address]Dublin [place] [id number] METABOLIC PANEL, COMPREHENSI VE (60112)on 10-08-2014 Albumin mass conc 4.6 g/dL Normal 3.5-4.8 [facility] Work Phone: Comment on above: PATIENT NOT FASTINGPERFORMED BY: [facility] orp [id number] [address]Dublin [place] [id number] Albumin/Globulin mass ratio 2.2 {ratio} Normal 1.1-2.5 [facility] Work Phone: Comment on above: PATIENT NOT FASTINGPERFORMED BY: CB [facility] orp Nyhaqh1232 [address]Dublin [place] [id number] ALP enzyme act/vol 89 [iU]/L Normal 39-117 [facility] Work Phone: Comment on above: PATIENT NOT FASTINGPERFORMED BY: CB [facility] or Gnhqbw6540 [address]Dublin [place] [id number] ALT enzyme act/vol 11 [iU]/L Normal 0-32 [facility] Work Phone: Comment on above: PATIENT NOT FASTINGPERFORMED BY: CB Lab or Danfmz0504 [address]Dublin [place] [id number] AST enzyme act/vol 20 [iU]/L Normal 0-40 [facility] Work Phone: Comment on above: PATIENT NOT FASTINGPERFORMED BY: Lab or [id number] [address]Dublin [place] [id number] Bilirubin mass conc 0.6 mg/dL Normal 0.0-1.2 [facility] Work Phone: Comment on above: PATIENT NOT FASTINGPERFORMED BY: Lab or [id number] [address]Dublin [place] [id number] Calcium mass conc 9.5 mg/dL Normal 8.7-10.3 [facility] Work Phone: Comment on above: PATIENT NOT FASTINGPERFORMED BY: Lab or [id number] [address]Dublin [place] [id number] Chloride molar conc 102 mmol/L Normal 97-108 [facility] Work Phone: Comment on above: PATIENT NOT FASTINGPERFORMED BY: CB [facility] or[facility] [id number] [address]Dublin [place] [id number] CO2 molar conc 24 mmol/L Normal 18-29 [facility] Internal Medicine Work Phone: Comment on above: PATIENT NOT FASTINGPERFORMED BY: CB [facility] orp Imsywd9518 [address]Dublin [place] [id number] Creatinine mass conc 0.51 mg/dL Abnormal 0.57-1.00 [facility] Work Phone: Comment on above: PATIENT NOT FASTINGPERFORMED BY: CB [facility] orp Orpycg5593 [address]Dublin [place] [id number] GFR/1.73 sq M predicted among blacks CKD-EPI vol rate/area (S/P/Bld) 109 mL/min/1.73 Normal [facility] Work Phone: Comment on above: PATIENT NOT FASTINGPERFORMED BY: CB [facility] or[facility] [id number] [address]Dublin [place] [id number] GFR/1.73 sq M predicted among non-blacks CKD-EPI vol rate/area (S/P/Bld) 94 mL/min/1.73 Normal [facility] Work Phone: Comment on above: PATIENT NOT FASTINGPERFORMED BY: CB [facility] orp Gntfjr5689 [address]Dublin [place] [id number] Globulin Calculated mass conc (S) 2.1 g/dL Normal 1.5-4.5 [facility] Work Phone: Glucose mass conc 80 mg/dL Normal 65-99 [facility] Work Phone: Comment on above: PATIENT NOT FASTINGPERFORMED BY: CB [facility] or[facility] Rpjtyl3438 [address]Dublin [place] [id number] Potassium molar conc 5.0 mmol/L Normal 3.5-5.2 [facility] Work Phone: Comment on above: PATIENT NOT FASTINGPERFORMED BY: CB [facility] orp Ylijpk8842 [address]Dublin [place] [id number] Protein mass conc 6.7 g/dL Normal 6.0-8.5 [facility] Work Phone: Comment on above: PATIENT NOT FASTINGPERFORMED BY: CB [facility] orp Vnrcye9072 [address]Dublin [place] [id number] Sodium molar conc 143 mmol/L Normal 134-144 [facility] Work Phone: Comment on above: PATIENT NOT FASTINGPERFORMED BY: CB [facility] Ewjlwg2873 [address]Dublin [place] [id number] Urea nitrogen mass conc 13 mg/dL Normal 8-27 [facility] Work Phone: Comment on above: PATIENT NOT FASTINGPERFORMED BY: CB [facility]p Guzgjd3951 [address]Dublin [place] [id number] Urea nitrogen/Creatin ine mass ratio 25 mg/mg Normal 11-26 [facility] Work Phone: Comment on above: PATIENT NOT FASTINGPERFORMED BY: CB Lab or Sgiutu3618 [address]Dublin [place] [id number] METABOLIC PANEL, COMPREHENSI VE (62653)Ordered By: Informatics Manager on 10-08-2014 ALP [Catalytic activity/Vol] 89 U/L Normal 39-117 [facility]; [facility] Work Phone: Comment on above: PATIENT NOT FASTINGPERFORMED BY: CB [facility] Zftlkw7040 [address]Dublin [place] [id number] ALT [Catalytic activity/Vol] 11 U/L Normal 0-32 [facility]; [facility] Work Phone: Comment on above: PATIENT NOT FASTINGPERFORMED BY: CB Lab or [id number] [address]Dublin [place] [id number] AST [Catalytic activity/Vol] 20 U/L Normal 0-40 [facility]; [facility] Work Phone: Comment on above: PATIENT NOT FASTINGPERFORMED BY: CB [facility] orp Bdlufc9260 [address]Dublin [place] [id number] Globulin mass conc (S) 2.1 g/dL Normal 1.5-4.5 [facility] Work Phone: Comment on above: PATIENT NOT FASTINGPERFORMED BY: [facility]Nocnrh9542 [facility] [id number] Protein Electro.,Son 015 Albumin mass conc 4.3 [...] Internal Medicine Work Phone: SED RATE ERYTHROCYTE ([id number]) on 10-08-2014 ESR Velocity (Bld) 2 mm/h Normal 0-40 [facility] Work Phone: Comment on above: PATIENT NOT FASTINGPERFORMED BY: [facility]6[address] [facility] [id number] TSH (THYROID STIMULATING HOR DEDE) (63806)on 10-08-2014 Thyrotropin Qn 1.450 {uIU/mL} Normal 0.450-4.500 [facility] Internal Medicine Work Phone: Comment on above: PATIENT NOT FASTINGPERFORMED BY: [facility][id number] [facility] [id number] VITAMIN B-12 (CYANOCOBALAMIN ) (02469)on 10-08-2014 Cobalamin (Vitamin B12) mass conc 613 pg/mL Normal 211-946 [facility] Work Phone: Comment on above: PATIENT NOT FASTINGPERFORMED BY: [facility] or [id number] [facility] [id number] Vital Signs Date Time Vital Sign Value Performing Clinician Facility 10-26-2022 14:43-0400 Body height 173.99 cm Margo Slarb SUPERVISING [employer] [facility]; [facility] Work Phone: 10-26-2022 14:43-0400 Body mass index (BMI) [Ratio] 21.58 kg/m2 Margo Slarb [employer] [facility]; [facility] Work Phone: 10-26-2022 14:43-0400 Body surface area Derived from formula 1.79 m2 Margo Slarb [employer] [facility]; [facility] Work Phone: 10-26-2022 14:43-0400 Body temperature 97.4 [degF] Margo Slarb [employer] [facility]; [facility] Work Phone: Comment on above: Method: Temporal 10-26-2022 14:43-0400 Body weight 65.34 kg Margo Slarb [employer] [facility]; [facility] Work Phone: 10-26-2022 14:43-0400 Diastolic blood pressure 80 mm[Hg] Margo Slarb [employer] [facility]; [facility] Work Phone: Comment on above: Patient Position: Sitting; Cuff Location : Left Arm; Cuff Size: Standard 10-26-2022 14:43-0400 Heart rate 68 /min Margo Slarb [employer] [facility]; [facility] Work Phone: Comment on above: Pattern: Regular 10-26-2022 14:43-0400 Respiratory rate 14 /min Margo Slarb [employer] [facility]; [facility] Work Phone: Comment on above: Pattern: Unlabored 10-26-2022 14:43-0400 SaO2% (BldA) [Mass fraction] 99 % Margo Reji [employer] [facility]; [facility] Work Phone: Comment on above: Room air 10-26-2022 14:43-0400 Systolic blood pressure 118 mm[Hg] Margo Mendoza [employer] [facility]; [facility] Work Phone: Comment on above: Patient Position: Sitting; Cuff Location : Left Arm; Cuff Size: Standard 08-21-2020 08:15-0500 BMI (Body Mass Index) 21.58 kg/m2 Litzy Mack [employer] Comprehen sive [facility]; [facility] Work Phone: 08-21-2020 08:15-0500 Body weight 65.34 kg Litzy Frederick [employer] [facility]; [facility] Work Phone: 08-21-2020 08:15-0500 BSA (Body Surface Area) 1.79 m2 Litzy Mack [facility]; [facility] Work Phone: 08-21-2020 08:15-0500 [facility] 173.99 [facility]; [facility] Work Phone: 08-15-2019 13:20-0500 BMI (Body Mass Index) 21.58 kg/m2 Hannalauri Millan PEPITO Comprehe nsive Internal Medicine Work Phone: 08-15-2019 13:20-0500 Body Temperature 97.6 [degF] Hannalauri Millan [facility] Work Phone: Comment on above: Method: Temporal 08-15-2019 13:20-0500 Body weight 65.34 kg Hanna Millan [employer] [facility] Work Phone: 08-15-2019 13:20-0500 BP Diastolic 82 mm[Hg] Hannalauri Millan [employer] [facility] Work Phone: Comment on above: Patient Position: Sitting; Cuff Location : Left Arm; Cuff Size: Standard 08-15-2019 13:20-0500 BP Systolic 128 mm[Hg] Hanna Millan LPN [facility] Internal Medicine Work Phone: Comment on above: Patient Position: Sitting; Cuff Location : Left Arm; Cuff Size: Standard 08-15-2019 13:20-0500 BSA (Body Surface Area) 1.79 m2 Hanna Millan LPN [facility] Internal Medicine Work Phone: 08-15-2019 13:20-0500 Height 173.99 cm Hanna Millan [employer]ING [employer] [facility] Internal Medicine Work Phone: 08-15-2019 13:20-0500 Pulse (Heart Rate) 65 /min Hanna Millan LPN Comprehensi Internal Medicine Work Phone: Comment on above: Pattern: Regular 08-15-2019 13:20-0500 Pulse Oximetry 98 % Rocío Chu [facility] Internal Medicine Work Phone: Comment on above: Room air 08-15-2019 13:20-0500 Respiratory Rate 16 /min Hanna Millan LPN [facility] Internal Medicine Work Phone: Comment on above: Pattern: Unlabored 08-15-2019 13:20-0500 SaO2% (BldA) [Mass fraction] 98 % Hanna Millan [employer]PERVISING [employer] [facility] Medicine; [facility] Work Phone: Comment on above: Room air 08-11-2019 14:12-0500 BMI (Body Mass Index) 21.58 kg/m2 Erich Denise LPN Comprehen sive [facility] Work Phone: 08-11-2019 14:12-0500 Body Temperature 97.5 [degF] Erich Denise LPN [facility] Internal Medicine Work Phone: Comment on above: Method: Temporal 08-11-2019 14:12-0500 Body weight 65.34 kg Erich Denise LPN [facility] Internal Medicine Work Phone: 08-11-2019 14:12-0500 BP Diastolic 72 mm[Hg] Erich Denise LPN [facility] Internal Medicine Work Phone: Comment [...] Mass Index) 20.3 kg/m2 Erich Denise LPN [facility] Internal Medicine Work Phone: 08-31-2018 09:03-0500 Body weight 61.46 kg Erich Denise LPN [facility] Internal Medicine Work Phone: 08-31-2018 09:03-0500 BP Diastolic 84 mm[Hg] Erich Denise LPN [facility] Internal Medicine Work Phone: Comment on above: Patient Position: Sitting; Cuff Location : Left Arm; Cuff Size: Standard 08-31-2018 09:03-0500 BP Systolic 146 mm[Hg] Erich Denise LPN [facility] Internal Medicine Work Phone: Comment on above: Patient Position: Sitting; Cuff Location : Left Arm; Cuff Size: Standard 08-31-2018 09:03-0500 BSA (Body Surface Area) 1.74 m2 Erich Denise LPN [facility] Work Phone: 08-31-2018 09:03-0500 Height 173.99 cm Erich Denise LPN [facility] Internal Medicine Work Phone: 08-31-2018 09:03-0500 Pulse (Heart Rate) 66 /min Erich Denise LPN Comprehensiv e Internal Medicine Work Phone: Comment on above: Pattern: Regular 08-31-2018 09:03-0500 Pulse Oximetry 99 % Rocío Chu [facility] Internal Medicine Work Phone: Comment on above: Room air 08-31-2018 09:03-0500 Respiratory Rate 17 /min Erich Denise LPN [facility] Internal Medicine Work Phone: Comment on above: Pattern: Unlabored 08-31-2018 09:03-0500 SaO2% (BldA) [Mass fraction] 99 % Erich Denise LPN [facility]; [facility] Work Phone: Comment on above: Room air 08-31-2018 09:03-0500 Weight 61.46 kg Rocío Chu [facility] Internal Medicine Work Phone: 07-12-2018 11:02-0500 BMI [...] 03-04-2018 08:21-0400 Weight 61.86 kg Rocío Chu [facility] Internal Medicine Work Phone: 10-24-2015 12:25-0500 BMI (Body Mass Index) 21.95 kg/m2 Josephinerigoberto Allen [facility] Internal Medicine Work Phone: 10-24-2015 12:25-0500 Body Temperature 95.8 [degF] Josephine Allen [facility] Internal Medicine Work Phone: Comment on above: Method: Tympanic 10-24-2015 12:25-0500 Body weight 66.45 kg Josephine Allen [facility] Internal Medicine Work Phone: 10-24-2015 12:25-0500 BP Diastolic 60 mm[Hg] Josephine Allen [facility] Internal Medicine Work Phone: Comment on above: Patient Position: Sitting; Cuff Location : Left Arm; Cuff Size: Standard 10-24-2015 12:25-0500 BP Systolic 100 mm[Hg] Josephine Allen [facility] Internal Medicine Work Phone: Comment on above: Patient Position: Sitting; Cuff Location : Left Arm; Cuff Size: Standard 10-24-2015 12:25-0500 BSA (Body Surface Area) 1.8 m2 Josephine Allen [facility] Internal Medicine Work Phone: 10-24-2015 12:25-0500 Height 173.99 cm Josephine Allen [facility] Internal Medicine Work Phone: 10-24-2015 12:25-0500 Pulse (Heart Rate) 64 /min Josephine Allen [facility] Internal Medicine Work Phone: Comment on above: Pattern: Regular 10-24-2015 12:25-0500 Pulse Oximetry 98 % Rocío Chu [facility] Internal Medicine Work Phone: Comment on above: Room air 10-24-2015 12:25-0500 Respiratory Rate 18 /min Josephine Allen [facility] Internal Medicine Work Phone: Comment on above: Pattern: Unlabored 10-24-2015 12:25-0500 SaO2% (BldA) [Mass fraction] 98 % Josephine Allen [facility]; [facility] Work Phone: Comment on above: Room air 10-24-2015 12:25-0500 Weight 66.45 kg Rocío Chu [facility] Internal Medicine Work Phone: 05-17-2015 13:51-0400 BMI (Body Mass Index) 23.15 kg/m2 Teresita James [facility] Work Phone: 05-17-2015 13:51-0400 Body Temperature 97.4 [degF] Teresita James [facility] Work Phone: Comment on above: Method: Oral 05-17-2015 13:51-0400 Body weight 70.08 kg Teresita James [facility] Internal Medicine Work Phone: 05-17-2015 13:51-0400 BP Diastolic 68 mm[Hg] Teresita James [facility] Internal Medicine Work Phone: Comment on above: Patient Position: Sitting; Cuff Location : Left Arm; Cuff Size: Standard 05-17-2015 13:51-0400 BP Systolic 120 mm[Hg] Teresita James [facility] Internal Medicine Work Phone: Comment on above: Patient Position: Sitting; Cuff Location : Left Arm; Cuff Size: Standard 05-17-2015 13:51-0400 BSA (Body Surface Area) 1.84 m2 Teresita James [facility] Internal Medicine Work Phone: 05-17-2015 13:51-0400 Height 173.99 cm Teresita James [facility] Internal Medicine Work Phone: 05-17-2015 13:51-0400 Respiratory Rate 16 /min Teresita James [facility] Internal Medicine Work Phone: Comment on above: Pattern: Unlabored 05-17-2015 13:51-0400 Weight 70.08 kg Rocío Chu [facility] Internal Medicine Work Phone: 04-09-2015 11:17-0400 BMI (Body Mass Index) 23.15 kg/m2 Yandy Ba RN [facility] Internal Medicine Work Phone: 04-09-2015 11:17-0400 Body Temperature 97.8 [degF] Yandy Ba RN [facility] Internal Medicine Work Phone: Comment on above: Method: Temporal 04-09-2015 11:17-0400 Body weight 70.08 kg Yandy Ba RN [facility] Internal Medicine Work Phone: 04-09-2015 11:17-0400 BP Diastolic 72 mm[Hg] Yandy Ba RN [facility] Internal Medicine Work Phone: Comment on above: Patient Position: Sitting; Cuff Location : Left Arm; Cuff Size: Standard 04-09-2015 11:17-0400 BP Systolic 130 mm[Hg] Yandy Ba RN [facility] Internal Medicine Work Phone: Comment on above: Patient Position: Sitting; Cuff Location : Left Arm; Cuff Size: Standard 04-09-2015 11:17-0400 BSA (Body Surface Area) 1.84 m2 Yandy Ba RN [facility] Internal Medicine Work Phone: 04-09-2015 11:17-0400 Height 173.99 cm Yandy Ba RN [facility] Internal Medicine Work Phone: 04-09-2015 11:17-0400 Pulse (Heart Rate) 77 /min Yandy Ba RN [facility] Work Phone: Comment on above: Pattern: Regular 04-09-2015 11:17-0400 Respiratory Rate 17 /min Yandy Ba RN [facility] Internal Medicine Work Phone: Comment on above: Pattern: Unlabored 04-09-2015 11:17-0400 Weight 70.08 kg Rocío Chu [facility] Internal Medicine Work Phone: 12-28-2014 09:57-0400 BMI (Body Mass Index) 23.15 kg/m2 Josephinerigoberto Allen [facility] Internal Medicine Work Phone: 12-28-2014 09:57-0400 Body Temperature 97.9 [degF] [facility] Internal Medicine Work Phone: Comment on above: Method: Tympanic 12-28-2014 09:57-0400 Body [facility] 70.08 [facility] Work Phone: 12-28-2014 09:57-0400 BP Diastolic 64 mm[Hg] [facility] Internal Medicine Work Phone: Comment on above: Patient Position: Sitting; Cuff Location : Left Arm; Cuff Size: Standard 12-28-2014 09:57-0400 BP Systolic 126 mm[Hg] [facility] Work Phone: Comment on [...] Phone: Comment on above: eye doc [facility] 10-29-2014 12:20-0400 Body weight 68.27 kg Niecy Avery RN [facility] Work Phone: Comment on above: eye doc at [facility] and [facility]hearing [facility] 10-29-2014 12:20-0400 BP Diastolic 62 mm[Hg] Niecy Avery RN [facility] Work Phone: Comment on above: Patient Position: Sitting; Cuff Location : Left Arm; Cuff Size: Standard eye doc at [facility] and had a [facility] centerhearing [facility] 10-29-2014 12:20-0400 BP Systolic 120 mm[Hg] Niecy Avery RN [facility] Work Phone: Comment on above: Patient Position: Sitting; Cuff Location : Left Arm; Cuff Size: Standard eye doc at [facility] and had a glaucoma centerhearing [facility] 10-29-2014 12:20-0400 BSA (Body Surface Area) 1.82 m2 Niecy Avery RN [facility] Work Phone: Comment on above: eye doc at [facility] and had a glaucoma centerhearing [facility] 10-29-2014 12:20-0400 Height 173.99 cm Niecy Avery RN [facility] Work Phone: Comment on above: eye doc at [facility] and had a glaucoma centerhearing [facility] 10-29-2014 12:20-0400 Pulse (Heart Rate) 70 /min Niecy Avery RN [facility] Work Phone: Comment on above: Pattern: Regular eye doc at [facility] and had a glaucoma centerhearing [facility] 10-29-2014 12:20-0400 Pulse Oximetry 98 % Rocío Chu [facility] Work Phone: Comment on above: Room air eye doc at [facility] and had a glaucoma centerhearing [facility] 10-29-2014 12:20-0400 Respiratory Rate 20 /min Niecy Avery RN [facility] Work Phone: Comment on above: Pattern: Unlabored eye doc at [facility] and had a glaucoma centerhearing [facility] 10-29-2014 12:20-0400 SaO2% (BldA) [Mass fraction] 98 % Niecy Avery RN [facility]; [facility] Work Phone: Comment on above: Room air eye doc at [facility] and had a glaucoma centerhearing [facility] 10-29-2014 12:20-0400 Weight 68.27 kg Rocío Chu [facility] Work Phone: Comment on above: eye doc at [facility] and had a glaucoma centerhearing [facility] 10-15-2014 14:11-0500 BMI (Body Mass Index) 22.83 [...] 10-03-2020 Subsequent hospital visit by physician [facility] Work Phone: Radiology Comment on above: [...] 06-10-2018 Office outpatient visit 15 minutes Rocío Cuh [facility] Start: 03-04-2018 End: 03-04-2018 Office outpatient visit 15 minutes Rocío Chu [facility] Start: 02-27-2018 Evaluation and management of inpatient Rocío Chu [facility] Start: 10-24-2015 End: 10-28-2015 Office outpatient visit 40 minutes Rocío Chu [facility] Start: 05-17-2015 End: 05-17-2015 Office outpatient visit 10 minutes Rocío Chu [facility] Start: 04-09-2015 End: 04-09-2015 Office outpatient visit 15 minutes Rocío Chu [facility] Start: 12-28-2014 End: 12-28-2014 Office outpatient visit 15 minutes Rocío Chu [facility] Start: 12-26-2014 End: 12-26-2014 Office outpatient visit 15 minutes Rocíoleann Chu [facility] Internal Medicine Start: 10-31-2014 End: 10-31-2014 Office outpatient visit 15 minutes Rocío Chu [facility] Internal Medicine Start: 10-29-2014 End: 10-29-2014 Initial preventive medicine new patient 40-64yrs Rocíoleann Lujanon [facility] Internal Medicine Start: 10-29-2014 End: 10-29-2014 Patient encounter procedure Rocío Chu DO Work Phone: [facility] Start: 10-15-2014 End: 10-15-2014 Office outpatient visit 10 minutes Rocíoleann Lujanon [facility] Start: 10-08-2014 End: 10-08-2014 Office outpatient visit 25 minutes Rocío Chu [facility] Internal Medicine Patient encounter procedure Margo Mendoza LPN [facility]; [facility] Work Phone: Procedures Date Procedure Procedure Detail Performing Clinician Start: 01-07-2022 End: 01-07-2022 Urgent Care Visit Report Procedure Note: See Note; NOTES: [facility] [address] [place] [address] OFFICE VISIT Date of Service: 01/07/22 MR#: [id number] Acct: [id number] Name: MARY KATE ABEL KULWINDER Rep #: [id number] : 1940 Provider: LAURA pisano Age/Sex: 81/F Location: [facility] Status: Signed Intake Vital Signs 01/07/22 15:57 [...] though no discomfort in hips appreciated. No qodz-mxx-gvpowfo products taken to assist. No complaints of [...] the above. This note was generated with [employer] dictation software. It may contain incorrect words, [...] 2-3 Views Procedure Note: See Note; NOTES: [facility] [address] [place] [address] HIP, UNI W/ Pelvis 2-3 Views MR#: [id number] Acct: [id number] Name: MARY KATE ABEL Rep #: [id number] : 1940 F 81 From: Rosalio Sierra MD PCP: Dr. Rocío Chu, Status: DEP AMB Study: HIP, UNI W/ Pelvis 2-3 Views Date of Exam: Exam# [id number] Ordering Dr: Kirill Seals STUDY: X-RAY - [...] CC: LAURA Seals; Dr. 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 Rocío Chu DO Status: DEP AMB Study: Knee 4 or More Views Date of Exam: 01/07/22 Exam# [id number] Ordering Dr: Kirill Seals STUDY: X-RAY - [...] CC: LAURA Seals; Dr. 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 [facility]. [address] [place] [address] / REHABILITATION SERVICES DISCHARGE SUMMARY MR#: [id number] Acct: [id number] Name: MARY KATE ABEL Rep #: [id number] : 1940 78 From: Crys Real Referring [...] decrease pain and using theraputty to increase rehab rn strength. Non-returing pt, d/c OT services At this point I will be discontinuing this patient from occupational therapy. I would be happy to see this patient again in the future if found appropriate by the physician. Thank you! Crys Real <Electronically signed by Crys Real > 08/11/18 7910 CC: Rocío Chu DO; Robin SANCHEZ SLV Signed Rocío Chu Start: 04-13-2018 End: 04-13-2018 OT General Evaluation Comments: See Note; NOTES: [facility] Occupational Therapy [facility] [address] [place] [address]. 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 Please let me know [...] Emergency Department Summary Comments: See Note; NOTES: [facility] Medical Records Department [address] [place] [address] Emergency Department Summary 02/25/18 1158 MR#: [id number] Acct: [id number] Name: MARY KATE ABEL Rep #: [id number] : 1940 77 From: Bruno Dial DO [...] radius fracture This note was generated with [employer] dictation software. It may contain incorrect words, spelling, and punctuation that were not noted in review of the chart prior to signing ED Disposition - Plan for ED Patient: [facility] Chief Complaint: Fall Diagnosis: Concussion with < 1 hr loss of consciousness, Fracture of distal end of right radius and ulna Referrals: Rocío Chu, [Primary Care Provider] - What to do if you have Problems For any increased pain, shortness of breath, bleeding, nausea or vomiting, chest pain, or any unexpected problems, contact your Primary Care Provider. Call [facility] ([phone]) or report to the closest Emergency Room. Call 911 if necessary. 02/25/18 1354 <Electronically signed by Bruno Dial DO> Date Bruno Dial DO Cosigner Signature (If Indicated): Date CC: Rocío Luis Start: 02-25-2018 End: 02-25-2018 Brain/Head without Contrast Comments: See Note; NOTES: [facility] Imaging Services [address] [place] [address] Brain/Head without Contrast MR#: [id number] Acct: [id number] Name: MARY KATE ABEL Rep #: [id number] : 1940 F 77 From: Matias Menard MD PCP: Rocío Chu DO Status: [facility] Study: Brain/Head without Contrast Date of Exam: 02/25/18 Exam# [id number] Ordering Dr: Bruno Dial DO STUDY: CT [...] CC: Bruno Dial DO; 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: Signed Rocío Chu Start: 02-25-2018 End: 02-25-2018 Wrist min 3 Views Comments: See Note; NOTES: [facility] Imaging Services [address] [place] [address] Wrist min 3 Views MR#: [id number] Acct: [id number] Name: MARY KATE ABEL Rep #: [id number] : 1940 F 77 From: Matias Menard MD PCP: Rocío Chu DO Status: [facility] Study: Wrist min 3 Views Date of Exam: 02/25/18 Exam# [id number] Ordering Dr: Bruno Dial DO STUDY: X-RAY [...] CC: Bruno Dial DO; 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: Signed Rocío Chu Start: 09-28-2017 End: 09-28-2017 Emergency Department Summary Comments: See Note; NOTES: [facility] Medical Records Department [address] [place] [address] Emergency Department Summary 09/27/17 2159 MR#: [id number] Acct: [id number] Name: MARY KATE ABEL Rep #: [id number] : 1940 77 From: Dayo Lopez DO [...] humerus fracture This note was generated with [employer] dictation software. It may contain incorrect words, [...] your Primary Care Provider. Call [facility] ([phone]) or report to the closest Emergency Room. Call 911 if necessary. 09/28/17 0134 <Electronically signed by Dayo Lopez DO> Date Dayo Lopez DO Cosigner Signature (If Indicated): Date CC: Rocío Luis Start: 09-27-2017 End: 09-27-2017 Extremity Upper without Contra Comments: See Note; NOTES: [facility] Imaging Services [address] [place] [address] Extremity Upper without Contra MR#: [id number] Acct: [id number] Name: MARY KATE ABEL Rep #: [id number] : 1940 F 77 From: Jermaine Dc MD PCP: Rocío Chu DO Status: REG ER Study: Extremity Upper without Contra Date of Exam: 09/27/17 Exam# [id number] Ordering Dr: Dayo Lopez DO STUDY: CT [...] CC: Dayo Lopez DO; 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: Signed Rocío Chu Start: 09-27-2017 End: 09-27-2017 Shoulder min 2 Views Comments: See Note; NOTES: [facility] Imaging Services [address] [place] [address] Shoulder min 2 Views MR#: [id number] Acct: [id number] Name: MARY KATE ABEL Rep #: [id number] : 1940 F 77 From: Yordan Lyn DO PCP: Rocío Chu DO Status: REG ER Study: Shoulder min 2 Views Date of Exam: 09/27/17 Exam# [id number] Ordering Dr: Dayo Lopez DO STUDY: X-RAY [...] CC: Dayo Lopez DO; 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: Signed Rocío Chu Start: 07-02-2017 End: 07-02-2017 12 lead ECG Comments: See Note; NOTES: [facility] Cardiovascular Services [address] [place] [address] 12 Lead EKG 06/29/17 0111 MR#: [id number] Acct: [id number] Name: MARY KATE ABEL Rep #: [id number] : 1940 77 From: Mukesh March MD [...] ECG Confirmed by INDIRA KEITH, MUKESH ([id number]), features editor SANDRA MANCILLA ([id number]) on 07/02/2017 12:58:48 PM Referred By: SAUD Confirmed By:MUKESH MARCH MD 07/02/17 1258 Date Mukesh March MD CC: Rocío Chu DO Signed Rocío Chu Start: 06-29-2017 End: 06-29-2017 Emergency Department Summary Comments: See Note; NOTES: [facility] Medical Records Department [address] [place] [address] Emergency Department Summary 06/29/17 0224 MR#: [id number] Acct: [id number] Name: ELVIAMARY KATE A Rep #: [id number] : 1940 77 From: Fuad Basurto MD [...] unknown etiology This note was generated with [employer] software. It may contain incorrect words, spelling, [...] your Primary Care Provider. Call [facility] ([phone]) or report to the closest Emergency Room. Call 911 if necessary. 06/29/17 0232 <Electronically signed by Fuad Basurto MD> Date Fuda Basurto MD Cosigner Signature (If Indicated): Date CC: Rocío Luis Start: 06-29-2017 End: 06-29-2017 Chest PA and Lateral Comments: See Note; NOTES: [facility] Imaging Services [address] [place] [address] Chest PA and Lateral MR#: [id number] Acct: [id number] Name: MARY KATE ABEL Rep #: [id number] : 1940 F 77 From: Matthew Connolly MD PCP: Rocío Chu DO Status: REG ER Study: Chest PA and Lateral Date of Exam: 06/29/17 Exam# [id number] Ordering Dr: Fuad Basurto MD STUDY: X-RAY [...] CC: Rocío Chu DO; Fuad Basurto MD Salt Plant Operator: Signed Rocío Chu Start: 11-21-2014 End: 11-22-2014 NCS and/or EMG Patient Comments: See Note; NOTES: [facility] Pulmonary Services/Neurology [address] [place] [address] NCS and/or EMG Patient MR#: [id number] Acct: [id number] Name: MARY KATE ABEL Rep #: [id number] : 1940 74 From: Alfredo Barry MD Referring Dr: Rocío Chu DO Status: REG CLI Ordering Dr: Rocío Chu DO Date: 11/20/14 Location: [facility] Sex: F C DATE OF SERVICE: November [...] Dictated: 11/20/14 1044 Date Transcribed: 11/20/14 1209 Salt Plant Operator: HUERTA Signed Rocío Chu Work Phone: Start: 11-15-2014 End: 11-15-2014 Bilat Scrn Digital AND CAD Comments: See Note; NOTES: [facility] Imaging Services [address] [place] [address] Breast Imaging Report MR#: [id number] Acct: [id number] Name: MARY KATE ABEL Rep #: [id number] : 1940 F 74 From: Magdy Quigley MD PCP: Rocío Chu DO Status: REG CLI Study: Bilat Scrn Digital AND CAD Date of Exam: 11/15/14 Exam# [id number] Ordering Dr: Rocío Chu DO MAMMOGRAPHY - [...] Magdy Quigley MD at 14:44 EDT Tel [phone], Service support [phone], CC: 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: Signed Rocío Chu Work Phone: Start: 11-14-2014 End: 11-14-2014 PT Discharge Summary Comments: See Note; NOTES: [facility] Physical Therapy [facility] [address] [place] [address]. [address] [place] [address] Fax REHABILITATION SERVICES DISCHARGE SUMMARY MR#: [id number] Acct: [id number] Name: MARY KATE ABEL Rep #: [id number] : 1940 74 From: Mara Mack Referring [...] time. Mara Mack, PT T: NTS JOB: [id number] <Electronically signed by Mara Mack > 11/14/14 0953 CC: Signed Rocío Chu Start: 10-17-2014 End: 10-17-2014 Inital Evaluation - PT Comments: See Note; NOTES: [facility] Physical Therapy [facility] [address] [place] [address]. [address] [place] [address] Fax REHABILITATION SERVICES INITIAL EVALUATION MR#: [id number] Acct: [id number] Name: MARY KATE ABEL Rep #: [id number] : 1940 74 From: Mara Mack Referring : Rocío Chu DO Status: DIS RCR Insurance: [employer] MEDICARE PPO Eval Date: DATE OF SERVICE: 10/11/2014 SUBJECTIVE: This patient was referred to physical therapy with diagnoses of low back pain and lower extremity weakness. She presents with a chief complaint of bilateral lower extremity weakness. She states, my legs feel very weak. She states that she told Dr. Chu that she wanted to do a [employer] membership and Dr. Chu recommended physical therapy [...] lower extremity weakness. Oswestry equals 22 percent, [id number], A9266-WN. GOALS: 1. Decrease complaint of low back [...] care. Mara Mack, PT T: NTS JOB: [id number] <Electronically signed by Mara Mack > 10/17/14 [...] Vaccine ( season) Covid-19 Vaccine ( season) [facility] Start: 04-16-2024 Influenza vaccination Influenza Vaccine (#1) [facility] Start: 08-16-2023 Advance Directive Discussion Advance Directive Discussion [facility] Start: 10-26-2022 Patient Education Neck Pain [facility]; [facility] Work Phone: Start: 10-26-2022 Procedure Education Eprescribed prescriptions (G8553) [facility]; [facility] Work Phone: Start: 10-26-2022 Provider Instructions for Treatment Follow up if no improvement or if symptoms worsen [facility]; [facility] Work Phone: Start: 02-28-2021 Diabetes Screening Diabetes Screening [facility] Start: 08-21-2020 Procedure Education Eprescribed prescriptions (G8553) [facility]; [facility] Work Phone: Start: 08-21-2020 Iaadiadoo influenza 2019 Novel Coronavirus (COVID-19), SHEYLA (27769) [facility]; [facility] Work [...] Vaccine: 65+ (2 of 2 - PCV) [facility] Start: 01-04-2019 Provider Instructions for Treatment Follow [...] electrophoretic fractj&quantj serum Serum Protein Electrophoresis (SPEP) (48243) [facility]; [facility] Work Phone: Start: 10-08-2014 Protein mass conc Serum Protein Electrophoresis (SPEP) (77430) [facility] Work Phone: Start: 2014 RSV Vaccine (1 - 1-dose 75+ series) RSV Vaccine (1 - 1-dose 75+ series) [facility] Start: 2004 Screening for osteoporosis Bone Density Screening [facility] Start: 1989 Shingrix Vaccine (1 of 2) Shingrix Vaccine (1 of 2) [facility] Start: 1958 Urine microalbumin profile DTaP,Tdap,Td Vaccine (1 - Tdap) [facility] Start: 1957 Anxiety Screening Anxiety Screening [facility] Start: 1957 Depression Screening Depression Screening [facility] Work Phone: Comprehensive [...] 06-14-2020 influenza, seasonal, injectable Rocío Lujanon [facility] Work Phone: 06-14-2020 influenza virus vaccine, unspecified formulation Xr Dorothy Work Phone: [facility] Payers Date Payer Category Payer Self-pay 2019 Medicare [employer] MEDICARE HU[employer] MEDICARE PPO [id number] 2019-Present [phone] [address] [address] [place] [address] PPO [id number] 2018 Medicare [id number] 1940 Unknown [id number] Private Health Insurance Unknown Hum//Medicare Adv Plan Unknown [id number] Unknown [id number] Unknown [id number] Social History Date Type Detail Facility [...] Phone: Start: 10-03-2020 Tobacco smoking stat us AZIS Never smoked tobacco [facility] Start: 10-03-2020 Tobacco use and exposure Smokeless tobacco non-user [facility] Start: 10-03-2020 Alcoholic beverage intake Current non-drinker of alcohol (finding) [facility] Start: 10-03-2020 Tobacco use panel [facility] National Score (1-100), lower number is lower risk Not on file [facility] Start: 1940 Sex assigned at Not on file [facility] Start: 09-03-2020 End: 10-03-2020 Exposure to SARS-CoV-2 (event) Not sure [facility] Progress note 10-03-2020 Note Date & Type Note Facility 10-03-2020 Note HNO ID: [id number] Author: Fermin Cardoso (Tech) Service: ? 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 Author Type: [...] - CONSULT TO ORTHOPAEDICS Matt Felix MD [facility] History of Present illness Narrative 10-03-2020 Mara [...] 2020 4:07 PM documented in this encounter [facility] Evaluation note Note Date & Type Note Facility Evaluation note Diagnosis Acute pain of left shoulder documented in this encounter [facility] Instructions Note Date & Type Note Facility Instructions Name Patient Instructions Indication:Back pain Start: 3 Instruction Type:Provider Instructions for Treatment How to Access Health Information Online using Patient Portal and 3rd [employer] Apps Indication:Back pain Start: 3 Instruction Type:Patient Education How to Access Health Information Online using Patient Portal and 3rd [employer] Apps Indication:Non-smoker Start:21-Aug-2020 Instruction Type:Patient Education Patient [...] Records Found Name Dates Details Immunization Registry [place] - Effective on 03/04/2018. Expiration date unspecified Effective:04-Mar-2018 Name Dates Details Immunization Registry [place] - Effective on 03/04/2018. Expiration date unspecified Effective:04-Mar-2018 Name Dates Details Immunization Registry [place] - Effective on 03/04/2018. Expiration date unspecified Effective:04-Mar-2018 Name Dates Details Immunization Registry [place] - Effective on 03/04/2018. Expiration date unspecified Effective:04-Mar-2018 Name Dates Details Immunization Registry [place] - Effective on 03/04/2018. Expiration date unspecified Effective:04-Mar-2018 Name Dates Details Immunization Registry [place] - Effective on 03/04/2018. Expiration date unspecified Effective:04-Mar-2018 Name Dates Details Immunization Registry [place] - Effective on 03/04/2018. Expiration date unspecified Effective:04-Mar-2018 Name Dates Details Immunization Registry [place] - Effective on 03/04/2018. Expiration date unspecified [...] Informa tion Online using Patient Portal and [employer] Apps Indication:Non-smoker Start:21-Aug-2020 Instruction Type:Patient Education Patient [...] Informa tion Online using Patient Portal and [employer] Apps Indication:Non-smoker Start:21-Aug-2020 Instruction Type:Patient Education Patient [...] section and content) DATE CREATED AUTHOR 03/10/2018 [employer] [facility] DATE CREATED AUTHOR AUTHOR'S ORGANIZ ATION 09/10/2021 [facility] DATE CREATED AUTHOR AUTHOR'S ORGANIZ ATION 10/26/2022 [facility] DATE CREATED AUTHOR AUTHOR'S ORGANIZ ATION 06/15/2024 [facility] Source Comments (unrecognize d section and content) In the event this informatio n is protected by the Federal Confidentiality of Alcohol and Drug Abuse Patient Records regulations: The Federal rules restrict any use of the information to criminally investigate or prosecute any alcohol or drug abuse patient.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 [employer] provides no warranty or guarantee of the accuracy or completeness of information in this document.
[2025-02-18 08:07] VITALS: BP 127/62; PULSE 65; RESP 16; O2SAT 94
[2025-02-18 08:30] VITALS: BP 145/72; PULSE 66; RESP 16; TEMP 36.7; O2SAT 96
== END 2025-02-18 08:35 | disposition home or self-care (01) ==
PROVIDERS: Emergency Provider Surgery; PCP Internal Medicine; Visit Provider Surgery
DX: M62.830 Muscle spasm of back (principal); Z87.891 Personal history of nicotine dependence
CPT/HCPCS: 96372; 99282

== ENCOUNTER 2025-02-18 22:57 | Emergency (ER) | payer MEDICARE, SELFPAY ==
[2025-02-18 22:57] VITALS: PULSE 107; RESP 18; TEMP 36.7; O2SAT 99; BMI 23.8
[2025-02-18 23:04] VITALS: BP 176/94
[2025-02-19 00:53] VITALS: BP 140/78; PULSE 71; RESP 16; TEMP 36.6; O2SAT 100
== END 2025-02-19 00:54 | disposition home or self-care (01) ==
PROVIDERS: Emergency Provider Emergency Medicine; PCP Internal Medicine; Visit Provider Emergency Medicine
DX: M80.08XA Age-related osteoporosis with current pathological fracture, vertebra(e), initial encounter for fracture (principal); M48.061 Spinal stenosis, lumbar region without neurogenic claudication; Z87.891 Personal history of nicotine dependence
CPT/HCPCS: 72131; 96372; 99284

== ENCOUNTER 2025-02-22 00:55 | Emergency (ER) | payer MEDICARE, SELFPAY ==
[2025-02-22 00:56] VITALS: BP 129/104; PULSE 78; RESP 18; TEMP 36.6; O2SAT 99; BMI 23.6
--- NOTE | 2025-02-22 01:36 | EX.ED.DYSGE1 ---
HPI History of Present Illness Chief Complaint: Back Informant: patient Narrative Narrative: Patient is 84-year-old female with history of chronic low back pain. She was seen recently secondary to this and had a CT scan performed which revealed a fracture. She was placed on pain medication and discharged home. Patient states she was doing well but has run out of her medication. Since that time there is been increased pain. She denies any repeat trauma. She denies fevers or chills diarrhea or dysuria. She states that there has been no recent injections or surgical procedures and she denies any loss of bowel or bladder control. She also denies any IV drug use. She states that because of the persistent pain she presents for reevaluation [facility] Medical History Fracture of right tibial plateau Home Medications ?Medication ?Instructions ?Recorded ?Last Taken ?Type Calcium 1 tab PO DAILY 09/27/17 03/19/24 History One Daily Womens 50 Plus Tab 1 tab PO DAILY 09/27/17 03/19/24 History Vitamin B Complex 1 tab PO DAILY 09/27/17 03/19/24 History Vitamin C 1 tab PO DAILY 09/27/17 03/19/24 History Vitamin D 1 tab PO DAILY 09/27/17 03/19/24 History Vitamin E 1 tab PO DAILY 09/27/17 03/19/24 History cyclobenzaprine 5 mg tablet 5 mg PO TID PRN muscle spasm 3 02/18/25 Unknown Rx days #9 tabs gabapentin 300 mg capsule 300 mg PO TID 14 days #42 caps 02/19/25 Unknown Rx hydrocodone-acetaminophen 5-325mg 1 tab PO Q6H PRN PRN Pain 3 days 02/19/25 Unknown Rx 5mg-325mg #12 TABLETS Allergy/AdvReac Type Severity Reaction Status Date / Time iodine Allergy Hives Verified 02/22/25 00:56 aspirin AdvReac Upset Verified 02/22/25 00:56 Stomach Surgical History Hx of appendectomy Social History (Updated 02/22/25 @ 00:58 by Vonda Tavera) housing: house Smoking Status: Former smoker ROS ROS ED Constitutional Constitutional ED: Denies chills or fever(s) Eyes Eyes: Denies change in vision ENT ENT ED: Denies sore throat Cardiovascular Cardiovascular: Denies chest pain Respiratory/Chest Respiratory/Chest: Denies cough or dyspnea Gastrointestinal Gastrointestinal: Denies abdominal pain, diarrhea, nausea or vomiting Genitourinary Genitourinary ED: Denies dysuria or hematuria Musculoskeletal Musculoskeletal: Reports back pain Integumentary Denies rash Neurologic Neurologic: Denies headache(s) or paresthesias Hematologic/Lymphatic Hematologic/Lymphatic: Denies easy bleeding or easy bruising EXAM Physical Exam Const Vital Signs: 02/22/25 00:56 Temperature 98 F Temperature Source Oral Pulse Rate 78 Respiratory Rate 18 Blood Pressure 129/104 H Blood Pressure Mean 112 Pulse Ox 99 Oxygen Delivery Method Room Air Positive well nourished and well developed General Appearance ED: well developed; Negative for pallor HEENT HEENT Narrative: Normocephalic atraumatic Eyes PERRL and EOMs intact bilaterally General Eye ED: Negative for scleral icterus Neck supple Resp normal respiratory effort and clear to auscultation bilaterally Cardio regular rate and regular rhythm Rate: other Other Details: Radial and carotid pulses are equal and symmetric GI non-tender, non-distended and no masses GI Narrative: Soft nontender nondistended with hypoactive bowel sounds no voluntary guarding or rigidity or pulsatile mass Auscultation: hypoactive bowel sounds Palpation: soft Back/Spine no CVA tenderness Back/Spine Narrative: No bony deformity or step-off of the thoracic or lumbar spine There is mild midline tenderness to palpation No saddle anesthesia. Negative straight leg raise. No clonus or Babinski. Patellar reflexes are plus 1 out of 4 bilaterally. No overlying soft tissue changes to suggest trauma or infection Extremity normal to inspection Neuro oriented x3, CN's II-XII intact bilaterally and no sensory deficits noted Sensorium / Orientation: alert Motor Exam: strength 5/5 throughout Psych mental status grossly normal Skin no rashes or lesions noted and no wounds General Skin Exam: Negative for jaundice or pallor MDM MDM MDM Narrative Medical decision making narrative: Patient arrived to the ER with stable vitals. She was recently seen and has a known compression fracture as well as history of chronic back pain. She denied any repeat trauma she denied any loss of bowel or bladder control or IV drug use going against a worsening fracture or cauda equina or epidural abscess. The patient states that she is able to ambulate is just that she has pain with doing so. She states she does not want placed in rehab or retirement. I informed the patient that as she is just been worked up and there is no signs of trauma or secondary infection that there is no need for further testing or repeat testing. I also informed her that the ER is not the place to manage chronic pain. Therefore I would not provide her any further medications or home at this time and she will need to follow-up with pain management or family doctor to discuss this. I did offer potential admission secondary to her chronic back pain with PT OT evaluation and potential placement in retirement or rehab. The patient is adamant she is able to ambulate and take care of herself as just that is painful to do so and therefore she does not want any further intervention as well and simply wishes to be discharged home. History & Record Review Discussion w/independent historian: Patient Discharge Plan Triage Chief Complaint: Back ED Provider: Ridge Fierro Dx/Rx/DC Orders Clinical Impression: Acute exacerbation of chronic low back pain, Spinal stenosis Instructions: What Is Spinal Stenosis?, ED Back Pain (Acute or Chronic) Prescriptions: No Action Calcium 1 tab PO DAILY One Daily Womens 50 Plus Tab 1 tab PO DAILY Vitamin B Complex 1 tab PO DAILY Vitamin C 1 tab PO DAILY Vitamin D 1 tab PO DAILY Vitamin E 1 tab PO DAILY cyclobenzaprine 5 mg tablet 5 mg PO TID PRN (Reason: muscle spasm) 3 Days Qty: 9 0RF gabapentin 300 mg capsule 300 mg PO TID 14 Days Qty: 42 0RF hydrocodone-acetaminophen 5-325 mg tablet 1 tab PO Q6H PRN PRN (Reason: Pain) 3 Days Qty: 12 0RF Primary Care Provider: Rocío Chu Referrals: Rocío Chu DO [Primary Care Provider] - Activity Restrictions/Additional Instructions: Based on your L2 fracture and spinal stenosis you are going to have recurrent/daily back pain. You will need to follow-up with your family doctor or seek referral to pain management to continue pain medication. The ER cannot continue to provide medication for a chronic issue. Print Language: [place] Disposition Disposition: Home, Self Care Discharge Date/Time: 02/22/25 07:30
[2025-02-22 01:37] VITALS: BP 154/70; PULSE 63; RESP 16; TEMP 36.6; O2SAT 96
== END 2025-02-22 07:30 | disposition home or self-care (01) ==
PROVIDERS: Emergency Provider Emergency Medicine; PCP Internal Medicine; Visit Provider Emergency Medicine
DX: M48.00 Spinal stenosis, site unspecified (principal); G89.29 Other chronic pain; Z87.891 Personal history of nicotine dependence
CPT/HCPCS: 99284